=== PATIENT | female | born 1965 | race Hispanic/Latino ===

== ENCOUNTER 2019-04-16 10:13 | Emergency (ER) | payer OTHER, SELFPAY ==
[2019-04-16] MEDS ORDERED: METHYLPREDNISOLONE 125 MG INJ ONE (12:45)
[2019-04-16] MEDS ORDERED: DIPHENHYDRAMINE 50 MG/ML VIAL ONE (12:45)
[2019-04-16 12:49] LABS: Absolute Lymphocytes (CBC) 1.3 K/uL (0.7-4.9); Hematocrit 29.3 % (36.0-45.0); MPV 7.6 fL (7.6-11.3); RBC Red Blood Cell Count 3.39 M/uL (3.86-4.86)
[2019-04-16 13:06] LABS: Potassium 4.9 mmol/L (3.5-5.1)
--- NOTE | 2019-04-16 14:54 | ER ---
Nurse's Notes [facility] Name: Barbara Ibarra Age: 53 yrs Sex: Female : 1965 Arrival Date: 04/16/2019 Time: 10:16 Bed 25 Private MD: Diagnosis: Acute allergic reaction Presentation: 04/15 11:01 Chief complaint: Patient states: Sore throat x 3 days. Diarrhea since a week ago. ca1 Denies N/V, cough and congestion. Swelling on on face and around eyes on and off since Sunday, worst today. Coronavirus screen: The patient has NOT traveled to a country currently being monitored by the [facility] within the last 14 days. The patient has NOT had contact with any known and/or suspected case of coronavirus. Ebola Screen: Patient negative for fever greater than or equal to 101.5 degrees Fahrenheit, and additional compatible Ebola Virus Disease symptoms Patient denies exposure to infectious person. Patient denies travel to an Ebola-affected area in the 21 days before illness onset. No symptoms or risks identified at this time. Initial Sepsis Screen: Does the patient meet any 2 criteria? No. Patient's initial sepsis screen is negative. Does the patient have a suspected source of infection? No. Patient's initial sepsis screen is negative. Risk Assessment: Do you want to hurt yourself or someone else? Patient reports no desire to harm self or others. Onset of symptoms was April 16, 2019. 11:01 Method Of Arrival: Wheelchair ca1 11:01 Acuity: AZUCENA 3 ca1 Triage Assessment: 11:08 General: Appears in no apparent distress. comfortable, Behavior is calm, cooperative, ca1 appropriate for age. EENT: Eyes swollen. Throat is clear. 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 LMP N/A - Post-menopause ca1 Historical: - Allergies: 11:08 No Known Allergies; ca1 - Home Meds: 11: Unithroid 50 mcg oral tab 1 tab once daily [Active]; levothyroxine oral once daily ca1 [Active]; amlodipine 10 mg tab 1 tab once daily [Active]; Humetanide 1mg twice a day [Active]; carvedilol 25 mg oral tab 1 tab 2 times per day [Active]; hydralazine 25 mg Oral tab 1 tab three times a day [Active]; atorvastatin 80 mg oral tab 1 tab once daily [Active]; calcium acetate oral oral 3 times per day [Active]; Lantus 100 unit/mL Sub-Q soln 20 unit [Active]; Humalog Pen Sub-Q 10 unit [Active]; - PMHx: 11:08 Diabetes - NIDDM; Hypertension; Thyroid problem; Anemia; Diabetes - IDDM; ca1 Hyperlipidemia; - PSHx: 11:08 None; ca1 - Immunization history:: Adult Immunizations up to date, Flu vaccine is up to date. - Social history:: Smoking status: Patient denies any tobacco usage or history of. Screenin:48 Abuse screen: Denies threats or abuse. Denies injuries from another. Nutritional iw screening: No deficits noted. Tuberculosis screening: No symptoms or risk factors identified. Fall Risk IV access (20 points). Assessment: 12:47 General: Appears in no apparent distress. Behavior is calm, cooperative. General: iw Denies fever, chills. Pain: Denies pain. Neuro: Level of Consciousness is awake, alert, obeys commands, Oriented to person, place, time, situation, Moves all extremities. Full function. Cardiovascular: Patient's skin is warm and dry. Respiratory: Reports cough that is Airway is patent Respiratory effort is even, unlabored, Breath sounds are clear bilaterally. GI: Reports diarrhea. Derm: Skin is healthy with good turgor, swelling noted to pamela eyes. Musculoskeletal: Range of motion: intact in all extremities. Vital Signs: 11:01 BP 155 / 76; Pulse 82; Resp 16 S; Temp 97.1(O); Pulse Ox 98% on R/A; Weight 64.86 kg ca1 (R); Height 4 ft. 10 in. (147.32 cm) (R); 12:49 BP 157 / 86; Pulse 81; Resp 16; Pulse Ox 96% on R/A; Pain 0/10; iw 13:48 BP 127 / 98; Pulse 82; Resp 16; Pulse Ox 95% on R/A; iw 11:01 Body Mass Index 29.89 (64.86 kg, 147.32 cm) ca1 ED Course: 10:16 Patient arrived in ED. mr 11:04 Triage completed. ca1 11:08 Arm band placed on right wrist. ca1 12:08 Stevenson Crockett MD is Attending Physician. kdr 12:15 Boris, Mela, RN is Primary Nurse. iw 12:48 Patient has correct armband on for positive identification. iw 12:48 Initial lab(s) drawn, by me, sent to lab. Inserted saline lock: 20 gauge in left iw antecubital area, using aseptic technique. Blood collected. 15:00 No provider procedures requiring assistance completed. IV discontinued, intact, iw bleeding controlled, No redness/swelling at site. Pressure dressing applied. Administered Medications: 12:46 Drug: SOLU-Medrol 125 mg Route: IVP; Site: left antecubital; iw 12:46 Drug: Benadryl 12.5 mg Route: IVP; Site: left antecubital; iw Outcome: 14:53 Discharge ordered by . kdr 15:00 Discharged to home ambulatory, with family. iw 15:00 Condition: good 15:00 Discharge instructions given to patient, family, Instructed on discharge instructions, follow up and referral plans. medication usage, Demonstrated understanding of instructions, follow-up care, medications, Prescriptions given X 2. 15:01 Patient left the ED. iw Signatures: Stevenson Crockett MD MD kdr Rivera, Mary mr Williams, Irene, RN RN iw Azeb Nails RN RN ca1
--- NOTE | 2019-04-16 14:54 | EDPHYS ---
Physician Documentation [facility] Name: Barbara Ibarra Age: 53 yrs Sex: Female : 1965 Arrival Date: 04/16/2019 Time: 10:16 Bed 25 Private MD: ED Physician Stevenson Crockett HPI: 04/16 07:22 This 53 yrs old Female presents to ER via Wheelchair with complaints of Sore kdr Throat, Eye Problem. 07:22 The patient has multiple c/o including swollen eyes since Sunday, Diarrhea for about a kdr week and sore throat for three days. Other than the periorbital eye lid swelling the patient did not appear to be in any acute distress. Severity of symptoms: At their worst the symptoms were mild in the emergency department the symptoms are unchanged. The patient has not experienced similar symptoms in the past. The patient has not recently seen a physician. Denies any known precipitant for the swelling. 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 LMP N/A - Post-menopause ca1 Historical: - Allergies: 11:08 No Known Allergies; ca1 - Home Meds: 11:08 Unithroid 50 mcg oral tab 1 tab once daily [Active]; levothyroxine oral once daily ca1 [Active]; amlodipine 10 mg tab 1 tab once daily [Active]; Humetanide 1mg twice a day [Active]; carvedilol 25 mg oral tab 1 tab 2 times per day [Active]; hydralazine 25 mg Oral tab 1 tab three times a day [Active]; atorvastatin 80 mg oral tab 1 tab once daily [Active]; calcium acetate oral oral 3 times per day [Active]; Lantus 100 unit/mL Sub-Q soln 20 unit [Active]; Humalog Pen Sub-Q 10 unit [Active]; - PMHx: 11:08 Diabetes - NIDDM; Hypertension; Thyroid problem; Anemia; Diabetes - IDDM; ca1 Hyperlipidemia; - PSHx: 11:08 None; ca1 - Immunization history:: Adult Immunizations up to date, Flu vaccine is up to date. - Social history:: Smoking status: Patient denies any tobacco usage or history of. ROS: 04/16 07:22 Constitutional: Negative for fever, chills, and weight loss, Neck: Negative for injury, kdr pain, and swelling, Cardiovascular: Negative for chest pain, palpitations, and edema, Respiratory: Negative for shortness of breath, cough, wheezing, and pleuritic chest pain, Back: Negative for injury and pain, : Negative for injury, bleeding, discharge, and swelling, MS/Extremity: Negative for injury and deformity, Skin: Negative for injury, rash, and discoloration, Neuro: Negative for headache, weakness, numbness, tingling, and seizure activity. Psych: Negative for depression, anxiety, suicide ideation, homicidal ideation, and hallucinations, Allergy/Immunology: Negative for hives, rash, and allergies, Endocrine: Negative for neck swelling, polydipsia, polyuria, polyphagia, and marked weight changes, Hematologic/Lymphatic: Negative for swollen nodes, abnormal bleeding, and unusual bruising. Eyes: Positive for swelling, Negative for blurry vision, discharge, foreign body sensation, icterus, injury or acute deformity, itching, matting, pain, photophobia, redness, tearing, vision loss, visual disturbance. ENT: Positive for sore throat, Negative for injury or acute deformity. Respiratory: Positive for cough, with no reported sputum, Negative for dyspnea on exertion, hemoptysis, orthopnea, pleurisy, shortness of breath, sputum production, wheezing. Abdomen/GI: Positive for diarrhea. Exam: 07:22 Constitutional: This is a well developed, well nourished patient who is awake, alert, kdr and in no acute distress. Head/Face: Normocephalic, atraumatic. ENT: Nares patent. No nasal discharge, no septal abnormalities noted. Tympanic membranes are normal and external auditory canals are clear. Oropharynx with no redness, swelling, or masses, exudates, or evidence of obstruction, uvula midline. Mucous membranes moist. Neck: Trachea midline, no thyromegaly or masses palpated, and no cervical lymphadenopathy. Supple, full range of motion without nuchal rigidity, or vertebral point tenderness. No Meningismus. Chest/axilla: Normal chest wall appearance and motion. Nontender with no deformity. No lesions are appreciated. Cardiovascular: Regular rate and rhythm with a normal S1 and S2. No gallops, murmurs, or rubs. Normal PMI, no JVD. No pulse deficits. Respiratory: Lungs have equal breath sounds bilaterally, clear to auscultation and percussion. No rales, rhonchi or wheezes noted. No increased work of breathing, no retractions or nasal flaring. Abdomen/GI: Soft, non-tender, with normal bowel sounds. No distension or tympany. No guarding or rebound. No evidence of tenderness throughout. Back: No spinal tenderness. No costovertebral tenderness. Full range of motion. Skin: Warm, dry with normal turgor. Normal color with no rashes, no lesions, and no evidence of cellulitis. MS/ Extremity: Pulses equal, no cyanosis. Neurovascular intact. Full, normal range of motion. Neuro: Awake and alert, GCS 15, oriented to person, place, time, and situation. Cranial nerves II-XII grossly intact. Motor strength 5/5 in all extremities. Sensory grossly intact. Cerebellar exam normal. Normal gait. Psych: Awake, alert, with orientation to person, place and time. Behavior, mood, and affect are within normal limits. 07:22 Eyes: Lids and lashes: erythema, seen bilaterally, Swelling of both upper and lower eye lids. Vital Signs: 04/15 11:01 BP 155 / 76; Pulse 82; Resp 16 S; Temp 97.1(O); Pulse Ox 98% on R/A; Weight 64.86 kg ca1 (R); Height 4 ft. 10 in. (147.32 cm) (R); 12:49 BP 157 / 86; Pulse 81; Resp 16; Pulse Ox 96% on R/A; Pain 0/10; iw 13:48 BP 127 / 98; Pulse 82; Resp 16; Pulse Ox 95% on R/A; iw 11:01 Body Mass Index 29.89 (64.86 kg, 147.32 cm) ca1 MDM: 14:53 Patient medically screened. kdr 04/16 07:22 Data reviewed: vital signs, nurses notes, lab test result(s). Counseling: I had a kdr detailed discussion with the patient and/or guardian regarding: the historical points, exam findings, and any diagnostic results supporting the discharge/admit diagnosis, lab results, the need for outpatient follow up. 04/15 11:25 Order name: Flu; Complete Time: 14:02 kb 04/15 11:25 Order name: Strep; Complete Time: 14:02 kb 04/15 12:31 Order name: CBC with Diff; Complete Time: 13:22 kdr 04/15 12:31 Order name: Chem 7; Complete Time: 13:22 kdr 04/15 14:19 Order name: Throat Culture EDMS Administered Medications: 04/15 12:46 Drug: SOLU-Medrol 125 mg Route: IVP; Site: left antecubital; 12:46 Drug: Benadryl 12.5 mg Route: IVP; Site: left antecubital; Disposition: 04/16/19 14:53 Discharged to Home. Impression: Acute allergic reaction. - Condition is Stable. - Discharge Instructions: Allergic Conjunctivitis, [id number]-Tari, Chronic Kidney Disease, Adult, [id number]. - Prescriptions for Benadryl 25 mg Oral Capsule - take 1 capsule by ORAL route every 6 hours As needed; 30 tablet. Medrol (Ajith) 4 mg Oral Tablets, Dose Pack - take 1 tablet by ORAL route as directed - follow package instructions; 1 packet. - Medication Reconciliation Form, Thank You Letter form. - Follow up: Private Physician; When: 2 - 3 days; Reason: If symptoms return, Further diagnostic work-up, Recheck today's complaints, Continuance of care, Re-evaluation by your physician. - Problem is new. - Symptoms have improved. Signatures: Dispatcher [employer] EDWI Stevenson Crockett MD MD kdr Mela Escalante RN RN iw Acob, Cheryl, RN RN ca1 Corrections: (The following items were deleted from the chart) 15:01 14:53 04/16/2019 14:53 Discharged to Home. Impression: Acute allergic reaction. iw Condition is Stable. Forms are Medication Reconciliation Form, Thank You Letter, Antibiotic Education, Prescription Opioid Use. Follow up: Private Physician; When: 2 - 3 days; Reason: If symptoms return, Further diagnostic work-up, Recheck today's complaints, Continuance of care, Re-evaluation by your physician. Problem is new. Symptoms have improved. kdr
[2019-04-16 15:21] VITALS: TEMP 97.1
[2019-04-16 15:25] VITALS: BP 127/98; O2SAT 95
== END 2019-04-16 15:01 | disposition home or self-care (01) ==
LOC: ER 10:13
DX: J02.9 Acute pharyngitis, unspecified (principal); T78.40XA Allergy, unspecified, initial encounter; X58.XXXA Exposure to other specified factors, initial encounter; E11.9 Type 2 diabetes mellitus without complications; I10 Essential (primary) hypertension; E78.5 Hyperlipidemia, unspecified
CPT/HCPCS: 36415; 80048; 85025; 87070; 87081; 87804; 96374; 96375; 99284; J1200; J2930

== ENCOUNTER 2019-04-18 09:42 | Inpatient (IN) | payer OTHER, SELFPAY ==
[2019-04-18] MEDS ORDERED: LEVALBUTEROL 1.25 MG/3 ML NEB ONE (10:22)
[2019-04-18] MEDS ORDERED: METHYLPREDNISOLONE 40 MG INJ ONE (10:56)
[2019-04-18 11:04] LABS: Absolute Lymphocytes (CBC) 1.4 K/uL (0.7-4.9); Basophils % 0.6 % (0-1.3); Hematocrit 33.3 % (36.0-45.0); Lymphocytes % 6.8 % (15.3-44.8); MPV 7.4 fL (7.6-11.3); RBC Red Blood Cell Count 3.79 M/uL (3.86-4.86)
[2019-04-18 11:08] LABS: Protime INR 1.04
[2019-04-18 11:15] LABS: Albumin 2.7 g/dL (3.4-5.0); Bilirubin Direct 0.1 mg/dL (0-0.2); Bilirubin Total 0.4 mg/dL (0.2-1.0); Protein, Total 7.8 g/dL (6.4-8.2); Troponin (Emerg Dept Use Only) 0.02 ng/mL (0.0-0.045)
[2019-04-18 11:17] LABS: Magnesium 1.3 mg/dL (1.8-2.4)
[2019-04-18] MEDS ORDERED: IPRATROPIUM BROM 0.5MG/2.5ML ONE (11:53)
[2019-04-18] MEDS ORDERED: Magnesium Sulfate 2gm IVPB 2 G/50 ML BAG IV ONE (11:54)
[2019-04-18] MEDS ORDERED: ALBUTEROL 2.5 MG/3 ML NEB SOL ONE (11:54)
--- NOTE | 2019-04-18 12:17 | RAD REPORT ---
EXAM DESCRIPTION: Miguel Single View04/18/2019 12:08 pm CLINICAL HISTORY: Cough COMPARISON: none FINDINGS: Right upper lobe consolidation Left lung appears clear Heart is upper limits normal size IMPRESSION: Right upper lobe consolidation consist pneumonia. This should be followed until it has cleared to help exclude a post obstructive process/underlying mass
[2019-04-18 12:24] LABS: Blood Morphology Comment NOT SEEN (NOT SEEN); Platelet Estimate ADEQ
--- NOTE | 2019-04-18 13:05 | RAD REPORT ---
EXAM DESCRIPTION: USExtrem Venous W Compress Bil04/18/2019 12:58 pm CLINICAL HISTORY: Leg pain COMPARISON: none FINDINGS: The common femoral, superficial femoral, popliteal and posterior tibial veins bilaterally are compressible and demonstrate augmentation. Doppler demonstrates good flow. IMPRESSION: No evidence of deep venous thrombosis involving either lower extremity.
--- NOTE | 2019-04-18 13:17 | ER ---
Nurse's Notes [facility] Name: Barbara Ibarra Age: 53 yrs Sex: Female : 1965 Arrival Date: 04/18/2019 Time: 09:45 Bed 19 Private MD: Diagnosis: Pneumonia due to other specified bacteria;Respiratory failure, unspecified with hypoxia Presentation: 04/17 10:10 Chief complaint: Patient states: Cough, shortness of breath and chest pain since last aj1 night. Denies fever. Patient's eye are swollen bilaterally, states that have been like that "for a while" she was seen here for that on Sunday and prescribed allergy medicine, but it isn't helping. Coronavirus screen: The patient has NOT traveled to a country currently being monitored by the [facility] within the last 14 days. Ebola Screen: Patient denies travel to an Ebola-affected area in the 21 days before illness onset. Initial Sepsis Screen: Does the patient meet any 2 criteria? RR > 20 per min. HR > 90 bpm. Yes Does the patient have a suspected source of infection? Yes: Productive cough/pneumonia If YES to both, name of provider notified: Mahad DE ANDA. Risk Assessment: Do you want to hurt yourself or someone else?. 10:10 Method Of Arrival: Wheelchair aj1 10:10 Acuity: AZUCENA 2 aj1 Triage Assessment: 10:14 General: Appears uncomfortable, Behavior is calm, cooperative, appropriate for age. aj1 Pain: Complains of pain in anterior aspect of right upper chest. Respiratory: Reports shortness of breath at rest cough that is productive, Onset: The symptoms/episode began/occurred yesterday, the patient has moderate shortness of breath. Historical: - Allergies: 10:14 No Known Allergies; aj1 - Home Meds: 10:14 amlodipine 10 mg tab 1 tab once daily [Active]; calcium acetate Oral 3 times per day aj1 [Active]; atorvastatin 80 mg Oral tab 1 tab once daily [Active]; carvedilol 25 mg Oral tab 1 tab 2 times per day [Active]; Humalog Pen Sub-Q 10 unit [Active]; hydralazine 25 mg Oral tab 1 tab three times a day [Active]; Humetanide 1mg twice a day [Active]; Lantus 100 unit/mL Sub-Q soln 20 unit [Active]; Unithroid 50 mcg Oral tab 1 tab once daily [Active]; levothyroxine oral once daily [Active]; - PMHx: 10:14 Anemia; Diabetes - NIDDM; Hyperlipidemia; Hypertension; Thyroid problem; aj1 - Immunization history:: Flu vaccine is not up to date. - Social history:: Smoking status: Patient/guardian denies using tobacco. Screenin:16 Abuse screen: Denies threats or abuse. Denies injuries from another. Nutritional aj1 screening: No deficits noted. Tuberculosis screening: No symptoms or risk factors identified. 17:48 Fall Risk No fall in past 12 months (0 pts). No secondary diagnosis (0 pts). IV access aj1 (20 points). Ambulatory Aid- None/Bed Rest/Nurse Assist (0 pts). Gait- Normal/Bed Rest/Wheelchair (0 pts) Mental Status- Oriented to own ability (0 pts). Total Shields Fall Scale indicates No Risk (0-24 pts). Assessment: 10:16 General: Appears uncomfortable, Behavior is calm, cooperative, appropriate for age. aj1 Pain: Complains of pain in anterior aspect of right upper chest Pain does not radiate. Pain currently is 8 out of 10 on a pain scale. Quality of pain is described as sharp, Pain began 1 day ago. Neuro: Level of Consciousness is awake, alert, obeys commands, Oriented to person, place, time, situation. Cardiovascular: Reports chest pain, shortness of breath, Heart tones S1 S2 present Patient's skin is warm and dry. Rhythm is sinus tachycardia. Respiratory: Reports shortness of breath at rest cough that is productive, Airway is patent Respiratory effort is even, labored, Respiratory pattern is regular, symmetrical, Breath sounds with crackles bilaterally. Breath sounds with rhonchi bilaterally. Breath sounds with wheezes bilaterally. GI: No signs and/or symptoms were reported involving the gastrointestinal system. : No signs and/or symptoms were reported regarding the genitourinary system. EENT: Lid(s) swelling noted to bilateral eye lids. Derm: No signs and/or symptoms reported regarding the dermatologic system. Skin is pink, warm \\T\\ dry. normal. Musculoskeletal: No signs and/or symptoms reported regarding the musculoskeletal system. Circulation, motion, and sensation intact. 11:20 Reassessment: Patient appears in no apparent distress at this time. No changes from aj1 previously documented assessment. Patient and/or family updated on plan of care and expected duration. Pain level reassessed. Patient is alert, oriented x 3, equal unlabored respirations, skin warm/dry/pink. 11:35 Reassessment: Patient was placed on room air to test tolerance after breathing aj1 treatment. Patient's O2 sat dropped to 78%. Patient placed back on O2\\T\\4L nc. 12:14 Reassessment: Patient appears in no apparent distress at this time. No changes from aj1 previously documented assessment. Patient and/or family updated on plan of care and expected duration. Pain level reassessed. Patient is alert, oriented x 3, equal unlabored respirations, skin warm/dry/pink. 12:31 Reassessment: Patient transported to ultrasound via stretcher. aj1 13:20 Reassessment: Patient and/or family updated on plan of care and expected duration. Pain aj1 level reassessed. General: Appears in no apparent distress. uncomfortable, Behavior is calm, cooperative, appropriate for age. Neuro: Level of Consciousness is awake, alert, obeys commands, Oriented to person, place, time, situation. Cardiovascular: Patient's skin is warm and dry. Rhythm is sinus tachycardia. Respiratory: Airway is patent Respiratory effort is even, unlabored, Respiratory pattern is regular, symmetrical, Breath sounds with crackles bilaterally. Breath sounds with rhonchi bilaterally. Derm: Skin is pink, warm \\T\\ dry. normal. Musculoskeletal: Circulation, motion, and sensation intact. 14:20 Reassessment: Patient appears in no apparent distress at this time. No changes from aj1 previously documented assessment. Patient and/or family updated on plan of care and expected duration. Pain level reassessed. Patient is alert, oriented x 3, equal unlabored respirations, skin warm/dry/pink. 15:22 Reassessment: Patient transported to nuclear med for VQ scan via stretcher, with oxygen.aj1 16:13 Reassessment: Patient appears in no apparent distress at this time. No changes from aj1 previously documented assessment. Patient and/or family updated on plan of care and expected duration. Pain level reassessed. Patient is alert, oriented x 3, equal unlabored respirations, skin warm/dry/pink. 17:20 Reassessment: Patient appears in no apparent distress at this time. No changes from aj1 previously documented assessment. Patient and/or family updated on plan of care and expected duration. Pain level reassessed. Patient is alert, oriented x 3, equal unlabored respirations, skin warm/dry/pink. Vital Signs: 10:10 BP 180 / 108; Pulse 105; Resp 24; Temp 97.4; Pulse Ox 87% on R/A; Weight 63.5 kg (R); aj1 Height 4 ft. 10 in. (147.32 cm) (R); 10:16 Pulse Ox 94% on 3 lpm NC; aj1 10:34 BP 182 / 92; Pulse 111; Resp 20; Pulse Ox 97% on Nebulizer Mask; aj1 11:02 BP 141 / 83; Pulse 113; Resp 18; Temp 97.6(TE); Pulse Ox 94% on R/A; mh5 11:19 BP 127 / 67; Pulse 109; Resp 18; Pulse Ox 94% on 3 lpm NC; aj1 12:13 BP 153 / 82; Pulse 108; Resp 15; Pulse Ox 97% on Nebulizer Mask; aj1 13:20 BP 157 / 86; Pulse 110; Resp 20; Pulse Ox 94% on 4 lpm NC; aj1 14:20 BP 128 / 75; Pulse 110; Resp 24; Pulse Ox 96% on 4 lpm NC; aj1 15:20 BP 149 / 86; Pulse 108; Resp 20; Pulse Ox 98% on 4 lpm NC; aj1 16:13 BP 172 / 89; Pulse 107; Resp 15; Pulse Ox 98% on 4 lpm NC; aj1 17:49 BP 153 / 75; Pulse 108; Resp 20; Pulse Ox 97% on 4 lpm NC; aj1 10:10 Body Mass Index 29.26 (63.50 kg, 147.32 cm) aj1 ED Course: 09:45 Patient arrived in ED. fj1 10:01 Mahad Otero PA is PHCP. cp 10:01 Mahad Horne MD is Attending Physician. cp 10:10 Margi Montes, BHAKTI is Primary Nurse. aj1 10:12 Triage completed. aj1 10:14 Arm band placed on. aj1 10:16 Patient has correct armband on for positive identification. Bed in low position. Call aj1 light in reach. Side rails up X 1. Family at bedside. health and safety technician on. Pulse ox on. NIBP on. 10:16 No provider procedures requiring assistance completed. aj1 10:18 EKG done, by materials engineering technician. reviewed by Mahad DE ANDA. vh 10:27 Patient has correct armband on for positive identification. Bed in low position. Call mh5 light in reach. Side rails up X 1. Adult w/ patient. Warm blanket given. health and safety technician on. Pulse ox on. NIBP on. 10:34 Missed attempt(s): 20 gauge in right antecubital area. Bleeding controlled, band aid aj1 applied, catheter tip intact. 10:48 Initial lab(s) drawn, by me, sent to lab. Inserted saline lock: 20 gauge in left aj1 antecubital area, using aseptic technique. Blood collected. 13:00 First set of blood cultures drawn by me. jp3 13:15 Quinn Sanchez MD is Hospitalizing Provider. cp 13:25 Second set of blood cultures drawn by me. jp3 13:45 Cleaned of incontinence. Linen changed. jp3 17:21 Report given to BHAKTI Rodriguez on 4th floor. aj1 17:54 Patient admitted, IV remains in place. aj1 Administered Medications: 10:23 Drug: Xopenex (3) 1.25 mg Route: Inhalation; aj1 11:30 Follow up: Response: No adverse reaction aj1 10:54 Drug: SOLU-Medrol 80 mg Route: IVP; Site: left antecubital; aj1 12:00 Follow up: Response: No adverse reaction aj1 11:56 Drug: Magnesium Sulfate 2 grams Route: IVPB; Infused Over: 2 hrs; Site: left [facility] antecubital; 11:56 Drug: Albuterol 2.5 mg Route: Inhalation; aj1 11:56 Drug: AtroVENT Aerosol 0.5 mg Route: Inhalation; aj1 14:14 Drug: Rocephin - (cefTRIAXone) 2 grams Route: IVPB; Infused Over: 30 mins; Site: left aj1 antecubital; 15:30 Follow up: IV Status: Completed infusion; IV Intake: 100ml aj1 14:15 Drug: Lovenox 1 mg/kg Route: Sub-Q; Site: right lower abdomen; aj1 15:15 Follow up: Response: No adverse reaction aj1 16:12 Drug: Zithromax 500 mg Route: IVPB; Infused Over: 1 hrs; Site: left antecubital; aj1 17:30 Follow up: IV Status: Completed infusion; IV Intake: 250ml aj1 Intake: 15:30 IV: 100ml; Total: 100ml. aj1 17:30 IV: 250ml; Total: 350ml. aj1 Outcome: 13:16 Decision to Hospitalize by Provider. cp 17:53 Admitted to Tele accompanied by tech, via stretcher, with oxygen, with chart. aj1 17:53 Condition: stable 17:53 Discharge instructions given to patient, family, Instructed on the need for admit, Demonstrated understanding of instructions. 17:56 Patient left the ED. aj1 Signatures: Margi Montes RN RN aj1 Lexus Dailey Corey, PA PA cp Martinez, Maria [facility] Ronald Coronado 3 Matt Shin fj1
--- NOTE | 2019-04-18 13:18 | EDPHYS ---
Physician Documentation [facility] Name: Barbara Ibarra Age: 53 yrs Sex: Female : 1965 Arrival Date: 04/18/2019 Time: 09:45 Bed 19 Private MD: ED Physician Mahad Horne HPI: 04/17 10:20 This 53 yrs old Female presents to ER via Wheelchair with complaints of cp Breathing Difficulty, Back Pain. 10:20 The patient has shortness of breath at rest. cp 10:20 Onset: The symptoms/episode began/occurred yesterday. cp 10:20 Duration: The symptoms are continuous, and are steadily getting worse. Associated signs cp and symptoms: Pertinent positives: chest pain, non-productive cough, Pertinent negatives: diaphoresis, fever, vomiting. Severity of symptoms: in the emergency department the symptoms are unchanged despite home interventions. The patient has been recently seen at the [facility] Emergency Department, this week, allergic reaction. Historical: - Allergies: 10:14 No Known Allergies; aj1 - Home Meds: 10:14 amlodipine 10 mg tab 1 tab once daily [Active]; calcium acetate Oral 3 times per day aj1 [Active]; atorvastatin 80 mg Oral tab 1 tab once daily [Active]; carvedilol 25 mg Oral tab 1 tab 2 times per day [Active]; Humalog Pen Sub-Q 10 unit [Active]; hydralazine 25 mg Oral tab 1 tab three times a day [Active]; Humetanide 1mg twice a day [Active]; Lantus 100 unit/mL Sub-Q soln 20 unit [Active]; Unithroid 50 mcg Oral tab 1 tab once daily [Active]; levothyroxine oral once daily [Active]; - PMHx: 10:14 Anemia; Diabetes - NIDDM; Hyperlipidemia; Hypertension; Thyroid problem; aj1 - Immunization history:: Flu vaccine is not up to date. - Social history:: Smoking status: Patient/guardian denies using tobacco. ROS: 10:25 Constitutional: Negative for fever, poor PO intake. cp 10:25 Eyes: Positive for swelling, of the left periorbital and right periorbital, Negative cp for discharge, redness. 10:25 ENT: Negative for drainage from ear(s), ear pain, difficulty swallowing, difficulty handling secretions. 10:25 Cardiovascular: Positive for chest pain. 10:25 Respiratory: Positive for cough, shortness of breath. 10:25 Abdomen/GI: Negative for abdominal pain, vomiting, diarrhea, constipation. 10:25 Back: Positive for pain at rest, pain with movement. 10:25 Skin: Negative for cellulitis, rash. 10:25 Neuro: Negative for altered mental status, headache. 10:25 All other systems are negative. Exam: 10:30 Constitutional: The patient appears alert, awake, non-diaphoretic, well developed, well cp nourished, in obvious distress, moderately distressed, obviously ill, uncomfortable. 10:30 Head/face: Exam is negative for obvious evidence of injury or deformity. cp 10:30 Eyes: Periorbital structures: erythema, is not appreciated, swelling, that is moderate, bilaterally, Pupils: equal, round, and reactive to light and accomodation, Extraocular movements: intact throughout, Conjunctiva: normal, no exudate, no injection, Sclera: no appreciated abnormality. 10:30 ENT: External ear(s): are unremarkable, Ear canal(s): are normal, clear, TM's: bulging, is not appreciated, bilaterally, erythema, is not appreciated, bilaterally, Nose: is normal, Mouth: Lips: moist, Oral mucosa: pink and intact, moist, Posterior pharynx: is normal, airway is patent, no erythema, no exudate. 10:30 Neck: ROM/movement: is normal, is supple, no meningismus, no nuchal rigidity. 10:30 Chest/axilla: Inspection: normal, Palpation: is normal, no crepitus, no tenderness. 10:30 Cardiovascular: Rate: tachycardic, Rhythm: regular, Edema: is not appreciated, JVD: is not appreciated. 10:30 Respiratory: moderate respiratory distress is noted, Respirations: labored breathing, that is moderate, shallow respirations, that is mild, Breath sounds: bronchial sounds, that are moderate, are heard diffusely, stridor, is not appreciated, wheezing: is not appreciated. 10:30 Abdomen/GI: Inspection: abdomen appears normal, Bowel sounds: active, all quadrants, Palpation: abdomen is soft and non-tender, in all quadrants, rebound tenderness, is not appreciated, involuntary guarding, is not appreciated. 10:30 Back: pain, that is moderate, ROM is painful. 10:30 Skin: no rash present. 10:30 Neuro: Orientation: to person, place \T\ time. Mentation: is normal, Motor: moves all fours, strength is normal. 10:57 ECG was reviewed by the Attending Physician. cp Vital Signs: 10:10 BP 180 / 108; Pulse 105; Resp 24; Temp 97.4; Pulse Ox 87% on R/A; Weight 63.5 kg (R); aj1 Height 4 ft. 10 in. (147.32 cm) (R); 10:16 Pulse Ox 94% on 3 lpm NC; aj1 10:34 BP 182 / 92; Pulse 111; Resp 20; Pulse Ox 97% on Nebulizer Mask; aj1 11:02 BP 141 / 83; Pulse 113; Resp 18; Temp 97.6(TE); Pulse Ox 94% on R/A; mh5 11:19 BP 127 / 67; Pulse 109; Resp 18; Pulse Ox 94% on 3 lpm NC; aj1 12:13 BP 153 / 82; Pulse 108; Resp 15; Pulse Ox 97% on Nebulizer Mask; aj1 13:20 BP 157 / 86; Pulse 110; Resp 20; Pulse Ox 94% on 4 lpm NC; aj1 14:20 BP 128 / 75; Pulse 110; Resp 24; Pulse Ox 96% on 4 lpm NC; aj1 15:20 BP 149 / 86; Pulse 108; Resp 20; Pulse Ox 98% on 4 lpm NC; aj1 16:13 BP 172 / 89; Pulse 107; Resp 15; Pulse Ox 98% on 4 lpm NC; aj1 17:49 BP 153 / 75; Pulse 108; Resp 20; Pulse Ox 97% on 4 lpm NC; aj1 10:10 Body Mass Index 29.26 (63.50 kg, 147.32 cm) aj1 MDM: 10:11 Patient medically screened. cp 10:30 Differential diagnosis: asthma, CHF exacerbation, Chronic Obstructive Pulmonary Disease cp pneumonia, pulmonary edema, Pulmonary Embolism Sepsis Unstable Angina. 12:35 Data reviewed: vital signs, nurses notes, lab test result(s), EKG, radiologic studies, cp plain films, and as a result, I will admit patient. 12:35 Test interpretation: by ED physician or midlevel provider: ECG, plain radiologic cp studies, chest xray shows consolidation right upper lobe. 13:15 Physician consultation: Quinn Sanchez MD was called at 13:10, was contacted at 13:10, cp regarding admission, to the telemetry unit. patient's condition. 04/17 10:18 Order name: Basic Metabolic Panel cp 04/17 10:18 Order name: CBC with Diff cp 04/17 10:18 Order name: LFT's cp 04/17 10:18 Order name: Magnesium cp 04/17 10:18 Order name: NT PRO-BNP cp 04/17 10:18 Order name: PT-INR cp 04/17 10:18 Order name: Troponin (emerg Dept Use Only) cp 04/17 10:18 Order name: Influenza Screen (a \T\ B) cp 04/17 10:20 Order name: Lactate cp 04/17 10:20 Order name: Procalcitonin cp 04/17 10:20 Order name: D-Dimer cp 04/17 11:06 Order name: CBC with Automated Diff; Complete Time: 12:31 EDMS 04/17 11:14 Interpretation: Normal except: WBC 19.9; RBC 3.79; HGB 10.7; HCT 33.3; RDW 18.1; MPV cp 7.4; NANDO% 87.0; LYM% 6.8; NEUT A 17.3. 04/17 11:12 Order name: Protime (+INR); Complete Time: 11:13 EDMS 04/17 11:12 Order name: D-Dimer; Complete Time: 11:13 EDMS 04/17 11:12 Order name: Lactate; Complete Time: 11:13 EDMS 04/17 11:16 Order name: Influenza Screen (A ; Complete Time: 11:19 EDMS 04/17 11:18 Order name: Basic Metabolic Panel; Complete Time: 11:19 EDMS 04/17 11:19 Interpretation: Normal except: CL 112; GLUC 205; BUN 80; CRE 4.61; GFR 10. cp 04/17 11:18 Order name: Liver (Hepatic) Function; Complete Time: 11:19 EDMS 04/17 11:18 Order name: Troponin (Emerg Dept Use Only); Complete Time: 11:19 EDMS 04/17 11:18 Order name: NT PRO-BNP; Complete Time: 11:19 EDMS 04/17 11:18 Order name: Magnesium; Complete Time: 11:19 EDMS 04/17 11:21 Order name: Procalcitonin; Complete Time: 11:22 EDMS 04/17 11:22 Interpretation: Reviewed. cp 04/17 11:21 Order name: XRAY Chest (1 view) cp 04/17 11:23 Order name: US Extremity Venous W Compression [place] cp 04/17 12:19 Order name: RAD; Complete Time: 12:31 EDMS 04/17 12:24 Order name: Manual Differential; Complete Time: 12:31 EDMS 04/17 12:32 Order name: Blood Culture Adult (2) cp 04/17 13:10 Order name: US; Complete Time: 13:13 EDMS 04/17 13:16 Order name: VQ scan (Nuclear Medicine) 04/17 10:18 Order name: EKG; Complete Time: 10:19 cp 04/17 10:18 Order name: Cardiac monitoring; Complete Time: 10:23 cp 04/17 10:18 Order name: EKG - Nurse/Tech; Complete Time: 10:34 cp 04/17 10:18 Order name: IV Saline Lock; Complete Time: 10:49 cp 04/17 10:18 Order name: Labs collected and sent; Complete Time: 10:49 cp 04/17 10:18 Order name: O2 Per Protocol; Complete Time: 10:24 cp 04/17 10:18 Order name: O2 Sat Monitoring; Complete Time: 10:24 cp 04/17 16:07 Order name: NM; Complete Time: 01:29 EDMS EC:57 Rate is 111 beats/min. Rhythm is regular. DE interval is normal. QRS interval is cp normal. QT interval is normal. T waves are Flattened in lead aVL. Interpreted by me. Reviewed by me. Administered Medications: 10:23 Drug: Xopenex (3) 1.25 mg Route: Inhalation; aj1 11:30 Follow up: Response: No adverse reaction aj1 10:54 Drug: SOLU-Medrol 80 mg Route: IVP; Site: left antecubital; aj1 12:00 Follow up: Response: No adverse reaction aj1 11:56 Drug: Magnesium Sulfate 2 grams Route: IVPB; Infused Over: 2 hrs; Site: left aj1 antecubital; 11:56 Drug: Albuterol 2.5 mg Route: Inhalation; aj1 11:56 Drug: AtroVENT Aerosol 0.5 mg Route: Inhalation; aj1 14:14 Drug: Rocephin - (cefTRIAXone) 2 grams Route: IVPB; Infused Over: 30 mins; Site: left aj1 antecubital; 15:30 Follow up: IV Status: Completed infusion; IV Intake: 100ml aj 14:15 Drug: Lovenox 1 mg/kg Route: Sub-Q; Site: right lower abdomen; aj1 15:15 Follow up: Response: No adverse reaction aj1 16:12 Drug: Zithromax 500 mg Route: IVPB; Infused Over: 1 hrs; Site: left antecubital; aj1 17:30 Follow up: IV Status: Completed infusion; IV Intake: 250ml [facility] Disposition: 13:30 Chart complete. cp Disposition: 04/18/19 13:16 Hospitalization ordered by Quinn Sanchez for Inpatient Admission. Preliminary diagnosis are Pneumonia due to other specified bacteria, Respiratory failure, unspecified with hypoxia. - Bed requested for Telemetry/MedSurg (observation). - Status is Inpatient Admission. aj - Condition is Stable. - Problem is new. - Symptoms have improved. Addendum: 04/21/2019 07:10 Co-signature as Attending Physician, Mahad Horne MD I agree with the assessment and c wilson plan of care. Signatures: Dispatcher [employer] Margi Jin, BHAKTI pavon Mahad Horne MD MD cha Page, Corey PA PA Ciera Beckford Corrections: (The following items were deleted from the chart) 04/17 15:16 13:16 Hospitalization Ordered by Quinn Sanchez MD for Inpatient Admission. Preliminary eb diagnosis is Pneumonia due to other specified bacteria; Respiratory failure, unspecified with hypoxia. Bed requested for Telemetry/MedSurg (observation). Status is Inpatient Admission. Condition is Stable. Problem is new. Symptoms have improved. cp 17:56 15:16 04/18/2019 13:16 Hospitalization Ordered by Quinn Sanchez MD for Inpatient aj1 Admission. Preliminary diagnosis is Pneumonia due to other specified bacteria; Respiratory failure, unspecified with hypoxia. Bed requested for Telemetry/MedSurg (observation). Status is Inpatient Admission. Condition is Stable. Problem is new. Symptoms have improved. eb
--- NOTE | 2019-04-18 13:43 | EKG ---
Test Date: 2019-04-18 Test Time: 10:37:31 Cougar Hunter: MARCIO MEASUREMENT RESULTS: Intervals: Rate: 111 AR: 160 QRSD: 72 QT: 326 QTc: 443 [place]: P: 65 AR: 160 QRS: 79 T: 70 INTERPRETIVE STATEMENTS: Sinus tachycardia Cannot rule out Anterior infarct, age undetermined Abnormal ECG No previous ECG available for comparison Electronically Signed On 04-18-19 13:43:09 MELTER CLERK by James Chew
[2019-04-18] MEDS ORDERED: CEFTRIAXONE/SWI 1gm 2 GM/20 ML SYR ONE (14:12)
[2019-04-18] MEDS ORDERED: NA CHLORIDE 0.9% 100 ML IV ONE (14:12)
[2019-04-18] MEDS ORDERED: ENOXAPARIN 60 MG/0.6 ML SQ ONE (14:13)
[2019-04-18] MEDS ORDERED: AZITHROMYCIN IV 500 MG in NA CHLORIDE 0.9% 250 ML IVPB ONE (15:00)
--- NOTE | 2019-04-18 16:04 | RAD REPORT ---
EXAM DESCRIPTION: NM - Vent Perfusion VQ Scan - 04/18/2019 3:48 pm CLINICAL HISTORY: DYSPNEA COMPARISON: Chest Single View dated 04/18/2019 TECHNIQUE: 18.8mCi Xe-133 gas inhaled and 7.5mCi Tc-MAA IV. Planar ventilation scan was performed in posterior projection after Xe-133 gas inhalation (wash-in, e quilibrium, and wash-out phases) followed by perfusion scan with Tc-MAA IV in multiple projections. Examination is correlated with recent chest radiograph. FINDINGS: Ventilation portion of the examination is nondiagnostic due to equipment failure. Perfusion defect is seen in the right upper lung at the site of a chest film noted consolidation. Sma ll additional segmental defect is seen along the posterior aspect of the left lung. IMPRESSION: Nondiagnostic V/Q scan due to equipment failure.
[2019-04-18] MEDS ORDERED: ACETAMINOPHEN 500 MG TAB PO PRN (17:39)
[2019-04-18] MEDS ORDERED: ALBUTEROL 2.5 MG/3 ML NEB SOL NEB PRN (17:39)
[2019-04-18] MEDS ORDERED: IPRATROPIUM BROM 0.5MG/2.5ML NEB PRN (17:39)
[2019-04-18] MEDS ORDERED: DIPHENHYDRAMINE 50 MG/ML VIAL IV PRN (17:39)
[2019-04-18] MEDS ORDERED: ONDANSETRON 4 MG/2 ML VIAL IV PRN (17:39)
[2019-04-18 17:52] VITALS: BMI 29.9
[2019-04-18] MEDS ORDERED: LORATADINE 10 MG TAB PO ONE (18:00)
[2019-04-18 18:03] LABS: Arterial Blood Carboxyhemoglob 1.2 % (0-1.5); Blood Gas Oxyhemoglobin 96.3 % (94-97); Blood O2 Saturation 98.2 % (92-98.5)
--- NOTE | 2019-04-18 18:07 | RAD REPORT ---
EXAM DESCRIPTION: CT - Thorax Wo Con CLINICAL HISTORY: Chest pain RUL consolidation, possible PE COMPARISON: Chest Single View dated 04/18/2019 FINDINGS: Large airspace consolidation is seen in the right upper lobe with air bronchograms compati ble with pneumonia. Additional areas of pneumonia noted in the left lung base and superior segment ri ght lower lobe. Bilateral pleural effusions are present, mildly greater in size on the right. No pneu mothorax. Mildly enlarged mediastinal lymph nodes are present. No lytic or blastic bone lesion. No gross upper abdominal finding. All CT scans are performed using dose optimization technique as appropriate and may include automated exposure control or mA/KV adjustment according to patient size. IMPRESSION: Multifocal pneumonia is present, greatest in the right upper lobe. Small bilateral pleural effusions.
[2019-04-18] MEDS: NA CHLORIDE 0.9% 1,000 ML IV SCH (18:26)
[2019-04-18] MEDS: INSULIN -REGULAR HUMAN 50 UNIT/0.5 ML ML SQ SCH ×2 (18:35→20:08)
[2019-04-18] MEDS: INSULIN LISPRO 100 UNIT/1 ML SQ SCH (18:35)
[2019-04-18] MEDS: ATORVASTATIN 80 MG TAB PO SCH (20:09)
[2019-04-18] MEDS: RANITIDINE 150 MG TABLET PO SCH (20:09)
[2019-04-18] MEDS: BUMETANIDE 1 MG TABLET PO SCH (20:09)
[2019-04-18] MEDS: CA ACETATE 667 MG CAP PO SCH (20:10)
[2019-04-18] MEDS: HYDRALAZINE HCL 25 MG TABLET PO SCH (20:10)
[2019-04-18] MEDS: METHYLPREDNISOLONE 40 MG INJ IV SCH (20:10)
[2019-04-18] MEDS ORDERED: CEFTRIAXONE/SWI 1gm 1 GM/10 ML SYR IVP SCH (21:00)
--- NOTE | 2019-04-18 21:20 | HP ---
Date of Admission: 04/18/2019 Primary Care Physician: Out of town in [place]. Consultants: Dr. Gross with Pulmonology. Chief Complaint: Shortness of breath. History Of Present Illness: Patient is a 53-year-old female with past medical history of diabetes, h ypertension, chronic kidney disease, hypothyroidism, who was in her usual state of health, visiting h er son locally, came into the ER 2 days prior to admission with sudden onset of periorbital swelling and neck swelling. The patient denied any triggers at that time. She was treated with IV Solu-Medro l, Benadryl and discharged home with Medrol Dosepak. The patient returns to the ER today, on the day of admission, for shortness of breath of sudden onset. Denies any chest pain, nausea, vomiting, fev er, or chills. She does report some cough with scant sputum production. Denies any ill contacts. T he patient's symptoms are constant, moderate, progressively worsening. She also states that her lyndsay orbital swelling has returned. No tongue swelling. Patient denies any BANDAR inhibitor or ARB use. De nies any insect bites, changes in medications or new medications. Essentially no triggers were ident ified. In the ER, her workup revealed white blood cell count of 19.9, which may be secondary to ster oids, however, she does have a left shift. Her D-dimer was elevated at 1272. Creatinine is 4.61, un known baseline. However, she does have chronic kidney disease. Her magnesium level was also low. P rocalcitonin was intermediate at 0.13. The patient's influenza screen was negative. Her chest x-ray showed pneumonia on the right upper lobe. Doppler sonogram was negative for DVT. Patient was then referred for admission. Past Medical History: 1.Diabetes mellitus type 2, insulin requiring. 2.Chronic kidney disease, not on hemodialysis. 3.Essential hypertension. 4.Hypothyroidism. Surgical History: None. Allergies: NO KNOWN DRUG ALLERGIES. Medications: List reviewed. Social History: Patient denies any tobacco use or alcohol use. No illicit drug use. Family History: Positive for diabetes and end-stage renal disease in the mom, who . Surgical History: None. Review of Systems: Ten-point system reviewed, negative except as per HPI. Physical Examination: Vital Signs: Blood pressure of 180/108, pulse 105, respirations 24, temperature 97.4, O2 87% on room air, improved to 94% on 3 L via nasal cannula. BMI is 29.26. General: Awake, alert, and oriented x3, ill-appearing female, in some mild distress. HEENT: Normocephalic, atraumatic. PERRLA. EOMI. Moist mucous membranes. Oropharynx is clear. Eldon cleary has significant periorbital edema, however, is able to open up her eyes with assistance. Neck: Supple. No JVD. Trachea midline. No throat swelling. CV: S1, S2. Regular rate and rhythm. Peripheral pulses present. No murmurs. Respiratory: Moving air well bilaterally. No wheezing or stridor. No use of accessory muscles. Gastrointestinal: Abdomen is soft, nontender, nondistended. Positive bowel sounds. No guarding or rigidity. Extremities: No clubbing, cyanosis. Patient has some trace pedal edema. Neuro: Cranial nerves 2 through 12 intact grossly. No focal neurological deficit. Speech is normal . Laboratory Data: Sodium 139, potassium 5, chloride 112, CO2 of 22, BUN 80, creatinine 4.61, glucose 205, lactate 0.8, calcium 8.8, magnesium 1.3. BNP 42962. Troponin 0.02. Procalcitonin 0.13. INR 1 .04. D-dimer is 1272. WBC 19.9, H and H 10.7 and 33.3, platelets 216, neutrophils 87%, 4% lymphocyt es. Lower extremity DVTs, negative for DVT. Chest x-ray shows right upper lobe consolidation consistent with pneumonia. Assessment: A 53-year-old female with, 1.Right upper lobe pneumonia with hypoxia. We will start on azithromycin and Rocephin. We will obt ain blood cultures and sputum cultures. Supplemental oxygen as needed. 2.Acute respiratory distress with hypoxia secondary to above. 3.Periorbital swelling, unclear etiology. No trigger has been identified. We will start on IV ster oids, H1 cuba, H2 cuba with Claritin and ranitidine, Benadryl IV p.r.n. Monitor O2 saturations closely. No throat swelling. 4.Elevated D-dimer. Unable to do CT angio to rule out PE. We will do V/Q scan. Doppler sonogram i s negative for DVT in the lower extremities. 5.Diabetes mellitus type 2 with hyperglycemia insulin requiring. We will start on sliding scale ins ulin and monitor blood glucose levels. 6.Essential hypertension, stable. Resume home medications as appropriate. 7.Chronic kidney disease stage 4, not on dialysis. We will consult Nephrology. Monitor creatinine level, avoid NSAIDs, unknown baseline. 8.Hypothyroidism. We will continue Synthroid. DVT prophylaxis with Lovenox renally dosed. Plan: Admit patient to Med/Surg, place as inpatient. Length of stay greater than 2 midnights. /DAYO Voice ID: [id number]
[2019-04-19] MEDS: CEFTRIAXONE/SWI 1gm 1 GM/10 ML SYR IVP SCH ×2 (01:27→13:55)
[2019-04-19] MEDS: NA CHLORIDE 0.9% 1,000 ML IV SCH (05:31)
[2019-04-19 05:56] LABS: Absolute Lymphocytes (CBC) 0.5 K/uL (0.7-4.9); Hematocrit 25.3 % (36.0-45.0); Lymphocytes % 3.4 % (15.3-44.8); MPV 7.5 fL (7.6-11.3); RBC Red Blood Cell Count 2.92 M/uL (3.86-4.86)
[2019-04-19 06:08] LABS: Albumin 2.1 g/dL (3.4-5.0); Bilirubin Total 0.2 mg/dL (0.2-1.0); Protein, Total 6.4 g/dL (6.4-8.2)
[2019-04-19] MEDS: INSULIN -REGULAR HUMAN 50 UNIT/0.5 ML ML SQ SCH ×4 (08:45→21:03)
[2019-04-19] MEDS: INSULIN LISPRO 100 UNIT/1 ML SQ SCH (08:46)
[2019-04-19] MEDS: RANITIDINE 150 MG TABLET PO SCH ×2 (08:47→21:02)
[2019-04-19] MEDS: BUMETANIDE 1 MG TABLET PO SCH ×2 (08:48→21:02)
[2019-04-19] MEDS: CA ACETATE 667 MG CAP PO SCH ×3 (08:49→21:02)
[2019-04-19] MEDS: carvediloL 25 MG TAB PO SCH (08:49)
[2019-04-19] MEDS: HYDRALAZINE HCL 25 MG TABLET PO SCH ×3 (08:49→21:02)
[2019-04-19] MEDS: LEVOTHYROXINE SOD 0.05 MG TABLET PO SCH (08:50)
[2019-04-19] MEDS: METHYLPREDNISOLONE 40 MG INJ IV SCH (08:50)
[2019-04-19] MEDS: INSULIN GLARGINE 100 UNITS/ML SQ SCH (08:51)
[2019-04-19] MEDS: AMLODIPINE 10 MG TAB PO SCH (08:57)
[2019-04-19] MEDS ORDERED: ENOXAPARIN 60 MG/0.6 ML SQ SCH (09:00)
[2019-04-19] MEDS: AZITHROMYCIN IV 500 MG in NA CHLORIDE 0.9% 250 ML IVPB SCH (09:35)
[2019-04-19 09:45] LABS: CKMB Creatine Kinase MB 5.7 ng/mL (0.3-3.6); Uric Acid 5.7 mg/dL (2.6-6.0)
[2019-04-19 10:27] LABS: Urine Protein/Creatinine Ratio 16.11 ratio (<0.15)
--- NOTE | 2019-04-19 11:27 | P.CNS ---
Date of Consult: 05/01/19 Reason for Consult: Possible pneumonia Chief Complaint: Shortness of breath History of Present Illness: Patient is 53 years of age admitted with acute onset of shortness of breath is no prior history of cardiopulmonary problems found to have a dense consolidation right greater than the left patient denies any fever chills chest pain or cough Allergies No Known Allergies Allergy (Unverified 04/18/19 17:03) Home Medications: Amlodipine [Norvasc*] 1 tab PO DAILY 04/18/19 Atorvastatin Calcium [Lipitor] 1 tab PO BEDTIME 04/18/19 Bumetanide [Bumex*] 1 tab PO BID 04/18/19 Calcium Acetate 1 tab PO TID 04/18/19 Diphenhydramine HCl [Allergy] 1 tab PO DAILY 04/18/19 Hydralazine [Apresoline*] 1 tab PO TID 04/18/19 Insulin Glargine Human [Lantus*] 20 unit SQ DAILY 04/18/19 Insulin Lispro [Humalog Kwikpen U-100] 10 unit SQ DAILY 04/18/19 Levothyroxine Sodium [Unithroid] 1 tab PO DAILY 04/18/19 Levothyroxine [Synthroid*] 1 tab PO DAILY 04/18/19 Vitamin D [Drisdol*] 1 tab PO SEECOM 04/18/19 carvediloL [Carvedilol] 25 mg PO DAILY 04/18/19 methylPREDNISolone [Methylprednisolone] 1 tab PO TID 04/18/19 - Past Medical/Surgical History Diabetic: Yes -: Anemia -: Diabetes NIDDM, -: Hypertension -: Thyroid Problem -: i&D -: C section - Social History Alcohol use: No CD- Drugs: No Caffeine use: Yes Place of Residence: Home Review of Systems 10-point ROS is otherwise unremarkable General: Weakness Respiratory: Shortness of Breath Physical Examination Temp Pulse Resp BP Pulse Ox 99.1 F 92 H 20 168/68 H 96 04/19/19 08:00 04/19/19 08:49 04/19/19 08:00 04/19/19 08:49 04/19/19 08:00 General: Alert HEENT: Atraumatic Neck: Supple Respiratory: Crackles/rales (Minimal crackles on the right side) Cardiovascular: No edema, Regular rate/rhythm Laboratory Data (last 24 hrs) 04/18/19 10:45: WBC 19.9 H D, Hgb 10.7 L, Hct 33.3 L, Plt Count 216 - Problems (1) Pneumonia Current Visit: Yes Status: Acute Plan: Patient is 53 years of age admitted with acute pneumonia dense consolidation in the right upper lobe with elevated white count most likely she has acute community-acquired pneumonia patient in addition has chronic renal failure interestingly admitted for periorbital edema which is improved vital signs stable borderline temperature pro calcitonin level elevated all consistent with an infection doubt PE Dc IV fluids patient has chronic renal failure cultures pending Qualifiers: Pneumonia type: due to unspecified organism Laterality: right
[2019-04-19] MEDS ORDERED: NACL 0.9% IRR SOLN 0 ML IRR ONE (12:01)
--- NOTE | 2019-04-19 14:37 | PN ---
Date of Progress Note: 04/19/2019 Subjective: The patient seen and examined. Chart reviewed and case discussed with RN and Dr. Nithya torres. Patient is doing significantly better today. Periorbital swelling has diminished significantly. Family at the bedside. Treatment plan explained. All questions answered. Medications: List reviewed. Physical Examination: Vital Signs: Temperature 99.1, heart rate 92, blood pressure 162/86, respirations 20, O2 96% on 2 L via nasal cannula. General: Awake, alert, oriented x3, ill-appearing female, obese. CV: S1 and S2. Regular rate and rhythm. Peripheral pulses present. Respiratory: Diminished breath sounds on the right. No crackles or wheezing. No use of accessory m uscles. Gastrointestinal: Abdomen is soft, nontender, nondistended. Positive bowel sounds. Extremities: No clubbing, cyanosis, or edema. Neurologic: Nonfocal. HEENT: Periorbital swelling is significantly diminished. Pupils equal, round, reactive to light and accommodation. Extraocular movements intact. Oropharynx is clear. Conjunctivae are anicteric. Laboratory Data: Sodium 141, potassium 5, chloride 114, CO2 of 20, BUN 80, creatinine 4.57, glucose 233, lactic acid 0.5, uric acid 5.7, calcium 8, albumin 2.1, PTH 101.1, Procalcitonin 0.97. Triglyce rides 96, cholesterol 115, LDL 48, HDL 48. WBC 14.5, H and H 8.3/25.3, platelets 152, neutrophils 95 %. CT scan of the chest shows multifocal pneumonia, greatest in the right upper lobe, small bilatera l pleural effusions, personally reviewed. Assessment: A 53-year-old female with; 1.Right upper lobe pneumonia. We will continue with IV antibiotics. Cultures are pending at this t deanne. Still requiring supplemental oxygen. We will try to wean off as tolerated. 2.Acute respiratory distress with hypoxia secondary to above. Continue supplemental oxygen via nasa l cannula. Appreciate Dr. Gross's input. 3.Periorbital swelling, unclear etiology. No apparent trigger identified. Not on any BANDAR inhibitor s, was on lisinopril previously. We will wean off steroids. Continue Benadryl p.r.n. Continue with Claritin, ranitidine for H2 blockers. 4.Elevated D-dimer. Doubt PE. V/Q scan was nondiagnostic due to equipment failure. No DVT found. Was discontinued full-dose Lovenox. Echocardiogram at this time is pending, unable to be done until Sunday. 5.Diabetes mellitus type 2 with hyperglycemia, insulin requiring. Continue with sliding scale insul in. Blood glucose levels running in the 200s. May need to adjust insulin dose. 6.Essential hypertension, somewhat uncontrolled. Blood pressure in the 160s. We will add hydralazi ne p.r.n. 7.Chronic kidney disease, stage 4, not on dialysis. Appreciate Nephrology input. Continue to monit or creatinine level. Avoid NSAIDs. Electrolytes are stable. 8.Hypothyroidism. Continue Synthroid. 9.Deep venous thrombosis prophylaxis. Lovenox renally dosed. Plan: Likely discontinue in the 24 to 48 hours depending on clinical response. /DAYO Voice ID: [id number] Report ID: [id number]
[2019-04-19] MEDS: ATORVASTATIN 80 MG TAB PO SCH (21:02)
[2019-04-19] MEDS: predniSONE 20 MG TAB PO SCH (21:03)
[2019-04-20] MEDS: CEFTRIAXONE/SWI 1gm 1 GM/10 ML SYR IVP SCH ×2 (03:05→13:50)
[2019-04-20 06:12] LABS: Absolute Lymphocytes (CBC) 0.5 K/uL (0.7-4.9); Basophils % 0.2 % (0-1.3); Hematocrit 26.2 % (36.0-45.0); Lymphocytes % 4.1 % (15.3-44.8); MPV 7.8 fL (7.6-11.3); RBC Red Blood Cell Count 3.01 M/uL (3.86-4.86)
[2019-04-20 06:53] LABS: Albumin 2.1 g/dL (3.4-5.0); Bilirubin Total 0.2 mg/dL (0.2-1.0); Ferritin 250.3 ng/mL (8-388); Folic Acid, (Folate) 7.8 ng/mL (3.1-17.5); Phosphorus 3.3 mg/dL (2.5-4.9); Potassium 4.8 mmol/L (3.5-5.1); Protein, Total 6.2 g/dL (6.4-8.2); Thyroid Stimulating Hormone 1.01 uIU/mL (0.360-3.740)
[2019-04-20] MEDS: INSULIN -REGULAR HUMAN 50 UNIT/0.5 ML ML SQ SCH ×4 (08:42→21:01)
[2019-04-20] MEDS: INSULIN LISPRO 100 UNIT/1 ML SQ SCH (08:43)
[2019-04-20] MEDS: INSULIN GLARGINE 100 UNITS/ML SQ SCH (08:44)
[2019-04-20] MEDS: HYDRALAZINE HCL 25 MG TABLET PO SCH ×4 (08:44→20:45)
[2019-04-20] MEDS: RANITIDINE 150 MG TABLET PO SCH ×2 (08:44→20:46)
[2019-04-20] MEDS: CA ACETATE 667 MG CAP PO SCH ×2 (08:44→13:50)
[2019-04-20] MEDS: BUMETANIDE 1 MG TABLET PO SCH ×2 (08:45→20:45)
[2019-04-20] MEDS: carvediloL 25 MG TAB PO SCH ×2 (08:46→17:23)
[2019-04-20] MEDS: predniSONE 20 MG TAB PO SCH (08:46)
[2019-04-20] MEDS: AMLODIPINE 10 MG TAB PO SCH (08:46)
[2019-04-20] MEDS: LEVOTHYROXINE SOD 0.05 MG TABLET PO SCH (08:46)
[2019-04-20] MEDS: AZITHROMYCIN IV 500 MG in NA CHLORIDE 0.9% 250 ML IVPB SCH (08:47)
[2019-04-20] MEDS: ENOXAPARIN 30 MG/0.3 ML SQ SCH (09:00)
--- NOTE | 2019-04-20 09:59 | P.PN ---
Subjective Date of Service: 04/20/19 Chief Complaint: Pneumonia Subjective: Improving (Doing well no new complaints she denies any pulmonary complaints no cough phlegm all sputum) Review of Systems Unremarkable Physical Examination - Vital Signs Temperature: 98.0 F Blood Pressure: 176/77 Pulse: 77 Respirations: 16 Pulse Ox (%): 97 - Physical Exam General: Alert, Oriented x3 HEENT: Atraumatic Neck: Supple Respiratory: Clear to auscultation bilaterally, Crackles/rales (Crackles on the right side) Assessment & Plan - Problems (Diagnosis) (1) Pneumonia Current Visit: Yes Status: Acute Plan: Patient is doing well clinically improving white count declining cultures negative blood pressure elevated chronic renal failure seen by Nephrology Qualifiers: Pneumonia type: due to unspecified organism Laterality: right
[2019-04-20] MEDS ORDERED: CEFAZOLIN/SWI 1gm 1 GM/10 ML SYR IV SCH (11:30)
--- NOTE | 2019-04-20 12:33 | RAD REPORT ---
EXAM DESCRIPTION: US - Renal Ultrasound-Complete - 04/19/2019 8:49 pm CLINICAL HISTORY: CKD Flank pain COMPARISON: No comparisons FINDINGS: Both kidneys appear echogenic. The right kidney measures 10.6 x 5.0 x 4.9 cm. No hydronephrosis, focal mass or perinephric fluid. The left kidney measures 10.0 x 5.3 x 5.2 cm. No hydronephrosis, focal mass or perinephric fluid. The urinary bladder is incompletely distended without gross abnormality seen. IMPRESSION: Echogenic kidneys bilaterally compatible with medical renal disease.
[2019-04-20] MEDS ORDERED: EPOETIN 4,000 UNIT/ML VIAL IV SCH (13:00)
[2019-04-20 14:25] LABS: C.diff Antigen/Toxin Ag neg : Tox neg (NEG : NEG)
--- NOTE | 2019-04-20 14:59 | PN ---
Date of Progress Note: 04/20/2019 Subjective: Patient is seen and examined. Chart reviewed and case discussed with RN and Dr. Ortega kaye. Patient overall is doing significantly better. Swelling is much improved. Shortness of breath i s also better. Patient going for PermCath placement by Dr. Aguayo. Medications: List reviewed. Physical Examination: Vital Signs: Temperature 98, heart rate 89, blood pressure 142/74, respirations 16, O2 of 97% on 1 L via nasal cannula. General: Awake, alert, oriented x3. Mildly ill-appearing female, not in any acute distress. CV: S1, S2. Regular rate and rhythm. Peripheral pulses present. Respiratory: Moving air well bilaterally. No wheezing or stridor. Gastrointestinal: Abdomen is soft, nontender, nondistended. Positive bowel sounds. Extremities: No clubbing, cyanosis, or edema. Neurologic: Nonfocal. Laboratory Data: WBC 11.7, hemoglobin and hematocrit 8.5 and 26.2, platelets 160, neutrophils 93%. Sodium 140, potassium 4.8, chloride 114, CO2 of 21, BUN 19, creatinine 4.67, glucose 241, calcium 8. Phosphorus 3.3. Iron 67, TIBC 165, transferrin 118, ferritin 250, albumin 2.1, TSH 1.01, vitamin B1 2 is 535. Immune panel and hep panel pending. Blood cultures, no growth to date. Renal ultrasound is pending. Assessment: A 53-year-old female with: 1.Right upper lobe pneumonia, improving. Continue IV antibiotics. Cultures negative. We will cont inue to wean off O2 as tolerated. 2.Acute respiratory distress with hypoxia, improving, currently on 1 L via nasal cannula. We will w denilson off as soon as possible. 3.Periorbital swelling, unclear etiology. We will wean off steroids. Currently on 20 b.i.d. of pre dnisone. Continue Claritin and ranitidine for H2 blocking. 4.Chronic kidney disease stage 4, not on dialysis with electrolyte abnormalities. Patient is schedu led for primary catheterization in a.m. May need to be initiated on dialysis. 5.Elevated D-dimer, low risk for pulmonary embolism. Appreciate Pulmonology input. Patient's V/Q s can was nondiagnostic due to equipment failure. No deep venous thrombosis seen on Doppler sonogram. Echocardiogram in a.m. 6.Essential hypertension, not well controlled. Continue hydralazine p.r.n. 7.Diabetes mellitus type 2 with hyperglycemia and chronic kidney disease, insulin requiring. We abby l continue with sliding scale insulin. Monitor blood glucose levels. 8.Hypothyroidism. Continue Synthroid. 9.Deep venous thrombosis prophylaxis with Lovenox renally dosed. Plan: Likely discharge in the next 24 to 48 hours depending on improvement, may be longer if initiat ed on dialysis. /DAYO Voice ID: [id number] Report ID: [id number]
--- NOTE | 2019-04-20 15:56 | CON ---
Date of Consultation: 04/19/2019 Reason For Consultation: Patient needs Tesio catheter. History Of Present Illness: The patient is a 53-year-old female, came in with shortness of breath an d was found to have a possibly community-acquired pneumonia. However, she does have chronic renal fa ilure and is not improving with medical management and she is going to require dialysis and therefore I was consulted. Her pneumonia is being treated and she is improving for that. She denies any feve r or chills. Currently does not have any cough or shortness of breath. She is clinically improving and she was admitted 2 days ago. No sore throat, runny nose, cough, headaches, or dizziness. No liat st pain. No fever or chills. Review of Systems: Otherwise unremarkable. Medical History: Type 2 diabetes, chronic kidney disease, hypertension, hypothyroidism. Allergies: NO ALLERGIES. Social History: She does not smoke or drink. Family History: Noncontributory. Physical Examination: Vital Signs: Stable. She is currently afebrile. General: She is awake, alert, oriented x3. Head and Neck: No evidence of icterus. Cranial nerves 2 through 12 grossly within normal limits. N o neck masses. No JVD. Throat clear. Neck is supple. Chest: Clear. Heart: S1 and S2. Abdomen: Soft. Extremities: Neurovascularly intact. Neuro: Nonfocal. Imaging: Chest CT shows multifocal pneumonia in the right upper lobe, small bilateral pleural effusi on. Laboratory Data: White count was 19.9, currently is 11.7. Her BUN and creatinine are slightly going up, BUN is 91, creatinine is 4.67. Assessment: 53-year-old female with multiple medical problems with pneumonia and acute renal failure . Recommendations: We will proceed with placement of Tesio catheter tomorrow. Patient understands the risks, benefits, and alternatives and agrees to procedure. /MODL Voice ID: [id number] Report ID: [id number]
--- NOTE | 2019-04-20 17:41 | CON ---
Date of Consultation: 04/19/2019 Reason For Consultation: Elevated BUN and creatinine. History Of Present Illness: This is a pleasant 53-year-old female with significant past medical history of hypertension; hyperlipidemia; diabetes complicated with neuropathy, nephropathy; hypothyroidism; chronic kidney disease stage 5, as by family GFR around 10; follow up with physician in [place] and preparation for initiating dialysis. Patient was visiting her son, started having shortness of breath, cough, and facial swelling. Patient denied taking any nonsteroidal, no BANDAR inhibitor or ARB. The patient was brought to the hospital found to have elevation in BUN and creatinine. For that reason, we have been consulted. The patient denied any recent change in her medication. In our hospital, creatinine 4.5 with GFR of 10. She had mild acidosis and elevation in the BUN up to the 80. Patient saying she is eating okay. No fever or chills, but she has shortness of breath. Past Medical History: 1. Diabetes complicated with neuropathy and nephropathy. 2. Hypertension. 3. Hyperlipidemia. 4. Hypothyroidism. 5. Chronic kidney disease, stage 5. Surgical History: Negative. Allergies: SHE HAS NO KNOWN DRUG ALLERGY. Social History: Lives with the family. Denies smoking. Denies drinking. Denies drug abuse. Family History: Positive for diabetes and hypertension. Review of Systems: Head and Neck: No red eye. No ear pain. Has facial swelling. GI: Has nausea. No vomiting. : No polyuria. No dysuria. No hematuria. Static Balancer: No vaginal discharge. Respiratory: Has shortness of breath, has cough. Cardiovascular: Has leg swelling. Endocrine: No polydipsia. Skin: No rash. Neuro: Has neuropathy. Musculoskeletal: Generalized fatigue. Home Medications: Include carvedilol, Bumex, hydralazine, vitamin D, levothyroxine, amlodipine. Current Medications In The Hospital: Breathing treatment, Bumex, cefazolin, insulin, levothyroxine, ranitidine. Physical Examination: Vital Signs: When I saw the patient, blood pressure of 139/67, pulse of 85. Chest: Crackles at bilateral bases. Heart: S1, S2. Regular. Systolic murmur. Abdomen: Soft, nontender. Extremities: +1 edema. Neurologic: Alert and oriented. No focal. Laboratory Data: For the patient, sodium 141, potassium 5, bicarb 20, BUN 80, creatinine 4.5, calcium of 8. WBC 14.5, H and H 8.3/25.3, platelet 152. Assessment And Plan: 1. Chronic kidney disease, stage 5 progression to end-stage renal disease with uremia over volume. Patient will need to be initiated on renal replacement therapy. I had long discussion with the patient and family agreed. We will proceed with the PermCath placement and we will arrange for outpatient dialysis. We will send for basic workup and we will follow up. 2. Anemia of chronic kidney disease. We will send for iron study to evaluate if patient is going to need IV iron or she going to need BRYANNA. 3. Hypocalcemia, corrected calcium within normal limit. We will send for PTH and we will follow up. 4. Diabetes as by primary. 5. Hypertension. We will utalize the BP for ultrafiltration. CHASE Voice ID: [id number] Report ID: [id number] KIERA
--- NOTE | 2019-04-20 18:50 | PN ---
Date of Progress Note: 04/20/2019 Subjective: The patient was admitted with anasarca, facial swelling, over volume. Patient was being diuresed. Physical Examination: Vital Signs: Blood pressure 176/77, pulse of 77. Chest: Faint rales, bilateral bases. Heart: S1, S2, regular. Abdomen: Soft, nontender. Extremities: Plus edema. Laboratory Data: WBC 11.7, H and H 8.5/26.2, platelets 160. Sodium 140, potassium 4.8, bicarb 21, BUN 91, creatinine 4.6, calcium 8.1, phosphorus 3.3, . Serology still pending. PTH of 100. Current Medications: Patient on include azithromycin, ceftriaxone, breathing treatment, Lovenox, atorvastatin, amlodipine, carvedilol 25 b.i.d., hydralazine , Tylenol, breathing treatment, PhosLo 1 tablet with each meal, Bumex, insulin. Assessment And Plan: 1. Chronic kidney disease, stage 5, progression to end-stage renal disease. Plan for Permcath tomorrow and we will initiate dialysis. 2. Hypertension, not controlled. I am going to go ahead and increase her hydralazine to 50. Plan to initiate the BANDAR inhibitor or ARB tomorrow after initiating dialysis and we will follow up. 3. Anemia of chronic kidney disease. We will start the patient on BRYANNA. 4. SHPT Ca/ Phos on the goal. I am going to start the patient on Tums, discontinue PhosLo, and we will follow up. 5. Diabetes as by primary. 6. 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 Serology still pending. Serum protein electrophoresis is still pending. We will follow up as I mention the patient is going to be started on BANDAR inhibitor/ARB after we start dialysis. ROSA/DAYO Voice ID: [id number] Report ID: [id number] KIERA
[2019-04-20] MEDS: ATORVASTATIN 80 MG TAB PO SCH (20:46)
[2019-04-20] MEDS: LACTOBACILLUS/ACIDOPHILUS TAB PO SCH (21:02)
[2019-04-21] MEDS: CEFTRIAXONE/SWI 1gm 1 GM/10 ML SYR IVP SCH ×2 (01:16→13:09)
[2019-04-21 04:23] LABS: Absolute Lymphocytes (CBC) 1.2 K/uL (0.7-4.9); Basophils % 0.3 % (0-1.3); Hematocrit 25.9 % (36.0-45.0); Lymphocytes % 10.7 % (15.3-44.8); MPV 8.2 fL (7.6-11.3); RBC Red Blood Cell Count 2.96 M/uL (3.86-4.86)
[2019-04-21 04:41] LABS: Albumin 1.9 g/dL (3.4-5.0); Bilirubin Total 0.1 mg/dL (0.2-1.0); Phosphorus 3.6 mg/dL (2.5-4.9); Potassium 4.5 mmol/L (3.5-5.1); Protein, Total 5.7 g/dL (6.4-8.2)
[2019-04-21] MEDS: carvediloL 25 MG TAB PO SCH ×2 (05:25→17:01)
[2019-04-21 06:43] LABS: Rheumatoid Factor NEG (NEG)
[2019-04-21] MEDS: INSULIN -REGULAR HUMAN 50 UNIT/0.5 ML ML SQ SCH ×4 (07:30→21:00)
[2019-04-21] MEDS: INSULIN LISPRO 100 UNIT/1 ML SQ SCH (07:47)
[2019-04-21] MEDS: INSULIN GLARGINE 100 UNITS/ML SQ SCH (07:47)
[2019-04-21] MEDS ORDERED: NA CHLORIDE 0.9% 500 ML ONE (08:02)
[2019-04-21] MEDS ORDERED: NS 0.9% VIAL 10 ML ONE ×2 (08:39→09:52)
[2019-04-21] MEDS ORDERED: NA CHLORIDE 0.9% 100 ML IV ONE (08:40)
[2019-04-21] MEDS ORDERED: HEPARIN 5000 UNIT/ML 1 ML VIAL ONE (08:40)
[2019-04-21] MEDS ORDERED: LIDOCAINE 1% 20 ML MDV ONE (08:40)
--- NOTE | 2019-04-21 08:51 | CON ---
Date of Consultation: 04/19/2019 History Of Present Illness: This is a 53-year-old female with significant past medical history of hypertension, diabetes complicated with neuropathy, peripheral vascular disease. Allergies: NO KNOWN DRUG ALLERGIES. Family History: Positive for hypertension and diabetes. Past Medical History: Include, 1. Hypertension. 2. Chronic renal disease, stage 4/5. GFR around 10. 3. Anemia of chronic kidney disease. 4. DM Social History: Denies smoking, denies drinking, denies drugs abuse. Medications: Home mediations include. 1. Insulin. 2. Carvedilol. 3. Vitamin D. 4. Atorvastatin. 5. Hydralazine. 6. Levothyroxine. Review of Systems: Head and Neck: Has swelling on the face. GI: No nausea, no vomiting. : No polyuria, no dysuria, no hematuria. 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 Cardiovascular: Has leg swelling. Endocrine: No polydipsia. Skin: No rash. Physical Examination: Vital Signs: When I saw the patient, blood pressure of 162/75, pulse of 85. Chest: Crackles bilateral. Heart: S1, S2. Regular. Abdomen: Soft, nontender. Extremities: + 1 edema Head and Neck: Has swelling on the face. Assessment And Plan: 1. Chronic kidney disease, stage 5, progression to end-stage renal disease. I had a long discussion with the patient in the presence of the family regarding the option of treatment including the dialysis. Family is in agreement. We will arrange for PermCath placement and removal. 2. Anemia of chronic disease. We will resume BRYANNA on dialysis. 3. Secondary hyperparathyroidism, stable. 4. HTN controlled will keep utilize the BP for more UF MA/MODL Voice ID: [id number] Report ID: [id number] KIERA
[2019-04-21] MEDS ORDERED: predniSONE 10 MG TAB PO SCH (09:00)
[2019-04-21] MEDS: RANITIDINE 150 MG TABLET PO SCH ×2 (09:00→21:54)
[2019-04-21] MEDS: BUMETANIDE 1 MG TABLET PO SCH ×2 (09:00→21:54)
[2019-04-21] MEDS: AMLODIPINE 10 MG TAB PO SCH (09:00)
[2019-04-21] MEDS: HYDRALAZINE HCL 25 MG TABLET PO SCH ×3 (09:00→21:55)
[2019-04-21] MEDS: AZITHROMYCIN 250 MG TAB PO SCH (09:00)
[2019-04-21] MEDS: ENOXAPARIN 30 MG/0.3 ML SQ SCH (09:00)
[2019-04-21] MEDS: LEVOTHYROXINE SOD 0.05 MG TABLET PO SCH (09:00)
[2019-04-21] MEDS: LACTOBACILLUS/ACIDOPHILUS TAB PO SCH ×2 (09:00→21:54)
[2019-04-21] MEDS ORDERED: CEFAZOLIN SODIUM 1 GM/VIAL ONE (09:34)
[2019-04-21] MEDS ORDERED: propofoL 200 MG/20 ML VIAL IV ONE (09:52)
[2019-04-21] MEDS ORDERED: LIDOCAINE 1% MPF 5 ML VIAL ONE (09:52)
[2019-04-21] MEDS ORDERED: FENTANYL CITR 100 MCG/2 ML ONE (09:52)
--- NOTE | 2019-04-21 10:36 | P.OP ---
Preoperative diagnosis: ARF Postoperative diagnosis: same Primary procedure: Right side Tesio, Fluoroscopy Anesthesia: MAC Estimated blood loss: min Specimen: none Findings: as above Complications: None Transferred to: Recovery Room Condition: Good
--- NOTE | 2019-04-21 10:52 | RAD REPORT ---
EXAM DESCRIPTION: RAD - Fluoroscopy <1 Hour - 04/21/2019 10:42 am CLINICAL HISTORY: Venous catheter insertion. TESSIO PLACEMENT IN OR 2 COMPARISON: Vent Perfusion VQ Scan dated 04/18/2019 FINDINGS: Fluoroscopy time: 0.1 minutes
[2019-04-21] MEDS ORDERED: PROMETHAZINE INJ 25 MG/ML AMP ONE (10:56)
[2019-04-21] MEDS ORDERED: ONDANSETRON 4 MG/2 ML VIAL ONE (10:59)
--- NOTE | 2019-04-21 11:17 | RAD REPORT ---
EXAM DESCRIPTION: RAD - Chest Single View - 04/21/2019 11:03 am CLINICAL HISTORY: S/P Tesio Chest pain. COMPARISON: Chest Single View dated 04/18/2019 FINDINGS: Portable technique limits examination quality. Right-sided venous catheter has been placed, with its tip in the SVC. No pneumothorax is present. Hea rt is mildly enlarged in size. IMPRESSION: No postprocedure pneumothorax seen.
--- NOTE | 2019-04-21 14:30 | ECHO ---
HEIGHT: 4 ft 10 in WEIGHT: 146 lb 8 oz DATE OF STUDY: 04/21/[address]: Quinn Sanchez MD 2-DIMENSIONAL: YES M.MODE: YES DOPPLER: YES COLOR FLOW: YES TDS: NO PORTABLE: NO DEFINITY: NO BUBBLE STUDY: NO DIAGNOSIS: RULE OUT RIGHT VENTRICULAR STRAIN CARDIAC HISTORY: CATHERIZATION: YES SURGERY: NO PROSTHETIC VALVE: NO PACEMAKER: NO MEASUREMENTS (cm) DIASTOLIC (NORMALS) SYSTOLIC (NORMALS) IVSd 1.0 (0.6-1.2) LA Diam 3.3 (1.9-4.0) LVEF 60% LVIDd 3.9 (3.5-5.7) LVIDs 2.7 (2.0-3.5) %FS 31% LVPWd 1.0 (0.6-1.2) Ao Diam 2.5 (2.0-3.7) 2 DIMENSIONAL ASSESSMENT: RIGHT ATRIUM: NORMAL LEFT ATRIUM: NORMAL RIGHT VENTRICLE: NORMAL LEFT VENTRICLE: NORMAL TRICUSPID VALVE: NORMAL MITRAL VALVE: NORMAL PULMONIC VALVE: NORMAL AORTIC VALVE: NORMAL PERICARDIAL EFFUSION: SMALL AORTIC ROOT: NORMAL LEFT VENTRICULAR WALL MOTION: NORMAL. DOPPLER/COLOR FLOW: MILD MITRAL AND TRICUSPID REGURGITATION, NORMAL RIGHT VENTRICULAR SYSTOLIC PRESSURE. COMMENTS: NORMAL LEFT VENTRICULAR EJECTION FRACTION. VERY SMALL POSTERIOR PERICARDIAL EFFUSION. MILD MITRAL AND TRICUSPID REGURGITATION. TECHNOLOGIST: PAUL MOHAN
--- NOTE | 2019-04-21 17:39 | PN ---
Date of Progress Note: 04/21/2019 Subjective: The patient seen and examined. Chart reviewed and case discussed with RN. Patient had PermCath placed today. Getting echocardiogram. Medications: List reviewed. Physical Examination: Vital Signs: Temperature 98.6, heart rate 75, blood pressure 168/74, respirations 17, O2 96% on room air. General: Awake, alert, oriented x3. Not in any acute distress. Obese female. CV: S1, S2. Regular rate and rhythm. Peripheral pulses present. Respiratory: Moving air well bilaterally. No wheezing or stridor. No use of accessory muscles. Gastrointestinal: Abdomen is soft, nontender, nondistended. Positive bowel sounds. Extremities: No clubbing, cyanosis, or edema. Neurologic: Nonfocal. Laboratory Data: Sodium 141, potassium 4.5, chloride 113, CO2 of 21, BUN 90, creatinine 4.8, glucose 251, calcium 8, phosphorus 3.6, albumin 1.9. WBC 11.1, H and H 8.4 and 25.9, platelets 156, neutrop hils 82%. C difficile assay is negative. Blood cultures, no growth to date. Chest x-ray, no postpr ocedure pneumothorax. Assessment And Plan: 53-year-old female with: 1.Right upper lobe pneumonia, improving. Continue antibiotics. Cultures are negative. Patient now off supplemental oxygen. 2.Acute respiratory distress with hypoxia, resolved. 3.Periorbital swelling, resolved. We will taper off steroids. 4.Chronic kidney disease stage 4. Patient received PermCath today. We will likely start on dialysi s as per Nephrology. 5.Elevated D-dimer. Doubt pulmonary embolism. Echocardiogram being done right now to rule out righ t ventricular strain. We will follow up on those results. 6.Essential hypertension, stable. We will continue hydralazine. Medications adjusted. Blood press ure now in the 140s to 150s down from the 170s systolic. 7.Diabetes mellitus type 2 with hyperglycemia and chronic kidney disease. Insulin requiring. We wi ll continue with sliding scale insulin. Monitor blood glucose levels. 8.Hypothyroidism. Continue Synthroid. 9.Deep venous thrombosis prophylaxis with Lovenox. Plan: Hepatitis panel is pending. Patient likely to be started on dialysis. We will need to make a rrangements before discharge. Spoke with Case Management regarding discharge planning. /DAYO Voice ID: [id number] Report ID: [id number]
--- NOTE | 2019-04-21 20:39 | OP ---
Date of Procedure: 04/21/2019 Surgeon: Trace Aguayo MD Preoperative Diagnosis: Acute renal failure. Postoperative Diagnosis: Acute renal failure. Procedure: Placement of right subclavian Tesio catheter. Interpretation of intraoperative fluorosco py. Estimated Blood Loss: Minimal. Specimen: None. Findings: Normal subclavian anatomy and difficult to cannulate the right IJ vein. Anesthesia: MAC. Complications: None. Disposition: The patient tolerated the procedure in stable condition, taken to Recovery in good gene ral condition. Procedure In Detail: Patient was brought to the OR and placed in supine position. MAC anesthesia wa s begun. Patient was prepped and draped in the usual sterile fashion. Lidocaine 1% infiltrated loca lly. An 18-gauge needle was used to access the right IJ vein. Guidewire could not be passed, diffic ulty gaining it back at the base of the neck, may be some anatomical issues. Therefore, this was abo rted and then the right subclavian vein was accessed. The guidewire was passed and position confirme d with fluoroscopy. Counterincision was made and tunneling device was used to tunnel the catheter be tween the 2 wounds. Seldinger technique was used. Tip of the catheter was placed in the SVC under f luoroscopy. Catheter flushed with heparin and packed with heparin with good blood flow. Then, 3-0 c hromic used to approximate subcutaneous tissue and 3-0 nylon was used to secure the tube to the chest wall. Sterile dressing was applied. Patient was awakened and taken to Recovery in good general condition. Chest x-ray has been ordered. /MODL Voice ID: [id number] Report ID: [id number]
[2019-04-21] MEDS: ATORVASTATIN 80 MG TAB PO SCH (21:55)
[2019-04-22] MEDS: CEFTRIAXONE/SWI 1gm 1 GM/10 ML SYR IVP SCH ×2 (02:09→14:00)
--- NOTE | 2019-04-22 02:57 | PN ---
Date of Progress Note: 04/21/2019 Chief Complaint: Anasarca, volume overload. Subjective: Patient was initiated on diuretic regimen. Patient has history of chronic kidney diseas e stage 5. Patient underwent PermCath placement and dialysis will be initiated today. Review of Systems: Denies PND, orthopnea. Physical Examination: Lungs: Diminished breath sounds in the bases. Few crackles. Heart: S1, S2. Abdomen: Soft, benign. Extremities: Slight edema in both legs. Laboratory Data: Phosphorus 3.3. Hemoglobin 8.5, WBC 11.7. Serologies pending. Intact PTH 100. Impression And Plan: 1.Chronic kidney disease stage 5 progressed to end-stage renal disease. Continue dialysis 3 times p er week. 2.Hypertension. Increase hydralazine and angiotensin receptor [place] will be initiated when dialys is started. Monitor electrolytes closely. 3.Secondary hyperparathyroidism. Intact PTH is target range. Monitor and adjust treatment for hype rphosphatemia. 4.Nephrotic range proteinuria mostly due to diabetes mellitus, pending workup for monoclonal gammopa thy of unknown significance. EB/MODL Voice ID: [id number] Report ID: [id number]
[2019-04-22 04:18] LABS: Absolute Lymphocytes (CBC) 1.8 K/uL (0.7-4.9); Basophils % 0.1 % (0-1.3); Hematocrit 26.7 % (36.0-45.0); Lymphocytes % 19.4 % (15.3-44.8); MPV 7.8 fL (7.6-11.3); RBC Red Blood Cell Count 3.06 M/uL (3.86-4.86)
[2019-04-22 04:30] LABS: Albumin 1.8 g/dL (3.4-5.0); Potassium 3.9 mmol/L (3.5-5.1)
[2019-04-22] MEDS: carvediloL 25 MG TAB PO SCH ×2 (05:40→17:22)
[2019-04-22] MEDS: INSULIN -REGULAR HUMAN 50 UNIT/0.5 ML ML SQ SCH ×4 (07:30→20:52)
[2019-04-22] MEDS: ENOXAPARIN 30 MG/0.3 ML SQ SCH (07:56)
[2019-04-22] MEDS: INSULIN LISPRO 100 UNIT/1 ML SQ SCH (07:56)
[2019-04-22] MEDS: HYDRALAZINE HCL 25 MG TABLET PO SCH ×3 (07:57→20:51)
[2019-04-22] MEDS: RANITIDINE 150 MG TABLET PO SCH ×2 (07:57→20:50)
[2019-04-22] MEDS: INSULIN GLARGINE 100 UNITS/ML SQ SCH (07:57)
[2019-04-22] MEDS: AZITHROMYCIN 250 MG TAB PO SCH (07:58)
[2019-04-22] MEDS: BUMETANIDE 1 MG TABLET PO SCH ×2 (07:58→20:51)
[2019-04-22] MEDS: LEVOTHYROXINE SOD 0.05 MG TABLET PO SCH (07:58)
[2019-04-22] MEDS: LACTOBACILLUS/ACIDOPHILUS TAB PO SCH ×2 (07:58→20:51)
[2019-04-22] MEDS: predniSONE 5 MG TAB PO SCH (07:59)
[2019-04-22] MEDS: AMLODIPINE 10 MG TAB PO SCH (07:59)
--- NOTE | 2019-04-22 16:55 | PN ---
Date of Progress Note: 04/22/2019 Subjective: Patient seen and examined. Chart reviewed and case discussed with RN. Patient did well with dialysis yesterday. Medications: List reviewed. Physical Examination: Vital Signs: Temperature 98.6, heart rate 86, blood pressure 120/57, respirations 17, O2 96% on room air. General: Awake, alert, oriented x3. No acute distress. CV: S1, S2. Regular rate and rhythm. Peripheral pulses present. Respiratory: Moving air well bilaterally. No wheezing or stridor. Gastrointestinal: Abdomen is soft, nontender, distended. Positive bowel sounds. Extremities: No clubbing, cyanosis, or edema. Neuro: Nonfocal. Laboratory Data: Sodium 142, potassium 3.9, chloride 110, CO2 of 27, BUN 52, creatinine 3.06, glucos e 112, calcium 7.7, phosphorus 3, albumin 1.8. WBC 9.3, H and H 9 and 26.7, platelets 143, neutrophi ls 70%. Blood cultures, no growth to date. Echocardiogram, EF of 60%. Assessment And Plan: 53-year-old female with: 1.Right upper lobe pneumonia, improving. Continue with antibiotics, off oxygen. Cultures negative. 2.Acute respiratory distress with hypoxia, resolved. 3.Periorbital swelling, resolved. We will discontinue steroids today. 4.Chronic kidney disease stage 4, status post catheterization and now on dialysis waiting chair time . 5.Elevated D-dimer. Deep vein thrombosis ruled out. Pulmonary embolism is highly unlikely. No rig ht ventricular strain. V/Q scan was nondiagnostic due to machine failure. 6.Essential hypertension, stable. Blood pressure medications have been adjusted. 7.Diabetes mellitus type 2 with hyperglycemia and chronic kidney disease, now on dialysis, insulin r equiring. We will continue with sliding scale insulin and monitor blood glucose levels. 8.Hypothyroidism. Continue Synthroid. 9.Deep venous thrombosis prophylaxis with Lovenox renally dosed. Plan discharge once chair time is set up. SA/MODL Voice ID: [id number] Report ID: [id number]
[2019-04-22] MEDS: ATORVASTATIN 80 MG TAB PO SCH (20:52)
[2019-04-22 21:22] LABS: Hepatitis C Virus RNA (PCR)log <1.18 log IU/mL
[2019-04-23] MEDS: CEFTRIAXONE/SWI 1gm 1 GM/10 ML SYR IVP SCH ×2 (01:33→13:38)
--- NOTE | 2019-04-23 03:31 | PN ---
Date of Progress Note: 04/22/2019 Subjective: Patient was admitted with progression of chronic kidney disease. Patient was started on dialysis today, had some oozing from her catheter. Physical Examination: Vital Signs: Blood pressure of 150/72, pulse of 76. Chest: Clear to auscultation. Heart: S1, S2. Regular. Abdomen: Soft, nontender. Extremities: No edema. Laboratory Data: H and H 9/26.7. Sodium 142, potassium 3.9, bicarb 27, BUN 52, creatinine of 3, monae cium 7.7, phosphorous of 3. Current Medications: The patient is on include Z-Ajith, ceftriaxone, Lovenox, Epogen, carvedilol, ator vastatin, hydralazine, amlodipine, Bumex, breathing treatment. Assessment And Plan: 1.End-stage renal disease, just started on dialysis. We will continue dialysis TTS. We will dialyz e the patient . 2.Hypertension, controlled optimal. 3.Anemia of chronic kidney disease. Continue BRYANNA. 4.Secondary hyperparathyroidism, stable. 5.Diabetes, as by primary. ROSA/DAYO Voice ID: [id number] Report ID: [id number]
[2019-04-23 04:09] LABS: Absolute Lymphocytes (CBC) 1.5 K/uL (0.7-4.9); Basophils % 0.4 % (0-1.3); Hematocrit 25.8 % (36.0-45.0); Lymphocytes % 18.2 % (15.3-44.8); MPV 7.6 fL (7.6-11.3)
[2019-04-23 04:24] LABS: Albumin 1.7 g/dL (3.4-5.0); Phosphorus 2.5 mg/dL (2.5-4.9); Potassium 3.3 mmol/L (3.5-5.1)
[2019-04-23] MEDS: carvediloL 25 MG TAB PO SCH ×2 (05:16→16:30)
[2019-04-23] MEDS: INSULIN -REGULAR HUMAN 50 UNIT/0.5 ML ML SQ SCH ×4 (07:30→21:52)
[2019-04-23] MEDS: INSULIN GLARGINE 100 UNITS/ML SQ SCH (08:15)
[2019-04-23] MEDS: INSULIN LISPRO 100 UNIT/1 ML SQ SCH (08:16)
[2019-04-23] MEDS: ENOXAPARIN 30 MG/0.3 ML SQ SCH (08:18)
[2019-04-23] MEDS: LACTOBACILLUS/ACIDOPHILUS TAB PO SCH ×2 (08:19→21:53)
[2019-04-23] MEDS: AMLODIPINE 10 MG TAB PO SCH (08:19)
[2019-04-23] MEDS: RANITIDINE 150 MG TABLET PO SCH ×2 (08:20→21:53)
[2019-04-23] MEDS: predniSONE 5 MG TAB PO SCH (08:20)
[2019-04-23] MEDS: AZITHROMYCIN 250 MG TAB PO SCH (08:20)
[2019-04-23] MEDS: HYDRALAZINE HCL 25 MG TABLET PO SCH ×3 (08:20→21:52)
[2019-04-23] MEDS: LEVOTHYROXINE SOD 0.05 MG TABLET PO SCH (08:21)
[2019-04-23] MEDS: BUMETANIDE 1 MG TABLET PO SCH ×2 (08:21→21:53)
--- NOTE | 2019-04-23 09:38 | PN ---
Date of Progress Note: 04/23/2019 Subjective: Patient had some bleeding from the insertion site of the Tesio yesterday. I was contact ed. Advised them to use Surgicel, Gelfoam, pressure dressing, and sand bag and she had 1 episode whe re she had to have the dressing changed, but following that there has been no further bleeding noted. This is right after dialysis and she had been heparinized. Objective: General: Today, the patient is awake, alert and no complaints. Vital Signs: Stable, afebrile. Examination of the dressing reveals it to be dry and intact. No evidence of bleeding. Assessment: Status post Tesio with a recent history of bleeding. Recommendations: Continue dressing as ordered. Reconsult p.r.n. Patient is clinically stable. /MODL Voice ID: [id number] Report ID: [id number]
--- NOTE | 2019-04-23 13:32 | P.PN ---
Subjective Date of Service: 04/23/19 Chief Complaint: Pneumonia Patient states she feels much better. The periorbital edema have resolved. Leg edema significantly improved. She denies shortness of breath. She has been ambulatory. Bleeding from the dialysis catheter site has stopped. Physical Examination - Vital Signs Temperature: 98.0 F Blood Pressure: 125/61 Pulse: 73 Respirations: 16 Pulse Ox (%): 95 - Physical Exam General: Alert, In no apparent distress, Oriented x3 HEENT: Mucous membr. moist/pink, Sclerae nonicteric Neck: Supple, JVD not distended Respiratory: Clear to auscultation bilaterally, Normal air movement Cardiovascular: No edema, Regular rate/rhythm, Normal S1 S2 Gastrointestinal: Normal bowel sounds, Soft and benign, Non-distended, No tenderness Musculoskeletal: No swelling, No erythema Integumentary: No rashes Neurological: Normal speech, Normal strength at 5/5 x4 extr - Studies Microbiology Data (last 24 hrs): 04/18/19 13:00 Blood - Blood Aerobic Blood Culture - Final No growth in 5 days. 04/18/19 13:00 Blood - Blood Anaerobic Blood Culture - Final No growth in 5 days. Assessment And Plan - Current Problems (Diagnosis) (1) Volume overload Current Visit: Yes Status: Acute (2) Chronic kidney disease, stage 4 (severe) Current Visit: Yes Status: Chronic (3) DM type 2 (diabetes mellitus, type 2) Current Visit: Yes Status: Chronic (4) Hypothyroidism Current Visit: Yes Status: Chronic (5) Essential hypertension Current Visit: Yes Status: Chronic - Plan Clinical symptoms significantly improved. Status post hemodialysis. Nephrology is following. Patient is waiting for outpatient hemodialysis seat. Continue oral antibiotics for name. Monitor for active bleeding from dialysis catheter site Lantus insulin and insulin sliding scale for glucose management.
--- NOTE | 2019-04-23 13:38 | PN ---
Date of Progress Note: 04/23/2019 Subjective: The patient was admitted with renal failure. Patient was started on dialysis. Patient waiting for chair time. Physical Examination: Vital Signs: Blood pressure 136/67, pulse of 70. Chest: Clear to auscultation. Heart: S1, S2. Regular. Abdomen: Soft, nontender. Extremities: Trace edema. Laboratory Data: H and H 8.7/25.8. Sodium 140, potassium 3.3, bicarb 29, BUN 27, creatinine 2.3, calcium 7.4, phosphorus 2.5. Serum protein electrophoresis still pending. Serology still pending. Current Medications: The patient is on include, Z-Ajith, cefazolin Epogen, Lovenox, carvedilol 25 b.i.d., atorvastatin, amlodipine, hydralazine, levothyroxine, and prednisone. Assessment And Plan: 1. End-stage renal disease. We will continue the patient on dialysis. I am going to go ahead and arrange for dialysis tomorrow. Patient is waiting for chair time setup. 2. Hypertension, currently controlled. To avoid low blood pressure tomorrow on the dialysis. Discontinue amlodipine. 3. Secondary hyperparathyroidism, stable. We will continue with the diet. 4. Anemia of chronic kidney disease. Continue erythropoiesis-stimulating agent. 5. Diabetes, as by primary. ROSA/DAYO Voice ID: [id number] Report ID: [id number] MTDD
[2019-04-23 15:30] LABS: HIV AG/AB 4TH GEN Non-reactive (Non-reactive)
[2019-04-23] MEDS: ATORVASTATIN 80 MG TAB PO SCH (21:53)
[2019-04-24 00:06] LABS: Albumin, (SPE) 2.4 g/dL (3.8-4.8); Alpha-1-Globulins 0.4 g/dL (0.2-0.3); Alpha-2-Globulins 0.9 g/dL (0.5-0.9); Gamma Globulins 1.3 g/dL (0.8-1.7); INTERPRETATION REPORT
[2019-04-24] MEDS: CEFTRIAXONE/SWI 1gm 1 GM/10 ML SYR IVP SCH ×2 (03:08→15:29)
[2019-04-24 04:07] LABS: HBsAG Nonreactive (Nonreactive)
[2019-04-24 04:12] LABS: Absolute Lymphocytes (CBC) 1.5 K/uL (0.7-4.9); Basophils % 0.5 % (0-1.3); Hematocrit 27.3 % (36.0-45.0); MPV 7.9 fL (7.6-11.3)
[2019-04-24 04:25] LABS: Albumin 1.8 g/dL (3.4-5.0); Phosphorus 2.8 mg/dL (2.5-4.9); Potassium 3.6 mmol/L (3.5-5.1)
[2019-04-24] MEDS: carvediloL 25 MG TAB PO SCH ×2 (05:42→16:55)
[2019-04-24] MEDS: INSULIN -REGULAR HUMAN 50 UNIT/0.5 ML ML SQ SCH ×3 (07:30→16:30)
[2019-04-24] MEDS: INSULIN GLARGINE 100 UNITS/ML SQ SCH (08:27)
[2019-04-24] MEDS: INSULIN LISPRO 100 UNIT/1 ML SQ SCH (08:28)
[2019-04-24] MEDS: LEVOTHYROXINE SOD 0.05 MG TABLET PO SCH (08:30)
[2019-04-24] MEDS: ENOXAPARIN 30 MG/0.3 ML SQ SCH (08:30)
[2019-04-24] MEDS: HYDRALAZINE HCL 25 MG TABLET PO SCH (08:31)
[2019-04-24] MEDS: RANITIDINE 150 MG TABLET PO SCH (08:31)
[2019-04-24] MEDS: AZITHROMYCIN 250 MG TAB PO SCH (08:31)
[2019-04-24] MEDS: BUMETANIDE 1 MG TABLET PO SCH (08:32)
[2019-04-24] MEDS: LACTOBACILLUS/ACIDOPHILUS TAB PO SCH (08:33)
[2019-04-24 10:11] VITALS: O2SAT 96
[2019-04-24] MEDS ORDERED: metroNIDAZOLE 500 MG TABLET PO SCH (14:00)
--- NOTE | 2019-04-24 16:21 | PN ---
Date of Progress Note: 04/24/2019 Subjective: The patient was admitted with the progression of kidney disease, end-stage renal disease . The patient was initiated on dialysis. Physical Examination: Vital Signs: When I saw the patient; blood pressure of 130/57, pulse of 72, afebrile. Chest: Clear to auscultation. Heart: S1, S2. Regular. Abdomen: Soft, nontender. Extremities: Swelling on the right upper arm. Laboratory Data: H and H 9.3/27.3. Sodium 139, potassium 3.6, bicarb 29, BUN 32, creatinine 3.1, ca lcium 7.6, phosphorus 2.8. Current Medications: Azithromycin, ceftriaxone, diphenhydramine, Lovenox, atorvastatin, carvedilol, hydralazine, Bumex, Pepcid, levothyroxine. Assessment And Plan: 1.End-stage renal disease. Continue dialysis. Awaiting for chair time. Hepatitis came negative. 2.Swelling on the right upper arm on the same side as PermCath to rule out deep venous thrombosis. We will send for Doppler study. 3.Anemia of chronic kidney disease. Continue BRYANNA. 4.Secondary hyperparathyroidism with low phosphorus. No need for any vitamin D currently. 5.Hypertension. Given the nephrotic range of proteinuria, discontinue hydralazine. Start the patie nt on lisinopril. 6.Diarrhea. We will send for Clostridium difficile and we will start the patient on Flagyl. ROSA/DAYO Voice ID: [id number] Report ID: [id number]
--- NOTE | 2019-04-24 16:30 | RAD REPORT ---
EXAM DESCRIPTION: US - UPPER EXTREMITY VENOUS UNILATE - 04/24/2019 4:23 pm CLINICAL HISTORY: Right arm pain and swelling COMPARISON: None. TECHNIQUE: Real-time sonographic evaluation of the right upper extremity deep venous systems was per formed. FINDINGS: Normal compressibility, flow augmentation, phasic flow and spontaneous flow are identified in the right upper extremity deep venous system. No intraluminal filling defects seen. Internal jugu lar and subclavian veins are normal as well. IMPRESSION: No DVT in the right upper extremity.
--- NOTE | 2019-04-24 16:31 | P.DS ---
Admission Date: 04/18/19 Discharge Date: 04/24/19 Disposition: ROUTINE DISCHARGE Discharge Condition: FAIR Reason for Admission: Pneumonia Consultations: Nephrology-Dr. Tamayo. Procedures: Dialysis catheter placement. - Problems (1) Volume overload Status: Acute (2) Chronic kidney disease, stage 4 (severe) Status: Chronic (3) DM type 2 (diabetes mellitus, type 2) Status: Chronic (4) Hypothyroidism Status: Chronic (5) Essential hypertension Status: Chronic Brief History of Present Illness: 53-year-old woman with a history of chronic kidney disease presented to the ED with a complaint of periorbital swelling, swelling in the neck area, and leg edema which did not respond to steroids and Benadryl. She was noted to have leukocytosis, creatinine up to 4.5, elevated D-dimer and chest x-ray suggested right lower lobe pneumonia. Patient was then admitted for further management. Hospital Course: Patient was admitted to the medical floor, started on antibiotics. Noted D- dimer was elevated but venous Doppler of lower extremities was negative for DVT. V/Q scan also showed low probability for pulmonary embolism. Patient was seen and evaluated by nephrology recommended initiation of dialysis. Dialysis catheter was placed in the right anterior chest and patient initiated on dialysis. Patient's symptoms resolved with the dialysis. She received several days of antibiotics for pneumonia. Patient had episodes of diarrhea, she tested negative for C. diff. She has been started on oral Flagyl. She will complete 2 weeks of Flagyl for possible C. diff. Noted patient has right upper extremities swelling. Venous Doppler of the upper extremity is pending to be reviewed by her PCP. Dialysis seat has been arranged for the patient to begin tomorrow. Vital Signs/Physical Exam: Temp Pulse Resp BP Pulse Ox 98.7 F 72 16 130/57 L 95 04/24/19 08:00 04/24/19 08:32 04/24/19 08:00 04/24/19 08:32 04/24/19 08:00 General: Alert, In no apparent distress, Oriented x3 HEENT: Mucous membr. moist/pink, Sclerae nonicteric Neck: Supple, JVD not distended Respiratory: Clear to auscultation bilaterally, Normal air movement Cardiovascular: No edema, Regular rate/rhythm, Normal S1 S2 Gastrointestinal: Normal bowel sounds, Soft and benign, Non-distended, No tenderness Musculoskeletal: No swelling, No tenderness Integumentary: No rashes Neurological: Normal speech, Normal strength at 5/5 x4 extr Laboratory Data at Discharge: WBC 10.4 K/uL (4.3-10.9) D 04/24/19 03:56 Hgb 9.3 g/dL (12.0-15.0) L 04/24/19 03:56 Hct 27.3 % (36.0-45.0) L 04/24/19 03:56 Plt Count 158 K/uL (152-406) D 04/24/19 03:56 PT 12.2 SECONDS (9.5-12.5) 04/18/19 10:45 INR 1.04 04/18/19 10:45 Sodium 139 mmol/L (136-145) 04/24/19 03:56 Potassium 3.6 mmol/L (3.5-5.1) 04/24/19 03:56 BUN 32 mg/dL (7-18) H 04/24/19 03:56 Creatinine 3.12 mg/dL (0.55-1.3) H 04/24/19 03:56 Glucose 121 mg/dL (74-106) H 04/24/19 03:56 Uric Acid 5.7 mg/dL (2.6-6.0) 04/19/19 08:02 Phosphorus 2.8 mg/dL (2.5-4.9) 04/24/19 03:56 Magnesium 1.3 mg/dL (1.8-2.4) L* 04/18/19 10:45 Total Bilirubin 0.1 mg/dL (0.2-1.0) L 04/21/19 04:00 AST 18 U/L (15-37) 04/21/19 04:00 ALT 26 U/L (12-78) 04/21/19 04:00 Alkaline Phosphatase 61 U/L (45-117) 04/21/19 04:00 Triglycerides 96 mg/dL (<150) 04/19/19 05:21 Cholesterol 115 mg/dL (<200) 04/19/19 05:21 HDL Cholesterol 48 mg/dL (40-60) 04/19/19 05:21 Cholesterol/HDL Ratio 2.40 04/19/19 05:21 Home Medications: Atorvastatin Calcium [Lipitor] 1 tab PO BEDTIME 04/18/19 Bumetanide [Bumex*] 1 tab PO BID 04/18/19 Insulin Glargine Human [Lantus*] 20 unit SQ DAILY 04/18/19 Insulin Lispro [Humalog Kwikpen U-100] 10 unit SQ DAILY 04/18/19 Levothyroxine Sodium [Unithroid] 1 tab PO DAILY 04/18/19 Vitamin D [Drisdol*] 1 tab PO SEECOM 04/18/19 carvediloL [Carvedilol] 25 mg PO DAILY 04/18/19 Epoetin [Retacrit] 4,000 unit IV EVERY HD vial 04/24/19 Ranitidine [Zantac*] 75 mg PO BID #60 tab 04/24/19 lisinopriL [Prinivil*] 10 mg PO DAILY #30 tab 04/24/19 metroNIDAZOLE [Flagyl*] 500 mg PO TID #42 tablet 04/24/19 New Medications: lisinopriL [Prinivil*] 10 mg PO DAILY #30 tab metroNIDAZOLE [Flagyl*] 500 mg PO TID #42 tablet Ranitidine [Zantac*] 75 mg PO BID #60 tab Diet: Renal Activity: Ad seun Followup: Kristy Tamayo MD [ACTIVE - CAN ADMIT] - 1-2 Weeks (kidney doctor- call to schedule an appointment ) Rocco Shultz MD [OUTSIDE PHYSICIAN] - (Primary care provider- call to schedule an appointment ) Time spent managing pt's care (in minutes): 47
[2019-04-24 16:34] VITALS: BP 132/67; TEMP 97.9
[2019-04-25] MEDS ORDERED: lisinopriL 10 MG TAB PO SCH (09:00)
[2019-04-25 22:35] LABS: Vitamin D 1,25-Dihydroxy Total <8 pg/mL (18-72); Vitamin D,1,25-OH2, D2 <8 pg/mL
== END 2019-04-24 18:59 | disposition home or self-care (01) | DRG 193 ==
LOC: ER 09:42 → ERHOLD 13:37 → 4TH 17:24
PROVIDERS: ADMIT Family Medicine; ATTEND Internal Medicine
PROC: B516YZA Fluoroscopy of Right Subclavian Vein using Other Contrast, Guidance (ICD-10-PCS; 2019-04-21)
PROC: 5A1D70Z Performance of Urinary Filtration, Intermittent, Less than 6 Hours Per Day (ICD-10-PCS; 2019-04-21)
PROC: 05H533Z Insertion of Infusion Device into Right Subclavian Vein, Percutaneous Approach (ICD-10-PCS; principal; 2019-04-21 08:30)
PROC: 5A1D70Z Performance of Urinary Filtration, Intermittent, Less than 6 Hours Per Day (ICD-10-PCS; 2019-04-22)
PROC: 5A1D70Z Performance of Urinary Filtration, Intermittent, Less than 6 Hours Per Day (ICD-10-PCS; 2019-04-23)
DX: J18.9 Pneumonia, unspecified organism (principal); N18.6 End stage renal disease; J90 Pleural effusion, not elsewhere classified; N25.81 Secondary hyperparathyroidism of renal origin; N17.9 Acute kidney failure, unspecified; I12.0 Hypertensive chronic kidney disease with stage 5 chronic kidney disease or end stage renal disease; E03.9 Hypothyroidism, unspecified; E11.65 Type 2 diabetes mellitus with hyperglycemia; E11.40 Type 2 diabetes mellitus with diabetic neuropathy, unspecified; E11.21 Type 2 diabetes mellitus with diabetic nephropathy; E83.51 Hypocalcemia; E11.22 Type 2 diabetes mellitus with diabetic chronic kidney disease; D63.1 Anemia in chronic kidney disease; D63.8 Anemia in other chronic diseases classified elsewhere; E87.70 Fluid overload, unspecified; R19.7 Diarrhea, unspecified; R06.03 Acute respiratory distress; R09.02 Hypoxemia; Z79.4 Long term (current) use of insulin
CPT/HCPCS: 36415; 71045; 71250; 76000; 76770; 78582; 80048; 80053; 80061; 80069; 80076; 82553; 82570; 82607; 82652; 82728; 82746; 82805; 82947; 83520; 83540; 83605; 83735; 83880; 83970; 84145; 84156; 84165; 84443; 84466; 84484; 84550; 85025; 85044; 85379; 85610; 86021; 86038; 86160; 86225; 86317; 86430; 86704; 86706; 87040; 87324; 87340; 87389; 87449; 87522; 87804; 90935; 93005; 93306; 93970; 93971; 94760; 96365; 96366; 96367; 96372; 96375; 97161; 99285; A9540; A9558; C1752; J0456; J0690; J0696; J1644; J1650; J1815; J2405; J2550; J2704; J2920; J3010; J3475; J7030; J7040; J7512; Q5105

== ENCOUNTER 2019-12-13 17:40 | Inpatient (IN) | payer OTHER ==
--- OUTSIDE RECORDS SUMMARY | 2019-12-13 17:42 | XMS REPORT | Continuity of Care Document ---
:1965 Author Organization [facility] t Address [address] [place] [address] Care Team Providers Name Role Phone Unavailable Unavailable Unavailable Problems This patient has no known problems. Allergies, Adverse Reactions, Alerts This patient has no known allergies or adverse reactions. Medications This patient has no known medications. Procedures This patient has no known procedures. Encounters Start End Encounter Admission Attending Care Care Encounter Source Date/Time Date/Time Type Type Clinicians Facility Department ID 2019-11-27 2019-11-27 Outpatient [id number]58[facility] Results This patient has no known results.
[2019-12-13 18:38] LABS: Absolute Lymphocytes (CBC) 1.2 K/uL (0.7-4.9); Basophils % 0.9 % (0-1.3); Hematocrit 32.7 % (36.0-45.0); Lymphocytes % 12.6 % (15.3-44.8); MPV 7.1 fL (7.6-11.3); RBC Red Blood Cell Count 3.55 M/uL (3.86-4.86)
[2019-12-13] MEDS ORDERED: PANTOPRAZOLE 40 MG INJ ONE (18:38)
[2019-12-13] MEDS ORDERED: ONDANSETRON 4 MG/2 ML VIAL ONE ×2 (18:38→20:53)
[2019-12-13] MEDS ORDERED: NA CHLORIDE 0.9% 250 ML ONE (18:56)
[2019-12-13] MEDS ORDERED: PROMETHAZINE INJ 25 MG/ML AMP ONE ×2 (18:56→20:52)
[2019-12-13 19:23] LABS: ALT/SGPT 24 U/L (12-78); AST/SGOT 17 U/L (15-37); Albumin 3.1 g/dL (3.4-5.0); Alkaline Phosphatase 102 U/L (45-117); BUN Blood Urea Nitrogen 43 mg/dL (7-18); Bicarbonate 27 mmol/L (21-32); Bilirubin Direct < 0.1 mg/dL (0-0.2); Bilirubin Total 0.4 mg/dL (0.2-1.0); Glucose Level 248 mg/dL (74-106); Lipase 328 U/L (73-393); Magnesium 1.9 mg/dL (1.8-2.4); Potassium 3.6 mmol/L (3.5-5.1); Protein, Total 8.5 g/dL (6.4-8.2); Sodium Level 139 mmol/L (136-145)
--- NOTE | 2019-12-13 20:14 | RAD REPORT ---
EXAM DESCRIPTION: CT - Abdomen Pelvis Wo Contrast - 12/13/2019 7:58 pm CLINICAL HISTORY: Abdominal pain COMPARISON: None TECHNIQUE: Computed axial tomography of the abdomen and pelvis was obtained. IV and oral contrast we re not requested. All CT scans are performed using dose optimization technique as appropriate and may include automated exposure control or mA/KV adjustment according to patient size. FINDINGS: The evaluation of solid organs, vessels and bowel is limited secondary to the lack of con trast administration. The liver, spleen, pancreas, adrenals and kidneys appear grossly normal. The appendix is normal. There is no evidence of diverticulitis. Small hiatal hernia. The distal esophagus is dilated. Trace amount ascites. Cortical irregularity involves the superior vertebral endplate of L5 with sclerosis. IMPRESSION: A small hiatal hernia. The distal esophagus is dilated Cortical irregularity involves the superior vertebral endplate of L5 with sclerosis. This could be se condary to an inflammatory/infectious process and should be correlated clinically and with appropriat e lab values. Another consideration is that it is degenerative nature
[2019-12-13] MEDS ORDERED: LIDOCAINE VISCOUS 2% SOLN 15 ML UDC ONE (20:49)
[2019-12-13] MEDS ORDERED: MAGNES/ALUMIN/SIMET 30ML UCUP ONE (20:49)
--- NOTE | 2019-12-13 20:52 | EDPHYS ---
Physician Documentation [facility] Name: Barbara Ibarra Age: 54 yrs Sex: Female : 1965 Arrival Date: 12/13/2019 Time: 17:42 Bed 4 Private MD: Mahad Og HPI: 12/12 18:25 This 54 yrs old Female presents to ER via Ambulatory with complaints of cp Abdominal Pain, Vomiting. 18:25 The patient presents with abdominal pain in the epigastric area. Onset: The cp symptoms/episode began/occurred 2 day(s) ago. The symptoms do not radiate. Associated signs and symptoms: Pertinent positives: nausea and vomiting, Pertinent negatives: chest pain, constipation, diarrhea, vomiting blood. 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 N/A - Post-menopause lp1 Historical: - Allergies: 19:20 No Known Allergies; lp1 - Home Meds: 18:14 amlodipine 10 mg tab 1 tab once daily [Active]; atorvastatin 80 mg Oral tab 1 tab once iw daily [Active]; carvedilol 25 mg Oral tab 1 tab 2 times per day [Active]; Lantus 100 unit/mL Sub-Q soln 20 unit [Active]; Humalog Pen Sub-Q 10 unit [Active]; lisinopril Oral once daily [Active]; Bumetanide Oral [Active]; - PMHx: 18:14 Anemia; Diabetes - NIDDM; Hyperlipidemia; Hypertension; Thyroid problem; ESRD; iw 19:20 Dialysis; M/W/F; lp1 - PSHx: 19:20 None; lp1 - Immunization history:: Adult Immunizations up to date. - Social history:: Smoking status: . ROS: 18:30 Constitutional: Positive for poor PO intake, Negative for body aches, chills, fever. cp 18:30 Eyes: Negative for injury, pain, redness, and discharge. cp 18:30 ENT: Negative for ear pain, sore throat, difficulty swallowing, difficulty handling secretions. 18:30 Cardiovascular: Negative for chest pain, palpitations. 18:30 Respiratory: Negative for cough, shortness of breath, wheezing. 18:30 Abdomen/GI: Positive for abdominal pain, nausea and vomiting, of the epigastric area, Negative for diarrhea, constipation, hematemesis, black/tarry stool, rectal bleeding. 18:30 Back: Negative for radiated pain. 18:30 Neuro: Negative for altered mental status, headache. 18:30 All other systems are negative. Exam: 18:35 Constitutional: The patient appears in no acute distress, alert, awake, cp non-diaphoretic, non-toxic, well developed, frail. 18:35 Head/Face: Normocephalic, atraumatic. cp 18:35 Eyes: Periorbital structures: appear normal, Conjunctiva: normal, no exudate, no injection, Sclera: no appreciated abnormality, Lids and lashes: appear normal, bilaterally. 18:35 ENT: External ear(s): are unremarkable, Nose: is normal, Mouth: Lips: moist, Oral mucosa: moist, Posterior pharynx: is normal, airway is patent. 18:35 Neck: ROM/movement: is normal, is supple, without pain, no range of motions limitations. 18:35 Chest/axilla: Inspection: normal, Palpation: is normal, no crepitus, no tenderness. 18:35 Cardiovascular: Rate: normal, Rhythm: regular, Edema: is not appreciated, JVD: is not appreciated. 18:35 Respiratory: the patient does not display signs of respiratory distress, Respirations: normal, no use of accessory muscles, no retractions, labored breathing, is not present, Breath sounds: are clear throughout, no decreased breath sounds, no stridor, no wheezing. 18:35 Abdomen/GI: Inspection: abdomen appears normal, Bowel sounds: active, all quadrants, Palpation: soft, in all quadrants, moderate abdominal tenderness, in the epigastric area, rebound tenderness, is not appreciated, voluntary guarding, is elicited in the epigastric area. 18:35 Back: pain, is absent, ROM is normal. 18:35 Neuro: Orientation: to person, place \T\ time. Mentation: is normal, Motor: moves all fours, strength is normal. Vital Signs: 18:10 BP 166 / 82; Pulse 89; Resp 16; Temp 98.2; Pulse Ox 97% on R/A; Weight 53.07 kg; Height iw 4 ft. 10 in. (147.32 cm); Pain 8/10; 18:49 BP 186 / 89; Pulse 95; Resp 15 S; Pulse Ox 100% on R/A; ca1 19:21 BP 180 / 67; Pulse 93; Resp 18; Pulse Ox 97% on R/A; lp1 20:30 BP 199 / 93; Pulse 92; Resp 18; Pulse Ox 97% on R/A; Pain 7/10; lp1 21:45 BP 208 / 82; Pulse 96; Resp 18; Pulse Ox 96% on R/A; lp1 22:30 BP 207 / 91; Pulse 100; Resp 18; Pulse Ox 99% on R/A; lp1 23:17 BP 181 / 80; Pulse 95; Resp 18; Temp 97.2; Pulse Ox 99% on R/A; lp1 18:10 Body Mass Index 24.45 (53.07 kg, 147.32 cm) iw MDM: 18:16 Patient medically screened. cp 18:30 Differential diagnosis: cholecystitis, Cholelithiasis, gastritis, gastroesophageal cp reflux disease, GI Bleed, pancreatitis, Peptic Ulcer Disease, Perf. Duodenal Ulcer, Perf. Gastric Ulcer, Pyelonephritis, Ureterolithiasis, urinary tract infection. 20:45 Data reviewed: vital signs, nurses notes, lab test result(s), radiologic studies, CT cp scan. 20:45 Counseling: I had a detailed discussion with the patient and/or guardian regarding: the cp historical points, exam findings, and any diagnostic results supporting the discharge/admit diagnosis, lab results, radiology results. Response to treatment: the patient's symptoms have mildly improved after treatment, Patient continues to vomit after attempted po challenge. Will admit for continued treatment. 21:00 Physician consultation: Chester ANGEL was called at 21:00, was contacted at 21:00, regarding admission, to the telemetry unit. patient's condition, and will see patient in ED, shortly. 12/12 18:19 Order name: Basic Metabolic Panel; Complete Time: 19:34 cp 12/12 19:34 Interpretation: Normal except: GLUC 248; BUN 43; CRE 6.16; GFR 7. cp 12/12 18:19 Order name: CBC with Diff; Complete Time: 19:11 cp 12/12 19:12 Interpretation: Normal except: RBC 3.55; HGB 10.9; HCT 32.7; MCV 92.2; RDW 16.1; MPV cp 7.1; NANDO% 74.9; LYM% 12.6; EOSINOPHIL % 6.6; EOSA 0.6. 12/12 18:19 Order name: Hepatic Function; Complete Time: 19:34 cp 12/12 19:35 Interpretation: Normal except: TP 8.5; ALB 3.1; GLOB 5.4; A/G 0.6. cp 12/12 18:19 Order name: Lipase; Complete Time: 19:34 cp 12/12 19:35 Interpretation: Within normal limits: LIP 328. cp 12/12 18:19 Order name: Magnesium; Complete Time: 19:34 cp 12/12 19:35 Interpretation: Within normal limits: MG 1.9. cp 12/12 19:12 Order name: CT Abd/Pelvis - Without Contrast; Complete Time: 20:19 cp 12/12 21:02 Order name: US Abdomen Limited: RUQ/epigastric cp 12/12 18:19 Order name: IV Saline Lock; Complete Time: 18:26 cp 12/12 18:19 Order name: Labs collected and sent; Complete Time: 18:26 cp 12/12 20:25 Order name: PO challenge; Complete Time: 20:33 cp Administered Medications: 18:24 Drug: Zofran (Ondansetron) 4 mg Route: IVP; Site: right wrist; ca1 19:11 Follow up: Response: No adverse reaction; Nausea unchanged ss 18:26 Drug: ProTONIX 40 mg Route: IVP; Site: right wrist; ca1 19:11 Follow up: Response: No adverse reaction ss 18:45 Drug: NS 0.9% 250 ml Route: IV; Rate: 250 calculated rate; Site: right wrist; ca1 19:15 Follow up: IV Status: Completed infusion; IV Intake: 250ml lp1 18:48 Drug: Phenergan 12.5 mg Route: IVP; Site: right antecubital; ca1 19:15 Follow up: Response: Nausea is decreased lp1 20:35 Drug: Phenergan 12.5 mg Route: IVP; Site: right wrist; lp1 22:49 Follow up: Response: No change in condition lp1 20:35 Drug: Zofran (Ondansetron) 4 mg Route: IVP; Site: right wrist; lp1 22:49 Follow up: Response: No change in condition lp1 22:20 Drug: hydrALAZINE 10 mg Route: IV; Rate: calculated rate; Site: right wrist; lp1 23:26 Follow up: Response: Blood pressure is lowered; IV Status: Completed infusion lp1 23:19 Not Given (Patient unable to tolerate PO): GI Cocktail without - (Maalox lp1 Suspension 30 ml, Lidocaine Liquid 2 % 15 ml) PO once 23:27 Not Given (Hemodynamic Parameters): NS 0.9% 250 ml IV at 50 ml/hr once lp1 Disposition: 12/13 14:39 Co-signature as Attending Physician, Mahad Horne MD I agree with the assessment and viry plan of care. Disposition: 12/13/19 20:51 Hospitalization ordered by Brian Moreira for Observation. Preliminary diagnosis are Nausea and vomiting - intractable, Epigastric pain. - Bed requested for Telemetry/MedSurg (observation). - Status is Observation. lp1 - Condition is Stable. - Problem is new. - Symptoms have improved. Signatures: Dispatcher [employer] EDMahad Grant MD MD cha Williams, Irene, RN RN Ana Whitmore RN RN lp1 Chester Urbano, OPAL POLISHER-C OPAL POLISHER-Cla1 Mahad Otero PA PA cp Janee Romo RN RN Azeb Nails RN RN [facility] Sheridan Fan RN ss Corrections: (The following items were deleted from the chart) 12/12 19:12 19:11 Normal except: RBC 3.55; HGB 10.9; HCT 32.7; MCV 92.2; RDW 16.1; MPV 7.1; NANDO% cp 74.9; LYM% 12.6; EOSINOPHIL % 6.6. cp 19:20 18:14 PMHx: Dialysis; iw lp1 21:51 20:51 Hospitalization Ordered by Brian Moreira MD for Observation. Preliminary cg diagnosis is Nausea and vomiting - intractable; Epigastric pain. Bed requested for Telemetry/MedSurg (observation). Status is Observation. Condition is Stable. Problem is new. Symptoms have improved. cp 21:56 21:51 12/13/2019 20:51 Hospitalization Ordered by Brian Moreira MD for Observation. cg Preliminary diagnosis is Nausea and vomiting - intractable; Epigastric pain. Bed requested for Telemetry/MedSurg (observation). Status is Observation. Condition is Stable. Problem is new. Symptoms have improved. cg 23:37 21:56 12/13/2019 20:51 Hospitalization Ordered by Brian Moreira MD for Observation. lp1 Preliminary diagnosis is Nausea and vomiting - intractable; Epigastric pain. Bed requested for Telemetry/MedSurg (observation). Status is Observation. Condition is Stable. Problem is new. Symptoms have improved. cg
--- NOTE | 2019-12-13 20:52 | ER ---
Nurse's Notes [facility] Name: Barbara Ibarra Age: 54 yrs Sex: Female : 1965 Arrival Date: 12/13/2019 Time: 17:42 Bed 4 Private MD: Diagnosis: Nausea and vomiting-intractable;Epigastric pain Presentation: 12/12 18:10 Chief complaint: Patient states: feels like there is something is stuck in her iw esophagus, feelslike she can;t swallow properly, is having epigastric pain and vomiting, relieved by laying flat. Coronavirus screen: At this time, the client does not indicate any symptoms associated with coronavirus-19. Ebola Screen: Patient negative for fever greater than or equal to 101.5 degrees Fahrenheit, and additional compatible Ebola Virus Disease symptoms Patient denies exposure to infectious person. Patient denies travel to an Ebola-affected area in the 21 days before illness onset. No symptoms or risks identified at this time. Initial Sepsis Screen: Does the patient meet any 2 criteria? No. Patient's initial sepsis screen is negative. Does the patient have a suspected source of infection? No. Patient's initial sepsis screen is negative. Risk Assessment: Do you want to hurt yourself or someone else? Patient reports no desire to harm self or others. Onset of symptoms was December 10, 2019. 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: 19:19 LMP N/A - Post-menopause lp1 Historical: - Allergies: 19:20 No Known Allergies; lp1 - Home Meds: 18:14 amlodipine 10 mg tab 1 tab once daily [Active]; atorvastatin 80 mg Oral tab 1 tab once iw daily [Active]; carvedilol 25 mg Oral tab 1 tab 2 times per day [Active]; Lantus 100 unit/mL Sub-Q soln 20 unit [Active]; Humalog Pen Sub-Q 10 unit [Active]; lisinopril Oral once daily [Active]; Bumetanide Oral [Active]; - PMHx: 18:14 Anemia; Diabetes - NIDDM; Hyperlipidemia; Hypertension; Thyroid problem; ESRD; iw 19:20 Dialysis; M/W/F; lp1 - PSHx: 19:20 None; lp1 - Immunization history:: Adult Immunizations up to date. - Social history:: Smoking status: . Screenin:20 Abuse screen: Denies threats or abuse. Denies injuries from another. Nutritional ca1 screening: No deficits noted. Tuberculosis screening: No symptoms or risk factors identified. Fall Risk IV access (20 points). Assessment: 18:20 General: Appears in no apparent distress. comfortable, Behavior is calm, cooperative, ca1 appropriate for age. Pain: Complains of pain in epigastric area Pain does not radiate. Pain currently is 7 out of 10 on a pain scale. Pain began 2-3 days ago. Is intermittent. Neuro: Level of Consciousness is awake, alert, obeys commands, Oriented to person, place, time, situation. Cardiovascular: Heart tones S1 S2 present Capillary refill < 3 seconds Patient's skin is warm and dry. Dialysis shunt: in the anterior aspect of right upper chest, with palpable thrill, with auscultated bruit, with no erythema, with no edema, no bleeding noted. Respiratory: Airway is patent Respiratory effort is even, unlabored, Respiratory pattern is regular, symmetrical, Breath sounds are clear bilaterally. GI: Abdomen is flat, non-distended, Bowel sounds present X 4 quads. Abd is soft X 4 quads Abdomen is tender to palpation in epigastric area Reports nausea, vomiting. : No signs and/or symptoms were reported regarding the genitourinary system. EENT: No signs and/or symptoms were reported regarding the EENT system. Derm: Skin is intact, is healthy with good turgor, Skin is pink, warm \T\ dry. Musculoskeletal: Circulation, motion, and sensation intact. Capillary refill < 3 seconds. 19:19 Reassessment: Patient appears in no apparent distress at this time. Reassessment: lp1 Patient reports nausea relief at this time; aware of order for CT. Neuro: Level of Consciousness is awake, alert, obeys commands. Cardiovascular: Patient's skin is warm and dry. Respiratory: Respiratory effort is even, unlabored. Derm: Skin is intact, Skin is dry, Skin is normal. 20:30 Reassessment: Provider at bedside to discuss results with patient; Patient reports pain lp1 to epigastric area; Verbal order for Phenergan 12.5mg IV and GI cocktail. 20:35 GI: Pt is actively vomiting bile. lp1 20:59 Reassessment: Hospitalist at bedside to discuss care with patient. lp1 21:27 Reassessment: Ultrasound at bedside. lp1 22:10 Reassessment: Patient had episode of incontinence of bowels, linens changed, brief lp1 changed; continuing to vomit at this time, 100ml noted. Vital Signs: 18:10 BP 166 / 82; Pulse 89; Resp 16; Temp 98.2; Pulse Ox 97% on R/A; Weight 53.07 kg; Height iw 4 ft. 10 in. (147.32 cm); Pain 8/10; 18:49 BP 186 / 89; Pulse 95; Resp 15 S; Pulse Ox 100% on R/A; ca1 19:21 BP 180 / 67; Pulse 93; Resp 18; Pulse Ox 97% on R/A; lp1 20:30 BP 199 / 93; Pulse 92; Resp 18; Pulse Ox 97% on R/A; Pain 7/10; lp1 21:45 BP 208 / 82; Pulse 96; Resp 18; Pulse Ox 96% on R/A; lp1 22:30 BP 207 / 91; Pulse 100; Resp 18; Pulse Ox 99% on R/A; lp1 23:17 BP 181 / 80; Pulse 95; Resp 18; Temp 97.2; Pulse Ox 99% on R/A; lp1 18:10 Body Mass Index 24.45 (53.07 kg, 147.32 cm) iw ED Course: 17:42 Patient arrived in ED. as 18:12 Triage completed. iw 18:15 Mahad Otero PA is PHCP. cp 18:15 Mahad Horne MD is Attending Physician. cp 18:20 Initial lab(s) drawn, by me, by EMS personnel. Inserted saline lock: 20 gauge in right ca1 wrist, using aseptic technique. Blood collected. 18:20 Patient has correct armband on for positive identification. Placed in gown. Bed in low ca1 position. Call light in reach. Side rails up X2. Pulse ox on. NIBP on. Warm blanket given. 18:26 Azeb Nails, RN is Primary Nurse. ca1 18:29 Arm band placed on right wrist. ca1 19:33 Notified Nurse Practitioner and/or Physician Field Sales Executive of a critical lab result(s), lp1 Creatinine 6.16. 19:58 CT Abd/Pelvis - Without Contrast In Process Unspecified. EDMS 20:50 Brian Moreira MD is Hospitalizing Provider. cp 22:20 Ultrasound completed. Patient tolerated well. Notified AUDIOVISUAL EQUIPMENT OPERATOR/ADILSON sam. sg3 23:18 No provider procedures requiring assistance completed. Patient admitted, IV remains in lp1 place. Administered Medications: 18:24 Drug: Zofran (Ondansetron) 4 mg Route: IVP; Site: right wrist; ca1 19:11 Follow up: Response: No adverse reaction; Nausea unchanged ss 18:26 Drug: ProTONIX 40 mg Route: IVP; Site: right wrist; ca1 19:11 Follow up: Response: No adverse reaction ss 18:45 Drug: NS 0.9% 250 ml Route: IV; Rate: 250 calculated rate; Site: right wrist; ca1 19:15 Follow up: IV Status: Completed infusion; IV Intake: 250ml lp1 18:48 Drug: Phenergan 12.5 mg Route: IVP; Site: right antecubital; ca1 19:15 Follow up: Response: Nausea is decreased lp1 20:35 Drug: Phenergan 12.5 mg Route: IVP; Site: right wrist; lp1 22:49 Follow up: Response: No change in condition lp1 20:35 Drug: Zofran (Ondansetron) 4 mg Route: IVP; Site: right wrist; lp1 22:49 Follow up: Response: No change in condition lp1 22:20 Drug: hydrALAZINE 10 mg Route: IV; Rate: calculated rate; Site: right wrist; lp1 23:26 Follow up: Response: Blood pressure is lowered; IV Status: Completed infusion lp1 23:19 Not Given (Patient unable to tolerate PO): GI Cocktail without - (Maalox lp1 Suspension 30 ml, Lidocaine Liquid 2 % 15 ml) PO once 23:27 Not Given (Hemodynamic Parameters): NS 0.9% 250 ml IV at 50 ml/hr once lp1 Intake: 19:15 IV: 250ml; Total: 250ml. lp1 Outcome: 20:51 Decision to Hospitalize by Provider. cp 23:15 Admitted to Tele accompanied by pillo, via stretcher, room 204, with chart, Report lp1 called to BHAKTI Coyne 23:18 Condition: stable lp1 23:18 Instructed on the need for admit. 23:37 Patient left the ED. lp1 Signatures: Dispatcher [employer] Joy Bowens Irene, RN RN iw Sheridan Fan RN RN ss Ana Whitmore RN RN lp1 Mahad Otero PA PA cp Godinez, Sarah 3 Azeb Nails RN RN ca1 Corrections: (The following items were deleted from the chart) 18:14 18:10 Pulse 89bpm; Resp 16bpm; Pulse Ox 97% RA; Temp 98.2F; 53.07 kg; Height 4 ft. 10 iw in.; BMI: 24.4; Pain 8/10; iw 19:20 18:14 PMHx: Dialysis; iw lp1 20:56 20:30 Reassessment: Provider at bedside to discuss results with patient; Patient lp1 reports pain to epigastric area; Verbal order for Phenergan 12.5mg IV lp1
[2019-12-13] MEDS ORDERED: NA CHLORIDE 0.9% 100 ML IV ONE (20:53)
[2019-12-13] MEDS ORDERED: HYDRALAZINE HCL 20 MG/ML VIAL ONE (22:22)
--- NOTE | 2019-12-13 22:31 | P.HP ---
Certification for Inpatient Patient admitted to: Observation With expected LOS: <2 Midnights Patient will require the following post-hospital care: None Practitioner: I am a practitioner with admitting privileges, knowledge of patient current condition, hospital course, and medical plan of care. Services: Services provided to patient in accordance with Admission requirements found in Title 42 Section 412.3 of the Code of Federal Regulations <Chester Urbano - Last Filed: 12/13/19 22:26> Patient History Date of Service: 12/13/19 Primary Care Provider: Dr. Small, Nephrology- Dr. Gutierrez Reason for admission: Intractable vomiting History of Present Illness: 54-year-old female with history of diabetes mellitus type 2, hypertension, hyperlipidemia, end-stage renal disease on hemodialysis Sunday presents emergency department for nausea, vomiting, epigastric abdominal pain. Patient reports the pain began around Sunday in that she has been vomiting persistently since then. Patient reports inability to tolerate even fluids by mouth. Patient was worked up in the emergency department, blood work revealed glucose 248, creatinine 6.16, BUN 43, GFR 7, potassium normal at 3.6. CT abdomen pelvis shows small hiatal hernia with dilated distal esophagus. Also mentions a cortical irregularity involving the superior vertebral endplate of the L5 with sclerosis. In the emergency department patient was given Zofran 4 mg IV x2, Phenergan 12.5 IV x1, Protonix 40 mg IV x1, GI cocktail with Maalox and lidocaine inpatient still failed p.o. challenge after this. ED provider wishes to admit patient for further evaluation and management. When I saw the patient in the emergency department she is awake, alert, oriented x3, actively vomiting. Patient reports that she has been having the vomiting since Sunday. Patient denies similar episodes in the past. Patient was tender in the right upper quadrant, abdominal ultrasound was ordered and negative for cholelithiasis or cholecystitis. Lipase was normal. Blood pressure was elevated when I evaluated the patient at200. systolic. Hydralazine was ordered. The patient will be admitted for further evaluation and management. - Past Medical/Surgical History Diabetic: Yes -: Anemia -: Diabetes mellitus type 2 -: Hypertension -: Hypothyroidism -: End-stage renal disease on hemodialysis MWF -: Hyperlipidemia -: Incision and drainage -: -: Perma-Cath placement Psychosocial/ Personal History: Patient lives with her family. - Family History Mother -: Diabetes, Stroke, Kidney disease - Social History Smoking Status: Never smoker Alcohol use: No CD- Drugs: No Caffeine use: Yes Place of Residence: Home <Chester Urbano - Last Filed: 12/13/19 22:26> Date of Service: 12/15/19 <MoreiraRandy templemond - Last Filed: 12/15/19 19:00> Allergies No Known Allergies Allergy (Verified 12/14/19 00:33) Home Medications: Pantoprazole [Protonix Tab*] 40 mg PO DAILY 30 Days #30 tab 12/15/19 Review of Systems 10-point ROS is otherwise unremarkable Gastrointestinal: Nausea, Vomiting, Abdominal Pain <Chester Urbano - Last Filed: 12/13/19 22:26> Physical Examination - Physical Exam General: Alert, In no apparent distress HEENT: Atraumatic, PERRLA, Mucous membr. moist/pink Neck: Supple, 2+ carotid pulse no bruit, No LAD Respiratory: Clear to auscultation bilaterally, Normal air movement Cardiovascular: Regular rate/rhythm, Normal S1 S2 Gastrointestinal: Normal bowel sounds, Tenderness (Mild epigastric and right upper quadrant tendon) Musculoskeletal: No tenderness Integumentary: No rashes Neurological: Normal speech, Normal strength at 5/5 x4 extr, Normal tone, Normal affect - Studies Laboratory Data (last 24 hrs) 12/13/19 18:23: WBC 9.3, Hgb 10.9 L, Hct 32.7 L, Plt Count 292 12/13/19 18:23: Sodium 139, Potassium 3.6, BUN 43 H, Creatinine 6.16 H*, Glucose 248 H, Magnesium 1.9 D, Total Bilirubin 0.4, AST 17, ALT 24, Alkaline Phosphatase 102, Lipase 328 <Chester Urbano - Last Filed: 12/13/19 22:26> Assessment and Plan - Plan Assessment Intractable nausea and vomiting suspect gastroparesis End-stage renal disease on hemodialysis Diabetes mellitus type 2 Hypertension Hyperlipidemia Plan Intractable nausea and vomiting suspect gastroparesis: Clear liquids for now, continue with p.r.n. Zofran, Reglan, scheduled protonix. Advance diet as tolerated. Abdominal ultrasound negative for cholelithiasis or cholecystitis, CT abdomen without acute findings. DVT prophylaxis heparin 5000 units subcutaneous twice daily. End-stage renal disease on hemodialysis: Nephrology consult in place, patient did complete dialysis on Sunday. Potassium normal. Diabetes mellitus type 2: A.c. HS Accu-Cheks scale insulin therapy. Hypertension: Patient not tolerating p.o. meds at this time. Continue with p.r.n. hydralazine. Hyperlipidemia: Obtain home medications, start when tolerating oral. Discharge Plan: Home Plan to discharge in: 24 Hours - Advance Directives Does patient have a Living Will: No Does patient have a Durable POA for Healthcare: No - Code Status/Comfort Care Code Status Assessed: Yes Critical Care: No Time Spent Managing Pts Care (In Minutes): 55 <Chester Urbano - Last Filed: 12/13/19 22:26> - Plan Plan of care discussed with Chester Urbano, and I agree with the management plan as noted above. <Brian Moreira - Last Filed: 12/15/19 19:00>
[2019-12-14] MEDS ORDERED: HYDRALAZINE HCL 20 MG/ML VIAL IV PRN (00:31)
[2019-12-14] MEDS ORDERED: SODIUM CHLORIDE 0.9% 10ML INJ IV PRN (00:31)
[2019-12-14] MEDS ORDERED: ACETAMINOPHEN 500 MG TAB PO PRN (00:31)
[2019-12-14] MEDS ORDERED: MORPHINE 2 MG/ML SYR IV PRN (00:31)
[2019-12-14 00:41] VITALS: BMI 22.8
[2019-12-14] MEDS: INSULIN -REGULAR HUMAN 50 UNIT/0.5 ML ML SQ SCH ×5 (01:25→21:00)
[2019-12-14] MEDS: ONDANSETRON 4 MG/2 ML VIAL IV PRN ×4 (01:26→18:41)
[2019-12-14] MEDS: METOCLOPRAMIDE 10 MG/2mL INJ IV PRN ×3 (02:46→15:21)
[2019-12-14] MEDS: PANTOPRAZOLE 40 MG INJ IVP SCH (06:30)
[2019-12-14 06:42] LABS: Absolute Lymphocytes (CBC) 0.7 K/uL (0.7-4.9); Basophils % 0.7 % (0-1.3); Hematocrit 31.7 % (36.0-45.0); MPV 7.3 fL (7.6-11.3); RBC Red Blood Cell Count 3.47 M/uL (3.86-4.86)
[2019-12-14 07:02] LABS: Potassium 3.1 mmol/L (3.5-5.1); Thyroid Stimulating Hormone 2.93 uIU/mL (0.360-3.740)
[2019-12-14 07:40] LABS: Blood Morphology Comment NOT SEEN (NOT SEEN); Platelet Estimate ADEQ
--- NOTE | 2019-12-14 07:49 | RAD REPORT ---
EXAM DESCRIPTION: US - Abdomen Exam Limited - 12/13/2019 10:15 pm CLINICAL HISTORY: EPIGASTRIC PAIN Preliminary findings provided at the time of the study. COMPARISON: Abdomen Pelvis Wo Contrast dated 12/13/2019 FINDINGS: No gallstones, sludge or other abnormalities within the gallbladder lumen. There is no wal l thickening or pericholecystic fluid. No common duct stone or biliary tree dilatation identified. IMPRESSION: Normal gallbladder and biliary tree ultrasound.
[2019-12-14] MEDS: HEPARIN 5000 UNIT/ML 1 ML VIAL SQ SCH ×2 (08:44→21:00)
--- NOTE | 2019-12-14 09:54 | P.PN ---
Subjective Date of Service: 12/14/19 Primary Care Provider: Dr. Small, Nephrology- Dr. Gutierrez Chief Complaint: Intractable vomiting Subjective: Other (Reports slight improvement in how she is feeling, and able to tolerate some sips of water overnight, but had nausea and vomiting during my exam) Physical Examination - Vital Signs Temperature: 99.0 F Blood Pressure: 170/79 Pulse: 104 Respirations: 17 Pulse Ox (%): 96 - Physical Exam General: Alert, In no apparent distress, Oriented x3 HEENT: Sclerae nonicteric Neck: Supple Respiratory: Clear to auscultation bilaterally, Normal air movement Cardiovascular: Regular rate/rhythm, Normal S1 S2 Gastrointestinal: Soft and benign, Non-distended, Tenderness (Mild-moderate In epigastric region) Musculoskeletal: No tenderness Integumentary: No rashes Neurological: Normal speech, Normal affect - Studies Laboratory Data (last 24 hrs) 12/13/19 18:23: WBC 9.3, Hgb 10.9 L, Hct 32.7 L, Plt Count 292 12/13/19 18:23: Sodium 139, Potassium 3.6, BUN 43 H, Creatinine 6.16 H*, Glucose 248 H, Magnesium 1.9 D, Total Bilirubin 0.4, AST 17, ALT 24, Alkaline Phosphatase 102, Lipase 328 Assessment & Plan Physician Review Additional Text: Intractable nausea and vomiting suspect gastroparesis vs GERD End-stage renal disease on hemodialysis Diabetes mellitus type 2 Hypertension Hyperlipidemia Plan Intractable nausea and vomiting suspect gastroparesis vs GERD: Feeling slightly better this morning, but continues with nausea/vomiting Continue p.r.n. Vanessa Montoya Dilated distal esophagus seen on CT, continue Protonix for possible GERD End-stage renal disease on hemodialysis: Nephrology consult in place, patient did complete dialysis on Sunday. Diabetes mellitus type 2: A.c. HS Accu-Cheks scale insulin therapy. Hypertension: Patient not tolerating p.o. meds at this time. Continue with p.r.n. hydralazine. Hyperlipidemia: Obtain home medications, start when tolerating oral. Dispo: anticipate dc home in 24-48hrs once able to tolerate PO Time Spent Managing Pts Care (In Minutes): 35
[2019-12-14 10:34] VITALS: O2SAT 96
--- NOTE | 2019-12-15 01:23 | CON ---
Date of Consultation: 12/14/2019 Chief Complaint: End-stage renal disease, on dialysis. History Of Present Illness: Patient is a 54-year-old woman with history of diabetes mellitus, diabet ic kidney disease, end-stage renal disease secondary to hypertension. Patient has been dialyzed on M , Sunday, Sunday. [facility]. She came to the emergency room because of intractable nausea, vomiting, abdominal pain. Patient has had decr eased p.o. intake. Patient had workup done in the emergency room and showed potassium of 3.6, glucos e 248, creatinine 6.16. CT scan of the abdomen and pelvis showed hiatal hernia with dilated distal e sophagus. Patient was admitted to the hospital for nausea, vomiting, and decreased p.o. intake, like ly patient has history of diabetic gastroparesis. Review of Systems: General: Denies fevers, chills. Eyes: Denies vision changes. Ears, Nose, Mouth and Throat: Denies sore throat, earache. Respiratory: Denies PND, orthopnea. Cardiovascular: Denies chest pain, palpitation. GI: Denies nausea, vomiting. : Denies dysuria, hematuria. Musculoskeletal: Denies muscle aches or joint swelling. Nausea, vomiting has been in control since she was admitted and started on medication. Past Medical History: Anemia due to chronic kidney disease, diabetes mellitus, diabetic nephropathy/ neuropathy, diabetic gastroparesis, hypertension, hypothyroidism, status post and dialysis catheter placement. Family History: Mother had diabetes, stroke and kidney disease. Social History: Denies tobacco, alcohol, or illicit drugs. Physical Examination: General: Patient is awake, alert, follows commands. Eyes: Anicteric sclerae. EOMI. Ears, Nose, Mouth, and Throat: Oral mucosa is moist. No pallor. Neck: Supple. No bruits. Lungs: Clear to auscultation bilaterally. Heart: S1, S2. No pericardial friction rub. Abdomen: Soft, nontender. No rebound. No guarding. Extremities: No edema. No clubbing. No cyanosis. Neurological: Moving extremities. Cranial nerves intact. Psychiatric: Alert and oriented x3. Normal affect. Laboratory Data: Sodium 139, potassium 3.6, BUN 43, creatinine 6.16, glucose 248, magnesium 1.9, lip ase . Impression And Plan: 1.The patient is admitted for intractable nausea and vomiting, suspected she was screened for pancreatitis and CT scan of the abdomen showed hiatal hernia. The patient will be consulted by surgical team. Patient is on Zofran and Reglan and scheduled Protonix for nausea, vomiting and to pr event any GI bleed. 2.End-stage disease. Next dialysis tomorrow. 3.Diabetes mellitus. Continue insulin as needed according to sliding scale. 4.Hypertension. Patient will have IV hydralazine for blood pressure control. 5.Hyperlipidemia. Patient will resume medication when she tolerates p.o. intake. ASHLI/DAYO Voice ID: [id number] Report ID: [id number]
[2019-12-15 05:12] LABS: Absolute Lymphocytes (CBC) 2.7 K/uL (0.7-4.9); Basophils % 0.9 % (0-1.3); Lymphocytes % 32.3 % (15.3-44.8); MPV 7.2 fL (7.6-11.3); RBC Red Blood Cell Count 3.48 M/uL (3.86-4.86)
[2019-12-15 06:06] LABS: Albumin 2.6 g/dL (3.4-5.0); Bilirubin Total 0.4 mg/dL (0.2-1.0); Magnesium 1.9 mg/dL (1.8-2.4); Phosphorus 8.1 mg/dL (2.5-4.9); Potassium 3.3 mmol/L (3.5-5.1); Protein, Total 7.2 g/dL (6.4-8.2)
[2019-12-15] MEDS: INSULIN -REGULAR HUMAN 50 UNIT/0.5 ML ML SQ SCH ×3 (07:30→16:30)
[2019-12-15] MEDS: PANTOPRAZOLE 40 MG INJ IVP SCH (07:54)
[2019-12-15] MEDS: HEPARIN 5000 UNIT/ML 1 ML VIAL SQ SCH (08:03)
[2019-12-15 12:21] VITALS: BP 159/74; TEMP 97.6
--- NOTE | 2019-12-15 17:12 | P.DS ---
Admission Date: 12/14/19 Discharge Date: 12/15/19 Primary Care Provider: Dr. Small, Nephrology- Dr. Tamayo Disposition: ROUTINE DISCHARGE Discharge Condition: GOOD Reason for Admission: Intractable vomiting Consultations: Nephrology for hemodialysis Procedures: CT abdomen/pelvis (12/12): Small hiatal hernia. Distal esophagus is dilated. Abdominal ultrasound (12/13): Normal gallbladder and biliary tree Problem list Intractable nausea and vomiting suspect gastroparesis vs GERD End-stage renal disease on hemodialysis Diabetes mellitus type 2 Hypertension Hyperlipidemia Brief History of Present Illness: 54-year-old, PMH: Diabetes mellitus type 2, HTN, HLD, ESRD on hemodialysis (M-W-F) who presented to the ED with intractable nausea, vomiting, epigastric abdominal pain that progressively worsened over the past few days. Workup in the ED was notable for a small hiatal hernia with dilated distal esophagus on CT, with minimal improvement with Zofran and Phenergan, and GI cocktail. Hospital Course: She was continued on Phenergan, Protonix, and IV fluid hydration. She improved overnight, she underwent hemodialysis, was tolerating a full liquid diet without any nausea or abdominal pain. It is unclear the exact etiology, but felt she may have some diabetic gastroparesis as well as GERD in the setting of her small hiatal hernia. She did not require any antinausea medication on the day of discharge. She was discharged home with a new prescription for pantoprazole 40 mg daily. She is to follow up with her PCP. She was advised if this pain recurs/persists to possibly a follow up with GI for an EGD. If the pain recurs and is worse / unable to tolerate PO, patient is advised to return to the ED. Home medications were reviewed with patient: Bumex 1 mg twice a day Atorvastatin 80 mg tablet daily. Lisinopril 10 mg daily. Carvedilol 25 mg twice a day Lantus 20 units at night, and Humalog BID Vital Signs/Physical Exam: Temp Pulse Resp BP Pulse Ox 97.6 F 86 18 159/74 H 97 12/15/19 12:00 12/15/19 12:00 12/15/19 12:00 12/15/19 12:00 12/15/19 12:00 General: Alert, In no apparent distress HEENT: Mucous membr. moist/pink, Sclerae nonicteric Respiratory: Clear to auscultation bilaterally, Normal air movement Cardiovascular: No edema, Regular rate/rhythm Gastrointestinal: Soft and benign, Non-distended, No tenderness Integumentary: No rashes Neurological: Normal speech, Normal affect Laboratory Data at Discharge: WBC 8.3 K/uL (4.3-10.9) D 12/15/19 04:57 Hgb 10.7 g/dL (12.0-15.0) L 12/15/19 04:57 Hct 32.0 % (36.0-45.0) L 12/15/19 04:57 Plt Count 288 K/uL (152-406) 12/15/19 04:57 Sodium 138 mmol/L (136-145) 12/15/19 04:57 Potassium 3.3 mmol/L (3.5-5.1) L 12/15/19 04:57 BUN 63 mg/dL (7-18) H 12/15/19 04:57 Creatinine 8.43 mg/dL (0.55-1.3) H* D 12/15/19 04:57 Glucose 118 mg/dL (74-106) H 12/15/19 04:57 Phosphorus 8.1 mg/dL (2.5-4.9) H 12/15/19 04:57 Magnesium 1.9 mg/dL (1.8-2.4) 12/15/19 04:57 Total Bilirubin 0.4 mg/dL (0.2-1.0) 12/15/19 04:57 AST 14 U/L (15-37) L 12/15/19 04:57 ALT 16 U/L (12-78) 12/15/19 04:57 Alkaline Phosphatase 86 U/L (45-117) 12/15/19 04:57 Lipase 328 U/L (73-393) 12/13/19 18:23 Home Medications: Pantoprazole [Protonix Tab*] 40 mg PO DAILY 30 Days #30 tab 12/15/19 New Medications: Pantoprazole [Protonix Tab*] 40 mg PO DAILY 30 Days #30 tab Patient Discharge Instructions: follow up with PCP within 1 week. continue dialysis as scheduled. Medications: New - pantoprazole (protonix) 40mg daily Diet: ADA Activity: Ad seun Followup: Francisco Barnes MD [Primary Care Provider] - Time spent managing pt's care (in minutes): 35
--- NOTE | 2019-12-15 22:30 | PN ---
Date of Progress Note: 12/15/2019 Chief Complaint: End stage renal disease, on dialysis. History Of Present Illness: The patient was admitted to the hospital because of nausea and vomiting. She has history of diabetic gastroparesis. She is feeling better today. Workup was done in the em ergency room with CT scan of the abdomen and pelvis which revealed hiatal hernia with dilated distal esophagus. The patient is feeling better today. Denies melena, hematemesis. Physical Examination: Lungs: Clear to auscultation bilaterally. Heart: S1, S2. Abdomen: Soft, benign. Extremities: No edema. Diagnostic Studies: CT scan of the abdomen and pelvis revealed hiatal hernia. The patient was scree antonella for pancreatitis. Assessment/plan: 1.End-stage renal disease. Next dialysis on Sunday. Today, she will have dialysis with ultrafil tration to provide metabolic clearance and control electrolytes. 2.Diabetes mellitus. Continue insulin according to sliding scale. 3.Hypertension. Blood pressure controlled. 4.Hyperlipidemia. Continue medication as tolerated. The patient is feeling better today. ASHLI/DAYO Voice ID: [id number] Report ID: [id number]
== END 2019-12-15 17:09 | disposition home or self-care (01) | DRG 73 ==
LOC: ER 17:40 → ERHOLD 21:32 → 2ND 23:24 → OBSVTOIN 12-14 13:21
PROVIDERS: ADMIT Hospitalist; ATTEND Hospitalist
DX: E11.43 Type 2 diabetes mellitus with diabetic autonomic (poly)neuropathy (principal); N18.6 End stage renal disease; I12.0 Hypertensive chronic kidney disease with stage 5 chronic kidney disease or end stage renal disease; K21.9 Gastro-esophageal reflux disease without esophagitis; K31.84 Gastroparesis; E78.5 Hyperlipidemia, unspecified; K44.9 Diaphragmatic hernia without obstruction or gangrene; E11.22 Type 2 diabetes mellitus with diabetic chronic kidney disease; Z99.2 Dependence on renal dialysis; Z79.899 Other long term (current) drug therapy; Z79.4 Long term (current) use of insulin; Z20.828 Contact with and (suspected) exposure to other viral communicable diseases
CPT/HCPCS: 36415; 74176; 76705; 80048; 80053; 80076; 82947; 83690; 83735; 84100; 84439; 84443; 85025; 86704; 86706; 86803; 87340; 90935; 99285; C9113; G0378; J0360; J1644; J2405; J2550; J2765; J7050; Q9967; U0002

== ENCOUNTER 2021-12-19 13:59 | Emergency (ER) | payer OTHER ==
--- OUTSIDE RECORDS SUMMARY | 2021-12-19 14:05 | XMS REPORT | Continuity of Care Document ---
:1965 Author Organization [facility] t Address [address] [place] [address] Care Team Providers Name Role Phone Edvin Burch MD, Physician Primary Care Physician [phone] Garrett Henderson Attending Clinician Unavailable ARACELI SUTTON Attending Clinician Unavailable PERLA WAGNER Attending Clinician Unavailable JEANE PUTNAM Attending Clinician Unavailable EMIL TAFOYA Attending Clinician Unavailable ARACELI SUTTON Attending Clinician Unavailable PERLA WAGNER Attending Clinician Unavailable AMANUEL CASTANEDA Attending Clinician Unavailable Emil Tafoya MD Attending Clinician [phone] SHAQUILLE QUESADA Attending Clinician Unavailable FAHAD CASAREZ Attending Clinician Unavailable Franklin Gray Attending Clinician Unavailable SOHAN Attending Clinician Unavailable Francisco Barnes Attending Clinician [phone] NEYMAR WHITTEN Attending Clinician Unavailable PERLA WAGNER Admitting Clinician Unavailable KERI HERMAN Admitting Clinician Unavailable Physician, No Primary or Family Admitting Clinician Unavailwilliam PARRY Admitting Clinician Unavailable Payers Payer Name Policy Type Policy Number Effective Date Expiration Date Yolie dozier [facility] [id number] 2020 00:00:00 [place] 53 [id number] 2021 Common HEALTHCARE DUAL 00:00:00 [facility] [employer] GABBY 2 [id number] 2019 Common 00:00:00 [facility] AARP MCR 53 [id number] 2020 Common ADVANTAGE 00:00:00 [facility] - [facility] MEDICAID MC [id number] 2019 Common 00:00:[address] [facility] MEDICAID MC [id number] 2019 Common 00:00:00 [facility] [id number] HEALTHCARE [place] [id number] [place] [id number] 2019 NOVITAS 00:00:00 SOLUTIONS Problems Condition Condition Condition Status Onset Resolution Last Treating Co mments Source Name Details Category Date Date Treatment Clinician Date Cataract Cataract Problem Active 2019-02 [facility] 2-10 Communi 00:00: ty 00 [facility] Legal Legal Problem Active 2019-02 [place] blindness Blindness 2-10 Comm uni 00:00: 00 [facility] Staphyloco Staphyloco Problem Active 2019-0 [place] ccal ccal 9-11 Communi infectious Infectious 00:00: ty disease Disease 00 [facility]ita [facility] Clinics Diabetic Diabetic Problem Active 2019- [place] peripheral Peripheral 9-11 Co mmuni neuropathy Neuropathy 00:00: ty 00 [facility] Clinics Hyperchole Hyperchole Problem Active 2020-0 [facility] [place] sterolemia sterolemia 9-11 Co mmuni 00:00: ty 00 [facility] Clin[facility] Hypertensi Hypertensi Problem Active 2019-0 [facility] [place] ve ve 9-11 Communi disorder Disorder 00:00: ty 00 [facility]ospita [facility] Clinics Kidney Kidney Problem Active 2019- [place] disease Disease 9-11 Communi 00:00: ty 00 Hospita l Clinics Furuncle Furuncle Problem Active [place] of axilla of Axilla 10-23 Comm uni 00:00: ty Hospita l Clinics Cellulitis Cellulitis Problem Active [place] of lower of Lower 10-23 Commun i limb Limb 00:00: ty 00 Hospita l Clinics Chronic Chronic Problem Active [place] diarrhea Diarrhea 10-23 Commun i 00:00: ty Hospita l Clinics Chronic Chronic Problem Active [place] kidney Kidney 10-23 Communi disease Disease 00:00: ty stage 5 Stage 5 00 Hospita due to Due to l type 2 Type 2 Clinics diabetes Diabetes mellitus Mellitus Cellulitis Cellulitis Problem Active S weeny caused by Caused by 10-23 Comm uni Staphyloco Staphyloco 00:00: ty ccus ccus 00 Hospita aureus Aureus l Clinics Abnormal Abnormal Problem Commo n mammogram mammogram Spir it - [facility] [id number] Decreased Problem Com mon vision of Spirit right eye - [facility] [id number] Anemia in Problem Com mon chronic Spirit illness - [facility] [id number] GERD Problem Common without Spirit esophagiti - [facility] 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 End-stage End stage Problem Com mon renal renal Spirit disease disease - [facility] Diabetic Type 2 Problem Common renal diabetes Spirit disease mellitus - [facility] with [facility] kidney Medical disease, Center without long-term current use of insulin, unspecifie d CKD stage Secondary Secondary Problem Com mon hyperparat hyperparat Sp rocío hyroidism hyroidism - CH I of renal of renal St origin origin [facility] Complicati Type 2 Problem Commo n on due to diabetes Spiri t diabetes mellitus - CHI mellitus with other St type 2 specified [facility] complicati Medica on Center [id number] Type 2 Problem Common diabetes Spirit mellitus - [facility] with [facility] Long-term care home Problem Com mon current (current) Spirit use of use of [facility] insulin insulin [facility] [id number] Benign Problem Common essential Spirit HTN - [facility] [id number] Dependence Problem Co mmon on renal Spirit dialysis - [facility] [id number] Type 2 Problem Common diabetes Spirit mellitus - [facility] with [facility] kidney Center disease Hyperlipid HLD Problem Commo n aemia (hyperlipi Spirit demia) - [facility] [id number] Mixed Problem Common hyperlipid Spirit emia - [facility] Allergies, Adverse Reactions, Alerts Allergy Allergy Status Severity Reaction(s) Onset Inactive Treating Comm ents Source Name Type Date Date Clinician No Known DA Active [facility] 08[facility]22 [facility] s 00:00: Vodna 00 [facility] No Known DA Active [facility] Allergie 08-22 Corpus s 00:00: Vonda [facility] Social History Social Habit Start Date Stop Date Quantity Comments Source History [facility] Health Alcohol Comment Exposure to Not sure [facility] SARS-CoV-2 (event) History of Tobacco [facility] - Use [facility] Sex Assigned At Common Sp rocío - [facility] History Critical access hospital Alcohol Std Drinks History Critical access hospital Alcohol Binge Tobacco use and 2020-08-24 2020-08-24 Smokeless tobacco [facility] exposure 00:00:00 00:00:00 non-user Alcohol intake 2020-08-24 2020-08-24 Lifetime [facility] 00:00:00 00:00:00 non-drinker (finding) History [facility] 2020-08-24 2020-08-24 1 [facility] Alcohol Frequency 00:00:00 00:00:00 Smoking Status Start Date Stop Date Source Tobacco smoking [facility] consumption unknown Never Smoker [facility] - [facility] Former Smoker 2021-04-01 00:00:00 2021-04-01 Common Spiri t - [facility] 00:00:00 [facility] Medications Ordered Filled Start Stop Current Ordering Indication Dosage Frequency Signature Comments Components Source Medication Medication Date Date Medication? Clinician (SIG) Name Name hydrALAZINE hydrALAZINE No 1{table TID hydrALAZIN HCl 25 MG HCl 25 MG 7-26 t_with_ E HCl 25 00:00: food} MG 00 hydrALAZINE hydrALAZINE 2022-0 No 1{table TID hydrALAZIN HCl 25 MG HCl 25 MG 7-26 t_with_ E HCl 25 00:00: food} MG 00 No known 2021-0 No No known [place] medications 7-13 medication He alth 09:47: s 23 No known 2021-0 No No known [place] medications 7-13 medication He alth 09:47: s 23 No known 2021-0 No No known [place] medications 7-13 medication He alth 09:47: s 23 No known 2021-0 No No known [place] medications 7-13 medication He alth 09:47: s 23 No known 2021-0 No No known UT medications 7-13 medication He alth 09:47: s 23 No known 2021-0 No No known [place] medications 7-13 medication He alth 09:47: s 23 No known 2021-0 No No known UT medications 7-13 medication He alth 09:47: s 23 No known 2021-0 No No known [place] medications 7-13 medication He alth 09:47: s 23 No known 2021-0 No No known [place] medications 7-13 medication He alth 09:47: s 23 No known 2021-0 No No known UT medications 7-13 medication He alth 09:47: s 23 No known 2021-0 No No known UT medications 7-13 medication He alth 09:47: s 23 No known 2021-0 No No known UT medications 7-13 medication He alth 09:47: s 23 No known 2021-0 No No known UT medications 7-13 medication He alth 09:47: s 23 No known 2021-0 No No known [facility] medications 7-13 medication He alth 09:47: s 23 No known No UT medications Health Carvedilol Carvedilol No 1{table BID Carvedilol 25 MG 25 MG t_with_ 25 MG food} Pantoprazol Pantoprazol No 1{table QD Pantoprazo e Sodium 40 e Sodium 40 t} le Sodium MG MG 40 MG Atorvastati Atorvastati No 1{table QD Atorvastat n Calcium n Calcium t} in Calcium 80 MG 80 MG 80 MG Sevelamer Sevelamer No TID Sevelamer Carbonate Carbonate Carbonate 0.8 GM 0.8 GM 0.8 GM Vitamin D Vitamin D No 1{table QD Vitamin D 50 MCG 50 MCG t} 50 MCG (1999) (1999) (1999) Bumetanide Bumetanide No 1{table BID Bumetanide 1 MG 1 MG t} 1 MG Lisinopril Lisinopril No 1{table QD Lisinopril 10 MG 10 MG t} 10 MG Tresiba Tresiba No Tresiba FlexTouch FlexTouch FlexTouch 100 UNIT/ML 100 UNIT/ML 100 UNIT/ML Lisinopril Lisinopril No 1{table QD Lisinopril 5 MG 5 MG t} 5 MG Carvedilol Carvedilol No 1{table BID Carvedilol 25 MG 25 MG t_with_ 25 MG food} Pantoprazol Pantoprazol No 1{table QD Pantoprazo e Sodium 40 e Sodium 40 t} le Sodium MG MG 40 MG Atorvastati Atorvastati No 1{table QD Atorvastat n Calcium n Calcium t} in Calcium 80 MG 80 MG 80 MG Sevelamer Sevelamer No TID Sevelamer Carbonate Carbonate Carbonate 0.8 GM 0.8 GM 0.8 GM Vitamin D Vitamin D No 1{table QD Vitamin D 50 MCG 50 MCG t} 50 MCG (1999) (1999) (1999) Bumetanide Bumetanide No 1{table BID Bumetanide 1 MG 1 MG t} 1 MG Lisinopril Lisinopril No 1{table QD Lisinopril 10 MG 10 MG t} 10 MG Tresiba Tresiba No Tresiba FlexTouch FlexTouch FlexTouch 100 UNIT/ML 100 UNIT/ML 100 UNIT/ML Lisinopril Lisinopril No 1{table QD Lisinopril 5 MG 5 MG t} 5 MG Sevelamer Sevelamer No TID Sevelamer Carbonate Carbonate Carbonate 0.8 GM 0.8 GM 0.8 GM Pantoprazol Pantoprazol No 1{table QD Pantoprazo e Sodium 40 e Sodium 40 t} le Sodium MG MG 40 MG Lisinopril Lisinopril No 1{table QD Lisinopril 5 MG 5 MG t} 5 MG Carvedilol Carvedilol No 1{table BID Carvedilol 25 MG 25 MG t_with_ 25 MG food} Bumetanide Bumetanide No 1{table BID Bumetanide 1 MG 1 MG t} 1 MG Vitamin D Vitamin D No 1{table QD Vitamin D 50 MCG 50 MCG t} 50 MCG (1999 UT) (1999) (1999) Tresiba Tresiba No Tresiba FlexTouch FlexTouch FlexTouch 100 UNIT/ML 100 UNIT/ML 100 UNIT/ML Atorvastati Atorvastati No 1{table QD Atorvastat n Calcium n Calcium t} in Calcium 80 MG 80 MG 80 MG Lisinopril Lisinopril No 1{table QD Lisinopril 20 MG 20 MG t} 20 MG Tresiba Tresiba No QD Tresiba FlexTouch FlexTouch FlexTouch 100 UNIT/ML 100 UNIT/ML 100 UNIT/ML Carvedilol Carvedilol No 1{table BID Carvedilol 25 MG 25 MG t_with_ 25 MG food} Pantoprazol Pantoprazol No 1{table QD Pantoprazo e Sodium 40 e Sodium 40 t} le Sodium MG MG 40 MG atorvastati atorvastati No atorvastat [place] n 80 mg n 80 mg in 80 mg Commu ni tablet 1 PO tablet 1 PO tablet 1 ty qd qd PO qd Hospita l Clinics Lisinopril Lisinopril No 1{table QD Lisinopril 20 MG 20 MG t} 20 MG Tresiba Tresiba No Tresiba FlexTouch FlexTouch FlexTouch 100 UNIT/ML 100 UNIT/ML 100 UNIT/ML Lisinopril Lisinopril No 1{table QD Lisinopril 5 MG 5 MG t} 5 MG Sevelamer Sevelamer No TID Sevelamer Carbonate Carbonate Carbonate 0.8 GM 0.8 GM 0.8 GM Bumetanide Bumetanide No 1{table BID Bumetanide 1 MG 1 MG t} 1 MG Vitamin D Vitamin D No 1{table QD Vitamin D 50 MCG 50 MCG t} 50 MCG (1999 UT) (1999) (1999) Tresiba Tresiba No QD Tresiba FlexTouch FlexTouch FlexTouch 100 UNIT/ML 100 UNIT/ML 100 UNIT/ML Atorvastati Atorvastati No 1{table QD Atorvastat n Calcium n Calcium t} in Calcium 80 MG 80 MG 80 MG Carvedilol Carvedilol No 1{table BID Carvedilol 25 MG 25 MG t_with_ 25 MG food} Pantoprazol Pantoprazol No 1{table QD Pantoprazo e Sodium 40 e Sodium 40 t} le Sodium MG MG 40 MG Lisinopril Lisinopril No 1{table QD Lisinopril 20 MG 20 MG t} 20 MG Tresiba Tresiba No Tresiba FlexTouch FlexTouch FlexTouch 100 UNIT/ML 100 UNIT/ML 100 UNIT/ML Lisinopril Lisinopril No 1{table QD Lisinopril 5 MG 5 MG t} 5 MG Sevelamer Sevelamer No TID Sevelamer Carbonate Carbonate Carbonate 0.8 GM 0.8 GM 0.8 GM Bumetanide Bumetanide No 1{table BID Bumetanide 1 MG 1 MG t} 1 MG Vitamin D Vitamin D No 1{table QD Vitamin D 50 MCG 50 MCG t} 50 MCG (1999) (1999) (1999) Tresiba Tresiba No QD Tresiba FlexTouch FlexTouch FlexTouch 100 UNIT/ML 100 UNIT/ML 100 UNIT/ML Atorvastati Atorvastati No 1{table QD Atorvastat n Calcium n Calcium t} in Calcium 80 MG 80 MG 80 MG Carvedilol Carvedilol No 1{table BID Carvedilol 25 MG 25 MG t_with_ 25 MG food} Pantoprazol Pantoprazol No 1{table QD Pantoprazo e Sodium 40 e Sodium 40 t} le Sodium MG MG 40 MG Basaglar Basaglar No Basaglar [place] KwikPen KwikPen KwikPen Commun i U-100 U-100 U-100 ty Insulin 100 Insulin 100 Insulin Hospita unit/mL (3 unit/mL (3 100 l mL) mL) unit/mL (3 Clinics subcutaneou subcutaneou mL) s Inject 30 s Inject 30 subcutaneo units every units every us Inject day by day by 30 units subcutaneou subcutaneou every day s route at s route at by bedtime. bedtime. subcutaneo us route at bedtime. Lisinopril Lisinopril No 1{table QD Lisinopril 20 MG 20 MG t} 20 MG Tresiba Tresiba No Tresiba FlexTouch FlexTouch FlexTouch 100 UNIT/ML 100 UNIT/ML 100 UNIT/ML Lisinopril Lisinopril No 1{table QD Lisinopril 5 MG 5 MG t} 5 MG Sevelamer Sevelamer No TID Sevelamer Carbonate Carbonate Carbonate 0.8 GM 0.8 GM 0.8 GM Bumetanide Bumetanide No 1{table BID Bumetanide 1 MG 1 MG t} 1 MG Vitamin D Vitamin D No 1{table QD Vitamin D 50 MCG 50 MCG t} 50 MCG (1999) (1999) (1999) Tresiba Tresiba No QD Tresiba FlexTouch FlexTouch FlexTouch 100 UNIT/ML 100 UNIT/ML 100 UNIT/ML Atorvastati Atorvastati No 1{table QD Atorvastat n Calcium n Calcium t} in Calcium 80 MG 80 MG 80 MG Carvedilol Carvedilol No 1{table BID Carvedilol 25 MG 25 MG t_with_ 25 MG food} Pantoprazol Pantoprazol No 1{table QD Pantoprazo e Sodium 40 e Sodium 40 t} le Sodium MG MG 40 MG Lisinopril Lisinopril No 1{table QD Lisinopril 20 MG 20 MG t} 20 MG Tresiba Tresiba No Tresiba FlexTouch FlexTouch FlexTouch 100 UNIT/ML 100 UNIT/ML 100 UNIT/ML Lisinopril Lisinopril No 1{table QD Lisinopril 5 MG 5 MG t} 5 MG Sevelamer Sevelamer No TID Sevelamer Carbonate Carbonate Carbonate 0.8 GM 0.8 GM 0.8 GM Bumetanide Bumetanide No 1{table BID Bumetanide 1 MG 1 MG t} 1 MG Vitamin D Vitamin D No 1{table QD Vitamin D 50 MCG 50 MCG t} 50 MCG (1999) (1999) (1999) Tresiba Tresiba No QD Tresiba FlexTouch FlexTouch FlexTouch 100 UNIT/ML 100 UNIT/ML 100 UNIT/ML Atorvastati Atorvastati No 1{table QD Atorvastat n Calcium n Calcium t} in Calcium 80 MG 80 MG 80 MG Carvedilol Carvedilol No 1{table BID Carvedilol 25 MG 25 MG t_with_ 25 MG food} Pantoprazol Pantoprazol No 1{table QD Pantoprazo e Sodium 40 e Sodium 40 t} le Sodium MG MG 40 MG Lisinopril Lisinopril No 1{table QD Lisinopril 20 MG 20 MG t} 20 MG Tresiba Tresiba No Tresiba FlexTouch FlexTouch FlexTouch 100 UNIT/ML 100 UNIT/ML 100 UNIT/ML Lisinopril Lisinopril No 1{table QD Lisinopril 5 MG 5 MG t} 5 MG Sevelamer Sevelamer No TID Sevelamer Carbonate Carbonate Carbonate 0.8 GM 0.8 GM 0.8 GM Bumetanide Bumetanide No 1{table BID Bumetanide 1 MG 1 MG t} 1 MG Vitamin D Vitamin D No 1{table QD Vitamin D 50 MCG 50 MCG t} 50 MCG (1999) (1999) (1999) Tresiba Tresiba No QD Tresiba FlexTouch FlexTouch FlexTouch 100 UNIT/ML 100 UNIT/ML 100 UNIT/ML Atorvastati Atorvastati No 1{table QD Atorvastat n Calcium n Calcium t} in Calcium 80 MG 80 MG 80 MG Atorvastati Atorvastati No 1{table QD Atorvastat n Calcium n Calcium t} in Calcium 80 MG 80 MG 80 MG Carvedilol Carvedilol No 1{table BID Carvedilol 25 MG 25 MG t_with_ 25 MG food} bumetanide bumetanide No bumetanide [place] 1 mg tablet 1 mg tablet 1 mg C ommuni 1 PO BID 1 PO BID tablet 1 ty PO BID [facility] Sevelamer Sevelamer No TID Sevelamer Carbonate Carbonate Carbonate 0.8 GM 0.8 GM 0.8 GM Vitamin D Vitamin D No 1{table QD Vitamin D 50 MCG 50 MCG t} 50 MCG (1999) (1999) (1999 UT) Tresiba Tresiba No QD Tresiba FlexTouch FlexTouch FlexTouch 100 UNIT/ML 100 UNIT/ML 100 UNIT/ML Tresiba Tresiba No Tresiba FlexTouch FlexTouch FlexTouch 100 UNIT/ML 100 UNIT/ML 100 UNIT/ML Lisinopril Lisinopril No 1{table QD Lisinopril 20 MG 20 MG t} 20 MG Lisinopril Lisinopril No 1{table QD Lisinopril 5 MG 5 MG t} 5 MG Pantoprazol Pantoprazol No 1{table QD Pantoprazo e Sodium 40 e Sodium 40 t} le Sodium MG MG 40 MG Bumetanide Bumetanide No 1{table BID Bumetanide 1 MG 1 MG t} 1 MG Lisinopril Lisinopril No 1{table QD Lisinopril 20 MG 20 MG t} 20 MG Atorvastati Atorvastati No 1{table QD Atorvastat n Calcium n Calcium t} in Calcium 80 MG 80 MG 80 MG carvedilol carvedilol No carvedilol [place] 25 mg 25 mg 25 mg Communi tablet tablet tablet [facility] Carvedilol Carvedilol No 1{table BID Carvedilol 25 MG 25 MG t_with_ 25 MG food} Sevelamer Sevelamer No TID Sevelamer Carbonate Carbonate Carbonate 0.8 GM 0.8 GM 0.8 GM Vitamin D Vitamin D No 1{table QD Vitamin D 50 MCG 50 MCG t} 50 MCG (1999 UT) (1999 UT) (1999) Tresiba Tresiba No QD Tresiba FlexTouch FlexTouch FlexTouch 100 UNIT/ML 100 UNIT/ML 100 UNIT/ML Tresiba Tresiba No Tresiba FlexTouch FlexTouch FlexTouch 100 UNIT/ML 100 UNIT/ML 100 UNIT/ML Lisinopril Lisinopril No 1{table QD Lisinopril 20 MG 20 MG t} 20 MG Lisinopril Lisinopril No 1{table QD Lisinopril 5 MG 5 MG t} 5 MG Pantoprazol Pantoprazol No 1{table QD Pantoprazo e Sodium 40 e Sodium 40 t} le Sodium MG MG 40 MG Bumetanide Bumetanide No 1{table BID Bumetanide 1 MG 1 MG t} 1 MG Lisinopril Lisinopril No 1{table QD Lisinopril 20 MG 20 MG t} 20 MG Tresiba Tresiba No Tresiba FlexTouch FlexTouch FlexTouch 100 UNIT/ML 100 UNIT/ML 100 UNIT/ML Carvedilol Carvedilol No 1{table BID Carvedilol 25 MG 25 MG t_with_ 25 MG food} Vitamin D Vitamin D No 1{table QD Vitamin D 50 MCG 50 MCG t} 50 MCG (1999) (1999) (1999) Lisinopril Lisinopril No 1{table QD Lisinopril 5 MG 5 MG t} 5 MG Tresiba Tresiba No QD Tresiba FlexTouch FlexTouch FlexTouch 100 UNIT/ML 100 UNIT/ML 100 UNIT/ML Sevelamer Sevelamer No TID Sevelamer Carbonate Carbonate Carbonate 0.8 GM 0.8 GM 0.8 GM Pantoprazol Pantoprazol No 1{table QD Pantoprazo e Sodium 40 e Sodium 40 t} le Sodium MG MG 40 MG Bumetanide Bumetanide No 1{table BID Bumetanide 1 MG 1 MG t} 1 MG Lisinopril Lisinopril No 1{table QD Lisinopril 20 MG 20 MG t} 20 MG Atorvastati Atorvastati No 1{table QD Atorvastat n Calcium n Calcium t} in Calcium 80 MG 80 MG 80 MG insulin insulin No insulin [place] lispro lispro lispro Communi (U-100) 100 (U-100) 100 (U-100) ty unit/mL unit/mL 100 Hospita subcutaneou subcutaneou unit/mL l s pen s pen subcutaneo Clinics Sliding Sliding us pen scale from scale from Sliding 1 U to max 1 U to max scale from of 10 U of 10 U 1 U to max of 10 U Lisinopril Lisinopril No 1{table QD Lisinopril 20 MG 20 MG t} 20 MG Atorvastati Atorvastati No Atorvastat n Calcium n Calcium in Calcium 80 MG 80 MG 80 MG Sevelamer Sevelamer No TID Sevelamer Carbonate Carbonate Carbonate 0.8 GM 0.8 GM 0.8 GM Atorvastati Atorvastati No 1{table QD Atorvastat n Calcium n Calcium t} in Calcium 80 MG 80 MG 80 MG Vitamin D Vitamin D No 1{table QD Vitamin D 50 MCG 50 MCG t} 50 MCG (1999) (1999) (1999) Carvedilol Carvedilol No 1{table BID Carvedilol 25 MG 25 MG t_with_ 25 MG food} Lisinopril Lisinopril No 1{table QD Lisinopril 5 MG 5 MG t} 5 MG Loperamide Loperamide No 1{table TID Loperamide HCl 2 MG HCl 2 MG t_as_ne HCl 2 MG eded} Tresiba Tresiba No Tresiba FlexTouch FlexTouch FlexTouch 100 UNIT/ML 100 UNIT/ML 100 UNIT/ML Lisinopril Lisinopril No 1{table QD Lisinopril 20 MG 20 MG t} 20 MG Benzonatate Benzonatate No 1{capsu TID Benzonatat 100 MG 100 MG le_as_n e 100 MG eeded} Bumetanide Bumetanide No 1{table BID Bumetanide 1 MG 1 MG t} 1 MG Tresiba Tresiba No QD Tresiba FlexTouch FlexTouch FlexTouch 100 UNIT/ML 100 UNIT/ML 100 UNIT/ML Pantoprazol Pantoprazol No 1{table QD Pantoprazo e Sodium 40 e Sodium 40 t} le Sodium MG MG 40 MG Sevelamer Sevelamer No TID Sevelamer Carbonate Carbonate Carbonate 0.8 GM 0.8 GM 0.8 GM Tresiba Tresiba No QD Tresiba FlexTouch FlexTouch FlexTouch 100 UNIT/ML 100 UNIT/ML 100 UNIT/ML Lisinopril Lisinopril No 1{table QD Lisinopril 5 MG 5 MG t} 5 MG Atorvastati Atorvastati No 1{table QD Atorvastat n Calcium n Calcium t} in Calcium 80 MG 80 MG 80 MG Pantoprazol Pantoprazol No 1{table QD Pantoprazo e Sodium 40 e Sodium 40 t} le Sodium MG MG 40 MG Carvedilol Carvedilol No 1{table BID Carvedilol 25 MG 25 MG t_with_ 25 MG food} Bumetanide Bumetanide No 1{table BID Bumetanide 1 MG 1 MG t} 1 MG Lisinopril Lisinopril No 1{table QD Lisinopril 10 MG 10 MG t} 10 MG Vitamin D Vitamin D No 1{table QD Vitamin D 50 MCG 50 MCG t} 50 MCG (1999) (1999) (2000 UT) Carvedilol Carvedilol No 1{table BID Carvedilol 25 MG 25 MG t_with_ 25 MG food} Pantoprazol Pantoprazol No 1{table QD Pantoprazo e Sodium 40 e Sodium 40 t} le Sodium MG MG 40 MG Atorvastati Atorvastati No 1{table QD Atorvastat n Calcium n Calcium t} in Calcium 80 MG 80 MG 80 MG Sevelamer Sevelamer No TID Sevelamer Carbonate Carbonate Carbonate 0.8 GM 0.8 GM 0.8 GM Vitamin D Vitamin D No 1{table QD Vitamin D 50 MCG 50 MCG t} 50 MCG (1999 UT) (1999 UT) (1999) Bumetanide Bumetanide No 1{table BID Bumetanide 1 MG 1 MG t} 1 MG Lisinopril Lisinopril No 1{table QD Lisinopril 10 MG 10 MG t} 10 MG lisinopril lisinopril No lisinopril [place] 10 mg 10 mg 10 mg Communi tablet 1 PO tablet 1 PO tablet 1 ty qd along qd along PO qd Hospit a with the 5 with the 5 along with l mg tab. mg tab. the 5 mg Clini cs (Total 15 (Total 15 tab. mg a day) mg a day) (Total 15 mg a day) Tresiba Tresiba No QD Tresiba FlexTouch FlexTouch FlexTouch 100 UNIT/ML 100 UNIT/ML 100 UNIT/ML Lisinopril Lisinopril No 1{table QD Lisinopril 5 MG 5 MG t} 5 MG lisinopril lisinopril No lisinopril [place] 5 mg tablet 5 mg tablet 5 mg C ommuni TAKE 1 TAKE 1 tablet ty TABLET (5 TABLET (5 TAKE 1 Hos k[place] MG) BY ORAL MG) BY ORAL TABLET (5 l ROUTE ONCE ROUTE ONCE MG) BY C linics DAILY ALONG DAILY ALONG ORAL ROUTE WITH THE 10 WITH THE 10 ONCE DAILY MG TAB. MG TAB. ALONG WITH (May hold 5 (May hold 5 THE 10 MG mg if BP mg if BP TAB. (May <110/65) <110/65) hold 5 mg if BP <110/65) ondansetron ondansetron No ondansetro [place] HCl 4 mg HCl 4 mg n HCl 4 mg C ommuni tablet 1 or tablet 1 or tablet 1 ty 2 tablets 2 tablets or 2 Hospi ta every 6 every 6 tablets l hours as hours as every 6 Clin ics needed for needed for hours as nausea or nausea or needed for vomiting vomiting nausea or vomiting pantoprazol pantoprazol No pantoprazo [place] e 40 mg e 40 mg le 40 mg Commu ni tablet,melvin tablet,melvin tablet,del ty yed release yed release ayed H ospita 1 PO qd 1 PO qd release 1 l PO qd Clinics sevelamer sevelamer No sevelamer [place] carbonate carbonate carbonate Communi 0.8 gram 0.8 gram 0.8 gram ty oral powder oral powder oral H ospita packet Take packet Take powder l 1 packet 1 packet packet Clini cs twice a day twice a day Take 1 by oral by oral packet route. route. twice a day by oral route. Immunizations Ordered Immunization Filled Immunization Date Status Commen ts Source Name Name SARS-COV-2 SARS-COV-2 2020-04-14 Completed [place] [facility] ty (COVID-19) vaccine, (COVID-19) vaccine, 00:00:00 Hospital Clinics UNSPECIFIED UNSPECIFIED Afluria single dose Afluria single dose 2020-02-12 [facility]pleted [facility]:59:00 [facility] Afluria single dose Afluria single dose 2020-02-12 Completed [facility] - 08:59:00 [facility] Afluria single dose Afluria single dose 2020-02-12 Completed [facility] - 08:59:00 [facility] Afluria single dose Afluria single dose 2020-02-12 Completed [facility] - 08:59:00 [facility] Afluria single dose Afluria single dose 2020-02-12 [facility]pleted [facility] 08:59[facility]00 [facility] Afluria single dose Afluria single dose 2020-02-12 Completed [facility] - 08:59:00 [facility] Afluria single dose Afluria single dose 2020-02-12 Completed [facility] 08:59:00 [facility] Afluria single dose Afluria single dose 2020-02-12 Completed [facility] - 08:59:00 [facility] Afluria single dose Afluria single dose 2020-02-12 Completed [facility] 08:59:00 [facility] Afluria single dose Afluria single dose 2020-02-12 Completed [facility] 08:59:00 [facility] Afluria single dose Afluria single dose 2020-02-12 Completed [facility] 08:59:00 [facility] Afluria single dose Afluria single dose 2020-02-12 Completed [facility] 08:59:00 [facility] Afluria single dose Afluria single dose 2020-02-12 Completed [facility] 08:59:00 [facility] Afluria single dose Afluria single dose 2020-02-12 Completed [facility] - 08:59:00 [facility] Vital Signs Vital Name Observation Time Observation Value Comments Source height 2021-12-06 10:00:00 58 [in_i] [facility] weight 2021-12-06 10:00:00 135.7 [lb_av] [facility] temperature 2021-12-06 10:00:00 97.4 [degF] [facility] bmi 2021-12-06 10:00:00 28.36 kg/m2 [facility] oximetry 2021-12-06 10:00:00 97 % [facility] respiratory rate 2021-12-06 10:00:00 17 /min [facility] blood pressure 2021-12-06 10:00:00 128 mm[Hg] [facility] - systolic [facility] blood pressure 2021-12-06 10:00:00 61 mm[Hg] [facility] - diastolic [facility] height 2021-09-06 10:00:00 58 [in_i] [facility] weight 2021-09-06 10:00:00 142.1 [lb_av] [facility] temperature 2021-09-06 10:00:00 97.9 [degF] [facility] bmi 2021-09-06 10:00:00 29.7 kg/m2 [facility] oximetry 2021-09-06 10:00:00 95 % [facility] respiratory rate 2021-09-06 10:00:00 17 /min [facility] blood pressure 2021-09-06 10:00:00 139 mm[Hg] Common [facility] - systolic [facility] blood pressure 2021-09-06 10:00:00 82 mm[Hg] Common [facility] - diastolic [facility] height 2021-07-05 10:50:00 58 [in_i] [facility] weight 2021-07-05 10:50:00 136.2 [lb_av] [facility] temperature 2021-07-05 10:50:00 97.6 [degF] [facility] bmi 2021-07-05 10:50:00 28.46 kg/m2 [facility] oximetry 2021-07-05 10:50:00 98 % [facility] respiratory rate 2021-07-05 10:50:00 18 /min [facility] blood pressure 2021-07-05 10:50:00 152 mm[Hg] Common [facility] - systolic [facility] blood pressure 2021-07-05 10:50:00 88 mm[Hg] Common [facility] diastolic [facility] height 2021-04-07 09:10:00 58 [in_i] Common [facility] weight 2021-04-07 09:10:00 131.7 [lb_av] [facility] temperature 2021-04-07 09:10:00 97.3 [degF] [facility] bmi 2021-04-07 09:10:00 27.52 kg/m2 [facility] oximetry 2021-04-07 09:10:00 94 % [facility] respiratory rate 2021-04-07 09:10:00 16 /min [facility] blood pressure 2021-04-07 09:10:00 154 mm[Hg] [facility] systolic [facility] blood pressure 2021-04-07 09:10:00 87 mm[Hg] [facility] - diastolic [facility] height 2021-04-07 10:00:00 58 [in_i] [facility] - [facility] weight 2021-04-07 10:00:00 131.7 [lb_av] [facility] temperature 2021-04-07 10:00:00 97.3 [degF] [facility] bmi 2021-04-07 10:00:00 27.52 kg/m2 [facility] oximetry 2021-04-07 10:00:00 94 % [facility] blood pressure 2021-04-07 10:00:00 154 mm[Hg] [facility] - systolic [facility] blood pressure 2021-04-07 10:00:00 87 mm[Hg] [facility] - diastolic [facility] temperature 2021-01-11 15:10:00 97.7 [degF] [facility] bmi 2021-01-11 15:10:00 27.75 kg/m2 [facility] S pirit [facility] oximetry 2021-01-11 15:10:00 98 % [facility] 2021-01-11 15:10:00 16 /min [facility] blood pressure 2021-01-11 15:10:00 138 mm[Hg] [facility] - systolic [facility] blood pressure 2021-01-11 15:10:00 83 mm[Hg] [facility] - diastolic [facility] height 2021-01-11 15:10:00 58 [in_i] [facility] weight 2021-01-11 15:10:00 132.8 [lb_av] [facility] height 2020-11-30 12:55:52 [facility] 2020-11-30 12:55:52 [facility]182 [facility] BMI 2020-11-30 12:55:52 26.81 kg[facility]m2 [facility] height 2020-11-30 12:55:52 147.3 [facility] 2020-11-30 12:55:52 58.182 [facility] BMI 2020-11-30 12:55:52 26.81 kg[facility]m2 [facility] height 2020-11-30 12:55:52 147.3 cm [facility] weight 2020-11-30 12:55:52 58.182 [facility] BMI 2020-11-30 12:55:52 26.81 kg[facility]m2 [facility] height 2020-11-30 12:55:52 147.3 [facility] weight 2020-11-30 12:55:52 58.182 [facility] BMI 2020-11-30 12:55:52 26.81 kg[facility] height 2020-09-21 14:50:00 58 [in_i] [facility] weight 2020-09-21 14:50:00 135.1 [lb_av] [facility] temperature 2020-09-21 14:50:00 99.0 [degF] [facility] bmi 2020-09-21 14:50:00 28.23 kg/m2 [facility] oximetry 2020-09-21 14:50:00 98 % [facility]irit [facility] respiratory rate 2020-09-21 14:50:00 16 /min [facility] blood pressure 2020-09-21 14:50:00 137 mm[Hg] [facility] - systolic [facility] blood pressure 2020-09-21 14:50:00 87 mm[Hg] [facility] - diastolic [facility] Systolic blood 2020-08-24 14:46:00 186 mm[Hg] [facility] Diastolic blood 2020-08-24 14:46:00 74 mm[Hg] [facility] Heart rate 2020-08-24 14:46:00 80 /min [facility] 2020-08-24 14:46:00 36.56 Luzma [facility] height 2020-08-24 14:46:00 147.3 cm [facility] weight 2020-08-24 14:46:00 59.081 kg [facility] BMI 2020-08-24 14:46:00 27.22 kg/m2 [facility] Height 2020-04-22 00:00:00 58 [in_i] [facility] s BMI (Body Mass 2020-04-22 00:00:00 26.5 kg/m2 [facility] s BP Systolic 2020-04-22 00:00:00 146 mm[Hg] [facility] s Body Weight 2020-04-22 00:00:00 2032 [oz_av] [facility] s BP Diastolic 2020-04-22 00:00:00 86 mm[Hg] [facility] s Procedures Procedure Date / Time Performing Clinician Source Performed CT ABDOMEN PELVIS WO 2020-11-30 14:50:00 [place] [facility] CONTRAST [place] CT CHEST WO CONTRAST 2020-11-30 14:50:00 [place] [facility] [place] ABDOMEN PELVIS WO 2020-11-30 14:50:00 [place] [facility] CONTR[place] CT CHEST WO CONTRAST 2020-11-30 14:50:00 [place] [facility] [place] HVI VAS ARTERIAL 2020-11-30 13:42:52 [place] [facility] EXTRACRANIAL DOPPLER BI Emil HVI VAS ARTERIAL 2020-11-30 13:42:52 [place] [facility] EXTRACRANIAL DOPPLER BI Emil BI MAMMOGRAM SCREENING 2020-11-09 18:08:00 [place] [facility] BILATERAL [place] BI MAMMOGRAM SCREENING 2020-11-09 18:08:00 [place] [facility] BILATERAL [place] ECG 12-LEAD 2020-10-30 17:12:02 System, Provider Not [facility] ECG 12-LEAD 2020-10-30 17:12:02 System, Provider Not [facility] Oral Surgery Procedure [facility] Partial Hysterectomy [place] [facility] Plan of Care Planned Activity Planned Date Details Comments Source Diagnostic Test 2020-04-22 BMP, serum or [place] [facility] [place] Pending 00:00:00 plasma [code = Hospital Clin ics BMP, serum or plasma] Diagnostic Test 2020-04-22 HbA1c ([facility] Pending 00:00:00 A1c), blood [code Hospital C linics = HbA1c (hemoglobin A1c), blood] Encounters Start End Encounter Admission Attending Care Care Encounter Source Date/Time Date/Time Type Type Clinicians Facility Department ID 2021-12-19 Outpatient [facility] [id number] [place] 09:10:[id number] [place] [address] 2021-12-18 Outpatient [facility] [id number] [place] 18:43:[id number] [place] [address] 2021-12-06 Outpatient [place], STLMLC STLMLC [id number] [facility] 2021-12-02 Outpatient [place], STLMLC STLMLC [id number] [facility] 08:53:00 [facility] 2021-04-07 Outpatient Henderson, STLMLC STLMLC [id number] [facility] 08:32:01 [facility] 2021-03-09 Outpatient Henderson, STLMLC STLMLC [id number] [facility] 13:36:19 [facility] 2021-03-09 Outpatient [place], STLMLC STLMLC [id number] [facility] 13:22:16 [facility] 2021-03-09 Outpatient [place], STLMLC STLMLC [id number] [facility] 13:20:27 [facility] 2020-08-16 Outpatient HERMAN [facility] [id number] [place] 01:06:20 [facility] 2020-08-11 Inpatient PERLA WAGNER [facility] [id number] [facility] 12:27:25 2020-07-16 Outpatient JEANE PUTNAM [facility] [id number] [place] 09:42:54 Health 2021-12-14 2021-12-15 Outpatient PERLA WAGNER [facility] [place]TT [id number] [facility] 11:00:00 23:59:00 2021-12-06 2021-12-06 OFFICE STLMLC STLMLC [id number] Co mmon 00:00:00 00:00:00 VISIT Shiva VU PT - CHI LEVEL 4 [facility] 2021-10-19 2021-11-17 [facility] [id number] [facility] 11:00:00 23:59:00 2021-10-11 2021-11-09 Outpatient DE [facility]HHH M[facility]H [id number] [facility] 08:32:00 23:59:00 EMIL WILSON 2021-11-01 2021-11-01 Outpatient JEANE PUTNAM [facility] [id number] [place] 10:00:00 10:00:00 Health 2021-09-12 2021-10-11 Outpatient DE [facility]HHH MHHH [id number] [facility] 11:00:00 23:59:00 EMIL WILSON 2021-09-06 2021-09-06 OFFICE STLMLC STLC [id number] Co mmon 00:00:00 00:00:00 VISIT Shiva VU PT - CHI LEVEL 4 [facility] 2021-09-02 2021-09-02 (TEL) STLMLC STLC [id number] Co mmon 00:00:00 00:00:00 [facility] 2021-07-18 2021-08-16 Outpatient DE MHHH MHHH [id number] M[facility]H 11:00:00 23:59:00 EMIL WILSON 2021-07-05 2021-07-05 OFFICE STLMLC STLMLC [id number] Co mmon 00:00:00 00:00:00 VISIT Shiva VU PT - CHI LEVEL 4 [facility] 2021-06-23 2021-06-23 (TEL) STLMLC STLC [id number] Co mmon 00:00:00 00:00:00 [facility] 2021-05-10 2021-06-08 Outpatient PERLA WAGNER [facility] [id number] [facility] 12:46:00 23:59:00 2021-05-30 2021-05-30 (TEL) STLMLC STLMLC [id number] Co mmon 00:00:00 00:00:00 [facility] 2021-05-19 2021-05-19 Outpatient HERMAN [facility] [id number] [facility] 09:49:00 23:59:00 ASMEEN 2021-05-19 2021-05-19 (TEL) STLMLC STLMLC [id number] Co mmon 00:00:00 00:00:00 [facility] 2021-05-10 2021-05-10 Outpatient PERLA WAGNER [facility] [id number] [place] 14:00:00 14:00:00 Health 2021-05-05 2021-05-05 (TEL) STLMLC STLMLC [id number] Co mmon 00:00:00 00:00:00 [facility] 2021-04-07 2021-04-07 OFFICE STLMLC STLMLC [id number] Co mmon 00:00:00 00:00:00 VISIT [facility] ESTAB PT - CHI LEVEL 4 [facility] 2021-04-07 2021-04-07 SUB ANNUAL STLMLC STLMLC [id number] Common 00:00:00 00:00:00 MCR [facility] WELLNESS - CHI VISIT [facility] 2021-03-28 2021-03-28 (TEL) STLMLC STLMLC [id number] Co mmon 00:00:00 00:00:00 [facility] 2021-02-17 2021-03-18 Outpatient TONYA [facility] CAR [id number] [facility] 09:45:00 23:59:00 AMANUEL 2021-02-15 2021-02-15 (TEL) STLMLC STLMLC [id number] Co mmon 00:00:00 00:00:00 [facility] 2021-01-20 2021-01-20 EXT MHH OP de EXT MSRDP 1.2.840.114 [id number] [place] 00:00:00 00:00:00 [place], LOCATION [id number] Health Emil [id number] 2021-01-20 2021-01-20 EXT MHH OP de EXT MSRDP 1.2.840.114 1 [id number] [place] 00:00:00 00:00:00 [place], LOCATION [id number] Health Emil [id number] 2021-01-11 2021-01-11 OFFICE [facility] [id number] Co mmon 00:00:00 00:00:00 VISIT [facility] ESTAB PT - CHI LEVEL 4 [facility] 2020-11-30 2020-12-29 Outpatient DE HH [facility] [id number] [facility] 07:41:00 23:59:00 JULIANO, EMIL 2020-12-02 2020-12-02 Outpatient ARABELLA, [facility] [id number] [place] 09:00:00 09:00:00 [facility] 2020-12-01 2020-12-01 EXT MHH OP de EXT MSRDP 1.2.840.114 [id number] [place] 00:00:00 00:00:00 [place], LOCATION [id number] Health Emil [id number] 2020-12-01 2020-12-01 EXT MHH OP de EXT MSRDP 1.2.840.114 1 [id number] [place] 00:00:00 00:00:00 [place], LOCATION [id number] Health Emil [id number] 2020-11-30 2020-11-30 EXT MHH OP Arabella, EXT MSRDP 1.2.840.114 1 [id number] [place] 00:00:00 00:00:00 [facility] LOCATION [id number] ealt [id number] 2020-11-30 2020-11-30 EXT MHH OP de EXT MSRDP 1.2.840.114 1 [id number] [place] 00:00:00 00:00:00 [place], LOCATION [id number] Health Emil [id number] 2020-11-30 2020-11-30 EXT MHH OP Arabella, EXT MSRDP 1.2.840.114 1 [id number] [place] 00:00:00 00:00:00 Tanima LOCATION [id number] H ealth [id number] 2020-11-30 2020-11-30 EXT MHH OP de EXT MSRDP 1.2.840.114 1 [id number] [place] 00:00:00 00:00:00 [place], LOCATION [id number] Health Emil [id number] 2020-10-26 2020-10-26 EXT MHH OP de EXT MSRDP 1.2.840.114 1 [id number] [place] 00:00:00 00:00:00 [place], LOCATION [id number] Health Emil [id number] 2020-10-26 2020-10-26 EXT MHH OP de EXT MSRDP 1.2.840.114 1 [id number] [place] 00:00:00 00:00:00 [place], LOCATION [id number] Health Emil [id number] 2020-09-21 2020-09-21 OFFICE [facility] [id number] Co mmon 00:00:00 00:00:00 VISIT Spirit ESTAB PT - CHI LEVEL 4 [facility] 2020-09-04 2020-09-09 Inpatient U HERMELINDO [facility] MED [id number] [facility] 00:25:00 19:00:00 FAHAD 2020-09-02 2020-09-02 Outpatient HERMAN [facility] MHHH [id number] MHH[facility] 07:06:00 23:59:00 ASMEEN 2020-08-24 2020-08-24 Office Jeane Putnam 6410 1.2.840.114 1 [id number] [place] 09:40:54 09:55:54 Visit AMAN HENRY [id number] [facility] [id number] 2020-08-22 2020-08-23 Emergency EM Marina, [facility] ER [id number] [facility] 12:54:00 08:18:00 Franklin Torres [facility] 2020-08-12 2020-08-12 Outpatient HERMAN, [facility] [id number] MH 10:00:00 [facility]59[facility] 2020-07-13 2020-08-11 Outpatient DE MHHH MHHH [id number] MHH[facility] 07:54:00 23:59:00 EMIL WILSON 2020-08-10 2020-08-10 Outpatient STLMLC STLMLC [id number] Common 00:00:00 00:00:00 [facility] 2020-07-16 2020-07-16 EXT MHH OP de EXT MSRDP 1.2.840.114 1 [id number] [place] 00:00:00 00:00:00 [facility], LOCATION [id number] Health [facility] [id number] 2020-07-16 2020-07-16 EXT MHH OP de EXT MSRDP 1.2.840.114 1 [id number] [place] 00:00:00 00:00:00 [facility], LOCATION [id number] Health [facility] [id number] 2020 2020 EXT MHH OP de EXT MSRDP 1.2.840.114 1 [id number] [place] 00:00:00 00:00:00 [facility], LOCATION [id number] [facility] [id number] 2020 2020 EXT MHH OP de EXT MSRDP 1.2.840.114 1 [id number] [place] 00:00:00 00:00:00 Juliano, PRANEETH [id number] [facility] [id number] 2020-05-11 2020-05-11 Outpatient ERICKSON_R [facility] [id number] [place] 12:33:00 12:33:00 [facility] 2020-04-22 2020-04-22 Outpatient ERICKSON_R [facility] [id number] [place] 03:02:00 03:02:00 [facility] 2020-04-22 2020-04-22 Outpatient Justin, [facility] [id number] 00:00:00 00:00:00 Francisco [id number] [place] [id number] 2020-04-22 2020-04-22 Francisco [facility] [place] 11 [place] 00:00:00 00:00:00 [facility] DO: [address] [facility] [address], HOSPITAL Clinic [facility], [facility], [phone] JUSTIN , Ph. 2019-11-27 2019-11-27 Outpatient [facility] [id number] 09:58:00 16:28:00 NEYMAR [place] [facility] Results Test Description Test Time Test Comments Results Result Comments Source URINALYSIS DIPSTICK 2020-08-24 07:46:00 Test Item Value Reference Range Interpretation Comme nts UA COLOR (test code = COLU) Yellow YELLOW UA APPEARANCE (test code = APPU) CLEAR CLEAR UA GLUCOSE DIPSTICK (test code = DGLUU) 500 mg/dL NEGATIVE UA BILIRUBIN DIPSTICK (test code = BILU) Negative NEGATIVE UA KETONE DIPSTICK (test code = KETU) Negative mg/dL NEGATIVE UA SPECIFIC GRAVITY (test code = SGU) 1.020 1.001-1.035 N UA BLOOD DIPSTICK (test code = KYLE) Small NEGATIVE UA PH DIPSTICK (test code = SALIMA) 8.5 5.5-7.0 H UA PROTEIN DIPSTICK (test code = PROU) >=300 mg/dL NEGATIVE UA UROBILINOGEN DIPSTICK (test code = URO) 0.2 mg/dL NORMAL UA NITRITE DIPSTICK (test code = DAVI) Negative NEGATIVE UA LEUKOCYTE ESTERASE DIPSTICK (test code = LEUU) Negative NEGA TIVE [id number] 07:57:00 Test Item Value Reference Range Interpretation Comments GLUBED (test code = 189 MG/DL 65-99 H Performe d by certified GLUBED) automatic profile sander operator at [facility] [id number] 05:48:00 Test Item Value Reference Range Interpretation Comments GLUBED (test code = 163 MG/DL 65-99 H Performe d by certified GLUBED) automatic profile sander operator at [facility] [id number] 04:41:00 Test Item Value Reference Range Interpretation Comments GLUBED (test code = 155 MG/DL 65-99 H Performe d by certified GLUBED) automatic profile sander operator at [facility] [id number] 03:35:00 Test Item Value Reference Range Interpretation Comments GLUBED (test code = 127 MG/DL 65-99 H Performe d by certified GLUBED) automatic profile sander operator at [facility] [id number] 01:23:00 Test Item Value Reference Range Interpretation Comments GLUBED (test code = 198 MG/DL 65-99 H Performe d by certified GLUBED) automatic profile sander operator at [facility] [id number] 22:43:00 Test Item Value Reference Range Interpretation Comments GLUBED (test code = 285 MG/DL 65-99 H Performe d by certified GLUBED) automatic profile sander operator at [facility] [id number] 19:42:00 Test Item Value Reference Range Interpretation Comments GLUBED (test code = 309 MG/DL 65-99 H Performe d by certified GLUBED) automatic profile sander operator at [facility] [id number] 17:01:00 Test Item Value Reference Range Interpretation Comments GLUBED (test code = 292 MG/DL 65-99 H Performe d by certified GLUBED) automatic profile sander operator at [facility] [id number] 15:39:00 Test Item Value Reference Range Interpretation Comments GLUBED (test code = 321 MG/DL 65-99 H Performe d by certified GLUBED) automatic profile sander operator at [facility] UA RFLX MICROSCOPIC [id number] 14:10:00 Test Item Value Reference Range Interpretation Comments UA COLOR (test code = COLU) YELLOW YELLOW UA APPEARANCE (test code = CLEAR CLEAR APPU) UA GLUCOSE DIPSTICK (test 500 mg/dL NEGATIVE code = DGLUU) UA BILIRUBIN DIPSTICK (test NEGATIVE NEGATIVE code = BILU) UA KETONE DIPSTICK (test code NEGATIVE mg/dL NEGATIVE = KETU) UA SPECIFIC GRAVITY (test 1.020 1.001-1.035 N code = SGU) UA BLOOD DIPSTICK (test code 1+ NEGATIVE A = KYLE) UA PH DIPSTICK (test code = 8.5 5.5-7.0 H SALIMA) UA PROTEIN DIPSTICK (test 300 mg/dL NEGATIVE code = PROU) UA UROBILINOGEN DIPSTICK NORMAL mg/dL NORMAL (test code = URO) UA NITRITE DIPSTICK (test NEGATIVE NEGATIVE code = DAVI) UA LEUKOCYTE ESTERASE NEGATIVE NEGATIVE DIPSTICK (test code = LEUU) UA COMMENT (test code = COMU) VOLUME 10-12 ML URINE SPECIMEN DESCRIPTION (test code = UASPEC) UA WBC (test code = WBCU) #/hpf <10 UA SQUAMOUS CELLS (test code #/lpf <100 = SQU) UA CULTURE NEEDED? (test code = UACULT) Indication for culture: Flank PainURINE SOURCE: Clean CatchUA RFLX MICROSCOPIC [id number] 14:10:00 Test Item Value Reference Range Interpretation Comments UA COLOR (test code = COLU) YELLOW YELLOW UA APPEARANCE (test code = CLEAR CLEAR APPU) UA GLUCOSE DIPSTICK (test 500 mg/dL NEGATIVE code = DGLUU) UA BILIRUBIN DIPSTICK (test NEGATIVE NEGATIVE code = BILU) UA KETONE DIPSTICK (test NEGATIVE mg/dL NEGATIVE code = KETU) UA SPECIFIC GRAVITY (test 1.020 1.001-1.035 N code = SGU) UA BLOOD DIPSTICK (test code 1+ NEGATIVE A = KYLE) UA PH DIPSTICK (test code = 8.5 5.5-7.0 H SALIMA) UA PROTEIN DIPSTICK (test 300 mg/dL NEGATIVE code = PROU) UA UROBILINOGEN DIPSTICK NORMAL mg/dL NORMAL (test code = URO) UA NITRITE DIPSTICK (test NEGATIVE NEGATIVE code = DAVI) UA LEUKOCYTE ESTERASE NEGATIVE NEGATIVE DIPSTICK (test code = LEUU) UA COMMENT (test code = VOLUME 10-12 ML COMU) URINE SPECIMEN DESCRIPTION Clean Catch (test code = UASPEC) UA CULTURE NEEDED? (test Criteria not met code = UACULT) Indication for culture: Flank PainURINE SOURCE: Clean Catch- XR CHEST 1 V 2020-08-22 13:39:00 [facility] : 1965 Sex: F Patient Name: BARBARA FOWLER Unit No: [id number] EXAMS: CPT CODE: [id number] XR CHEST 1 V 55584 Reason: sob Site ID: [id number] EXAMINATION: - XR CHEST 1 V. HISTORY: sob. COMPARISON: None. Findings: The lungs are clear. The heart size is normal. There is no effusion or pneumothorax There is calcification noted in the aortic arch otherwise the mediastinum and geovanna appear unremarkable. Impression: Unremarkable study. at 1339 Reported and signed by: Vito Self MD CC: Donaldo Quiñones DO Technologist: VANESSA Bell Trscrpt Dt/ ([id number] Orig Print D/T: S: 08/22/2020 ([id number]) Lula FSED NAME: BHANU FOWLERA Kg [address] [place] [address] PHYS: MCM[facility]. - Donaldo Qu[place] [address] : 1965 AGE: 55 SEX: F LOC: UNIQUE 1 PHONE #: EXAM DATE: 08/22/2020 STATUS: ADM IN FAX #: RAD NO: DC Dt: PAGE 1 Signed Report [id number] 13:37:00 Test Item Value Reference Range Interpretation Comments GLUBED (test code = 319 MG/DL 65-99 H Performe d by certified GLUBED) automatic profile sander operator at [facility] COMPREHENSIVE METABOLIC [id number] 13:33:00 Test Item Value Reference Range Interpretation Comments SODIUM (test code = 144 MMOL/L 133-145 N NA) POTASSIUM (test 4.9 MMOL/L 3.6-5.2 N 1+ HEMOLYSIS code = K) RESULTS COULD B E HIGHER THEN DETECTED. CHLORIDE (test code 108 MMOL/L 100-108 N = CL) CARBON DIOXIDE 31 MMOL/L 22-32 N (test code = CO2) GLUCOSE (test code 27 MG/DL 65-99 LL Results o f this = GLU) assay method jb carey be falsely depressed orelevated if patient is taki ng sulfasalazine. BLOOD UREA NITROGEN 50 MG/DL 6-20 H (test code = BUN) GLOMERULAR Unable to 51-120 N Unable to FILTRATION RATE calculate calculate eG FR; no (test code = GFR) race enter ed to medical record.Reportin g units: mL/min/1.73m\S\ 2 (Modified MDRD Formula) CREATININE (test 7.30 MG/DL 0.60-1.00 H code = CREAT) TOTAL PROTEIN (test 8.3 G/DL 6.4-8.2 H code = PROT) ALBUMIN (test code 3.6 G/DL 3.4-5.0 N = ALB) CALCIUM (test code 9.1 MG/DL 8.7-10.5 N = CA) BILIRUBIN TOTAL 0.7 MG/DL 0.0-1.0 N (test code = BILT) SGOT/AST (test code 36 Units/L 15-37 N Results of this = AST) assay method jb carey be falsely depressed orelevated if patient is taki ng sulfasalazine. SGPT/ALT (test code 24 Units/L 30-65 L Results of this = ALT) assay method ma y be falsely depressed orelevated if patient is taki ng sulfasalazine. ALKALINE 106 Units/L 50-136 N PHOSPHATASE TOTAL (test code = ALKP) CV CALL [id number] 13:33:00 Test Item Value Reference Range Interpretation Comments CV CALL CHEM (test Called Results c alled to and code = CVC) read back by ADILSON CRUZ RN;.for analyte(s): GL .at 1329 - 08/22/20; by D. LAB.MCM. COMPREHENSIVE METABOLIC [id number] 13:33:00 Test Item Value Reference Range Interpretation Comments SODIUM (test code = 144 MMOL/L 133-145 N NA) POTASSIUM (test 4.9 MMOL/L 3.6-5.2 N 1+ HEMOLYSIS K code = K) RESULT COULD BE HIGHER THEN DETECTED. CHLORIDE (test code 108 MMOL/L 100-108 N = CL) CARBON DIOXIDE 31 MMOL/L 22-32 N (test code = CO2) GLUCOSE (test code 27 MG/DL 65-99 LL Results o f this = GLU) assay method ma y be falsely depressed orelevated if patient is taki ng sulfasalazine. BLOOD UREA NITROGEN 50 MG/DL 6-20 H (test code = BUN) GLOMERULAR Unable to 51-120 N Unable to FILTRATION RATE calculate calculate eG FR; no (test code = GFR) race enter ed to medical record.Reportin g units: mL/min/1.73m\S\ 2 (Modified MDRD Formula) CREATININE (test 7.30 MG/DL 0.60-1.00 H code = CREAT) TOTAL PROTEIN (test 8.3 G/DL 6.4-8.2 H code = PROT) ALBUMIN (test code 3.6 G/DL 3.4-5.0 N = ALB) CALCIUM (test code 9.1 MG/DL 8.7-10.5 N = CA) BILIRUBIN TOTAL 0.7 MG/DL 0.0-1.0 N (test code = BILT) SGOT/AST (test code 36 Units/L 15-37 N Results of this = AST) assay method ma y be falsely depressed orelevated if patient is taki ng sulfasalazine. SGPT/ALT (test code 24 Units/L 30-65 L Results of this = ALT) assay method ma y be falsely depressed orelevated if patient is taki ng sulfasalazine. ALKALINE 106 Units/L 50-136 N PHOSPHATASE TOTAL (test code = ALKP) CV CALL [id number] 13:33:00 Test Item Value Reference Range Interpretation Comments CV CALL CHEM (test Called Results c alled to and code = CVC) read back by ADILSON CRUZ RN;.for analyte(s): GL .at 1329 - 08/22/20; by D. LAB.MCM. COMPREHENSIVE METABOLIC [id number] 13:29:00 Test Item Value Reference Range Interpretation Comments SODIUM (test code = 144 MMOL/L 133-145 N NA) POTASSIUM (test 4.9 MMOL/L 3.6-5.2 N code = K) CHLORIDE (test code 108 MMOL/L 100-108 N = CL) CARBON DIOXIDE 31 MMOL/L 22-32 N (test code = CO2) GLUCOSE (test code 27 MG/DL 65-99 LL Results o f this = GLU) assay method jb carey be falsely depressed orelevated if patient is taki ng sulfasalazine. BLOOD UREA NITROGEN 50 MG/DL 6-20 H (test code = BUN) GLOMERULAR Unable to 51-120 N Unable to FILTRATION RATE calculate calculate eG FR; no (test code = GFR) race enter ed to medical record.Reportin g units: mL/min/1.73m\S\ 2 (Modified MDRD Formula) CREATININE (test 7.30 MG/DL 0.60-1.00 H code = CREAT) TOTAL PROTEIN (test 8.3 G/DL 6.4-8.2 H code = PROT) ALBUMIN (test code 3.6 G/DL 3.4-5.0 N = ALB) CALCIUM (test code 9.1 MG/DL 8.7-10.5 N = CA) BILIRUBIN TOTAL 0.7 MG/DL 0.0-1.0 N (test code = BILT) SGOT/AST (test code 36 Units/L 15-37 N Results of this = AST) assay method jb y be falsely depressed orelevated if patient is taki ng sulfasalazine. SGPT/ALT (test code 24 Units/L 30-65 L Results of this = ALT) assay method jb y be falsely depressed orelevated if patient is taki ng sulfasalazine. ALKALINE 106 Units/L 50-136 N PHOSPHATASE TOTAL (test code = ALKP) CV CALL [id number] 13:29:00 Test Item Value Reference Range Interpretation Comments CV CALL CHEM (test Called Results c alled to and code = CVC) read back by ADILSON CRUZ RN;.for analyte(s): GL .at 1329 - 08/22/20; by D. LAB.MCM. TROPONIN I [id number] 13:23:00 Test Item Value Reference Range Interpretation Comments TROPONIN I RAPID 0.00 NG/ML 0.00-0.08 N - The use of serial (test code = sampling and te sting TROPIRAP) protocol is a recommended pra ctice.- An elevated tro ponin level alone is often not sufficient for diagnosis of my ocardial infarction. COMPREHENSIVE METABOLIC [id number] 13:23:00 Test Item Value Reference Range Interpretation Comments SODIUM (test code = 144 MMOL/L 133-145 N NA) POTASSIUM (test 4.9 MMOL/L 3.6-5.2 N code = K) CHLORIDE (test code 108 MMOL/L 100-108 N = CL) CARBON DIOXIDE 31 MMOL/L 22-32 N (test code = CO2) GLUCOSE (test code 27 MG/DL 65-99 LL Results o f this = GLU) assay method ma y be falsely depressed orelevated if patient is taki ng sulfasalazine. BLOOD UREA NITROGEN 50 MG/DL 6-20 H (test code = BUN) GLOMERULAR Unable to 51-120 N Unable to FILTRATION RATE calculate calculate eG FR; no (test code = GFR) race enter ed to medical record.Reportin g units: mL/min/1.73m\S\ 2 (Modified MDRD Formula) CREATININE (test 7.30 MG/DL 0.60-1.00 H code = CREAT) TOTAL PROTEIN (test 8.3 G/DL 6.4-8.2 H code = PROT) ALBUMIN (test code 3.6 G/DL 3.4-5.0 N = ALB) CALCIUM (test code 9.1 MG/DL 8.7-10.5 N = CA) BILIRUBIN TOTAL 0.7 MG/DL 0.0-1.0 N (test code = BILT) SGOT/AST (test code 36 Units/L 15-37 N Results of this = AST) assay method ma y be falsely depressed orelevated if patient is taki ng sulfasalazine. SGPT/ALT (test code 24 Units/L 30-65 L Results of this = ALT) assay method ma y be falsely depressed orelevated if patient is taki ng sulfasalazine. 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 [facility] CBC W/AUTO [id number] 13:15:00 Test Item Value Reference Range Interpretation Comments WHITE BLOOD CELL 9.50 x10 3/uL 4.80-10.80 N (test code = WBC) RED BLOOD CELL (test 4.11 x10 6/uL 4.2-5.4 L code = RBC) HEMOGLOBIN (test code 12.8 G/DL 12.0-16.0 N = HGB) HEMATOCRIT (test code 41.0 % 37-47 N = HCT) MEAN CELL VOLUME 99.8 FL 81-99 H (test code = MCV) MEAN CELL HGB (test 31.1 PG 27-31 H code = MCH) MEAN CELL HGB 31.2 G/DL 33-37 L CONCENTRATION (test code = MCHC) RED CELL DISTRIBUTION 14.5 % 11.5-14.5 N WIDTH (test code = RDW) PLATELET COUNT (test 204 x10 3/uL 150-450 N code = PLT) MEAN PLATELET VOLUME 9.1 FL 7.4-10.4 N (test code = MPV) NEUTROPHIL % (test 75.8 % 42-86 N code = NT%) LYMPHOCYTE % (test 16.7 % 24-44 L code = LY%) MIXED % (test code = 7.5 % MIXED P ERCENTAGE AND MX%) ABSOLUTE INCLUD E MONOCYTE, BASOP HIL ANDEOSINOPHIL COUNTS. NEUTROPHIL # (test 7.20 x10 3/uL 1.8-7.7 N code = NT#) LYMPHOCYTE # (test 1.60 x10 3/uL 1.0-4.8 N code = LY#) MIXED # (test code = 0.7 k/mm3 MIXED P ERCENTAGE AND MX#) ABSOLUTE INCLUD E MONOCYTE, BASOP HIL ANDEOSINOPHIL COUNTS. [id number] 13:11:00 Test Item Value Reference Range Interpretation Comments GLUBED (test code = 586 MG/DL 65-99 HH Performe d by certified GLUBED) automatic profile sander operator at [facility] [id number] 13:03:00 Test Item Value Reference Range Interpretation Comments GLUBED (test code = 14 MG/DL 65-99 LL Performe d by certified GLUBED) automatic profile sander operator at [facility]
[2021-12-19] MEDS ORDERED: HYDROCODONE/APAP 5/325 MG TAB ONE (14:44)
--- NOTE | 2021-12-19 16:11 | RAD REPORT ---
EXAM DESCRIPTION: US - Extrem Venous W Compress Chaka - 12/19/2021 3:51 pm CLINICAL HISTORY: PAIN COMPARISON: None. TECHNIQUE: Real-time sonographic evaluation of the bilateral lower extremity common femoral, superfi cial femoral, popliteal and posterior tibial veins was performed. FINDINGS: Normal compressibility, flow augmentation, phasic flow and spontaneous flow are identified in the left and right lower extremity common femoral, superficial femoral, popliteal and posterior t ibial veins. No intraluminal filling defects seen. IMPRESSION: No DVT in either lower extremity.
--- NOTE | 2021-12-19 16:11 | RAD REPORT ---
EXAM DESCRIPTION: US - UPPER EXTREMITY VENOUS UNILATE - 12/19/2021 3:51 pm CLINICAL HISTORY: Right arm pain and swelling COMPARISON: None. TECHNIQUE: Real-time sonographic evaluation of the right upper extremity deep venous systems was per formed. FINDINGS: Normal compressibility, flow augmentation, phasic flow and spontaneous flow are identified in the right upper extremity deep venous system. No intraluminal filling defects seen. Internal jugu lar and subclavian veins are normal as well. IMPRESSION: No DVT in the right upper extremity.
--- NOTE | 2021-12-19 16:21 | EDPHYS ---
Physician Documentation [facility] Name: Barbara Ibarra Age: 56 yrs Sex: Female : 1965 Arrival Date: 12/19/2021 Time: 14:01 Bed 8 Private MD: Santiago [facility] ED Physician Toni Moreira HPI: 12/19 15:58 This 56 yrs old Female presents to ER via Wheelchair with complaints of Arm rn Pain, Back Pain. 15:58 The patient or guardian complains of pain. The complaints affect the right hand. rn 16:01 Onset: The symptoms/episode began/occurred 5 day(s) ago. Modifying factors: The rn symptoms are alleviated by nothing. the symptoms are aggravated by nothing. Associated signs and symptoms: Pertinent positives: swelling, Pertinent negatives: decreased range of motion, fever, warmth, weakness. Severity of symptoms: At their worst the symptoms were mild, in the emergency department the symptoms are unchanged. The patient has not experienced similar symptoms in the past. The patient has not recently seen a physician. Pt reports right hand pain, back pain, bilateral knee pain approx 5-6 days after cataract surgery. Already seen today at [facility] ER, got xrays, went to dialysis, still having pain so they told her to go to another ER for second opinion. No trauma. No fall. No fever. . 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 - Social history:: Smoking status: Patient denies any tobacco usage or history of. Patient/guardian denies using alcohol. - Family history:: not pertinent. - Hospitalizations: : No recent hospitalization is reported. ROS: 16:01 Constitutional: Negative for fever, chills, and weight loss, Eyes: Negative for injury, rn pain, redness, and discharge, Neck: Negative for injury, pain, and swelling, Cardiovascular: Negative for chest pain, palpitations, and edema, Respiratory: Negative for shortness of breath, cough, wheezing, and pleuritic chest pain, Abdomen/GI: Negative for abdominal pain, nausea, vomiting, diarrhea, and constipation, Back: Negative for injury and pain, MS/Extremity: Negative for injury and deformity, Skin: Negative for injury, rash, and discoloration, Neuro: Negative for headache, weakness, numbness, tingling, and seizure. Exam: 16:01 Constitutional: This is a well developed, well nourished patient who is awake, alert, rn and in no acute distress. Head/Face: Normocephalic, atraumatic. Cardiovascular: Regular rate and rhythm. No pulse deficits. Respiratory: No increased work of breathing, no retractions or nasal flaring. Skin: Warm, dry with normal turgor. Normal color with no rashes, no lesions, and no evidence of cellulitis. MS/ Extremity: Pulses equal, no cyanosis. Neurovascular intact. Full, normal range of motion. Equal circumference bilateral lower ext, + mild swelling dorsum of right hand without discoloration. Neuro: Awake and alert, GCS 15 Vital Signs: 14:21 BP 130 / 63; Pulse 69; Resp 18; Temp 97.4(TE); Pulse Ox 98% on R/A; Weight 73.48 kg; ld1 Height 5 ft. 1 in. (154.94 cm); Pain 7/10; 14:49 BP 127 / 61; Pulse 67; Resp 15; Pulse Ox 100% ; vg1 16:04 BP 151 / 67; Pulse 64; Resp 16; Pulse Ox 100% ; vg1 14:21 Body Mass Index 30.61 (73.48 kg, 154.94 cm) ld1 MDM: 14:20 Patient medically screened. rn 16:19 Differential diagnosis: superficial phlebitis, DVT. Data reviewed: vital signs, nurses rn notes, radiologic studies, doppler, and as a result, I will discharge patient. Counseling: I had a detailed discussion with the patient and/or guardian regarding: the historical points, exam findings, and any diagnostic results supporting the discharge/admit diagnosis, radiology results, the need for outpatient follow up, to return to the emergency department if symptoms worsen or persist or if there are any questions or concerns that arise at home. Special discussion: I discussed with the patient/guardian in detail that at this point there is no indication for admission to the hospital. It is understood, however, that if the symptoms persist or worsen the patient needs to return immediately for re-evaluation. ED course: U/S of right arm and both legs neg for DVT. Sounds muscular in origin, had w/u at [facility] today, no signs of spinal cord compression, afebrile, will dc home. Has prescription for muscle relaxers from [place], recommend her regular dialysis as scheduled. . 12/19 14:30 Order name: Extrem Venous W Compression Hcaka US: legs; Complete Time: 16:18 rn 12/19 14:51 Order name: UPPER EXTREMITY VENOUS UNILATE; Complete Time: 16:18 EDMS Administered Medications: 14:47 Drug: HYDROcodone-acetaminophen 5 mg-325 mg 1 tabs Route: PO; vg1 16:25 Follow up: Response: No adverse reaction; Pain is decreased vg1 Disposition Summary: 12/19/21 16:20 Discharge Ordered Location: Home rn Problem: new rn Symptoms: have improved rn Condition: Stable rn Diagnosis - Low back pain rn - Pain in left knee rn - Pain in right knee rn - Pain in right hand rn - End stage renal disease rn Followup: rn - With: Private Physician - When: As needed - Reason: Recheck today's complaints, Re-evaluation by your physician Discharge Instructions: - Discharge Summary Sheet rn - Joint Pain rn - Acute Back Pain, Adult rn - Musculoskeletal Pain rn Forms: - Medication Reconciliation Form rn - Thank You Letter rn - 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 EDMS EDMS
--- NOTE | 2021-12-19 16:21 | ER ---
Nurse's Notes [facility] Name: Barbara Ibarra Age: 56 yrs Sex: Female : 1965 Arrival Date: 12/19/2021 Time: 14:01 Bed 8 Private MD: Garrett Henderson Diagnosis: Low back pain;Pain in left knee;Pain in right knee;Pain in right hand;End stage renal disease Presentation: 12/19 14:21 Chief complaint: Patient states: Had cataract surgery on Sunday of this past week. ld1 Pt reports pain to right hand where IV was placed \T\ back pain. Coronavirus screen: At this time, the client does not indicate any symptoms associated with coronavirus-19. Ebola Screen: No symptoms or risks identified at this time. Initial Sepsis Screen: Does the patient meet any 2 criteria? No. Patient's initial sepsis screen is negative. Does the patient have a suspected source of infection? No. Patient's initial sepsis screen is negative. Risk Assessment: Do you want to hurt yourself or someone else? Patient reports no desire to harm self or others. Onset of symptoms was December 19, 2021 at 14:22. 14:21 Method Of Arrival: Wheelchair ld1 14:21 Acuity: AZUCENA 4 ld1 Triage Assessment: 14:22 General: Appears in no apparent distress. comfortable, Behavior is calm, cooperative, ld1 appropriate for age. Pain: Complains of pain in back and right hand Pain does not radiate. Pain currently is 7 out of 10 on a pain scale. EENT: No signs and/or symptoms were reported regarding the EENT system. Neuro: Level of Consciousness is awake, alert, obeys commands, Oriented to person, place, time, situation, Appropriate for age. Cardiovascular: Capillary refill < 3 seconds Patient's skin is warm and dry. Respiratory: Airway is patent Respiratory effort is even, unlabored. GI: Abdomen is round non-distended. : No signs and/or symptoms were reported regarding the genitourinary system. Derm: No signs and/or symptoms reported regarding the dermatologic system. Musculoskeletal: Reports pain in back and right hand. 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 - Social history:: Smoking status: Patient denies any tobacco usage or history of. Patient/guardian denies using alcohol. - Family history:: not pertinent. - Hospitalizations: : No recent hospitalization is reported. Screenin:52 Abuse screen: Denies threats or abuse. Nutritional screening: No deficits noted. vg1 Tuberculosis screening: No symptoms or risk factors identified. Fall Risk No fall in past 12 months (0 pts). No secondary diagnosis (0 pts). No IV (0 pts). Ambulatory Aid- None/Bed Rest/Nurse Assist (0 pts). Gait- Normal/Bed Rest/Wheelchair (0 pts) Mental Status- Oriented to own ability (0 pts). Total Shields Fall Scale indicates No Risk (0-24 pts). Assessment: 14:49 General: Appears in no apparent distress. comfortable, Behavior is calm, cooperative. vg1 Pain: Complains of pain in lower back, right hip and right knee Pain currently is 5 out of 10 on a pain scale. Neuro: Level of Consciousness is awake, alert, obeys commands, Oriented to person, place, time, situation. Cardiovascular: Patient's skin is warm and dry. Respiratory: Airway is patent Respiratory effort is even, unlabored. GI: No signs and/or symptoms were reported involving the gastrointestinal system. : No signs and/or symptoms were reported regarding the genitourinary system. EENT: No signs and/or symptoms were reported regarding the EENT system. Derm: Skin is pink, warm \T\ dry. Musculoskeletal: Circulation, motion, and sensation intact. 16:04 Reassessment: Patient appears in no apparent distress at this time. No changes from vg1 previously documented assessment. Patient and/or family updated on plan of care and expected duration. Pain level reassessed. Patient is alert, oriented x 3, equal unlabored respirations, skin warm/dry/pink. Vital Signs: 14:21 BP 130 / 63; Pulse 69; Resp 18; Temp 97.4(TE); Pulse Ox 98% on R/A; Weight 73.48 kg; ld1 Height 5 ft. 1 in. (154.94 cm); Pain 7/10; 14:49 BP 127 / 61; Pulse 67; Resp 15; Pulse Ox 100% ; vg1 16:04 BP 151 / 67; Pulse 64; Resp 16; Pulse Ox 100% ; vg1 14:21 Body Mass Index 30.61 (73.48 kg, 154.94 cm) ld1 ED Course: 14:01 Patient arrived in ED. am2 14:01 Garrett Henderson DO is Private Physician. am2 14:20 Toni Moreira MD is Attending Physician. rn 14:22 Triage completed. ld1 14:22 Arm band placed on right wrist. ld1 14:37 Maggie Romo, RN is Primary Nurse. vg1 14:52 Patient has correct armband on for positive identification. Bed in low position. Call vg1 light in reach. Side rails up X 1. 15:53 Extrem Venous W Compression Chaka US: legs In Process Unspecified. EDMS 15:53 UPPER EXTREMITY VENOUS UNILATE In Process Unspecified. EDMS 16:24 No provider procedures requiring assistance completed. Patient did not have IV access vg1 during this emergency room visit. Administered Medications: 14:47 Drug: HYDROcodone-acetaminophen 5 mg-325 mg 1 tabs Route: PO; vg1 16:25 Follow up: Response: No adverse reaction; Pain is decreased vg1 Medication: 16:24 VIS not applicable for this client. vg1 Outcome: 16:20 Discharge ordered by . rn 16:24 Discharged to home ambulatory, with family. vg1 16:24 Condition: good 16:24 Discharge instructions given to patient, Instructed on discharge instructions, follow up and referral plans. Demonstrated understanding of instructions, follow-up care. 16:25 Patient left the ED. vg1 Signatures: Dispatcher [employer] EDMS Toni Moreira MD MD rn Moreno, Amanda am2 Maggie Romo RN RN vg1 Chloe Hall RN RN ld1 Corrections: (The following items were deleted from the chart) 14:23 14:22 Allergies: Aspirin; ld1 ld1 14:24 14:21 Chief complaint: Patient states: Had cataract surgery on Sunday of this past ld1 week. Pt reports pain to right hand where IV was placed ld1
[2021-12-19 17:53] VITALS: TEMP 97.4
[2021-12-19 17:55] VITALS: O2SAT 100
[2021-12-19 17:56] VITALS: BP 151/67
== END 2021-12-19 16:25 | disposition home or self-care (01) ==
LOC: ER 13:59
DX: M54.50 Low back pain, unspecified (principal); M25.562 Pain in left knee; M25.561 Pain in right knee; M79.641 Pain in right hand; E11.22 Type 2 diabetes mellitus with diabetic chronic kidney disease; I12.0 Hypertensive chronic kidney disease with stage 5 chronic kidney disease or end stage renal disease; N18.6 End stage renal disease; Z99.2 Dependence on renal dialysis
CPT/HCPCS: 93970; 93971; 99283

== ENCOUNTER 2024-02-14 14:24 | Inpatient (IN) | payer OTHER ==
[2024-02-14 20:57] VITALS: BMI 26.6
[2024-02-14] MEDS ORDERED: DOCUSATE NA 100 MG CAP PO PRN (22:07)
[2024-02-14] MEDS ORDERED: DOCUSATE NA/SENNA CONC 1 TAB PO PRN (22:17)
[2024-02-14] MEDS ORDERED: MELATONIN 3 MG TABLET PO PRN (22:18)
[2024-02-15] MEDS: cloNIDine HCL 0.1 MG TAB PO PRN (00:13)
[2024-02-15] MEDS: carvediloL 25 MG TAB PO SCH (05:20)
[2024-02-15 06:19] LABS: Absolute Basophils 0.1 K/uL (0-0.5); Absolute Eosinophils 0.5 K/uL (0-0.5); Absolute Lymphocytes (CBC) 1.3 K/uL (0.7-4.9); Absolute Monocytes 0.6 K/uL (0.1-1.3); Absolute Neutrophil 2.8 K/uL (1.8-8.0); Basophils % 1.3 % (0-1.3); Eosinophils % 9.1 % (0-4.4); Hematocrit 35.8 % (36.0-45.0); Hemoglobin 11.8 g/dL (12.0-15.0); Lymphocytes % 24.7 % (15.3-44.8); MCH 32.3 pg (27.0-35.0); MCV 97.9 fL (80-100); MPV 7.4 fL (7.6-11.3); Monocytes % 11.7 % (3.3-12.3); Neutrophils % 53.2 % (41.7-73.7); Nucleated Red Blood Cells % 0.1 % (0-0); Platelets 248 thou/uL (152-406); RBC Red Blood Cell Count 3.65 M/uL (3.86-4.86); Red Cell Distribution Width 20.8 % (12.1-15.2)
[2024-02-15 06:42] LABS: Anion Gap 9.2 mEq/L (5.0-15.0); Magnesium 2.1 mg/dL (1.6-2.4); Potassium 4.2 mEq/L (3.5-5.1)
[2024-02-15] MEDS: FAMOTIDINE 20 MG TAB PO SCH (07:25)
[2024-02-15] MEDS: AMLODIPINE 10 MG TAB PO SCH (07:25)
[2024-02-15] MEDS: LOSARTAN POTASSIUM 50 MG TABLET PO SCH ×2 (07:25→18:44)
[2024-02-15] MEDS: ASPIRIN 81 MG CHEWABLE TABLET PO SCH (07:26)
[2024-02-15] MEDS: INSULIN REGULAR (HUMAN) 100 UNIT/ML SQ SCH (07:30)
[2024-02-15] MEDS: [UNRECOGNIZED DRUG - OTHER] SQ SCH (08:00)
[2024-02-15] MEDS ORDERED: AMLODIPINE 10 MG TAB PO SCH (08:00)
[2024-02-15] MEDS: SEVELAMER CARBONATE 800 MG TABLET PO SCH (08:35)
[2024-02-15] MEDS: HYDRALAZINE HCL 25 MG TABLET PO SCH (08:36)
[2024-02-15] MEDS: BUMETANIDE 1 MG TABLET PO SCH (08:36)
[2024-02-15 09:41] LABS: Anisocytosis 1+; Basophilic Stippling 1+; Blood Morphology Comment NOTED (NOT SEEN); Platelet Estimate ADEQ; Polychromasia 1+; White Blood Cell Scan OK (OK)
--- NOTE | 2024-02-15 11:17 | P.CNS ---
Date of Consult: 02/15/24 Reason for Consult: ESRD, malignant HTN, continuation of dialysis Requesting Physician: Carl Cary Chief Complaint: Lt sided weakness s/p sub-acute multiple CVA, REVENUE ENFORCEMENT COLLECTION AGENT shunt with complication History of Present Illness: 58-year-old female with history of chronic insulin dependent diabetes mellitus type 2, malignant hypertension, end-stage renal disease on hemodialysis on iHD via Lt UE AVF for several years who a few mo ago developed hypertensive emergency, BARKER, found to have hydrocephalus (unclear etiology) s/p REVENUE ENFORCEMENT COLLECTION AGENT shunt in Nov it appears with complicated course since including some abd site drainage, sub acute multiple CVA with hemorrhagic component 2nd to ischemia +/- cerebral vasospasm. Now with left sided weakness. Sent here for IPR. Last HD on . She denies any current acute BARKER, visual changes, CP, dyspnea, N/V/D. Allergies No Known Allergies Allergy (Verified 02/14/24 21:01) Home Medications: Amlodipine [Norvasc*] 10 mg PO DAILY 02/14/24 Aspirin Chewable [Aspirin Chewable*] 81 mg PO DAILY 02/14/24 Atorvastatin Calcium [Lipitor] 80 mg PO BEDTIME 02/14/24 Bumetanide [Bumex*] 1 mg PO DAILY 02/14/24 Carvedilol [Coreg] 25 mg PO BID 02/14/24 Famotidine 40 mg PO DAILY 02/14/24 Hydralazine [Apresoline*] 25 mg PO TID 02/14/24 Insulin Degludec [Tresiba Flextouch U-100] 10 units SQ DAILY 02/14/24 Losartan Potassium [Cozaar*] 50 mg PO DAILY 02/14/24 Sevelamer Carbonate [Renvela*] 800 mg PO TID 02/14/24 - Past Medical/Surgical History Diabetic: Yes -: Anemia -: Diabetes mellitus type 2 -: Hypertension -: Hypothyroidism -: ESRD followed by Dr. Davis/Abdi -: Hyperlipidemia -: Incision and drainage -: -: Perma-Cath placement Psychosocial/ Personal History: Patient lives with her family. - Family History Mother Medical History: Diabetes, Stroke, Kidney disease Father Medical History: Cancer - Social History Alcohol use: No CD- Drugs: No Caffeine use: Yes Place of Residence: Home Review of Systems General: Weakness Eyes: Unremarkable ENT: Unremarkable Respiratory: Unremarkable Cardiovascular: As per HPI Gastrointestinal: Unremarkable Genitourinary: Unremarkable Musculoskeletal: Other (Lt foot drop, muscle mass loss) Integumentary: Unremarkable Neurological: As per HPI Physical Examination Temp Pulse Resp BP Pulse Ox 98.3 F 73 16 174/78 H 96 02/15/24 07:00 02/15/24 08:59 02/15/24 07:00 02/15/24 08:59 02/15/24 07:00 General: Alert, In no apparent distress, Cooperative HEENT: Atraumatic, Normocephalic, PERRLA Neck: Supple Respiratory: Clear to auscultation bilaterally, Normal air movement Cardiovascular: Regular rate/rhythm, Other (valve click) Gastrointestinal: Soft and benign, Non-distended Musculoskeletal: No swelling, No contractures, No tenderness, Other (Lt UE AVF with thrill and bruit) Integumentary: No rashes Neurological: Normal speech, Normal affect, Other (Lt sided weakness, LE > UE, lt foot drop) Laboratory Data (last 24 hrs) 02/15/24 02/15/24 05:43 05:43 WBC 5.20 Hgb 11.8 L Hct 35.8 L Plt Count 248 Sodium 133 L Potassium 4.2 BUN 36 H Creatinine 2.98 H Glucose 168 H Phosphorus 3.0 Magnesium 2.1 Conclusions/Impression: A/P) 1. ESRD 2nd to chronic DM/HTN, on iHD, with last HD reported yesterday. Metab profile on labs this AM overall acceptable, will plan for next HD tmrw, see orders for details 2. Chronic malignant HTN with CKD -reviewed BP regimen, on several agents, titrate ARB dose to max. Place on scheduled Clonidine 3. Hydrocephalus -s/p REVENUE ENFORCEMENT COLLECTION AGENT shunt with complication, management per Neurology. Unclear etiology and results of any prior vasculitis, other w/u 4. Recent sub-acute CVA of multiple territories, ischemic +/- cerebral vasospasm with mention of some hemorrhagic component/conversion. Management per Neurology, monitor BP closely, secondary prevention. Defer anti platelet therapy/other management to them. Cont IPR 5. Anemia 2nd to CKD, inflammation, Hb has cyclically dropped every few mo for unclear reasons, currently > 11, hold BRYANNA Jeremy Davis MD, [employer]
[2024-02-15] MEDS: CINACALCET HCL 30 MG TAB PO SCH (11:49)
--- NOTE | 2024-02-15 13:46 | P.RH.PN ---
Estimated Length of Stay: 10 Expected Discharge Date: 02/22/24 Discharge Disposition Plan: Home Family Support: Yes Senior Living Goal: Mobility, Transfers, Self Care Vital Signs: Last Vital Signs Temp 98.3 F 02/15/24 07:00 Pulse 73 02/15/24 08:59 Resp 16 02/15/24 07:00 BP 174/78 H 02/15/24 08:59 Pulse Ox 96 02/15/24 07:00 Laboratory: Laboratory Last Values WBC 5.20 thou/uL (4.3-10.9) 02/15/24 05:43 RBC 3.65 M/uL (3.86-4.86) L 02/15/24 05:43 Hgb 11.8 g/dL (12.0-15.0) L 02/15/24 05:43 Hct 35.8 % (36.0-45.0) L 02/15/24 05:43 MCV 97.9 fL (80-100) 02/15/24 05:43 MCH 32.3 pg (27.0-35.0) 02/15/24 05:43 MCHC 33.0 g/dL (32.0-36.0) 02/15/24 05:43 RDW 20.8 % (12.1-15.2) H 02/15/24 05:43 Plt Count 248 thou/uL (152-406) 02/15/24 05:43 MPV 7.4 fL (7.6-11.3) L 02/15/24 05:43 Neutrophils % 53.2 % (41.7-73.7) 02/15/24 05:43 Lymphocytes % 24.7 % (15.3-44.8) 02/15/24 05:43 Monocytes % 11.7 % (3.3-12.3) 02/15/24 05:43 Eosinophils % 9.1 % (0-4.4) H 02/15/24 05:43 Basophils % 1.3 % (0-1.3) 02/15/24 05:43 Absolute Neutrophils 2.8 K/uL (1.8-8.0) 02/15/24 05:43 Absolute Lymphocytes 1.3 K/uL (0.7-4.9) 02/15/24 05:43 Absolute Monocytes 0.6 K/uL (0.1-1.3) 02/15/24 05:43 Absolute Eosinophils 0.5 K/uL (0-0.5) 02/15/24 05:43 Absolute Basophils 0.1 K/uL (0-0.5) 02/15/24 05:43 Platelet Estimate Adeq 02/15/24 05:43 Polychromasia 1+ 02/15/24 05:43 Basophilic Stippling 1+ 02/15/24 05:43 Anisocytosis 1+ 02/15/24 05:43 Morphology Comment Noted (NOT SEEN) 02/15/24 05:43 Sodium 133 mEq/L (136-145) L 02/15/24 05:43 Potassium 4.2 mEq/L (3.5-5.1) 02/15/24 05:43 Chloride 99 mEq/L (98-107) 02/15/24 05:43 Carbon Dioxide 29 mEq/L (21-32) 02/15/24 05:43 Anion Gap 9.2 mEq/L (5.0-15.0) 02/15/24 05:43 BUN 36 mg/dL (7-18) H 02/15/24 05:43 Creatinine 2.98 mg/dL (0.55-1.02) H 02/15/24 05:43 Est GFR (CKD-EPI) 18 ml/min (=/>90) L 02/15/24 05:43 Glucose 168 mg/dL (74-106) H 02/15/24 05:43 POC Glucose 197 mg/dL (65-120) H 02/15/24 11:12 Hemoglobin A1c 5.5 % (4.2-6.3) 02/15/24 05:43 Calcium 10.4 mg/dL (8.5-10.1) H 02/15/24 05:43 Phosphorus 3.0 mg/dL (2.5-4.9) 02/15/24 05:43 Magnesium 2.1 mg/dL (1.6-2.4) 02/15/24 05:43 Albumin 3.0 g/dL (3.4-5.0) L 02/15/24 05:43 Prealbumin 34.0 mg/dL (20-40) 02/15/24 05:43 Smear Scan Ok (OK) 01/03/25 05:43 Weight: 127 lb 8 oz Closed Surgical Incision Present: Yes Physician Update: BIMS 15, MOCA . Left sided weakness. Mild cognitive deficits. Left lower extremity 2/5, Right left 3/5. Dependent with all transfers and will need a lift and possible SNF or 04/09 family help. She has dialysis , and Sa. Summary: Patient's care plan and collections curator goals have been reviewed and revised as necessary. Please see the Rehabilitation Signature page for all necessary signatures.
[2024-02-15] MEDS: cloNIDine HCL 0.1 MG TAB PO SCH (14:17)
[2024-02-15 17:42] LABS: Hepatitis B Surface Ab - Quant 175.68 mIU/mL (<8.0); Hepatitis B surface AG Interp. Nonreactive (Nonreactive)
[2024-02-15 17:45] LABS: HBsAG Nonreactive Report Report
--- NOTE | 2024-02-15 20:16 | HP ---
Date of Admission: 02/14/2024 Time Of Service: 1 p.m. Chief Complaint: "I had stroke, I'm weak, I need to get stronger." History Of Present Illness: Ms. Priest is a 58-year-old patient, right-handed, has end-stage renal disease, on hemodialysis Sunday, , Sunday, diabetes mellitus type 2, hypertension, recent multiple strokes cardioembolic and complication of subarachnoid hemorrhage and hemorrhagic conversio n. In addition, in November, she had a MARKET RESEARCH INTERVIEWER shunt placed because of hydrocephalus following stroke and hemorrhagic conversion. Subsequently, she did therapy, but came back to the hospital on January 30 due to bilateral lower extremity weakness and a repeat CT scan showed subacute infarcts in the perive ntricular regions with hemorrhagic transformation. There was a right-sided subarachnoid hemorrhage n oted. The MRI subsequently identified bilateral infarcts in the cortical, parietal, and occipital re gions consistent with showering of emboli, likely cardiogenic. She was followed by Neurology Service . An angiogram was performed on the and Cardiology also consulted because of CHF, requirement o f management. She had severe anemia requiring 2 units of packed red blood cells and she h ad in the abdominal region, an abdominal wound that had to be addressed and of course dialysis to lulu [facility]ae[facility]. She did receive her last dialysis on 02/13/2023 and because of her acute condition and her negrete bacute strokes and her comorbid conditions, she is determined to be appropriate candidate for inpsychiatrice nt rehabilitation and is now in the rehabilitation unit for physical, occupational, and speech therap y. She does require continued dialysis now on Sunday, , Sunday, addressing her blood suga rs and hypertension along with addressing the abdominal wound. She is requiring daily physician eval uation and management. She was evaluated by Physical, Occupational, and Speech Therapy Service and f ound to have significant decline in her mobility, transfers, and performance of activities of daily l iving. She requires moderate to max assist for bed mobility, dependent upper trunk and head control, and supervision for grooming and eating. Total assistance for supine to sit transfers, significantl y decreased endurance, unable to ambulate due to significant leg weakness and we will have to work on mobilizing with a wheelchair. She is alert and oriented to person, place, situation, and has been c leared for inpatient rehabilitation and is now ready to begin aggressive therapy to help her return t owards her prior level of functioning and reduce risk of rehospitalization. Past Medical History: Recent multiple strokes with neurologic conversion, hydrocephalus, status post MARKET RESEARCH INTERVIEWER shunt placement in November 2023. She has hemodialysis on Sunday, Sunday, Sunday for end-stage renal disease. She has diabetes mellitus type 2, hypertension. Allergies: NO KNOWN DRUG ALLERGIES. Medications: Tylenol 500 mg every 4 hours as needed, Norvasc 10 mg daily, aspirin 81 mg daily, Lipit or 80 mg at bedtime, Bumex 1 mg daily, Coreg 25 mg twice daily, Sensipar 30 mg at lunchtime, clonidin e 0.1 mg 3 times daily, Colace 100 mg at bedtime, Pepcid 40 mg daily, Apresoline 25 mg 3 times daily, Cozaar 50 mg twice daily, melatonin 3 mg at bedtime, Senokot-S 2 at bedtime, Renvela 800 mg 3 times daily. Laboratory Studies: White blood cell count 5.2, hemoglobin 11.8, platelets 248. Sodium 133, potassi um 4.2, chloride 99, carbon dioxide 29, BUN 36, creatinine 2.98. Her glucose ranged from 160 to 197. Hemoglobin A1c 5.5, calcium 10.4, phosphorus 3.0, magnesium 2.1, albumin 3.0, prealbumin 34. She h as hepatitis panel pending. X-ray/imaging: No new x-rays or imaging recently done. She did have on the of the cerebral ang iogram showing marked interval improvement or resolution of these spasms compared to previous angiogr am. There is an unchanged right posterior communicating artery aneurysm. Echocardiogram on 02/06 sh ows left ventricular cavity normal size, wall thickness is moderately increased, systolic function no rmal, ejection fraction 50% to 55%, grade 2 diastolic dysfunction, right ventricular pressure is incr eased at 50 mm and right atrium is very dilated. The mitral valve shows moderate stenosis. Tricuspi d moderate regurgitation is following pericardial effusion identified. Family History: Noncontributory. Social History: No alcohol, tobacco, or IV drug use. She has many family members who are willing to be very helpful when she is ready for discharge and willing to manage her at home. Review of Systems: She notes diffuse weakness in both lower and upper extremities, more weakness noted of the right uppe r than left upper extremity and bilaterally, unable to hold her legs off the bed for any time. She i s severely weak in lower extremities, intact sensation. Current Level Of Functioning: Currently, she is unable to ambulate, difficulty with trunk control, u nable to sit without moderate assistance. Her eating is at supervision to contact guard, grooming negrete pervision, bathing dependent. Upper body dressing is at a moderate assistance level. Lower body cindy ssing independent, toileting independent, bed transfers dependent, toilet transfers dependent. Ambul ation, unable to ambulate and unable to go up and down steps. She is able to comprehend speech and e xpress herself without significant difficulty. Physical Examination: Vital Signs: Blood pressure is 177/74, pulse 69, respiratory rate 16, temperature 98.3, oxygen satur ation 96%. General: Ms. Priest is lying in bed. Family at bedside. HEENT: She did appear normocephalic, atraumatic. Sclerae anicteric. Oropharynx moist. Neck: Supple. Chest: Clear. Heart: Regular. Extremities: No significant clubbing, cyanosis, or edema noted. Neurologic: No obvious cranial nerve deficits. She has good labial and lingual sounds. Motor exami nation in the right upper extremity, she is at 3 proximally and distally gravity on the le ft 3-, 2+/5 proximally and distally. Both lower extremities, she has 2/5 proximally and distally. S ensation intact in both upper and lower extremities. Some mild decreased stocking glove, more on the left than the right. Assessment: Ms. Cem Ibarra is a 58-year-old patient in the rehabilitation unit with impairment category 01, stroke. Her impairment group code is 01.1, left body involvement, right brain. Her kya ologic diagnosis, right subarachnoid hemorrhage. Her comorbidities include decreased mobility, decre ased physical functioning, poorly controlled hypertension, diabetes mellitus, although hemoglobin A1c now is in the normal range. She has end-stage renal disease, on hemodialysis. There is constipatio n, anemia, reflux, dyslipidemia. Plan: She will have physical, occupational, and speech therapy for 3.5 hours, 5 of 7 days. We will have clonidine 0.1 mg 3 times daily for blood pressure control and to have hemodialysis on Sunday. Her blood pressure is in addition to clonidine is controlled with Cozaar, Apresol ine, Coreg and of course her dialysis, Lipitor for dyslipidemia, aspirin for stroke risk reduction, T ylenol for pain. She has Pepcid for GE reflux, Senokot for constipation. Comorbidities That Are Impacting Rehabilitation: She does have history of hemorrhagic conversion and still is currently on DVT prophylaxis along with aspirin use. She does have end-stage renal disease , on hemodialysis Sunday, , Sunday. Schedule of therapy will be worked around her hemodia lysis schedule. Blood pressures are currently poorly controlled. Adjustments to the hypertensive me dication management will be made in conjunction with the Renal Service. Rehab Specific Plan: Ms. Priest will work with transfer of bench as much as she can, to be able to mobilize from a bed to a chair to a wheelchair to toilet and shower. At this point, she may have a difficult time standing and ambulating, however, attempts to do [id number] will improve and will be done throughout and begin to take any steps in the parallel bars will also be done. She will work w [facility] occupational therapy to improve her ability to dress upper and lower body, don and doff footwear, to maintain an upright posture while sitting at edge of bed and a chair and to perform activities of daily living. She will have speech to help with swallowing issues, articulation issues, cognitive i ssues, and to help her with motivation and comprehension of her situation and the therapy plan. Ms. Priest has a good understanding of the process of admission to the inpatient rehabilitation [facility] and how she will benefit from physical, occupational, and speech therapy. She will have 24 so rs a day, 7 days a week skilled rehabilitation and nursing, daily physician evaluation and management , and social science research assistant evaluation and management for discharge planning. If need be, additional help from the Hospitalist Service and Cardiology Service will be sought. Barriers To Discharge: Currently, she is severely weak from the multiple strokes and may be very dif ficult for her to be managed at home by family. She may require an extended stay at [facility] depending on how she progresses over the time allotted in inpatient rehabilitation. In addition, abd ominal wound is the one that potentially become infected and she will be followed by white count, darrylo k for a fever, KUB, x-ray may be done as needed, and additional studies warranted. Length Of Stay: At least around 3 weeks. Disposition: Expected to be home with family and continue therapy via Home Health. Prognosis: Overall is good. Code Status: Full code. Rehab Goals: 1.As much as possible, become independent with upper body dressing, perhaps min assist for lower bod y dressing, donning and doffing footwear, min assist with transfers from bed to chair, to toilet, to a wheelchair, and in and out of shower. Also min assist mobilizing around hospital distances of 50 f eet. She is not expected to go up and down steps at this point given her severe weakness and she wou ld expect to perform her cognitive functioning as independently as possible, manage medications with the help of family. The above goals were reviewed with Ms. Cem Ibarra and she is in agreement. By signing this document, I acknowledge I personally performed a full physical examination on Ms. Gisselle Ibarra no later than 24 hours after her admission to the inpatient rehabilitation facility and determined that she is able to tolerate the above course of treatment at an intensive level for reaso nable period of time. A detailed individualized plan of care for her will be completed by [facility] based on the preadmission screen, history and physical, and therapy evaluations. JUAN Voice ID: [id number]
[2024-02-15] MEDS: ATORVASTATIN 80 MG TAB PO SCH (20:35)
--- NOTE | 2024-02-16 17:07 | P.PN ---
Nephrology note (S) Pt seen on HD, tolerating session well but BP is not elevated and low per her usual baseline so UF goal lowered. No BARKER, visual changes or new complaints (O) vitals reviewed in the EMR General: Alert, In no apparent distress, Cooperative HEENT: Atraumatic, Normocephalic, PERRLA Neck: Supple Respiratory: Clear to auscultation bilaterally, Normal air movement Cardiovascular: Regular rate/rhythm, Other (valve click) Gastrointestinal: Soft and benign, Non-distended Musculoskeletal: No swelling, No contractures, No tenderness, Other (Lt UE AVF with thrill and bruit) Integumentary: No rashes Neurological: Normal speech, Normal affect, Other (Lt sided weakness, LE > UE, lt foot drop) Laboratory Data (last 24 hrs) 02/15/24 02/15/24 05:43 05:43 WBC 5.20 Hgb 11.8 L Hct 35.8 L Plt Count 248 Sodium 133 L Potassium 4.2 BUN 36 H Creatinine 2.98 H Glucose 168 H Phosphorus 3.0 Magnesium 2.1 Conclusions/Impression: A/P) 1. ESRD 2nd to chronic DM/HTN, on iHD, with last HD reported yesterday. Metab profile on labs yesterday AM overall acceptable, HD today, see orders for details 2. Chronic malignant HTN with CKD -reviewed BP regimen, on several agents, titrated ARB dose to max. Placed on scheduled Clonidine but BP lower on HD, Clonidine is only to be given when SBP > 140 3. Hydrocephalus -s/p PLATE MAKER shunt with complication, management per Neurology. Unclear etiology and results of any prior vasculitis, other w/u 4. Recent sub-acute CVA of multiple territories, ischemic +/- cerebral vasospasm with mention of some hemorrhagic component/conversion. Management per Neurology, monitor BP closely, secondary prevention. Defer anti platelet therapy/other management to them. Cont IPR 5. Anemia 2nd to CKD, inflammation, Hb has cyclically dropped every few mo for unclear reasons, currently > 11, hold BRYANNA Davis MD, [employer]
[2024-02-16] MEDS: cloNIDine HCL 0.1 MG TAB PO SCH (20:48)
--- NOTE | 2024-02-18 10:06 | P.PN ---
Date of Service: 02/18/24 Vital Signs Temp Pulse Resp BP Pulse Ox 97.8 F 68 16 153/71 H 96 02/18/24 07:22 02/18/24 09:58 02/18/24 07:22 02/18/24 09:58 02/18/24 07:22 Medications Acetaminophen (Acetaminophen 500 Mg Tab) 500 mg PO Q4H PRN PRN Reason: Pain scale 2-4 (Mild) Amlodipine Besylate (Amlodipine 10 Mg Tab) 10 mg PO DAILY [facility] Last Admin: 02/18/24 07:55 Dose: 10 mg Aspirin (Aspirin 81 Mg Chewable Tablet) 81 mg PO DAILY [facility] Last Admin: 02/18/24 07:54 Dose: 81 mg Atorvastatin Calcium (Atorvastatin 80 Mg Tab) 80 mg PO BEDTIME [facility] Last Admin: 02/17/24 20:18 Dose: 80 mg Bumetanide (Bumetanide 1 Mg Tablet) 1 mg PO DAILY [facility] Last Admin: 02/18/24 07:54 Dose: 1 mg Carvedilol (Carvedilol 25 Mg Tab) 25 mg PO BID 6AM 6PM [facility] Last Admin: 02/18/24 05:02 Dose: 25 mg Cinacalcet (Cinacalcet Hcl 30 Mg Tab) 30 mg PO LUNCH [facility] Last Admin: 02/17/24 12:21 Dose: 30 mg Clonidine HCl (Clonidine Hcl 0.1 Mg Tab) 0.1 mg PO BID [facility] Last Admin: 02/18/24 09:58 Dose: 0.1 mg Docusate Sodium (Docusate Na 100 Mg Cap) 100 mg PO DAILY PRN PRN Reason: CONSTIPATION Famotidine (Famotidine 20 Mg Tab) 40 mg PO DAILY [facility]; Protocol Last Admin: 02/18/24 07:54 Dose: 40 mg Home Med (Tresiba Degludec Flextouch 100unit/Ml) 10 units SQ DAILY [facility] Last Admin: 02/17/24 07:24 Dose: Not Given Hydralazine HCl (Hydralazine Hcl 25 Mg Tablet) 25 mg PO TID [facility] Last Admin: 02/18/24 09:59 Dose: 25 mg Insulin Human Regular (Insulin Regular (Human) 100 Unit/Ml) 0 unit SQ ACHS [facility]; Protocol Last Admin: 02/18/24 07:28 Dose: Not Given Losartan Potassium (Losartan Potassium 50 Mg Tablet) 50 mg PO BID [facility] Last Admin: 02/18/24 07:55 Dose: 50 mg Melatonin (Melatonin 3 Mg Tablet) 3 mg PO BEDTIME PRN PRN PRN Reason: INSOMNIA Senna/Docusate Sodium (Docusate Na/Senna Conc 1 Tab) 2 tab PO BEDTIME PRN PRN Reason: CONSTIPATION Sevelamer Carbonate (Sevelamer Carbonate 800 Mg Tablet) 800 mg PO TIDWM [facility] Last Admin: 02/18/24 07:56 Dose: 800 mg Lab Results (last 24 hrs) 02/18/24 07:12: POC Glucose 170 H 02/17/24 19:37: POC Glucose 211 H 02/17/24 16:06: POC Glucose 178 H 02/17/24 11:06: POC Glucose 238 H Assessment/ Plan: Nephrology Progress Note No Dyspnea No Chest Pain Weakness No Acute Events Overnight Vital Signs, Medications, Blood Work, and Imaging reviewed in the chart NAD. NCAT. MMM. Neck Supple. Normal Respiratory Effort. RRR. Abd ND. No C/C. LE Edema none. No Rash. AAO. Normal Speech. Left sided weakness. Muscle atrophy. Assessment & Plan ESRD on HD TTS -HD TIW HTN with CKD -Continue Coreg -Continue Losartan -Increase Amlodipine BID -Increase Hydralazine -Change Clonidine PRN DM II with CKD -Continue Tresiba -RISS Anemia in CKD -Retacrit prn CKD MBD Secondary HyperParathyroidism -Continue Sensipar -Continue Renvela Sub-Acute CVA Hydrocephalus sp LUBRICATION WORKER shunt Left sides weakness -Neurology following -PT as ordered Attending note reviewed
[2024-02-18] MEDS ORDERED: MANNITOL 25% 12.5 GM/50 ML VIAL IV PRN (10:23)
[2024-02-18] MEDS ORDERED: NA CHLORIDE 0.9% 1,000 ML IV PRN (10:23)
[2024-02-18] MEDS ORDERED: ALBUMIN HUMAN 25% 50 ML IV SCH (11:00)
[2024-02-18] MEDS: LOPERAMIDE HCL 2 MG CAPSULE PO PRN (15:11)
[2024-02-18] MEDS: HYDRALAZINE HCL 25 MG TABLET PO SCH (15:12)
[2024-02-18] MEDS: AMLODIPINE 10 MG TAB PO SCH (19:09)
--- NOTE | 2024-02-18 22:14 | PN ---
Date of Progress Note: 02/18/2024 Time Of Service: 1 p.m. Subjective: Ms. Ibarra is working with the therapist to sit in bed, still has significant difficulty with trunk control and requires moderate assistance to do change from lying to sitting on the side o f her bed. Review of Systems: She denies any significant pain. Still reports marked weakness in both upper and lower extremities. Objective: No fevers, chills. Mild myalgias, arthralgias. No rash or psychiatric complaints. Physical Examination: Vital Signs: Blood pressure 149/61, pulse 66, respiratory rate 18, temperature 97.4, oxygen saturati on 99%. General: Ms. Priest is sitting at the side of bed. HEENT: She appears normocephalic, atraumatic. Sclerae anicteric. Oropharynx pink and moist. Neuro: Again, diffuse weakness in upper and lower extremities around 3/5 proximally and distally. P oor trunk control as well. Laboratory Studies: White blood cell count 5.2, hemoglobin 11.8, platelets are 248. Sodium 133, pot assium 4.2, chloride 99, BUN 36, creatinine 2.98, calcium 10.4, phosphorus 3.0, magnesium 2.1, albumi n 3.0, prealbumin 34.4. Her blood sugars ranged from 161 to 256. Hepatitis B surface antibody is re active. Hepatitis B surface antigen nonreactive. She is followed by the [facility], Dr. Patton, and has had dialysis 3 times weekly, Sunday, , Sunday. X-ray/imaging: No new x-rays or imaging. Medications: Tylenol 500 mg every 4 hours as needed. She has albumin 25% 500 mL every hemodialysis, Norvasc 10 mg twice daily, aspirin 81 mg daily, Lipitor 40 mg at bedtime, Bumex 1 mg daily, carvedil ol 25 mg twice daily, Sensipar 30 mg every lunchtime, clonidine 0.1 mg twice daily as needed for syst olic blood pressure greater than 170, Colace 100 mg daily, Pepcid 40 mg daily, hydralazine 50 mg 3 ti mes daily, Semglee insulin 10 units at bedtime, Cozaar 50 mg twice daily, Imodium 2 mg every 4 hours as needed for diarrhea, Renvela 800 mg 3 times daily, and she is receiving sodium chloride 1 L slow I V around 25 an hour. Progress Made With Physical And Occupational Therapy: Today with physical therapy, she did wheelchai r mobilization 60 feet with minimum assistance, multiple kdrcew-ob-tkl transfers max assist required, [id number] transfers were dependent. Bed mobility required moderate assistance. With occupationa l therapy, dependent for toilet hygiene, maximum assistance for taking a bath in bed, maximum assista nce for upper body dressing, and dependent for lower body dressing. With speech, she did recall 3 of 4 unrelated pictures after 5 minutes on first attempt and 4 of 4 on second attempt. She has working memory for 4 units of information with 80% accuracy and minimum assistance. Assessment: Ms. Priest is a 58-year-old patient in rehabilitation unit with multiple strokes that are chronic and right subarachnoid hemorrhage. She has significant diffuse weakness in upper and low er extremity. She has end-stage renal disease, on hemodialysis. She has hypertension with multiple antihypertensive medications and gsgvcrnuo-oz-gnruhwq blood pressures, diabetes mellitus, on insulin, and dyslipidemia, on Lipitor. She has aspirin for stroke risk reduction, decreased mobility, and de creased physical functioning. Plan: She will have physical, occupational, and speech therapy continued 3.5 hours, 5 of 7 days. e will continue with her list of medications, in addition having dialysis 3 times weekly per [facility]. We will follow her blood sugars for additional adjustment in her insulin regimen and currentl y she is afebrile with normal white blood cell count, but will be followed. If need be, chest x-ray done and KUB to determine if there is any need for more aggressive treatment to santillan off any potentia l infection. LB/MODL Voice ID: [id number] Report ID: [id number]
[2024-02-19 07:04] LABS: Absolute Basophils 0.1 K/uL (0-0.5); Absolute Eosinophils 0.7 K/uL (0-0.5); Absolute Lymphocytes (CBC) 1.3 K/uL (0.7-4.9); Absolute Monocytes 0.4 K/uL (0.1-1.3); Absolute Neutrophil 2.8 K/uL (1.8-8.0); Basophils % 1.1 % (0-1.3); Eosinophils % 12.7 % (0-4.4); Hematocrit 35.4 % (36.0-45.0); Hemoglobin 11.8 g/dL (12.0-15.0); Lymphocytes % 23.9 % (15.3-44.8); MCH 32.3 pg (27.0-35.0); MCHC 33.3 g/dL (32.0-36.0); MCV 97.1 fL (80-100); MPV 7.2 fL (7.6-11.3); Monocytes % 8.3 % (3.3-12.3); Nucleated Red Blood Cells % 0.1 % (0-0); Platelets 246 thou/uL (152-406); RBC Red Blood Cell Count 3.64 M/uL (3.86-4.86); Red Cell Distribution Width 20.1 % (12.1-15.2)
[2024-02-19 07:05] LABS: Albumin 2.9 g/dL (3.4-5.0); Phosphorus 3.9 mg/dL (2.5-4.9); Uric Acid 5.4 mg/dL (2.6-6.0)
[2024-02-19] MEDS: SODIUM ZIRCONIUM CYCLOSILICATE 10 GM/PKT PO ONE ×2 (08:58→12:29)
--- NOTE | 2024-02-19 20:18 | P.PN ---
Date of Service: 02/19/24 Vital Signs Temp Pulse Resp BP Pulse Ox 97.8 F 68 16 163/73 H 98 02/19/24 06:57 02/19/24 10:47 02/19/24 06:57 02/19/24 10:47 02/19/24 06:57 Medications Acetaminophen (Acetaminophen 500 Mg Tab) 500 mg PO Q4H PRN PRN Reason: Pain scale 2-4 (Mild) Amlodipine Besylate (Amlodipine 10 Mg Tab) 10 mg PO BID [facility] Last Admin: 02/19/24 10:47 Dose: 10 mg Aspirin (Aspirin 81 Mg Chewable Tablet) 81 mg PO DAILY [facility] Last Admin: 02/19/24 08:57 Dose: 81 mg Atorvastatin Calcium (Atorvastatin 80 Mg Tab) 80 mg PO BEDTIME [facility] Last Admin: 02/18/24 19:09 Dose: 80 mg Bumetanide (Bumetanide 1 Mg Tablet) 1 mg PO DAILY [facility] Last Admin: 02/19/24 08:58 Dose: 1 mg Carvedilol (Carvedilol 25 Mg Tab) 25 mg PO BID 6AM 6PM [facility] Last Admin: 02/19/24 17:01 Dose: Not Given Cinacalcet (Cinacalcet Hcl 30 Mg Tab) 30 mg PO LUNCH [facility] Last Admin: 02/19/24 12:28 Dose: 30 mg Clonidine HCl (Clonidine Hcl 0.1 Mg Tab) 0.1 mg PO BID PRN PRN Reason: Titrate to SBP (MUST DEFINE) Docusate Sodium (Docusate Na 100 Mg Cap) 100 mg PO DAILY PRN PRN Reason: CONSTIPATION Famotidine (Famotidine 20 Mg Tab) 40 mg PO DAILY [facility]; Protocol Last Admin: 02/19/24 08:57 Dose: 40 mg Hydralazine HCl (Hydralazine Hcl 25 Mg Tablet) 50 mg PO TID [facility] Last Admin: 02/19/24 14:00 Dose: Not Given Albumin Human (Albumin 25%) 50 mls @ 100 mls/hr IV EVERY HD [facility] Insulin Glargine (Insulin Glargine 100 Unit/Ml) 10 unit SQ BEDTIME [facility] Insulin Human Regular (Insulin Regular (Human) 100 Unit/Ml) 0 unit SQ ACHS [facility]; Protocol Last Admin: 02/19/24 16:30 Dose: Not Given Loperamide HCl (Loperamide Hcl 2 Mg Capsule) 2 mg PO Q4H PRN PRN Reason: DIARRHEA Last Admin: 02/18/24 15:11 Dose: 2 mg Losartan Potassium (Losartan Potassium 50 Mg Tablet) 50 mg PO BID [facility] Last Admin: 02/19/24 08:57 Dose: 50 mg Mannitol (Mannitol 25% 12.5 Gm/50 Ml Vial) 12.5 gm IV EVERY HD PRN PRN Reason: Titrate to SBP (MUST DEFINE) Melatonin (Melatonin 3 Mg Tablet) 3 mg PO BEDTIME PRN PRN PRN Reason: INSOMNIA Sevelamer Carbonate (Sevelamer Carbonate 800 Mg Tablet) 800 mg PO TIDWM [facility] Last Admin: 02/19/24 17:00 Dose: Not Given Lab Results (last 24 hrs) 02/19/24 11:50: POC Glucose 222 H 02/19/24 06:51: POC Glucose 192 H 02/19/24 06:34: WBC 5.20, RBC 3.64 L, Hgb 11.8 L, Hct 35.4 L, MCV 97.1, MCH 32.3, MCHC 33.3, RDW 20.1 H, Plt Count 246, MPV 7.2 L, Neutrophils % 54.0, Lymphocytes % 23.9, Monocytes % 8.3, Eosinophils % 12.7 H, Basophils % 1.1, Absolute Neutrophils 2.8, Absolute Lymphocytes 1.3, Absolute Monocytes 0.4, Absolute Eosinophils 0.7 H, Absolute Basophils 0.1 02/19/24 06:34: Sodium 132 L, Potassium 6.0 H, Chloride 99, Carbon Dioxide 23, Anion Gap 16.0 H, BUN 106 H, Creatinine 6.33 H, Est GFR (CKD-EPI) 7 L, Glucose 199 H, Uric Acid 5.4, Calcium 9.2, Phosphorus 3.9, Albumin 2.9 L Assessment/ Plan: Nephrology Progress Note No Dyspnea No Chest Pain Weakness No Acute Events Overnight Vital Signs, Medications, Blood Work, and Imaging reviewed in the chart NAD. NCAT. MMM. Neck Supple. Normal Respiratory Effort. RRR. Abd ND. No C/C. LE Edema none. No Rash. AAO. Normal Speech. Left sided weakness. Muscle atrophy. Assessment & Plan ESRD on HD TTS -HD TIW HTN with CKD -Continue Coreg -Continue Losartan -Continue Amlodipine BID -Continue Hydralazine -Change Clonidine PRN DM II with CKD -Continue Tresiba -RISS Anemia in CKD -Retacrit prn CKD MBD Secondary HyperParathyroidism -Continue Sensipar -Continue Renvela Sub-Acute CVA Hydrocephalus sp CASE FOLDER shunt Left sides weakness -Neurology following -PT as ordered Attending note reviewed
[2024-02-19] MEDS: INSULIN GLARGINE 100 UNIT/ML SQ SCH (20:22)
--- NOTE | 2024-02-19 20:39 | PN ---
Date of Progress Note: 02/19/2024 Time Of Service: 1 p.m. Subjective: Ms. Priest is resting comfortably in bed. She is feeling somewhat better, but still v phuong weak in the lower extremities, especially on the left where she is unable to hold the left leg of f the bed. Both arms are improving in strength. In right leg, she is able to hold the leg off the b ed for about 5 counts. Objective: She denies any fevers, chills. Mild myalgias, arthralgias. No rash. No psychiatric com plaints. No active other issues. No genitourinary complaints. Physical Examination: Vital Signs: Blood pressure 163/73, pulse 68, respiratory rate of 16, temperature 97.8, oxygen satur ation 98%. Weight 127 pounds, height 4 feet 10 inches, BMI 26. General: Again, Ms. Priest is resting comfortably. Neuro: She does have no focal cranial nerve deficits that are obvious. She does have weakness more in the left lower than right lower extremity, which is more dense in the left lower extremity. She d oes have poor truncal control and difficulty with dexterity in the upper extremities and not quite en ough strength to be able to stand without moderate to maximum assistance. Laboratory Studies: White blood cell count 5.2, hemoglobin 11.8, platelets 246. Sodium 132, potassi um 6.0, chloride 99, carbon dioxide 23, BUN 106, creatinine 6.33, glucose 192 to 222, uric acid 5.4, calcium 9.2, phosphorus 3.9, albumin 2.9. Note, she is on hemodialysis and today is dialysis and those blood work results were before dialysis. Current Medications: Tylenol 500 mg every 4 hours as needed, albumin she has 25% every hemodialysis, Norvasc 10 mg twice daily, aspirin 81 mg daily, Lipitor 80 mg at bedtime, Bumex 1 mg daily, Coreg 25 mg twice daily, Sensipar 30 mg at lunch, clonidine 0.1 mg twice daily as needed, Colace 100 mg daily , Pepcid 40 mg daily, Apresoline 50 mg 3 times daily, Semglee insulin she is receiving 10 units at be dtime, Novolin sliding scale on board, Imodium 2 mg every 4 hours as needed for diarrhea, Cozaar 50 m g twice daily, mannitol 12.5 mg every hemodialysis, melatonin 3 mg at bedtime, and Renvela 800 mg 3 t imes daily. Progress Made With Physical And Occupational Along With Speech Therapy: Today with physical therapy, she was able to complete bed mobility requiring maximum assistance, sliding board transfer maximum a ssistance needed, and was needed to keep her upright from falling over. She mobilized a wheelchair 7 5 feet with moderate assistance. With occupational therapy, dependent for all transfers and a lift w as used, wheelchair to a rolling shower chair and bed, partial assistance with bathing to wash and dr y perineal area and buttocks, bilateral lower extremities also buckling while trying to shower. With speech, she did demonstrate repetition of complex sentences with 90% accuracy and minimum assistance . General information questions answered with 100% accuracy. Working memory skills for 3 units of i nformation demonstrated with 90% accuracy and minimum assistance. Assessment: Ms. Priest is a 58-year-old patient in the rehabilitation unit with right subarachnoid hemorrhage and multiple prior hemorrhages and she has more significant dense left lower extremity pa resis, but also there is right lower and bilateral upper extremity weakness. She has truncal control issues and difficulty maintaining any kind of upright position and is on a max assist for most ADLs and mobilization. She has comorbidities of end-stage renal disease, on hemodialysis. She has hypert ension, diabetes mellitus, constipation, dyslipidemia, and significant of course stroke risk. Plan: She will continue physical, occupational, and speech therapy. She will continue with hemodial ysis on Sunday, Sunday, Sunday. Continue with comorbid condition medications as noted. The possi bility of the patient going home was discussed with the patient and while she has a large family, she requires 24/7 care and the time allotted in inpatient rehab she may not be at that stage, [facility] and the patient currently in agreement with that depending on how w ell she does. AUDRA/DAYO Voice ID: [id number] Report ID: [id number]
[2024-02-19] MEDS ORDERED: [UNRECOGNIZED DRUG - OTHER] SQ SCH (21:00)
--- NOTE | 2024-02-20 08:35 | P.CNS ---
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 Allergies No Known Allergies Allergy (Verified 02/14/24 21:01) Home Medications: Amlodipine [Norvasc*] 10 mg PO DAILY 02/14/24 Aspirin Chewable [Aspirin Chewable*] 81 mg PO DAILY 02/14/24 Atorvastatin Calcium [Lipitor] 80 mg PO BEDTIME 02/14/24 Bumetanide [Bumex*] 1 mg PO DAILY 02/14/24 Carvedilol [Coreg] 25 mg PO BID 02/14/24 Famotidine 40 mg PO DAILY 02/14/24 Hydralazine [Apresoline*] 25 mg PO TID 02/14/24 Insulin Degludec [Tresiba Flextouch U-100] 10 units SQ DAILY 02/14/24 Losartan Potassium [Cozaar*] 50 mg PO DAILY 02/14/24 Sevelamer Carbonate [Renvela*] 800 mg PO TID 02/14/24 - Past Medical/Surgical History Diabetic: Yes -: Anemia -: Diabetes mellitus type 2 -: Hypertension -: Hypothyroidism -: ESRD followed by Dr. Davis/Abdi -: Hyperlipidemia -: Incision and drainage -: -: Perma-Cath placement Psychosocial/ Personal History: Patient lives with her family. - Family History Mother Medical History: Diabetes, Stroke, Kidney disease Father Medical History: Cancer - Social History Alcohol use: No CD- Drugs: No Caffeine use: Yes Place of Residence: Home Review of Systems 10-point ROS is otherwise unremarkable Physical Examination Temp Pulse Resp BP Pulse Ox 97.4 F 81 18 162/71 H 96 02/20/24 06:29 02/20/24 07:45 02/20/24 06:29 02/20/24 07:45 02/20/24 06:29 General: Alert, In no apparent distress, Oriented x3 Cardiovascular: No edema, Abnormal pulses (1/4 dp pulse bilateral, 0/4 pt pulse bilateral) Capillary refill: <2 Seconds Musculoskeletal: No clubbing, No swelling, No contractures, No erythema, No tenderness, No warmth Integumentary: No rashes, No breakdown, No significant lesion, No tenderness/swelling, No erythema, No warmth, No cyanosis, Other (Thickened hypertrophic nails with subungual debris x 10 lower extremity) Neurological: Abnormal sensation - Problems (1) Tinea unguium Current Visit: Yes Status: Acute (2) halfway (current) use of anticoagulants Current Visit: Yes Status: Acute (3) DM type 2 (diabetes mellitus, type 2) Current Visit: No Status: Chronic Conclusions/Impression: MEchanical debridement of nails at bedside
[2024-02-20] MEDS: ACETAMINOPHEN 500 MG TAB PO PRN (11:23)
[2024-02-20] MEDS: MUPIROCIN 2% OINT 22GM TUBE TOP SCH (18:29)
[2024-02-20] MEDS: NIFEDIPINE XL 60 MG TABLET PO SCH (19:51)
--- NOTE | 2024-02-20 20:47 | P.PN ---
Date of Service: 02/20/24 Vital Signs Temp Pulse Resp BP Pulse Ox 97.6 F 78 16 175/77 H 96 02/20/24 19:23 02/20/24 19:51 02/20/24 19:23 02/20/24 19:51 02/20/24 19:23 Medications Acetaminophen (Acetaminophen 500 Mg Tab) 500 mg PO Q4H PRN PRN Reason: Pain scale 2-4 (Mild) Last Admin: 02/20/24 11:23 Dose: 500 mg Aspirin (Aspirin 81 Mg Chewable Tablet) 81 mg PO DAILY [facility] Last Admin: 02/20/24 07:45 Dose: 81 mg Atorvastatin Calcium (Atorvastatin 80 Mg Tab) 80 mg PO BEDTIME [facility] Last Admin: 02/20/24 19:51 Dose: 80 mg Bumetanide (Bumetanide 1 Mg Tablet) 1 mg PO DAILY [facility] Last Admin: 02/20/24 07:45 Dose: 1 mg Carvedilol (Carvedilol 25 Mg Tab) 25 mg PO BID 6AM 6PM [facility] Last Admin: 02/20/24 18:24 Dose: 25 mg Cinacalcet (Cinacalcet Hcl 30 Mg Tab) 30 mg PO LUNCH [facility] Last Admin: 02/20/24 13:09 Dose: 30 mg Clonidine HCl (Clonidine Hcl 0.1 Mg Tab) 0.1 mg PO BID PRN PRN Reason: Titrate to SBP (MUST DEFINE) Docusate Sodium (Docusate Na 100 Mg Cap) 100 mg PO DAILY PRN PRN Reason: CONSTIPATION Famotidine (Famotidine 20 Mg Tab) 40 mg PO DAILY [facility]; Protocol Last Admin: 02/20/24 07:44 Dose: 40 mg Hydralazine HCl (Hydralazine Hcl 25 Mg Tablet) 50 mg PO TID [facility] Last Admin: 02/20/24 19:50 Dose: 50 mg Albumin Human (Albumin 25%) 50 mls @ 100 mls/hr IV EVERY HD [facility] Insulin Glargine (Insulin Glargine 100 Unit/Ml) 10 unit SQ BEDTIME [facility] Last Admin: 02/20/24 19:50 Dose: 10 unit Insulin Human Regular (Insulin Regular (Human) 100 Unit/Ml) 0 unit SQ ACHS [facility]; Protocol Last Admin: 02/20/24 19:52 Dose: Not Given Loperamide HCl (Loperamide Hcl 2 Mg Capsule) 2 mg PO Q4H PRN PRN Reason: DIARRHEA Last Admin: 02/18/24 15:11 Dose: 2 mg Losartan Potassium (Losartan Potassium 50 Mg Tablet) 50 mg PO BID [facility] Last Admin: 02/20/24 19:51 Dose: 50 mg Mannitol (Mannitol 25% 12.5 Gm/50 Ml Vial) 12.5 gm IV EVERY HD PRN PRN Reason: Titrate to SBP (MUST DEFINE) Melatonin (Melatonin 3 Mg Tablet) 3 mg PO BEDTIME PRN PRN PRN Reason: INSOMNIA Mupirocin (Mupirocin 2% Oint 22gm Tube) 1 appl TOP BID [facility] Last Admin: 02/20/24 18:29 Dose: 1 appl Nifedipine (Nifedipine Xl 60 Mg Tablet) 60 mg PO BID [facility] Last Admin: 02/20/24 19:51 Dose: 60 mg Sevelamer Carbonate (Sevelamer Carbonate 800 Mg Tablet) 800 mg PO TIDWM [facility] Last Admin: 02/20/24 17:03 Dose: 800 mg Lab Results (last 24 hrs) 02/20/24 19:47: POC Glucose 181 H 02/20/24 16:02: POC Glucose 177 H 02/20/24 11:10: POC Glucose 127 H 02/20/24 06:47: POC Glucose 134 H Assessment/ Plan: Nephrology Progress Note No Dyspnea No Chest Pain Weakness No Acute Events Overnight Vital Signs, Medications, Blood Work, and Imaging reviewed in the chart NAD. NCAT. MMM. Neck Supple. Normal Respiratory Effort. RRR. Abd ND. No C/C. LE Edema none. No Rash. AAO. Normal Speech. Left sided weakness. Muscle atrophy. 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
--- NOTE | 2024-02-20 22:25 | PN ---
Date of Progress Note: 02/20/2024 Time Of Service: 1 p.m. Subjective: Ms. Priest is resting in bed. She still has no effective movement in the left lower e xtremity, more movement in the right lower and both upper extremities. Still very difficult to manag e any truncal control. She requires a mechanical lift for her to change from sitting to standing and to change from bed to wheelchair and commode. Objective: No fevers, chills. No significant myalgias, arthralgias, rash, headache, weight change. Physical Examination: Vital Signs: Blood pressure 153/70, pulse 79, respiratory rate 16, temperature 97.4, oxygen saturati on 96%. General: Again, Ms. Priest is sitting in a chair beside the bed. Musculoskeletal: She has support on the flank area to reduce the chance of leaning side to side, whi ch she has very poor trunk control. She has dense paresis of the left lower extremity, no significan t functional movement there. Right lower extremity, she does have around 3/5 strength. Again, poor trunk control and around 3 to 4 in the upper extremities. Stocking glove loss, light touch, temperat ure. Laboratory Studies: No new laboratory studies since yesterday except blood sugars ranged 127 to 177. X-ray/imaging: No new x-rays or imaging. She was seen by Dr. Terrence Guy on the podiatry service, and he did debridement of the toenails at t he bedside. Medications: Medications have been reviewed and remain unchanged. Progress Made With Physical, Occupational, And Speech Therapy: With therapy, she did have poor trunk control. She worked with her bilateral upper extremities. She did have some improvement in bed mob ility. She required maximal assistance for rolling left to right. Dependent with transfers, requiri ng a Maxi-Lift for transfer from bed to wheelchair. Regarding her speech, she recalled 4/4 unrelated words after 5 minutes and 4/5 after 5 more minutes on first attempt, and on second time she recalled 5/5 words. Her visual spatial task completed using divided attention skills with 83% accuracy. Assessment: Ms. Priest is a 58-year-old patient in the rehabilitation unit with multiple chronic s trokes and more recent right subarachnoid hemorrhage. She has had dense paresis of left lower extrem ity, bilateral upper extremity weakness, and right-sided weakness as well. Severe poor trunk control . She has decreased mobility; decreased physical functioning; end-stage renal disease, on hemodialys is; hypertension; diabetes mellitus; constipation; dyslipidemia. Plan: She will continue with physical, occupational, and speech therapy 3.5 hours, 5 of 7 days. Con tinue with hemodialysis per schedule. Continue with current list of comorbid condition medications t hat have been reviewed and they have remained unchanged. The possibility of her going home was discu ssed; however, she requires significant maximal to total assistance for lifting. It is recommended t hat she has a lift to go home, but in the interim will likely have to go to prison to begin to function more independently prior to going home. AUDRA/DAYO Voice ID: [id number] Report ID: [id number]
[2024-02-21] MEDS ORDERED: MEDIHONEY 44 ML TOPICAL TUBE TOP SCH (08:00)
--- NOTE | 2024-02-21 10:07 | P.PN ---
Date of Service: 02/21/24 Vital Signs Temp Pulse Resp BP Pulse Ox 97.5 F 72 16 120/60 96 02/21/24 06:17 02/21/24 08:00 02/21/24 06:17 02/21/24 08:00 02/21/24 06:17 Medications Acetaminophen (Acetaminophen 500 Mg Tab) 500 mg PO Q4H PRN PRN Reason: Pain scale 2-4 (Mild) Last Admin: 02/20/24 11:23 Dose: 500 mg Aspirin (Aspirin 81 Mg Chewable Tablet) 81 mg PO DAILY [facility] Last Admin: 02/21/24 08:52 Dose: 81 mg Atorvastatin Calcium (Atorvastatin 80 Mg Tab) 80 mg PO BEDTIME [facility] Last Admin: 02/20/24 19:51 Dose: 80 mg Bumetanide (Bumetanide 1 Mg Tablet) 1 mg PO DAILY [facility] Last Admin: 02/21/24 08:00 Dose: Not Given Carvedilol (Carvedilol 25 Mg Tab) 25 mg PO BID 6AM 6PM [facility] Last Admin: 02/21/24 05:15 Dose: 25 mg Cinacalcet (Cinacalcet Hcl 30 Mg Tab) 30 mg PO LUNCH [facility] Last Admin: 02/20/24 13:09 Dose: 30 mg Clonidine HCl (Clonidine Hcl 0.1 Mg Tab) 0.1 mg PO BID PRN PRN Reason: Titrate to SBP (MUST DEFINE) Docusate Sodium (Docusate Na 100 Mg Cap) 100 mg PO DAILY PRN PRN Reason: CONSTIPATION Famotidine (Famotidine 20 Mg Tab) 40 mg PO DAILY [facility]; Protocol Last Admin: 02/21/24 08:52 Dose: 40 mg Hydralazine HCl (Hydralazine Hcl 25 Mg Tablet) 50 mg PO TID [facility] Last Admin: 02/21/24 09:00 Dose: Not Given Albumin Human (Albumin 25%) 50 mls @ 100 mls/hr IV EVERY HD [facility] Insulin Glargine (Insulin Glargine 100 Unit/Ml) 10 unit SQ BEDTIME [facility] Last Admin: 02/20/24 19:50 Dose: 10 unit Insulin Human Regular (Insulin Regular (Human) 100 Unit/Ml) 0 unit SQ ACHS [facility]; Protocol Last Admin: 02/21/24 07:19 Dose: Not Given Loperamide HCl (Loperamide Hcl 2 Mg Capsule) 2 mg PO Q4H PRN PRN Reason: DIARRHEA Last Admin: 02/18/24 15:11 Dose: 2 mg Losartan Potassium (Losartan Potassium 50 Mg Tablet) 50 mg PO BID [facility] Last Admin: 02/21/24 08:00 Dose: Not Given Mannitol (Mannitol 25% 12.5 Gm/50 Ml Vial) 12.5 gm IV EVERY HD PRN PRN Reason: Titrate to SBP (MUST DEFINE) Melatonin (Melatonin 3 Mg Tablet) 3 mg PO BEDTIME PRN PRN PRN Reason: INSOMNIA Mupirocin (Mupirocin 2% Oint 22gm Tube) 1 appl TOP BID [facility] Last Admin: 02/21/24 08:55 Dose: 1 appl Nifedipine (Nifedipine Xl 60 Mg Tablet) 60 mg PO BEDTIME [facility] Sevelamer Carbonate (Sevelamer Carbonate 800 Mg Tablet) 800 mg PO TIDWM [facility] Last Admin: 02/21/24 08:52 Dose: 800 mg Lab Results (last 24 hrs) 02/21/24 06:33: POC Glucose 125 H 02/20/24 19:47: POC Glucose 181 H 02/20/24 16:02: POC Glucose 177 H 02/20/24 11:10: POC Glucose 127 H Assessment/ Plan: Nephrology Progress Note No Dyspnea No Chest Pain Weakness No Acute Events Overnight Vital Signs, Medications, Blood Work, and Imaging reviewed in the chart NAD. NCAT. MMM. Neck Supple. Normal Respiratory Effort. RRR. Abd ND. No C/C. LE Edema none. No Rash. AAO. Normal Speech. Left sided weakness. Muscle atrophy. 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
[2024-02-21] MEDS: HYDRALAZINE HCL 25 MG TABLET PO SCH (14:00)
--- NOTE | 2024-02-21 16:03 | RAD REPORT ---
EXAMINATION: ONE VIEW CHEST XR CLINICAL INDICATION: R/O TB TECHNIQUE: Frontal chest projection is submitted. Examination is limited by patient positioning and t echnique. COMPARISON: 04/21/2019 FINDINGS: Mild interstitial pulmonary edema. The heart is moderately enlarged. No displaced fractures identifie d. Right-sided shunt tubing seen. No abnormality typically indicative of tuberculosis. IMPRESSION: Mild CHF. No abnormality seen typical of tuberculosis.
[2024-02-21 16:23] LABS: Absolute Basophils 0.1 K/uL (0-0.5); Absolute Eosinophils 0.5 K/uL (0-0.5); Absolute Lymphocytes (CBC) 1.5 K/uL (0.7-4.9); Absolute Monocytes 0.6 K/uL (0.1-1.3); Absolute Neutrophil 2.4 K/uL (1.8-8.0); Basophils % 1.4 % (0-1.3); Eosinophils % 9.5 % (0-4.4); Hematocrit 35.2 % (36.0-45.0); Hemoglobin 11.5 g/dL (12.0-15.0); MCHC 32.8 g/dL (32.0-36.0); MCV 97.5 fL (80-100); MPV 7.1 fL (7.6-11.3); Monocytes % 12.5 % (3.3-12.3); Neutrophils % 46.6 % (41.7-73.7); Nucleated Red Blood Cells % 0.1 % (0-0); Platelets 242 thou/uL (152-406); RBC Red Blood Cell Count 3.61 M/uL (3.86-4.86); Red Cell Distribution Width 19.8 % (12.1-15.2)
[2024-02-21 16:39] LABS: Albumin 3.1 g/dL (3.4-5.0); Anion Gap 14.4 mEq/L (5.0-15.0); Magnesium 2.3 mg/dL (1.6-2.4); Phosphorus 4.2 mg/dL (2.5-4.9); Potassium 4.4 mEq/L (3.5-5.1); Prealbumin 31.8 mg/dL (20-40)
[2024-02-21] MEDS: INSULIN GLARGINE 100 UNIT/ML SQ SCH (19:44)
[2024-02-21] MEDS: NIFEDIPINE XL 60 MG TABLET PO SCH (19:47)
--- NOTE | 2024-02-21 20:52 | PN ---
Date of Progress Note: 02/21/2024 Time Of Service: 1 p.m. Subjective: Ms. Priest is resting in bed. She is making some progress, although very slow in term s of recovery following her right frontal subarachnoid hemorrhage, still significant weakness in the left lower and upper extremities. Objective: No fevers, chills. No nausea, vomiting. Mild myalgias and arthralgias. No rash. No ot her complaints. Physical Examination: Vital Signs: Blood pressure 120/60, pulse 72, respiratory rate 16, temperature 97.5, oxygen saturati on 96%. General: Ms. Priest is resting comfortably. She has dialysis scheduled for today. HEENT: She is normocephalic, atraumatic. Sclerae anicteric. Oropharynx pink and moist. Neck: Supple. Chest: Clear. Heart: Regular. Extremities: Show no significant edema, cyanosis, or clubbing. Laboratory Studies: White blood cell count 5.2, hemoglobin 11.5, platelets 242. Sodium 137, potassi um 4.4, chloride 102, carbon dioxide 25, BUN is 77, creatinine 6.36, glucose 123. Calcium 9.7, magne sium 2.3, phosphorus 4.2. Albumin 3.1, prealbumin 31.8. Note, hepatitis panel was done on 5. Hepatitis B antigen nonreactive. Hepatitis B surface antigen is nonreactive. Hepatitis BS antib odies reactive, but that is considered that she has protective immunity from the hepatitis B. Hepati tis B antibody quantity is 175.63. Peripheral smear okay. X-ray/imaging: She did have a chest x-ray done earlier today. The study showed no abnormalities see n that is typical of tuberculosis. Medications: Medications have been reviewed. She is on Apresoline now 50 mg 3 times daily, change m autumn by Dr. Patton, Renal Service; Semglee insulin increased at 12 units twice a day after blood suga rs were slightly elevated. She is on nifedipine 60 mg daily, change made by Dr. Patton as well. Sh mari does have mupirocin, and that is the Bactroban 2% ointment applied. Other medications have been re viewed and are unchanged. Progress Made With Physical, Occupational, And Speech Therapy: With therapy, she was maximum assista nce, rolling left to right. Multiple repositionings in the middle of the bed were done due to excess michelle lean to one side. Needed moderate assistance with verbal cues to bring herself to midline. She did perform range of motion exercises, left upper extremity and left shoulder, and the bilateral uppe r extremities with use of 2-pound weight. Therapist noted continued improvement in bed mobility, adelina nk control, core strength, muscle control, and bilateral lower extremity strength. With occupational therapy, she was able to recall 4/4 unrelated items after 5 and 7 minutes independently. She needed moderate assistance for working memory for 4 units of information and at 80% accuracy. Required mod erate to minimum assistance for visuospatial tasks with 80% accuracy. She was able to complete compl ex sentences with 60% accuracy and moderate to maximum assistance required. Assessment: Ms. Priest is a 58-year-old patient in rehabilitation unit with right subarachnoid hem orrhage, decreased mobility, decreased physical functioning, hypertension, gastroesophageal reflux, d iabetes mellitus, muscle spasms. Plan: 1.She will continue with physical, occupational, and speech therapy 3.5 hours, 5 of 7 days. 2.Diabetes mellitus, medications adjusted including Semglee from 10 to 12 units at night. Blood pre ssure medications were adjusted by Dr. Patton and these were continued. She has DVT prophylaxis on board. In addition, aspirin 81 mg daily for stroke risk reduction. She is a patient with end-stage renal disease. She is on hemodialysis and today is hemodialysis day, that is Sunday, , . She will continue with physical, occupational, and speech therapy as noted. She will continue with a ll comorbid condition medications, which have been noted above and hemodialysis is ongoing. Her ther apy is scheduled and will be worked around the hemodialysis. The patient's disposition due to her si gnificant need is best served in, at this point, a [facility] facility as the family is unable t o provide 24 hours 7 days a week care for transferring and mobilizing and for safety awareness issues. AUDRA/DAYO Voice ID: [id number] Report ID: [id number]
--- NOTE | 2024-02-21 22:07 | P.PN ---
Date of Service: 02/21/24 Vital Signs Temp Pulse Resp BP Pulse Ox 98.7 F 76 18 178/79 H 94 02/21/24 20:00 02/21/24 20:00 02/21/24 20:00 02/21/24 20:00 02/21/24 20:00 Medications Acetaminophen (Acetaminophen 500 Mg Tab) 500 mg PO Q4H PRN PRN Reason: Pain scale 2-4 (Mild) Last Admin: 02/20/24 11:23 Dose: 500 mg Aspirin (Aspirin 81 Mg Chewable Tablet) 81 mg PO DAILY [facility] Last Admin: 02/21/24 08:52 Dose: 81 mg Atorvastatin Calcium (Atorvastatin 80 Mg Tab) 80 mg PO BEDTIME [facility] Last Admin: 02/21/24 19:46 Dose: 80 mg Bumetanide (Bumetanide 1 Mg Tablet) 1 mg PO DAILY [facility] Last Admin: 02/21/24 08:00 Dose: Not Given Carvedilol (Carvedilol 25 Mg Tab) 25 mg PO BID 6AM 6PM [facility] Last Admin: 02/21/24 19:45 Dose: 25 mg Cinacalcet (Cinacalcet Hcl 30 Mg Tab) 30 mg PO LUNCH [facility] Last Admin: 02/21/24 12:30 Dose: 30 mg Clonidine HCl (Clonidine Hcl 0.1 Mg Tab) 0.1 mg PO BID PRN PRN Reason: Titrate to SBP (MUST DEFINE) Docusate Sodium (Docusate Na 100 Mg Cap) 100 mg PO DAILY PRN PRN Reason: CONSTIPATION Famotidine (Famotidine 20 Mg Tab) 40 mg PO DAILY [facility]; Protocol Last Admin: 02/21/24 08:52 Dose: 40 mg Hydralazine HCl (Hydralazine Hcl 25 Mg Tablet) 50 mg PO TID [facility] Last Admin: 02/21/24 19:47 Dose: 50 mg Albumin Human (Albumin 25%) 50 mls @ 100 mls/hr IV EVERY HD [facility] Insulin Glargine (Insulin Glargine 100 Unit/Ml) 12 unit SQ BEDTIME [facility] Last Admin: 02/21/24 19:44 Dose: 12 unit Insulin Human Regular (Insulin Regular (Human) 100 Unit/Ml) 0 unit SQ ACHS [facility]; Protocol Last Admin: 02/21/24 19:44 Dose: Not Given Loperamide HCl (Loperamide Hcl 2 Mg Capsule) 2 mg PO Q4H PRN PRN Reason: DIARRHEA Last Admin: 02/18/24 15:11 Dose: 2 mg Losartan Potassium (Losartan Potassium 50 Mg Tablet) 50 mg PO BID [facility] Last Admin: 02/21/24 19:46 Dose: 50 mg Mannitol (Mannitol 25% 12.5 Gm/50 Ml Vial) 12.5 gm IV EVERY HD PRN PRN Reason: Titrate to SBP (MUST DEFINE) Melatonin (Melatonin 3 Mg Tablet) 3 mg PO BEDTIME PRN PRN PRN Reason: INSOMNIA Mupirocin (Mupirocin 2% Oint 22gm Tube) 1 appl TOP BID [facility] Last Admin: 02/21/24 19:46 Dose: 1 appl Nifedipine (Nifedipine Xl 60 Mg Tablet) 60 mg PO BEDTIME [facility] Last Admin: 02/21/24 19:47 Dose: 60 mg Sevelamer Carbonate (Sevelamer Carbonate 800 Mg Tablet) 800 mg PO TIDWM [facility] Last Admin: 02/21/24 17:00 Dose: Not Given Lab Results (last 24 hrs) 02/21/24 19:10: POC Glucose 91 02/21/24 15:48: Sodium 137, Potassium 4.4, Chloride 102, Carbon Dioxide 25, Anion Gap 14.4, BUN 77 H, Creatinine 6.36 H, Est GFR (CKD-EPI) 7 L, Glucose 123 H, Calcium 9.7, Phosphorus 4.2, Magnesium 2.3, Albumin 3.1 L, Prealbumin 31.8 02/21/24 15:48: WBC 5.20, RBC 3.61 L, Hgb 11.5 L, Hct 35.2 L, MCV 97.5, MCH 32.0, MCHC 32.8, RDW 19.8 H, Plt Count 242, MPV 7.1 L, Neutrophils % 46.6, Lymphocytes % 30.0, Monocytes % 12.5 H, Eosinophils % 9.5 H, Basophils % 1.4 H, Absolute Neutrophils 2.4, Absolute Lymphocytes 1.5, Absolute Monocytes 0.6, Absolute Eosinophils 0.5, Absolute Basophils 0.1 02/21/24 11:04: POC Glucose 251 H 02/21/24 06:33: POC Glucose 125 H Assessment/ Plan: Nephrology Progress Note No Dyspnea No Chest Pain Weakness No Acute Events Overnight Vital Signs, Medications, Blood Work, and Imaging reviewed in the chart NAD. NCAT. MMM. Neck Supple. Normal Respiratory Effort. RRR. Abd ND. No C/C. LE Edema none. No Rash. AAO. Normal Speech. Left sided weakness. Muscle atrophy. Assessment & Plan ESRD on HD TTS -HD TIW HTN with CKD -Continue Coreg -Continue Losartan -Continue Nifedipine XL -Continue Hydralazine -Clonidine PRN DM II with CKD -Continue Tresiba -RISS Anemia in CKD -Retacrit prn CKD MBD Secondary HyperParathyroidism -Continue Sensipar -Continue Renvela Sub-Acute CVA Hydrocephalus sp ACCOUNTING SPECIALIST shunt Left sides weakness -Neurology following -PT as ordered Attending note reviewed
[2024-02-22] MEDS: NIFEDIPINE XL 30 MG TABLET PO SCH (07:59)
--- NOTE | 2024-02-22 11:57 | P.PN ---
Nephrology note (S) Pt reports progressing with PT, no BARKER, CP, dyspnea, last HD yesterday, discharge planning discussed with CM (O) vitals reviewed in the EMR General: Alert, In no apparent distress, Cooperative HEENT: Atraumatic, Normocephalic, PERRLA Neck: Supple Respiratory: Clear to auscultation bilaterally, Normal air movement Cardiovascular: Regular rate/rhythm, Other (valve click) Gastrointestinal: Soft and benign, Non-distended Musculoskeletal: No swelling, No contractures, No tenderness, Other (Lt UE AVF with thrill and bruit) Integumentary: No rashes Neurological: Normal speech, Normal affect, Other (Lt sided weakness, LE > UE, lt foot drop) Laboratory Data (last 24 hrs) Reviewed in the EMR Conclusions/Impression: A/P) 1. ESRD 2nd to chronic DM/HTN, on iHD TTS schedule while in rehab. Stable metab profile 2. Chronic malignant HTN with CKD -reviewed BP regimen, on several agents, current range acceptable 3. Hydrocephalus -s/p CREAM TESTER shunt with complication, management per Neurology. Unclear etiology and results of any prior vasculitis, other w/u. Stable currently 4. Recent sub-acute CVA of multiple territories, ischemic +/- cerebral vasospasm with mention of some hemorrhagic component/conversion. Management per Neurology, monitor BP closely, secondary prevention. Defer anti platelet therapy/other management to them. Cont IPR 5. Anemia 2nd to CKD, inflammation, Hb has cyclically dropped every few mo for unclear reasons, currently > 11, hold BRYANNA Jeremy Davis MD, [employer]
--- NOTE | 2024-02-22 13:14 | P.RH.PN ---
Estimated Length of Stay: 23 Expected Discharge Date: 03/05/24 Discharge Disposition Plan: Home Family Support: Yes [facility] Goal: Mobility, Transfers, Self Care Vital Signs: Last Vital Signs Temp 98.0 F 02/22/24 07:35 Pulse 74 02/22/24 07:59 Resp 16 02/22/24 07:35 BP 133/59 L 02/22/24 07:59 Pulse Ox 98 02/22/24 07:35 Laboratory: Laboratory Last Values WBC 5.20 thou/uL (4.3-10.9) 02/21/24 15:48 RBC 3.61 M/uL (3.86-4.86) L 02/21/24 15:48 Hgb 11.5 g/dL (12.0-15.0) L 02/21/24 15:48 Hct 35.2 % (36.0-45.0) L 02/21/24 15:48 MCV 97.5 fL (80-100) 02/21/24 15:48 MCH 32.0 pg (27.0-35.0) 02/21/24 15:48 MCHC 32.8 g/dL (32.0-36.0) 02/21/24 15:48 RDW 19.8 % (12.1-15.2) H 02/21/24 15:48 Plt Count 242 thou/uL (152-406) 02/21/24 15:48 MPV 7.1 fL (7.6-11.3) L 02/21/24 15:48 Neutrophils % 46.6 % (41.7-73.7) 02/21/24 15:48 Lymphocytes % 30.0 % (15.3-44.8) 02/21/24 15:48 Monocytes % 12.5 % (3.3-12.3) H 02/21/24 15:48 Eosinophils % 9.5 % (0-4.4) H 02/21/24 15:48 Basophils % 1.4 % (0-1.3) H 02/21/24 15:48 Absolute Neutrophils 2.4 K/uL (1.8-8.0) 02/21/24 15:48 Absolute Lymphocytes 1.5 K/uL (0.7-4.9) 02/21/24 15:48 Absolute Monocytes 0.6 K/uL (0.1-1.3) 02/21/24 15:48 Absolute Eosinophils 0.5 K/uL (0-0.5) 02/21/24 15:48 Absolute Basophils 0.1 K/uL (0-0.5) 02/21/24 15:48 Platelet Estimate Adeq 02/15/24 05:43 Polychromasia 1+ 02/15/24 05:43 Basophilic Stippling 1+ 02/15/24 05:43 Anisocytosis 1+ 02/15/24 05:43 Morphology Comment Noted (NOT SEEN) 02/15/24 05:43 Sodium 137 mEq/L (136-145) 02/21/24 15:48 Potassium 4.4 mEq/L (3.5-5.1) 02/21/24 15:48 Chloride 102 mEq/L (98-107) 02/21/24 15:48 Carbon Dioxide 25 mEq/L (21-32) 02/21/24 15:48 Anion Gap 14.4 mEq/L (5.0-15.0) 02/21/24 15:48 BUN 77 mg/dL (7-18) H 02/21/24 15:48 Creatinine 6.36 mg/dL (0.55-1.02) H 02/21/24 15:48 Est GFR (CKD-EPI) 7 ml/min (=/>90) L 02/21/24 15:48 Glucose 123 mg/dL (74-106) H 02/21/24 15:48 POC Glucose 187 mg/dL (65-120) H 02/22/24 11:02 Hemoglobin A1c 5.5 % (4.2-6.3) 02/15/24 05:43 Uric Acid 5.4 mg/dL (2.6-6.0) 02/19/24 06:34 Calcium 9.7 mg/dL (8.5-10.1) 02/21/24 15:48 Phosphorus 4.2 mg/dL (2.5-4.9) 02/21/24 15:48 Magnesium 2.3 mg/dL (1.6-2.4) 02/21/24 15:48 Albumin 3.1 g/dL (3.4-5.0) L 02/21/24 15:48 Prealbumin 31.8 mg/dL (20-40) 02/21/24 15:48 Hep Bs Antigen Nonreactive (Nonreactive) 02/15/24 16:48 Hep B Surface Ag Comm Report 02/15/24 16:48 Hep Bs Antibody Reactive (Nonreactive) H 02/15/24 16:48 Hep Bs Antibody, Quant 175.68 mIU/mL (<8.0) 02/15/24 16:48 Smear Scan Ok (OK) 02/15/24 05:43 Weight: 132 lb Wound Present: No Closed Surgical Incision Present: Yes Negative Pressure Wound Therapy Present: No Physician Update: SLUMS 19, mild difficulty with communication. Poor speed of precessing and for complex information. Met 1 PT goal, turn with min, WC 150' x 2 with SBA, YASH lift needed for transfer. for OT can do upper body dressing and showering with partial assist. Max for lower body dressing. She is on dialysis. Summary: Patient's care plan and long term care pharmacist goals have been reviewed and revised as necessary. Please see the Rehabilitation Signature page for all necessary signatures.
[2024-02-22] MEDS: TRESIBA 100 UNIT/ML SQ SCH (19:27)
--- NOTE | 2024-02-23 21:13 | P.PN ---
Date of Service: 02/23/24 Vital Signs Temp Pulse Resp BP Pulse Ox 97.9 F 75 16 180/81 H 99 02/23/24 18:57 02/23/24 18:57 02/23/24 18:57 02/23/24 18:57 02/23/24 18:57 Medications Acetaminophen (Acetaminophen 500 Mg Tab) 500 mg PO Q4H PRN PRN Reason: Pain scale 2-4 (Mild) Last Admin: 02/20/24 11:23 Dose: 500 mg Aspirin (Aspirin 81 Mg Chewable Tablet) 81 mg PO DAILY [facility] Last Admin: 02/23/24 08:34 Dose: 81 mg Atorvastatin Calcium (Atorvastatin 80 Mg Tab) 80 mg PO BEDTIME [facility] Last Admin: 02/22/24 19:27 Dose: 80 mg Bumetanide (Bumetanide 1 Mg Tablet) 1 mg PO DAILY [facility] Last Admin: 02/23/24 08:34 Dose: 1 mg Carvedilol (Carvedilol 25 Mg Tab) 25 mg PO BID 6AM 6PM [facility] Last Admin: 02/23/24 18:00 Dose: Not Given Cinacalcet (Cinacalcet Hcl 30 Mg Tab) 30 mg PO LUNCH [facility] Last Admin: 02/23/24 12:37 Dose: 30 mg Clonidine HCl (Clonidine Hcl 0.1 Mg Tab) 0.1 mg PO BID PRN PRN Reason: Titrate to SBP (MUST DEFINE) Docusate Sodium (Docusate Na 100 Mg Cap) 100 mg PO DAILY PRN PRN Reason: CONSTIPATION Famotidine (Famotidine 20 Mg Tab) 40 mg PO DAILY [facility]; Protocol Last Admin: 02/23/24 08:34 Dose: 40 mg Home Med (Pt MedTresiba Flextouch 100 Units/Ml) 12 ea SQ BEDTIME [facility] Last Admin: 02/22/24 19:27 Dose: 12 ea Hydralazine HCl (Hydralazine Hcl 25 Mg Tablet) 50 mg PO TID [facility] Last Admin: 02/23/24 14:00 Dose: Not Given Albumin Human (Albumin 25%) 50 mls @ 100 mls/hr IV EVERY HD [facility] Insulin Human Regular (Insulin Regular (Human) 100 Unit/Ml) 0 unit SQ ACHS [facility]; Protocol Last Admin: 02/23/24 16:30 Dose: Not Given Loperamide HCl (Loperamide Hcl 2 Mg Capsule) 2 mg PO Q4H PRN PRN Reason: DIARRHEA Last Admin: 02/23/24 14:50 Dose: 2 mg Losartan Potassium (Losartan Potassium 50 Mg Tablet) 50 mg PO BID [facility] Last Admin: 02/23/24 08:34 Dose: 50 mg Mannitol (Mannitol 25% 12.5 Gm/50 Ml Vial) 12.5 gm IV EVERY HD PRN PRN Reason: Titrate to SBP (MUST DEFINE) Melatonin (Melatonin 3 Mg Tablet) 3 mg PO BEDTIME PRN PRN PRN Reason: INSOMNIA Mupirocin (Mupirocin 2% Oint 22gm Tube) 1 appl TOP BID [facility] Last Admin: 02/23/24 08:36 Dose: 1 appl Nifedipine (Nifedipine Xl 30 Mg Tablet) 30 mg PO BID [facility] Last Admin: 02/23/24 08:34 Dose: 30 mg Sevelamer Carbonate (Sevelamer Carbonate 800 Mg Tablet) 800 mg PO TIDWM [facility] Last Admin: 02/23/24 17:11 Dose: 800 mg Lab Results (last 24 hrs) 02/23/24 16:33: POC Glucose 130 H 02/23/24 11:47: POC Glucose 212 H 02/23/24 06:36: POC Glucose 117 Assessment/ Plan: Nephrology Progress Note No Dyspnea No Chest Pain Weakness No Acute Events Overnight Vital Signs, Medications, Blood Work, and Imaging reviewed in the chart NAD. NCAT. MMM. Neck Supple. Normal Respiratory Effort. RRR. Abd ND. No C/C. LE Edema none. No Rash. AAO. Normal Speech. Left sided wea kness. Muscle atrophy. 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
[2024-02-24] MEDS: cloNIDine HCL 0.1 MG TAB PO PRN (10:50)
--- NOTE | 2024-02-25 19:48 | P.PN ---
Date of Service: 02/25/24 Vital Signs Temp Pulse Resp BP Pulse Ox 97 F 78 16 137/65 99 02/25/24 06:42 02/25/24 17:59 02/25/24 06:42 02/25/24 17:59 02/25/24 06:42 Medications Acetaminophen (Acetaminophen 500 Mg Tab) 500 mg PO Q4H PRN PRN Reason: Pain scale 2-4 (Mild) Last Admin: 02/20/24 11:23 Dose: 500 mg Aspirin (Aspirin 81 Mg Chewable Tablet) 81 mg PO DAILY [facility] Last Admin: 02/25/24 08:17 Dose: 81 mg Atorvastatin Calcium (Atorvastatin 80 Mg Tab) 80 mg PO BEDTIME [facility] Last Admin: 02/24/24 20:04 Dose: 80 mg Bumetanide (Bumetanide 1 Mg Tablet) 1 mg PO DAILY [facility] Last Admin: 02/25/24 08:18 Dose: 1 mg Carvedilol (Carvedilol 25 Mg Tab) 25 mg PO BID 6AM 6PM [facility] Last Admin: 02/25/24 17:59 Dose: 25 mg Cinacalcet (Cinacalcet Hcl 30 Mg Tab) 30 mg PO LUNCH [facility] Last Admin: 02/25/24 12:05 Dose: 30 mg Clonidine HCl (Clonidine Hcl 0.1 Mg Tab) 0.1 mg PO BID PRN PRN Reason: Titrate to SBP (MUST DEFINE) Last Admin: 02/24/24 22:49 Dose: 0.1 mg Docusate Sodium (Docusate Na 100 Mg Cap) 100 mg PO DAILY PRN PRN Reason: CONSTIPATION Famotidine (Famotidine 20 Mg Tab) 40 mg PO DAILY [facility]; Protocol Last Admin: 02/25/24 08:18 Dose: 40 mg Home Med (Pt MedTresiba Flextouch 100 Units/Ml) 10 ea SQ BEDTIME [facility] Hydralazine HCl (Hydralazine Hcl 25 Mg Tablet) 50 mg PO TID [facility] Last Admin: 02/25/24 14:59 Dose: 50 mg Albumin Human (Albumin 25%) 50 mls @ 100 mls/hr IV EVERY HD [facility] Insulin Human Regular (Insulin Regular (Human) 100 Unit/Ml) 0 unit SQ ACHS [facility]; Protocol Last Admin: 02/25/24 16:30 Dose: Not Given Loperamide HCl (Loperamide Hcl 2 Mg Capsule) 2 mg PO Q4H PRN PRN Reason: DIARRHEA Last Admin: 02/24/24 08:07 Dose: 2 mg Losartan Potassium (Losartan Potassium 50 Mg Tablet) 50 mg PO BID [facility] Last Admin: 02/25/24 09:13 Dose: 50 mg Mannitol (Mannitol 25% 12.5 Gm/50 Ml Vial) 12.5 gm IV EVERY HD PRN PRN Reason: Titrate to SBP (MUST DEFINE) Melatonin (Melatonin 3 Mg Tablet) 3 mg PO BEDTIME PRN PRN PRN Reason: INSOMNIA Mupirocin (Mupirocin 2% Oint 22gm Tube) 1 appl TOP BID [facility] Last Admin: 02/25/24 08:21 Dose: 1 appl Nifedipine (Nifedipine Xl 30 Mg Tablet) 30 mg PO BID [facility] Last Admin: 02/25/24 08:20 Dose: 30 mg Sevelamer Carbonate (Sevelamer Carbonate 800 Mg Tablet) 800 mg PO TIDWM [facility] Last Admin: 02/25/24 17:58 Dose: 800 mg Lab Results (last 24 hrs) 02/25/24 15:56: POC Glucose 129 H 02/25/24 10:56: POC Glucose 152 H 02/25/24 06:48: POC Glucose 86 Assessment/ Plan: Nephrology Progress Note No Dyspnea No Chest Pain Weakness No Acute Events Overnight Vital Signs, Medications, Blood Work, and Imaging reviewed in the chart NAD. NCAT. MMM. Neck Supple. Normal Respiratory Effort. RRR. Abd ND. No C/C. LE Edema none. No Rash. AAO. Normal Speech. Left sided weakness. Muscle atrophy. Assessment & Plan ESRD on HD TTS -HD TIW HTN with CKD -Continue Coreg -Continue Losartan -Continue Nifedipine XL -Continue Hydralazine -Clonidine PRN DM II with CKD -Continue Tresiba -RISS Anemia in CKD -Retacrit prn CKD MBD Secondary HyperParathyroidism -Continue Sensipar -Continue Renvela Sub-Acute CVA Hydrocephalus sp [employer] shunt Left sides weakness -Neurology following -PT as ordered Attending note reviewed
[2024-02-25] MEDS: TRESIBA 100 UNIT/ML SQ SCH (20:17)
--- NOTE | 2024-02-25 23:53 | PN ---
Subjective: Ms. Priest is mobilizing a wheelchair down the morris. She is moving slowly, but indepe ndently. She reports some more movement in the left upper and lower extremity which she is using to mobilize the wheelchair, mild spasming, but not significant to be painful. Objective: She denies any significant fevers, chills, nausea, or vomiting. No myalgias, arthralgias . No rash. Physical Examination: Vital Signs: Blood pressure 137/65, pulse 78, respiratory rate of 16, temperature 97, oxygen saturat ion 99%. General: Again, Ms. Priest is sitting in the wheelchair mobilizing it down the hallway. HEENT: She does appear normocephalic, atraumatic. Sclerae anicteric. Oropharynx moist. Neck: Supple. Chest: Clear. Heart: Regular. Extremities: Left upper extremity has at least 3+ out of 5 strength and similarly so on the left low er extremity. She has good strength on the right side. She does tend to lean towards the right when sitting in the wheelchair, but when told to correct, she is able to come back towards the midline an d sit more upright. Laboratory Studies: Today, blood sugars ranged from 86 to 152. X-ray/imaging: No new x-rays or imaging. Medications: Her medications have been reviewed and are continued currently unchanged. Progress Made With Physical And Occupational Therapy: Today with physical therapy, mobilized a wheel chair 250 feet with standby assistance, mlw-kk-qhqvjf maximum assistance required, tuj-cd-feiqb trans fers and vejzw-nn-evioa transfers she did multiple times, but a Vivi lift required. With her occupat ional therapy, maximum assistance for rolling from supine to the side 4 times, maximum assistance to pull up to the head of bed. With speech, she recalled 2 sets of 4/4 unrelated items after 5-minute d elay with minimum assistance. Working memory for 4 units of information was 100% with minimum assist ance. Visual-spatial skills improved with 100% accuracy and she did tasks independently. Assessment: Ms. Priest is a 58-year-old patient in the rehabilitation unit with right subarachnoid hemorrhage producing paresis of left upper and lower extremity from which she is improving. She has decreased mobility, decreased physical functioning, hypertension, GE reflux, diabetes mellitus, and muscle spasms. Plan: She will continue with physical, occupational, and speech therapy 3.5 hours, 7 days. She has end-stage renal disease and is on hemodialysis followed by the [facility]al Service. She has stroke risk, s he has aspirin for that. She is treated with Semglee insulin for her diabetes mellitus. She has bee n on nifedipine, clonidine, carvedilol for blood pressure management, Lipitor for dyslipidemia, Tylen ol for pain, Colace for stool softening. LB/MODL Voice ID: [id number] Report ID: [id number]
[2024-02-26 07:21] LABS: Albumin 2.8 g/dL (3.4-5.0); Albumin/Globulin Ratio 0.7 (1.1-1.8); Anion Gap 12.8 mEq/L (5.0-15.0); Bilirubin Total 0.4 mg/dL (0.2-1.0); Globulin 4.1 g/dL (2.3-3.5); Phosphorus 5.7 mg/dL (2.5-4.9); Potassium 4.8 mEq/L (3.5-5.1); Protein, Total 6.9 g/dL (6.4-8.2)
--- NOTE | 2024-02-26 20:29 | P.PN ---
Date of Service: 02/26/24 Vital Signs Temp Pulse Resp BP Pulse Ox 97.7 F 73 16 139/63 96 02/26/24 06:41 02/26/24 20:00 02/26/24 06:41 02/26/24 20:00 02/26/24 06:41 Medications Acetaminophen (Acetaminophen 500 Mg Tab) 500 mg PO Q4H PRN PRN Reason: Pain scale 2-4 (Mild) Last Admin: 02/20/24 11:23 Dose: 500 mg Aspirin (Aspirin 81 Mg Chewable Tablet) 81 mg PO DAILY [facility] Last Admin: 02/26/24 08:33 Dose: 81 mg Atorvastatin Calcium (Atorvastatin 80 Mg Tab) 80 mg PO BEDTIME [facility] Last Admin: 02/26/24 20:00 Dose: 80 mg Bumetanide (Bumetanide 1 Mg Tablet) 1 mg PO DAILY [facility] Last Admin: 02/26/24 08:34 Dose: 1 mg Carvedilol (Carvedilol 25 Mg Tab) 25 mg PO BID 6AM 6PM [facility] Last Admin: 02/26/24 17:02 Dose: Not Given Cinacalcet (Cinacalcet Hcl 30 Mg Tab) 30 mg PO LUNCH [facility] Last Admin: 02/26/24 12:27 Dose: 30 mg Clonidine HCl (Clonidine Hcl 0.1 Mg Tab) 0.1 mg PO BID PRN PRN Reason: Titrate to SBP (MUST DEFINE) Last Admin: 02/24/24 22:49 Dose: 0.1 mg Docusate Sodium (Docusate Na 100 Mg Cap) 100 mg PO DAILY PRN PRN Reason: CONSTIPATION Famotidine (Famotidine 20 Mg Tab) 40 mg PO DAILY [facility]; Protocol Last Admin: 02/26/24 08:33 Dose: 40 mg Home Med (Pt MedTresiba Flextouch 100 Units/Ml) 10 ea SQ BEDTIME [facility] Last Admin: 02/26/24 20:05 Dose: 10 ea Hydralazine HCl (Hydralazine Hcl 25 Mg Tablet) 50 mg PO TID [facility] Last Admin: 02/26/24 20:00 Dose: 50 mg Albumin Human (Albumin 25%) 50 mls @ 100 mls/hr IV EVERY HD [facility] Insulin Human Regular (Insulin Regular (Human) 100 Unit/Ml) 0 unit SQ ACHS [facility]; Protocol Last Admin: 02/26/24 20:01 Dose: Not Given Loperamide HCl (Loperamide Hcl 2 Mg Capsule) 2 mg PO Q4H PRN PRN Reason: DIARRHEA Last Admin: 02/24/24 08:07 Dose: 2 mg Losartan Potassium (Losartan Potassium 50 Mg Tablet) 50 mg PO BID [facility] Last Admin: 02/26/24 20:00 Dose: 50 mg Mannitol (Mannitol 25% 12.5 Gm/50 Ml Vial) 12.5 gm IV EVERY HD PRN PRN Reason: Titrate to SBP (MUST DEFINE) Melatonin (Melatonin 3 Mg Tablet) 3 mg PO BEDTIME PRN PRN PRN Reason: INSOMNIA Mupirocin (Mupirocin 2% Oint 22gm Tube) 1 appl TOP BID [facility] Last Admin: 02/26/24 20:01 Dose: 1 appl Nifedipine (Nifedipine Xl 30 Mg Tablet) 30 mg PO BID [facility] Last Admin: 02/26/24 20:00 Dose: 30 mg Sevelamer Carbonate (Sevelamer Carbonate 800 Mg Tablet) 800 mg PO TIDWM [facility] Last Admin: 02/26/24 17:00 Dose: Not Given Lab Results (last 24 hrs) 02/26/24 19:36: POC Glucose 110 02/26/24 11:08: POC Glucose 134 H 02/26/24 07:02: POC Glucose 105 02/26/24 06:13: Sodium 135 L, Potassium 4.8, Chloride 101, Carbon Dioxide 26, Anion Gap 12.8, BUN 72 H, Creatinine 6.83 H, Est GFR (CKD-EPI) 7 L, Glucose 125 H, Calcium 9.2, Phosphorus 5.7 H, Total Bilirubin 0.4, AST 14 L, ALT 19, Alkaline Phosphatase 80, Serum Total Protein 6.9, Albumin 2.8 L, Globulin 4.1 H, Albumin/Globulin Ratio 0.7 L Assessment/ Plan: Nephrology Progress Note No Dyspnea No Chest Pain Weakness No Acute Events Overnight Vital Signs, Medications, Blood Work, and Imaging reviewed in the chart NAD. NCAT. MMM. Neck Supple. Normal Respiratory Effort. RRR. Abd ND. No C/C. LE Edema none. No Rash. AAO. Normal Speech. Left sided weakness. Muscle atrophy. Assessment & Plan ESRD on HD TTS -HD TIW HTN with CKD -Continue Coreg -Continue Losartan -Continue Nifedipine XL -Continue Hydralazine -Clonidine PRN DM II with CKD -Continue Tresiba -RISS Anemia in CKD -Retacrit prn CKD MBD Secondary HyperParathyroidism -Continue Sensipar -Continue Renvela Sub-Acute CVA Hydrocephalus sp EYELETTER shunt Left sides weakness -Neurology following -PT as ordered Attending note reviewed
--- NOTE | 2024-02-26 23:11 | PN ---
Date of Progress Note: 02/26/2024 Time Of Service: 1 p.m. Subjective: Ms. Ibarra is mobilizing well. She is using a wheelchair to go down the morris. She is s till leaning somewhat to the left, but she mobilizes. She reports some improved strength in the left arm and leg, which are affected by her stroke and right hemisphere subarachnoid hemorrhage. She has no new complaints. Objective: No fevers, chills. No significant myalgias, arthralgias. No other complaints. Physical Examination: Vital Signs: Blood pressure ranged 120 to 143 over 61 to 67, pulse 71 to 74, respiratory rate 16 to 20, temperature 97.7, oxygen saturation 96%. General: Ms. Priest is mobilizing well. She is back in the room after I had seen her earlier, she has to have a Vivi lift for transfer. HEENT: She appears normocephalic, atraumatic. Sclerae anicteric. Oropharynx pink and moist. Neck: Supple. Chest: Clear. Extremities: The left upper extremity is showing increasing strength. She is able to open and close the fist. She can have biceps move against gravity, but very weak, around 3+, still weak proximally , lower extremity very weak. Unable to do dorsiflexion and plantar flexion of her foot. She can ext end the leg with around 3+ strength on the left. In the right upper and lower extremities, she has g ood movement. Laboratory Studies: Blood sugars ranged 105 to 134. Sodium 135, potassium 4.8, chloride 101, carbon dioxide 26, BUN 72, creatinine 6.83. Calcium 9.2, phosphorus 5.7. Total bilirubin 0.4. AST 14, AL T 19, alkaline phosphatase 80. Albumin 2.8. Note, she is followed by Dr. Patton. She receives hemodialysis 3 times weekly. X-ray/imaging: No new x-rays or imaging. Medications: Medications have been reviewed and she has no new changes in medications. Progress Made With Physical, Occupational, And Speech Therapy: With physical therapy today, she was able to perform [id number]-rp-lsxmh transfers and gxabpr-pt-yfd transfers with maximum assistance and verbal cues. Wheelchair mobilization, she covered 120 feet with standby assistance. Regarding occupationa l therapy, she continued to show improved trunk control and core strength. Required dependent and ma xi lifts to move from supine in bed to a rolling shower chair. Partial assistance for bathing. Assi stance for wash and dry, bilateral lower extremities and buttocks. With her speech, she used spaced retrieval to recall 5 of 5 unrelated words after a delay of 5 and 10 minutes. Visual-spatial tasks o f connected numbers and letters in a pattern completed with 100% accuracy. Working memory used on a divergent naming task in order to not repeat previously stated words with 67% accuracy. Assessment: Ms. Priest is a 58-year-old patient in the rehabilitation unit with right hemispheric subarachnoid hemorrhage and she is making fair recovery in terms of left-sided improvement of strengt h, coordination, sensation, balance, gait, and truncal control. She still has some difficulty with c ognitive functioning, memory, and swallowing. She has decreased mobility, decreased physical functio yumiko, diabetes mellitus, hypertension, gastroesophageal reflux, muscle spasms is improving. Plan: 1.She will continue with physical, occupational, speech therapy 3.5 hours, 5 of 7 days. 2.Continue hemodialysis per Renal Service. 3.Continue with stroke risk reduction with aspirin 81 mg daily. 4.Semglee insulin for diabetes mellitus. 5.Nifedipine, clonidine as needed, carvedilol for blood pressure management. 6.Lipitor for dyslipidemia, Tylenol for pain, Colace for stool softening. Of course, she will continue with aggressive therapy. The plan will be, as she is totally dependent on the Maxi Lift, for her to go to care home prior to making her way home. LB/MODL Voice ID: [id number] Report ID: [id number]
--- NOTE | 2024-02-27 21:30 | P.PN ---
Date of Service: 02/27/24 Vital Signs Temp Pulse Resp BP Pulse Ox 98.4 F 81 18 176/79 H 95 02/27/24 20:00 02/27/24 20:16 02/27/24 20:00 02/27/24 20:16 02/27/24 20:00 Medications Acetaminophen (Acetaminophen 500 Mg Tab) 500 mg PO Q4H PRN PRN Reason: Pain scale 2-4 (Mild) Last Admin: 02/20/24 11:23 Dose: 500 mg Aspirin (Aspirin 81 Mg Chewable Tablet) 81 mg PO DAILY [facility] Last Admin: 02/27/24 08:16 Dose: 81 mg Atorvastatin Calcium (Atorvastatin 80 Mg Tab) 80 mg PO BEDTIME [facility] Last Admin: 02/27/24 20:16 Dose: 80 mg Bumetanide (Bumetanide 1 Mg Tablet) 1 mg PO DAILY [facility] Last Admin: 02/27/24 08:00 Dose: Not Given Carvedilol (Carvedilol 25 Mg Tab) 25 mg PO BID 6AM 6PM [facility] Last Admin: 02/27/24 17:35 Dose: 25 mg Cinacalcet (Cinacalcet Hcl 30 Mg Tab) 30 mg PO LUNCH [facility] Last Admin: 02/27/24 12:01 Dose: 30 mg Clonidine HCl (Clonidine Hcl 0.1 Mg Tab) 0.1 mg PO BID PRN PRN Reason: Titrate to SBP (MUST DEFINE) Last Admin: 02/24/24 22:49 Dose: 0.1 mg Docusate Sodium (Docusate Na 100 Mg Cap) 100 mg PO DAILY PRN PRN Reason: CONSTIPATION Famotidine (Famotidine 20 Mg Tab) 40 mg PO DAILY [facility]; Protocol Last Admin: 02/27/24 08:16 Dose: 40 mg Home Med (Pt MedTresiba Flextouch 100 Units/Ml) 10 ea SQ BEDTIME [facility] Last Admin: 02/27/24 20:16 Dose: 10 ea Hydralazine HCl (Hydralazine Hcl 25 Mg Tablet) 50 mg PO TID [facility] Last Admin: 02/27/24 20:16 Dose: 50 mg Albumin Human (Albumin 25%) 50 mls @ 100 mls/hr IV EVERY HD [facility] Insulin Human Regular (Insulin Regular (Human) 100 Unit/Ml) 0 unit SQ ACHS [facility]; Protocol Last Admin: 02/27/24 20:17 Dose: Not Given Loperamide HCl (Loperamide Hcl 2 Mg Capsule) 2 mg PO Q4H PRN PRN Reason: DIARRHEA Last Admin: 02/24/24 08:07 Dose: 2 mg Losartan Potassium (Losartan Potassium 50 Mg Tablet) 50 mg PO BID [facility] Last Admin: 02/27/24 20:16 Dose: 50 mg Mannitol (Mannitol 25% 12.5 Gm/50 Ml Vial) 12.5 gm IV EVERY HD PRN PRN Reason: Titrate to SBP (MUST DEFINE) Melatonin (Melatonin 3 Mg Tablet) 3 mg PO BEDTIME PRN PRN PRN Reason: INSOMNIA Mupirocin (Mupirocin 2% Oint 22gm Tube) 1 appl TOP BID [facility] Last Admin: 02/27/24 20:17 Dose: 1 appl Nifedipine (Nifedipine Xl 30 Mg Tablet) 30 mg PO BID [facility] Last Admin: 02/27/24 20:16 Dose: 30 mg Sevelamer Carbonate (Sevelamer Carbonate 800 Mg Tablet) 800 mg PO TIDWM [facility] Last Admin: 02/27/24 17:19 Dose: 800 mg Lab Results (last 24 hrs) 02/27/24 20:02: POC Glucose 134 H 02/27/24 16:49: POC Glucose 100 02/27/24 11:33: POC Glucose 150 H 02/27/24 06:39: POC Glucose 77 Assessment/ Plan: Nephrology Progress Note No Dyspnea No Chest Pain Weakness No Acute Events Overnight Vital Signs, Medications, Blood Work, and Imaging reviewed in the chart NAD. NCAT. MMM. Neck Supple. Normal Respiratory Effort. RRR. Abd ND. No C/C. LE Edema none. No Rash. AAO. Normal Speech. Left sided weakness. Muscle atrophy. Assessment & Plan ESRD on HD TTS -HD TIW HTN with CKD -Continue Coreg -Continue Losartan -Continue Nifedipine XL -Continue Hydralazine -Clonidine PRN DM II with CKD -Continue Tresiba -RISS Anemia in CKD -Retacrit prn CKD MBD Secondary HyperParathyroidism -Continue Sensipar -Continue Renvela Sub-Acute CVA Hydrocephalus sp [employer] shunt Left sides weakness -Neurology following -PT as ordered Attending note reviewed
--- NOTE | 2024-02-27 23:19 | PN ---
Date of Progress Note: 02/27/2024 Time Of Service: 1:10 p.m. Subjective: Ms. Priest is heading to dialysis. She has no new complaints. She is very happy with her recovery, although she still has significant weakness of her lower extremities, still requires a Vivi lift for her transfers. Review of Systems: No fevers, chills. No myalgias, arthralgias. No rash. No psychiatric issues such as depression or other issues. Physical Examination: Vital Signs: Blood pressure up to 183/78, pulse 62, respiratory rate 16, temperature 99, oxygen satu ration 96%. General: Ms. Priest is sitting in a chair, being wheeled to her dialysis. HEENT: She appears normocephalic, atraumatic. Sclerae anicteric. Oropharynx pink, moist. Neck: Supple. Chest: Clear. Extremities: She does have the left upper and lower extremities weakness, numbness, truncal weakness following the stroke and has difficulty with mobilizing in terms of transferring, but can use the ar ms to propel a wheelchair. Laboratory Studies: Today, blood sugars ranged from 77 to 150. X-ray/imaging: No new x-rays or imaging. Medications: Medications have been reviewed and are unchanged. She is also followed by the renal se janina. Progress Made With Physical, Occupational, And Speech Therapy: With physical therapy today, she was able to perform wheelchair mobilization 250 feet with standby assistance. Ppbuid-vi-pwj transfers, m aximum assistance and verbal cues required. Eupdy-tr-dxcun transfers were dependent. She performed ouy-sp-ijxnnxoymn transfer with a Abby lift twice 2 people due to weak trunk control. With occupati onal therapy, dependent for wheelchair, supine position in the bed, Maxi Lift is required. With speech, recalled 5/5 unrelated items after 3 and 5-minute delay. Her working memory for 4 units of information was 80% accurate with minimum assistance. Able to repeat complex sentences with 70% accuracy needing havzquwm-gu-rushilb assistance. Assessment: Ms. Priest is a 58-year-old patient in rehabilitation unit with a right subarachnoid h emorrhage affecting the left upper and lower extremities with numbness and weakness. She has decreas ed mobility; decreased physical functioning; end-stage renal disease, on hemodialysis; hypertension; dyslipidemia; diabetes. Plan: She will continue with physical, occupational, and speech therapy 3.5 hours, 5 of 7 days. We will continue hemodialysis Sunday, Sunday, Sunday. Continue with multiple medications to address her blood pressure, cholesterol, stroke, and DVT risk, to address insomnia, constipation, and pain. Comorbidities That Are Impacting Rehabilitation: Her hemodialysis schedule is being worked around in terms of her therapy and is not negatively impacting her schedule of therapy. She is again working very well. Her big issue is she is severely weak and has poor trunk control and would require contin ued care for an extended period of time and therefore [facility] is the likely option for her to go next. AUDRA/DAYO Voice ID: [id number] Report ID: [id number]
[2024-02-28 05:55] LABS: Absolute Basophils 0.1 K/uL (0-0.5); Absolute Eosinophils 0.5 K/uL (0-0.5); Absolute Lymphocytes (CBC) 1.6 K/uL (0.7-4.9); Absolute Monocytes 0.5 K/uL (0.1-1.3); Absolute Neutrophil 3.1 K/uL (1.8-8.0); Basophils % 1.2 % (0-1.3); Eosinophils % 9.3 % (0-4.4); Hematocrit 36.7 % (36.0-45.0); Hemoglobin 12.2 g/dL (12.0-15.0); Lymphocytes % 27.3 % (15.3-44.8); MCH 32.1 pg (27.0-35.0); MCHC 33.3 g/dL (32.0-36.0); MCV 96.3 fL (80-100); MPV 7.5 fL (7.6-11.3); Neutrophils % 53.2 % (41.7-73.7); Nucleated Red Blood Cells % 0.1 % (0-0); Platelets 164 thou/uL (152-406); RBC Red Blood Cell Count 3.81 M/uL (3.86-4.86); Red Cell Distribution Width 18.1 % (12.1-15.2)
[2024-02-28 06:18] LABS: Albumin 2.9 g/dL (3.4-5.0); Anion Gap 10.5 mEq/L (5.0-15.0); Magnesium 2.2 mg/dL (1.6-2.4); Potassium 4.5 mEq/L (3.5-5.1); Prealbumin 29.8 mg/dL (20-40)
--- NOTE | 2024-02-28 19:54 | P.PN ---
Date of Service: 02/28/24 Vital Signs Temp Pulse Resp BP Pulse Ox 98.1 F 70 18 118/57 L 95 02/28/24 07:14 02/28/24 14:21 02/28/24 07:14 02/28/24 14:21 02/28/24 07:14 Medications Acetaminophen (Acetaminophen 500 Mg Tab) 500 mg PO Q4H PRN PRN Reason: Pain scale 2-4 (Mild) Last Admin: 02/20/24 11:23 Dose: 500 mg Aspirin (Aspirin 81 Mg Chewable Tablet) 81 mg PO DAILY [facility] Last Admin: 02/28/24 08:05 Dose: 81 mg Atorvastatin Calcium (Atorvastatin 80 Mg Tab) 80 mg PO BEDTIME [facility] Last Admin: 02/27/24 20:16 Dose: 80 mg Bumetanide (Bumetanide 1 Mg Tablet) 1 mg PO DAILY [facility] Last Admin: 02/28/24 08:05 Dose: 1 mg Carvedilol (Carvedilol 25 Mg Tab) 25 mg PO BID 6AM 6PM [facility] Last Admin: 02/28/24 05:00 Dose: 25 mg Cinacalcet (Cinacalcet Hcl 30 Mg Tab) 30 mg PO LUNCH [facility] Last Admin: 02/28/24 11:56 Dose: 30 mg Clonidine HCl (Clonidine Hcl 0.1 Mg Tab) 0.1 mg PO BID PRN PRN Reason: Titrate to SBP (MUST DEFINE) Last Admin: 02/28/24 05:00 Dose: 0.1 mg Docusate Sodium (Docusate Na 100 Mg Cap) 100 mg PO DAILY PRN PRN Reason: CONSTIPATION Famotidine (Famotidine 20 Mg Tab) 40 mg PO DAILY [facility]; Protocol Last Admin: 02/28/24 08:06 Dose: 40 mg Home Med (Pt MedTresiba Flextouch 100 Units/Ml) 10 ea SQ BEDTIME [facility] Last Admin: 02/27/24 20:16 Dose: 10 ea Hydralazine HCl (Hydralazine Hcl 25 Mg Tablet) 50 mg PO TID [facility] Last Admin: 02/28/24 14:00 Dose: Not Given Albumin Human (Albumin 25%) 50 mls @ 100 mls/hr IV EVERY HD [facility] Insulin Human Regular (Insulin Regular (Human) 100 Unit/Ml) 0 unit SQ ACHS [facility]; Protocol Last Admin: 02/28/24 11:30 Dose: Not Given Loperamide HCl (Loperamide Hcl 2 Mg Capsule) 2 mg PO Q4H PRN PRN Reason: DIARRHEA Last Admin: 02/24/24 08:07 Dose: 2 mg Losartan Potassium (Losartan Potassium 50 Mg Tablet) 50 mg PO BID [facility] Last Admin: 02/28/24 08:07 Dose: 50 mg Mannitol (Mannitol 25% 12.5 Gm/50 Ml Vial) 12.5 gm IV EVERY HD PRN PRN Reason: Titrate to SBP (MUST DEFINE) Melatonin (Melatonin 3 Mg Tablet) 3 mg PO BEDTIME PRN PRN PRN Reason: INSOMNIA Mupirocin (Mupirocin 2% Oint 22gm Tube) 1 appl TOP BID [facility] Last Admin: 02/28/24 08:06 Dose: 1 appl Nifedipine (Nifedipine Xl 30 Mg Tablet) 30 mg PO BID [facility] Last Admin: 02/28/24 08:05 Dose: 30 mg Sevelamer Carbonate (Sevelamer Carbonate 800 Mg Tablet) 800 mg PO TIDWM [facility] Last Admin: 02/28/24 11:56 Dose: 800 mg Lab Results (last 24 hrs) 02/28/24 11:00: POC Glucose 159 H 02/28/24 06:32: POC Glucose 96 02/28/24 05:34: Sodium 135 L, Potassium 4.5, Chloride 101, Carbon Dioxide 28, Anion Gap 10.5, BUN 60 H, Creatinine 6.30 H, Est GFR (CKD-EPI) 7 L, Glucose 106, Calcium 9.1, Magnesium 2.2, Albumin 2.9 L, Prealbumin 29.8 02/28/24 05:34: WBC 5.80, RBC 3.81 L, Hgb 12.2, Hct 36.7, MCV 96.3, MCH 32.1, MCHC 33.3, RDW 18.1 H, Plt Count 164, MPV 7.5 L, Neutrophils % 53.2, Lymphocytes % 27.3, Monocytes % 9.0, Eosinophils % 9.3 H, Basophils % 1.2, Absolute Neutrophils 3.1, Absolute Lymphocytes 1.6, Absolute Monocytes 0.5, Absolute Eosinophils 0.5, Absolute Basophils 0.1 02/27/24 20:02: POC Glucose 134 H Assessment/ Plan: Nephrology Progress Note No Dyspnea No Chest Pain Weakness No Acute Events Overnight Vital Signs, Medications, Blood Work, and Imaging reviewed in the chart NAD. NCAT. MMM. Neck Supple. Normal Respiratory Effort. RRR. Abd ND. No C/C. LE Edema none. No Rash. AAO. Normal Speech. Left sided weakness. Muscle atrophy. 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
--- NOTE | 2024-02-28 21:53 | PN ---
Date of Progress Note: 02/28/2024 Time Of Service: 1 p.m. Subjective: Ms. Priest is resting in bed. The occupational therapy is working with her. She feel s a little bit better about her weakness on the left upper and lower extremity, but still requires to thomas assist for transfers with a Vivi lift. Review of Systems: She denies any myalgias, arthralgias, fevers, chills. No depression, anxiety. Physical Examination: Vital Signs: Blood pressure 118/57, pulse of 70, respiratory rate of 16, temperature 98.1, oxygen sa turation 95%. General: Ms. Priest is resting comfortably. Neuro: She has decrease of left nasolabial fold. She has left upper and lower extremity around 3 to 4/5, sensation decreased on the left compared to the right side. No new findings other than that. Laboratory Studies: White blood cell count 5.8, hemoglobin 12.2, platelets 164. Sodium 135, potassi um 4.5, chloride 101, carbon dioxide 28, BUN 60, creatinine 6.3, glucose 96 and 159, calcium 9.1, mag nesium 2.2, albumin 2.9, prealbumin 29.8. X-ray/imaging: No new x-rays or imaging. Medications: Medications have been reviewed and remain unchanged. She is followed by the Renal Serv ice and is having hemodialysis 3 times weekly. Progress Made With Physical, Occupational, And Speech Therapy: Today with physical therapy, she was able to perform multiple uhwojw-sz-[id number] transfers with maximum assistance and verbal cues for hand migel cement. Tgkio-ck-hmxid transfers were dependent. She mobilized a wheelchair 250 feet independently. With occupational therapy, continue to improve her core strength control. She was sitting unsuppor jeromy and she did work on activities of daily living. With speech, she worked on memory, visuospatial skills. She was able to recall 80% of details from a picture presented to her after 3-minute delay. Working memory skills were at 80% accuracy for 4 units of information. Visual-spatial skills was at 80% accuracy with minimum assistance. Assessment: Ms. Priest is a 58-year-old patient in rehabilitation unit with right-sided subarachno id hemorrhage. She has decreased mobility, decreased physical functioning, end-stage renal disease, on hemodialysis, hypertension, GE reflux, insomnia, and she had some loose stools that are now contro lled. Plan: She will continue with physical, occupational, and speech therapy 3.5 hours, 5 of 7 days. Her comorbid conditions which have been listed are managed by continuing medications including Tylenol, she has albumin during dialysis, aspirin for stroke risk reduction, Lipitor for dyslipidemia, Bumex f or fluid management, Coreg for heart rate control, clonidine for elevated blood pressure greater than 170 systolic, Colace for stool softening, Pepcid for reflux, Apresoline to control blood pressure, I modium if she has loose stools, Cozaar along with the Apresoline for blood pressure control. She has melatonin for insomnia, nifedipine additionally for control of blood pressure. Comorbidities Impacting Rehabilitation: She has end-stage renal disease, on hemodialysis. Her thera py is worked around the schedule to continue dialysis and is not interrupting her capacity to do very well. AUDRA/DAMARISL Voice ID: [id number] Report ID: [id number]
--- NOTE | 2024-02-29 13:16 | P.RH.PN ---
Estimated Length of Stay: 23 Expected Discharge Date: 02/29/24 Discharge Disposition Plan: Home Family Support: Yes Detention Goal: Mobility, Transfers, Self Care Vital Signs: Last Vital Signs Temp 98.1 F 02/29/24 08:00 Pulse 70 02/29/24 08:00 Resp 12 02/29/24 08:00 BP 111/56 L 02/29/24 08:00 Pulse Ox 98 02/29/24 08:00 Laboratory: Laboratory Last Values WBC 5.80 thou/uL (4.3-10.9) 02/28/24 05:34 RBC 3.81 M/uL (3.86-4.86) L 02/28/24 05:34 Hgb 12.2 g/dL (12.0-15.0) 02/28/24 05:34 Hct 36.7 % (36.0-45.0) 02/28/24 05:34 MCV 96.3 fL (80-100) 02/28/24 05:34 MCH 32.1 pg (27.0-35.0) 02/28/24 05:34 MCHC 33.3 g/dL (32.0-36.0) 02/28/24 05:34 RDW 18.1 % (12.1-15.2) H 02/28/24 05:34 Plt Count 164 thou/uL (152-406) 02/28/24 05:34 MPV 7.5 fL (7.6-11.3) L 02/28/24 05:34 Neutrophils % 53.2 % (41.7-73.7) 02/28/24 05:34 Lymphocytes % 27.3 % (15.3-44.8) 02/28/24 05:34 Monocytes % 9.0 % (3.3-12.3) 02/28/24 05:34 Eosinophils % 9.3 % (0-4.4) H 02/28/24 05:34 Basophils % 1.2 % (0-1.3) 02/28/24 05:34 Absolute Neutrophils 3.1 K/uL (1.8-8.0) 02/28/24 05:34 Absolute Lymphocytes 1.6 K/uL (0.7-4.9) 02/28/24 05:34 Absolute Monocytes 0.5 K/uL (0.1-1.3) 02/28/24 05:34 Absolute Eosinophils 0.5 K/uL (0-0.5) 02/28/24 05:34 Absolute Basophils 0.1 K/uL (0-0.5) 02/28/24 05:34 Platelet Estimate Adeq 02/15/24 05:43 Polychromasia 1+ 02/15/24 05:43 Basophilic Stippling 1+ 02/15/24 05:43 Anisocytosis 1+ 02/15/24 05:43 Morphology Comment Noted (NOT SEEN) 02/15/24 05:43 Sodium 135 mEq/L (136-145) L 02/28/24 05:34 Potassium 4.5 mEq/L (3.5-5.1) 02/28/24 05:34 Chloride 101 mEq/L (98-107) 02/28/24 05:34 Carbon Dioxide 28 mEq/L (21-32) 02/28/24 05:34 Anion Gap 10.5 mEq/L (5.0-15.0) 02/28/24 05:34 BUN 60 mg/dL (7-18) H 02/28/24 05:34 Creatinine 6.30 mg/dL (0.55-1.02) H 02/28/24 05:34 Est GFR (CKD-EPI) 7 ml/min (=/>90) L 02/28/24 05:34 Glucose 106 mg/dL (74-106) 02/28/24 05:34 POC Glucose 149 mg/dL (65-120) H 02/29/24 11:28 Hemoglobin A1c 5.5 % (4.2-6.3) 02/15/24 05:43 Uric Acid 5.4 mg/dL (2.6-6.0) 02/19/24 06:34 Calcium 9.1 mg/dL (8.5-10.1) 02/28/24 05:34 Phosphorus 5.7 mg/dL (2.5-4.9) H 02/26/24 06:13 Magnesium 2.2 mg/dL (1.6-2.4) 02/28/24 05:34 Total Bilirubin 0.4 mg/dL (0.2-1.0) 02/26/24 06:13 AST 14 U/L (15-37) L 02/26/24 06:13 ALT 19 U/L (13-56) 02/26/24 06:13 Alkaline Phosphatase 80 U/L (45-117) 02/26/24 06:13 Serum Total Protein 6.9 g/dL (6.4-8.2) 02/26/24 06:13 Albumin 2.9 g/dL (3.4-5.0) L 02/28/24 05:34 Globulin 4.1 g/dL (2.3-3.5) H 02/26/24 06:13 Albumin/Globulin Ratio 0.7 (1.1-1.8) L 02/26/24 06:13 Prealbumin 29.8 mg/dL (20-40) 02/28/24 05:34 Hep Bs Antigen Nonreactive (Nonreactive) 02/15/24 16:48 Hep B Surface Ag Comm Report 02/15/24 16:48 Hep Bs Antibody Reactive (Nonreactive) H 02/15/24 16:48 Hep Bs Antibody, Quant 175.68 mIU/mL (<8.0) 02/15/24 16:48 Smear Scan Ok (OK) 02/15/24 05:43 Weight: 129 lb 6.4 oz Wound Present: No Closed Surgical Incision Present: Yes Negative Pressure Wound Therapy Present: No Physician Update: BIMS 15, SLUMS 19, 3/4 STG and 0/4 LTG with speech. Improved with PT stood with one person assist in parallel bars. WC 150' x 2 with min to CGA. Met 3/5, LTGa nd 5/6 STG at min to mod assist level due to poor trunk control. Labs reviewed and are stable. Summary: Patient's care plan and long term acute care registered nurse goals have been reviewed and revised as necessary. Please see the Rehabilitation Signature page for all necessary signatures.
--- NOTE | 2024-02-29 22:05 | P.PN ---
Date of Service: 02/29/24 Vital Signs Temp Pulse Resp BP Pulse Ox 97.6 F 78 16 203/83 H 97 02/29/24 20:00 02/29/24 20:21 02/29/24 20:00 02/29/24 20:21 02/29/24 20:00 Medications Acetaminophen (Acetaminophen 500 Mg Tab) 500 mg PO Q4H PRN PRN Reason: Pain scale 2-4 (Mild) Last Admin: 02/20/24 11:23 Dose: 500 mg Aspirin (Aspirin 81 Mg Chewable Tablet) 81 mg PO DAILY [facility] Last Admin: 02/29/24 08:11 Dose: 81 mg Atorvastatin Calcium (Atorvastatin 80 Mg Tab) 80 mg PO BEDTIME [facility] Last Admin: 02/29/24 20:22 Dose: 80 mg Bumetanide (Bumetanide 1 Mg Tablet) 1 mg PO DAILY [facility] Last Admin: 02/29/24 08:00 Dose: Not Given Carvedilol (Carvedilol 25 Mg Tab) 25 mg PO BID 6AM 6PM [facility] Last Admin: 02/29/24 17:43 Dose: 25 mg Cinacalcet (Cinacalcet Hcl 30 Mg Tab) 30 mg PO LUNCH [facility] Last Admin: 02/29/24 12:14 Dose: 30 mg Clonidine HCl (Clonidine Hcl 0.1 Mg Tab) 0.1 mg PO BID PRN PRN Reason: Titrate to SBP (MUST DEFINE) Last Admin: 02/29/24 18:12 Dose: 0.1 mg Docusate Sodium (Docusate Na 100 Mg Cap) 100 mg PO DAILY PRN PRN Reason: CONSTIPATION Famotidine (Famotidine 20 Mg Tab) 40 mg PO DAILY [facility]; Protocol Last Admin: 02/29/24 08:11 Dose: 40 mg Home Med (Pt MedTresiba Flextouch 100 Units/Ml) 10 ea SQ BEDTIME [facility] Last Admin: 02/29/24 20:22 Dose: 10 ea Hydralazine HCl (Hydralazine Hcl 25 Mg Tablet) 50 mg PO TID [facility] Last Admin: 02/29/24 20:21 Dose: 50 mg Albumin Human (Albumin 25%) 50 mls @ 100 mls/hr IV EVERY HD [facility] Insulin Human Regular (Insulin Regular (Human) 100 Unit/Ml) 0 unit SQ ACHS [facility]; Protocol Last Admin: 02/29/24 20:23 Dose: Not Given Loperamide HCl (Loperamide Hcl 2 Mg Capsule) 2 mg PO Q4H PRN PRN Reason: DIARRHEA Last Admin: 02/24/24 08:07 Dose: 2 mg Losartan Potassium (Losartan Potassium 50 Mg Tablet) 50 mg PO BID [facility] Last Admin: 02/29/24 20:22 Dose: 50 mg Mannitol (Mannitol 25% 12.5 Gm/50 Ml Vial) 12.5 gm IV EVERY HD PRN PRN Reason: Titrate to SBP (MUST DEFINE) Melatonin (Melatonin 3 Mg Tablet) 3 mg PO BEDTIME PRN PRN PRN Reason: INSOMNIA Mupirocin (Mupirocin 2% Oint 22gm Tube) 1 appl TOP BID [facility] Last Admin: 02/29/24 20:00 Dose: 1 appl Nifedipine (Nifedipine Xl 30 Mg Tablet) 30 mg PO BID [facility] Last Admin: 02/29/24 20:21 Dose: 30 mg Sevelamer Carbonate (Sevelamer Carbonate 800 Mg Tablet) 800 mg PO TIDWM [facility] Last Admin: 02/29/24 17:15 Dose: 800 mg Lab Results (last 24 hrs) 02/29/24 20:22: POC Glucose 143 H 02/29/24 16:26: POC Glucose 101 02/29/24 11:28: POC Glucose 149 H 02/29/24 06:32: POC Glucose 91 Assessment/ Plan: Nephrology Progress Note No Dyspnea No Chest Pain Weakness No Acute Events Overnight Vital Signs, Medications, Blood Work, and Imaging reviewed in the chart NAD. NCAT. MMM. Neck Supple. Normal Respiratory Effort. RRR. Abd ND. No C/C. LE Edema none. No Rash. AAO. Normal Speech. Left sided weakness. Muscle atrophy. Assessment & Plan ESRD on HD TTS -HD TIW HTN with CKD -Continue Coreg -Continue Losartan -Continue Nifedipine XL -Continue Hydralazine -Clonidine PRN DM II with CKD -Continue Tresiba -RISS Anemia in CKD -Retacrit prn CKD MBD Secondary HyperParathyroidism -Continue Sensipar -Continue Renvela Sub-Acute CVA Hydrocephalus sp WEB SOLUTIONS ARCHITECT shunt Left sides weakness -Neurology following -PT as ordered Attending note reviewed
--- NOTE | 2024-03-01 13:36 | RAD REPORT ---
EXAMINATION: CT HEAD WITHOUT CONTRAST CT CERVICAL SPINE WITHOUT CONTRAST CLINICAL INDICATION: Female, 58 years old. post fall TECHNIQUE: Axial CT images from the skull base to the vertex without intravenous contrast. Axial CT i mages through the cervical spine were obtained without intravenous contrast. Sagittal and coronal reformatted images were created from the data set. Coronal and sagittal reformatted images were creat ed from the data set. One or more of the following dose reduction techniques were used: Automated exposure control, adjustment of the mA and/or kV according to patient size, and/or iterative reconstr uction. Unless otherwise specified, incidental findings do not require dedicated imaging follow-up. [id number]. COMPARISON: No prior exam. FINDINGS: Head: INTRACRANIAL: No acute intracranial hemorrhage. No hydrocephalus. No mass effect or midline shift. Mo derate chronic small vessel ischemic changes.White matter hypoattenuation at the right occipital lobe may be secondary to a subacute infarct. VASCULATURE: No visualized abnormalities in the arteries or dural venous sinuses. SCALP/SKULL: No significant soft tissue or osseous abnormalities. Right frontal approach ventriculost good with tip near the midline. SINUSES: Complete opacification of the right maxillary sinus. Near-complete opacification left maxill sabiha sinus. Left mastoid effusion. Cervical spine: ALIGNMENT: The cervical spine has normal alignment without scoliosis or spondylolisthesis. BONE: Vertebral body heights are maintained. No aggressive osseous lesions. DEGENERATIVE CHANGES: None significant. SOFT TISSUE: No significant abnormalities in the soft tissue of the neck. The visualized lung apices are clear. IMPRESSION: No acute intracranial abnormality. No acute fracture or traumatic malalignment of the cervical spine. Right frontal approach ventriculostomy. No hydrocephalus.
[2024-03-03 06:16] LABS: Absolute Basophils 0.1 K/uL (0-0.5); Absolute Eosinophils 0.5 K/uL (0-0.5); Absolute Lymphocytes (CBC) 1.4 K/uL (0.7-4.9); Absolute Monocytes 0.6 K/uL (0.1-1.3); Absolute Neutrophil 3.3 K/uL (1.8-8.0); Basophils % 1.2 % (0-1.3); Eosinophils % 8.1 % (0-4.4); Hematocrit 36.9 % (36.0-45.0); Hemoglobin 12.3 g/dL (12.0-15.0); Lymphocytes % 23.5 % (15.3-44.8); MCH 32.2 pg (27.0-35.0); MCHC 33.4 g/dL (32.0-36.0); MCV 96.2 fL (80-100); MPV 7.7 fL (7.6-11.3); Monocytes % 10.5 % (3.3-12.3); Neutrophils % 56.7 % (41.7-73.7); Platelets 166 thou/uL (152-406); RBC Red Blood Cell Count 3.84 M/uL (3.86-4.86); Red Cell Distribution Width 17.4 % (12.1-15.2)
[2024-03-03 06:29] LABS: Magnesium 2.2 mg/dL (1.6-2.4); Prealbumin 32.9 mg/dL (20-40)
--- NOTE | 2024-03-03 17:06 | P.PN ---
Nephrology note (S) Pt reports progressing with PT, no BARKER, CP, dyspnea, last HD Sat, recorded BP remains labile, with accelerated readings yesterday but not earlier today (O) vitals reviewed in the EMR General: Alert, In no apparent distress, Cooperative HEENT: Atraumatic, Normocephalic, PERRLA Neck: Supple Respiratory: Clear to auscultation bilaterally, Normal air movement Cardiovascular: Regular rate/rhythm, Other (valve click) Gastrointestinal: Soft and benign, Non-distended Musculoskeletal: No swelling, No contractures, No tenderness, Other (Lt UE AVF with thrill and bruit) Integumentary: No rashes Neurological: Normal speech, Normal affect, Other (Lt sided weakness, LE > UE, lt foot drop) Laboratory Data (last 24 hrs) Reviewed in the EMR Conclusions/Impression: A/P) 1. ESRD 2nd to chronic DM/HTN, on iHD TTS schedule while in rehab. Mod azotemia noted on labs, will clear with HD 2. Chronic malignant HTN with CKD -BP remains labile, re-reviewed BP regimen, on several agents, will switch Clonidine back to scheduled dosing but cont holding parameters as the short half life may be causing rebound HTN 3. 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 Unclear etiology and results of any prior vasculitis, other w/u. Stable currently 4. Recent sub-acute CVA of multiple territories, ischemic +/- cerebral vasospasm with mention of some hemorrhagic component/conversion. Management per Neurology, monitor BP closely, secondary prevention. Defer anti platelet therapy/other management to them. Cont IPR 5. Anemia 2nd to CKD, inflammation, Hb has cyclically dropped every few mo for unclear reasons, currently > 11, holding BRYANNA Jeremy Davis MD, [employer]
[2024-03-03] MEDS: cloNIDine HCL 0.1 MG TAB PO SCH (19:21)
[2024-03-03] MEDS: NIFEDIPINE XL 30 MG TABLET PO SCH (19:22)
--- NOTE | 2024-03-03 20:38 | PN ---
Subjective: Ms. Priest is sitting in a chair, much better trunk control. She is beside the bed, v phuong happy with her progress so far. She is to go to longterm, still awaiting approval. She h as no new complaints. Review of Systems: No fevers, chills, nausea, vomiting. No significant myalgias, arthralgias, rash. Still has weakness in the left lower compared to upper extremity, which is doing much better. Physical Examination: Vital Signs: Blood pressure 177/84, earlier today, 117/57; pulse ranged from 68 to 74; respiratory r ate is 18-20; temperature 97.8; oxygen saturation 96%. General: Ms. Priest is sitting in a chair beside bed. HEENT: She is normocephalic, atraumatic. Sclerae anicteric. Oropharynx moist. Neck: Supple. Chest: Clear. Extremities: She does have a dense paresis of the left lower extremity. Unable to do significant do rsiflexion or lift the leg off out of the chair. The left arm is much better, able to go all the way up and beginning to have better strength in terms of the information resources manager. Neuro: Her face shows good movement on the left as well. Laboratory Studies: White blood cell count 5.8, hemoglobin 12.3, platelets 166. Sodium 133; potassi um 5.0; chloride 101; carbon dioxide 24; creatinine 6.22; glucose 85, ranging to 117; calcium 9.1. Magnesium 2.2. Albumin 3.0, prealbumin 32.9. She is end-stage renal disease patient, on hemodialysi s and she is followed by the renal service throughout hospitalization. Medications: Medications have been reviewed. She is continued on all medications. She does have a clonidine 0.1 mg twice daily added. She did have some more elevated blood pressures recently in lani tion to Procardia XL 30 mg twice daily. Progress Made With Physical, Occupational, And Speech Therapy: With physical therapy today, she did multiple ljajbo-ql-nkt transfers with moderate assistance, multiple vxh-tk-irjcr transfers with maxim um assistance, multiple nva-ln-vzqui transfers in parallel bars with moderate assistance. She did mo bilize wheelchair 250 feet independently. With occupational therapy, she is dependent for toilet hyg iene, dependent for wheelchair to supine position in the bed. She is working on the ability to mobil ize wheelchair around objects and cones. She is slowly improving also with trunk control. Regarding speech, she did demonstrate executive functioning skills through comparing and contrasting of object s with 100% accuracy and maximum verbal cues. 2 definitions of multiple meaning of words provided by the patient with 80% accuracy and minimum assistance. She is showing improved cognitive flexibility . Assessment And Plan: Ms. Priest is a 58-year-old patient admitted to rehabilitation unit with hemo rrhagic stroke impacting right brain and causing left-sided hemiparesis lower more than upper extremi ty. She has some dysarthria, dysphagia. She is an end-stage renal disease patient, on hemodialysis. She has decreased mobility, decreased physical functioning, hypertension, GE reflux. Plan: 1.She will continue with physical, occupational, and speech therapy 3.5 hours, 5 of 7 days. 2.She is managed by the renal service for end-stage renal disease, on hemodialysis. She has multipl e medications for blood pressure management, GE reflux medications. She has medications to help with stool softening and for sleeping. Comorbids Impacting Rehabilitation: Her comorbidities are not negatively impacting her rehabilitatio n as she has end-stage renal disease, on hemodialysis and has worked around her schedule. She is to go to longterm as she is unable to be managed at home by family and they are in agreement and support. The patient is awaiting acceptance and longterm. AUDRA/DAYO Voice ID: [id number] Report ID: [id number]
[2024-03-05] MEDS: cloNIDine HCL 0.1 MG TAB PO PRN (12:41)
[2024-03-05] MEDS: ALPRAZOLAM 0.25 MG TABLET PO ONE (14:36)
[2024-03-05] MEDS: cloNIDine HCL 0.1 MG TAB PO ONE (16:23)
--- NOTE | 2024-03-05 17:22 | PN ---
Date of Progress Note: 03/05/2024 Time Of Service: 1 p.m. Subjective: Ms. Priest is resting in bed, happy about the prospect of going home today. She is ac tually going to go to skilled before going home, but discharge is set for today. She has had some el evated blood pressures and medications being adjusted to help have blood pressures under more stable control. Otherwise on subjective, no other specific complaints. Feels a little stronger in the arms , but not so in the left leg. Review of Systems: No fevers, chills, nausea, vomiting. No myalgias, arthralgias. She has mild anxiety about dischargi ng. No rash. No other positives on the systems review. Physical Examination: Vital Signs: Blood pressure currently 164/62, pulse 76, earlier today at 194/72, pulse 75, respirato ry rate 16, temperature 97.7, oxygen saturation 98%. General: Ms. Priest is lying in bed waiting discharge. HEENT: She is normocephalic, atraumatic. Sclerae anicteric. Oropharynx pink and moist. Neck: Supple. Heart: Regular. Extremities: No edema or cyanosis. Extremities: The left upper extremity, she has at least 3/5 strength proximally, distally left lower extremity around 2/5 proximally and distally. Decreased sensation in left compared to right upper a nd lower extremity. Laboratory Studies: Blood sugars ranged from 94 to 151. X-ray/imaging: No new x-rays or imaging. Medications: She is having extra clonidine 0.1 mg q.4 hours to help control systolic greater than 17 0. In addition, Coreg 25 mg twice daily. She has scheduled clonidine 0.1 mg twice daily, Apresoline 50 mg 3 times daily, Cozaar 50 mg twice daily, and Procardia XL 30 mg twice daily. She is also on h emodialysis and managed by the Renal Service. She has aspirin 81 mg daily and heparin on board as we ll. Progress Made With Physical And Occupational Therapy: Today with physical therapy, she did balance t raining in the power bars, 2 people required, maximum assistance. She was able to stand for 15 to 20 seconds before her legs gave away. She attempted to transfer from bed to wheelchair. When she was unable to support herself, started sliding down. The patient had to be held up and she was actually slowly lower to the ground. There was no significant impact. No pain and this was with the therapis t as the patient was working with her today. With speech, she completed the BIMS test. Her score in creased from 19 to 21. She did have more difficulty with memory and of course, she is going to skill ed nursing to continue therapy in a safe environment. Assessment: Ms. Priest is a 58-year-old patient in the rehabilitation unit with multiple embolic s trokes. She has right hemispheric hemorrhage with left lower more than upper extremity paresis, dysa rthria, dysphagia, end-stage renal disease, on hemodialysis, decreased mobility, decreased physical f unctioning, hypertension is fairly difficult to control, GE reflux, and mild anxiety about leaving. Plan: 1.For now, continue with physical, occupational, and speech therapy. 2.She will continue hemodialysis per Renal Service. 3.Multiple antihypertensive medications on board have been listed above and Renal Service is helping . 4.GE reflux medication as above. 5.Protonix for DVT prophylaxis. 6.Aspirin for stroke risk reduction. Comorbidities Impacting Rehabilitation: Currently, hypertension is difficult to control requiring mu ltiple medications and p.r.n. and it should be done prior to the patient being discharged with a goal of being less than 170 systolic prior to her discharge and she will likely continue to require a num ernesto of antihypertensive medications. Of course, she is on hemodialysis and the Renal Team will be managing for that. AUDRA/DAYO Voice ID: [id number] Report ID: [id number]
[2024-03-05 19:13] VITALS: BP 156/71; TEMP 98.1
--- NOTE | 2024-03-05 21:21 | P.PN ---
Date of Service: 03/05/24 Vital Signs Temp Pulse Resp BP Pulse Ox 98.1 F 77 16 156/71 H 98 03/05/24 18:50 03/05/24 18:50 03/05/24 18:50 03/05/24 18:50 03/05/24 18:50 Lab Results (last 24 hrs) 03/05/24 16:03: POC Glucose 139 H 03/05/24 11:03: POC Glucose 151 H 03/05/24 07:31: POC Glucose 94 03/05/24 07:05: POC Glucose 65 Assessment/ Plan: Nephrology Progress Note No Dyspnea No Chest Pain Weakness No Acute Events Overnight Vital Signs, Medications, Blood Work, and Imaging reviewed in the chart NAD. NCAT. MMM. Neck Supple. Normal Respiratory Effort. RRR. Abd ND. No C/C. LE Edema none. No Rash. AAO. Normal Speech. Left sided weakness. Muscle atrophy. 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
--- NOTE | 2024-03-18 12:48 | EKG ---
Test Date: 2024-03-05 Test Time: 14:59:06 Deck Officer: NAVA MEASUREMENT RESULTS: Intervals: Rate: 75 MT: 202 QRSD: 82 QT: 420 QTc: 469 [place]: P: 55 MT: 202 QRS: 0 T: 52 INTERPRETIVE STATEMENTS: Normal sinus rhythm Possible Left atrial enlargement Anterolateral infarct, age undetermined Abnormal ECG Compared to ECG 03/05/2024 14:55:20 No significant changes Electronically Signed On 03-18-24 12:27:26 SERVICING MANAGER by Toro Soliman
== END 2024-03-05 18:55 | DRG 56 ==
LOC: 5TH 20:02
PROVIDERS: ADMIT Psychiatry & Neurology Neurology with Special Qualifications in Child Neurology; ATTEND Psychiatry & Neurology Neurology with Special Qualifications in Child Neurology
PROC: 5A1D70Z Performance of Urinary Filtration, Intermittent, Less than 6 Hours Per Day (ICD-10-PCS; 2024-02-16)
PROC: 5A1D70Z Performance of Urinary Filtration, Intermittent, Less than 6 Hours Per Day (ICD-10-PCS; 2024-02-19)
PROC: 0HBRXZZ Excision of Toe Nail, External Approach (ICD-10-PCS; principal; 2024-02-20)
PROC: 0HBRXZZ Excision of Toe Nail, External Approach (ICD-10-PCS; 2024-02-20)
PROC: 0HBRXZZ Excision of Toe Nail, External Approach (ICD-10-PCS; 2024-02-20)
PROC: 0HBRXZZ Excision of Toe Nail, External Approach (ICD-10-PCS; 2024-02-20)
PROC: 0HBRXZZ Excision of Toe Nail, External Approach (ICD-10-PCS; 2024-02-20)
PROC: 0HBRXZZ Excision of Toe Nail, External Approach (ICD-10-PCS; 2024-02-20)
PROC: 0HBRXZZ Excision of Toe Nail, External Approach (ICD-10-PCS; 2024-02-20)
PROC: 0HBRXZZ Excision of Toe Nail, External Approach (ICD-10-PCS; 2024-02-20)
PROC: 0HBRXZZ Excision of Toe Nail, External Approach (ICD-10-PCS; 2024-02-20)
PROC: 0HBRXZZ Excision of Toe Nail, External Approach (ICD-10-PCS; 2024-02-20)
PROC: 5A1D70Z Performance of Urinary Filtration, Intermittent, Less than 6 Hours Per Day (ICD-10-PCS; 2024-02-21)
PROC: 5A1D70Z Performance of Urinary Filtration, Intermittent, Less than 6 Hours Per Day (ICD-10-PCS; 2024-02-23)
PROC: 5A1D70Z Performance of Urinary Filtration, Intermittent, Less than 6 Hours Per Day (ICD-10-PCS; 2024-02-26)
PROC: 5A1D70Z Performance of Urinary Filtration, Intermittent, Less than 6 Hours Per Day (ICD-10-PCS; 2024-02-28)
PROC: 5A1D70Z Performance of Urinary Filtration, Intermittent, Less than 6 Hours Per Day (ICD-10-PCS; 2024-03-01)
PROC: 5A1D70Z Performance of Urinary Filtration, Intermittent, Less than 6 Hours Per Day (ICD-10-PCS; 2024-03-04)
DX: I69.054 Hemiplegia and hemiparesis following nontraumatic subarachnoid hemorrhage affecting left non-dominant side (principal); N18.6 End stage renal disease; I12.0 Hypertensive chronic kidney disease with stage 5 chronic kidney disease or end stage renal disease; G91.9 Hydrocephalus, unspecified; N25.81 Secondary hyperparathyroidism of renal origin; E11.22 Type 2 diabetes mellitus with diabetic chronic kidney disease; Z99.2 Dependence on renal dialysis; K59.00 Constipation, unspecified; D64.9 Anemia, unspecified; K21.9 Gastro-esophageal reflux disease without esophagitis; E78.5 Hyperlipidemia, unspecified; E03.9 Hypothyroidism, unspecified; D63.1 Anemia in chronic kidney disease; B35.1 Tinea unguium; Z79.01 Long term (current) use of anticoagulants; M62.838 Other muscle spasm
CPT/HCPCS: 36415; 70450; 71045; 72125; 80048; 80053; 80069; 82040; 82947; 83036; 83735; 84100; 84134; 84550; 85025; 86706; 87340; 90935; 92523; 93005; 97110; 97112; 97116; 97129; 97163; 97165; 97530; 97542

== ENCOUNTER 2024-03-11 19:11 | Inpatient (IN) | payer OTHER ==
[2024-03-11] MEDS ORDERED: LORazepam 2 MG/ML VIAL ONE (19:12)
[2024-03-11] MEDS ORDERED: NA CHLORIDE 0.9% 100 ML ONE (19:13)
[2024-03-11] MEDS ORDERED: LEVETIRACETAM 500 MG/5 ML VIAL IV ONE ×2 (19:13→19:18)
[2024-03-11] MEDS ORDERED: propofoL 1,000 MG/100 ML VIAL IV ONE (19:15)
--- NOTE | 2024-03-11 19:54 | RAD REPORT ---
EXAMINATION: CT HEAD stroke protocol WITHOUT CONTRAST CLINICAL INDICATION: Female, 58 years old.STROKE ALERT TECHNIQUE: Axial CT images from the skull base to the vertex without intravenous contrast using a str daisy protocol. Coronal and sagittal reformatted images were created from the data set. One or more of the following dose reduction techniques were used: Automated exposure control, adjustment of the m A and/or kV according to patient size, and/or iterative reconstruction. Unless otherwise specified, incidental findings do not require dedicated imaging follow-up. [id number]. COMPARISON: 03/01/2024 FINDINGS: INTRACRANIAL: No acute intracranial hemorrhage. No hydrocephalus. Moderate areas of bilateral deep wh ite matter hypoattenuation. This is similar to the head CT from 03/01/2024. Mild cerebral atrophy. VASCULATURE: No visualized abnormalities in the arteries or dural venous sinuses. SCALP/SKULL: No significant soft tissue or osseous abnormalities. Right frontal approach ventriculost good. SINUSES: Mastoid fluid bilaterally. Paranasal sinus thickening. IMPRESSION: No acute intracranial hemorrhage or new large vascular territory infarct identified. Patchy areas of white matter hypoattenuation bilaterally which is similar to 03/01/2024 and may reflect areas of prior infarct, prior ventriculostomy catheter placement, and/or chronic small vessel ischemic changes . THIS REPORT CONTAINS FINDINGS THAT MAY BE CRITICAL TO PATIENT CARE. The CT head findings were communi cated to Dr. Shelby on 03/11/2024 7:51 PM.
--- NOTE | 2024-03-11 20:00 | RAD REPORT ---
EXAMINATION: CTA NECK CLINICAL INDICATION: Female, 58 years old. ams TECHNIQUE: Axial CT images were obtained from the aortic arch to the skull base after intravenous con trast utilizing angiographic protocol with 3D post-processing (maximum intensity projection images, volume rendered images and/or shaded surface rendered images). One or more of the following dose redu ction techniques were used: Automated exposure control, adjustment of the mA and/or kV according to patient size, and/or iterative reconstruction. Unless otherwise specified, incidental findings do not require dedicated imaging follow-up. [id number]. NASCET criteria used. Mild 0-49% stenosis Moderate 50-69% stenosis Severe 70-99% stenosis COMPARISON: No prior exam. FINDINGS: AORTA: The imaged aortic arch is normal. CCA: The common carotid arteries are patent and normal in caliber. ICA/ECA: Severe stenosis at the left proximal ICA estimated at 70-80% secondary to calcified and nonc alcified plaque. The right carotid system is patent. The external carotid arteries are patent. VERTEBRAL: Left dominant vertebral artery. No occlusion. SOFT TISSUE: No significant neck soft tissue abnormalities. Right upper lobe and left upper lobe valerie apse. This is partially imaged. 3D images confirm these findings. Endotracheal tube. Paranasal sinus thickening. IMPRESSION: Severe stenosis of the left proximal ICA. No other flow-limiting stenosis identified. No dissection. Bilateral upper lobe consolidation and atelectasis which is likely from atelectasis. Endotracheal tub e can be seen going at least into the right mainstem bronchus. THIS REPORT CONTAINS FINDINGS THAT MAY BE CRITICAL TO PATIENT CARE. The emergent findings regarding t he endotracheal tube were communicated to Dr. Shelby on 03/11/2024 7:57 PM.
--- NOTE | 2024-03-11 20:08 | RAD REPORT ---
EXAMINATION: CTA HEAD CLINICAL INDICATION: Female, 58 years old. ams TECHNIQUE: Axial CT images were obtained through the head after intravenous contrast utilizing angiog raphic protocol with 3D post-processing (maximum intensity projection images, volume rendered images and/or shaded surface rendered images). One or more of the following dose reduction technique s were used: Automated exposure control, adjustment of the mA and/or kV according to patient size, and/or iterative reconstruction. Unless otherwise specified, incidental findings do not require dedic ated imaging follow-up. COMPARISON: No prior exam. FINDINGS: ICA: The petrous, cavernous, and supraclinoid segments of the bilateral internal carotid arteries are normal. The ophthalmic artery origins are visualized and normal. The posterior communicating arteries are patent. Heavily calcified bilateral cavernous carotids though these are patent. EVETTE: Anterior cerebral arteries are normal bilaterally. The anterior communicating artery is patent. MCA: Middle cerebral arteries are normal bilaterally. TRAVELING CRANE OPERATOR: Posterior cerebral arteries are normal bilaterally. Vertebrobasilar: The vertebral arteries are patent. Left dominant vertebral artery. The basilar arter y is normal in appearance. 3D images confirm these findings. IMPRESSION: No occlusion, aneurysm, or hemodynamically significant stenosis identified.
[2024-03-11 20:17] LABS: Absolute Lymphocytes (CBC) 0.6 K/uL (0.7-4.9); Absolute Monocytes 0.2 K/uL (0.1-1.3); Absolute Neutrophil 5.5 K/uL (1.8-8.0); Basophils % 0.8 % (0-1.3); Eosinophils % 0.2 % (0-4.4); Hematocrit 35.8 % (36.0-45.0); Hemoglobin 11.9 g/dL (12.0-15.0); Lymphocytes % 9.4 % (15.3-44.8); MCH 31.6 pg (27.0-35.0); MCHC 33.3 g/dL (32.0-36.0); MCV 94.8 fL (80-100); MPV 8.5 fL (7.6-11.3); Monocytes % 3.3 % (3.3-12.3); Neutrophils % 86.3 % (41.7-73.7); Platelets 122 thou/uL (152-406); RBC Red Blood Cell Count 3.77 M/uL (3.86-4.86); Red Cell Distribution Width 16.6 % (12.1-15.2)
[2024-03-11 20:18] LABS: PT Prothrombin Time 13.1 SECONDS (9.4-12.5); PTT, Activated Partial Thromb 28.1 SECONDS (24.3-36.9); Protime INR 1.25
--- NOTE | 2024-03-11 20:33 | RAD REPORT ---
EXAM: Chest Single View HISTORY: ams COMPARISON: 02/21/2024 FINDINGS: LUNGS/PLEURA: Complete collapse of the right upper lobe and nearly the entire left lung. MEDIASTINUM: The mediastinal silhouette is within normal limits. CARDIAC: Obscured, not well evaluated. UPPER ABDOMEN: No significant abnormality. BONES: No acute abnormality. LINES/TUBES/OTHER: Endotracheal tube in the right mainstem bronchus. BIOMETRICS EXPERIMENTALIST shunt overlies the right yovani thorax. IMPRESSION: Complete collapse of the right upper lobe and near complete collapse of the entire left lung with end otracheal tube at the right mainstem bronchus. Recommend retraction by approximately 6 cm. THIS REPORT CONTAINS FINDINGS THAT MAY BE CRITICAL TO PATIENT CARE. The emergent findings regarding t he endotracheal tube position were communicated to Dr. grover on 03/11/2024 8:30 PM.
[2024-03-11 20:39] LABS: Albumin 3.2 g/dL (3.4-5.0); Albumin/Globulin Ratio 0.7 (1.1-1.8); Anion Gap 15.2 mEq/L (5.0-15.0); Bilirubin Direct 0.2 mg/dL (0-0.2); Bilirubin Indirect, Calculated 0.4 mg/dL (0.2-0.8); Bilirubin Total 0.6 mg/dL (0.2-1.0); Globulin 4.4 g/dL (2.3-3.5); Protein, Total 7.6 g/dL (6.4-8.2); Troponin High Sensitivity 48.4 pg/mL (<58.9)
[2024-03-11 20:40] LABS: Magnesium 2.2 mg/dL (1.6-2.4); Potassium 4.2 mEq/L (3.5-5.1)
[2024-03-11] MEDS ORDERED: LABETALOL 20 MG/4ML SYRINGE IV ONE (21:11)
--- NOTE | 2024-03-11 21:15 | EDPHYS ---
Physician Documentation [facility] Name: Barbara Ibarra Age: 58 yrs Sex: Female : 1965 Arrival Date: 03/11/2024 Time: 19:11 Bed 4 Private MD: ED Physician Laura Henderson HPI: 03/11 20:27 This 58 yrs old Female presents to ER via Unassigned with complaints of rt Seizure, Unresponsive, High Blood Pressure. 20:27 Patient presents to the ED from long term with altered mental status. At shift rt change, it was noted that the patient was altered. Paramedics state that the oxygen saturation was 85%, correcting on nonrebreather. No further history could be obtained, unclear when the timing of onset was. . Historical: - Allergies: 03/12 02:52 No Known Allergies; br2 - PMHx: 03/11 20:34 Anemia; Diabetes - NIDDM; Dialysis; M/W/F; ESRD; Hyperlipidemia; Hypertension; Thyroid br2 problem; - PSHx: 20:34 cataract; br2 - Immunization history:: UNKNOWN. - Infectious Disease History:: UNKNOWN. - Social history:: UNKNOWN, Smoking status: unknown. ROS: 20:27 Unable to obtain ROS due to altered mental status, rt Exam: 20:27 Constitutional: The patient appears Actively seizing, GCS 3 rt 20:27 Head/face: No external signs of trauma. 20:27 Respiratory: Clear to auscultation bilateral, 20:27 Abdomen/GI: No distention, 20:27 Musculoskeletal/extremity: No deformities. 20:27 Neuro: Right gaze deviation, unresponsive, actively seizing on right upper extremity, 21:10 ECG was reviewed by the Attending Physician. EKG demonstrates normal sinus rhythm at 96 sp3 bpm with normal intervals except QTc of 500 ms, normal QRS, normal axis, normal ST/T-segment's without evidence of acute ischemia. Vital Signs: 19:19 BP 196 / 100; Pulse 96; ap3 19:23 BP 196 / 100; Pulse 102; Resp 15; Pulse Ox 100% on AMBU BAG; Weight 49.9 kg; Height 4 br2 ft. 11 in. ; 19:43 BP 153 / 57; Pulse 107; Resp 20; Pulse Ox 96% on ETT vent; br2 19:58 BP 226 / 94; Pulse 103; Resp 16; Pulse Ox 97% on ETT vent; br2 20:00 BP 228 / 94; Pulse 102; Resp 18; Pulse Ox 97% on ETT vent; br2 21:19 BP 225 / 91; Pulse 90; Resp 18; Temp 97.2(Ca); Pulse Ox 100% on ETT vent; br2 21:42 BP 224 / 91; Pulse 88; Resp 18; Temp 97.2; Pulse Ox 100% ; br2 21:48 BP 224 / 90; Pulse 89; Resp 16; Temp 97.2(Ca); Pulse Ox 100% on ETT vent; br2 22:59 BP 154 / 81; Pulse 88; Resp 16; Temp 97.1; Pulse Ox 100% ; br2 23:20 BP 152 / 90; Pulse 85; Resp 14; Temp 97.2; Pulse Ox 100% on ETT vent; br2 03/12 00:15 BP 159 / 110; Pulse 85; Resp 18; Pulse Ox 100% on R/A; br2 00:52 BP 171 / 74; Pulse 82; Resp 18; Temp 98.1(Ca); Pulse Ox 100% ; br2 01:45 BP 100 / 84; Pulse 83; Resp 18; Pulse Ox 100% on ETT vent; br2 01:51 BP 142 / 75; Pulse 59; Resp 18; Pulse Ox 98% on R/A; br2 02:33 BP 144 / 62; Pulse 82; Resp 18; Pulse Ox 100% ; br2 02:51 BP 141 / 62; Pulse 79; Resp 18; Pulse Ox 100% on ETT vent; br2 03:23 BP 131 / 91; Pulse 84; Resp 18; Temp 98.7; Pulse Ox 100% on ETT vent; br2 03:47 BP 136 / 56; Pulse 81; Resp 18; Temp 97.1; Pulse Ox 100% on R/A; br2 04:04 BP 141 / 62; Pulse 79; Resp 19; Temp 98.9; Pulse Ox 100% on ETT vent; br2 04:59 BP 138 / 62; Pulse 78; Resp 18; Pulse Ox 100% on ETT vent; br2 05:20 BP 125 / 86; Pulse 81; Resp 18; Pulse Ox 100% on ETT vent; br2 05:45 BP 130 / 73; Pulse 77; Resp 18; Temp 98.1(Ca); Pulse Ox 99% on ETT vent; br2 06:00 BP 131 / 60; Pulse 76; Resp 18 A; Temp 98.9(Ca); Pulse Ox 100% on ETT vent; br2 06:15 BP 135 / 62; Pulse 77; Resp 18; Temp 98.9(Ca); Pulse Ox 100% on ETT vent; br2 06:51 BP 132 / 60; Pulse 75; Resp 18; Temp 98.8(Ca); Pulse Ox 100% on ETT vent; br2 03/11 19:23 Body Mass Index 22.22 (49.90 kg, 149.86 cm) br2 Maddy Coma Score: 03/11 20:34 Eye Response: none(1). Motor Response: none(1). Verbal Response: none(1). Total: 3. br2 21:00 Eye Response: none(1). Motor Response: none(1). Verbal Response: none(1). Total: 3. br2 Ventilator: 19:46 Fi02: 100%; Rate: 16min; T.V.: 300ml; Peep: 5cm; br2 03/12 07:36 Fi02: 50%; Rate: 18min; T.V.: 350ml; Peep: 5cm; Mode: CMV; ET tube: 7.5 fr (Oral); ko1 Procedures: 03/11 20:27 Intubation: Ventilated with 100% NRB prior to procedure. Intubated orally using For rt GlideScope with 7.5 mm ETT. was successful on first attempt. Ventilated with Ambu bag. ventilator. Tube secured with tape Placement verified by CXR, CO2 detector with (+) color change, Patient tolerated well. MDM: 19:24 Medical Screening Exam initiated rt 20:29 Data reviewed: nurses notes, EMS record, long term records, lab test result(s), sp3 radiologic studies. 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 Patient was intubated upon arrival and stroke protocol initiated. Currently old CVA noted with ventriculostomy tube in adequate position with no active or acute bleeding or other acute ischemic process. CTA of head demonstrates no large vessel occlusion. Patient is now signed out to me from Dr. Shelby. Once lab work reviewed, we will find appropriate facility for transfer and neurological consultation.. 21:13 ED course: Labs reviewed which demonstrate no significant findings other than her sp3 baseline creatinine. Patient still severely hypertensive and IV labetalol has been initiated.. 03/12 03:34 ED course: Multiple attempts at transfer performed including [facility], [facility], [facility], [facility], [facility], [facility] all to no ICU beds available. ICU bed is now available here and although we do not have continuous EEG monitoring, transfer at this time is not possible. Blood pressure is under control on nicardipine and patient is adequately sedated on propofol. During titration, there was a small period where patient was more awake and did not appear to be seizing. I have communicated this with inpatient team Dr. Cifuentes who will be admitting the patient.. 03/11 19:26 Order name: Basic Metabolic Panel; Complete Time: 21:11 rt 03/11 19:26 Order name: CBC with Diff; Complete Time: 23:40 rt 03/11 19:26 Order name: Hepatic Function; Complete Time: 21:11 rt 03/11 19:26 Order name: High Sensitivity Troponin; Complete Time: 21:11 rt 03/11 19:26 Order name: Magnesium; Complete Time: 21:11 rt 03/11 19:26 Order name: Protime (+inr); Complete Time: 20:21 rt 03/11 19:26 Order name: Ptt, Activated; Complete Time: 20:21 rt 03/11 19:26 Order name: ABG; Complete Time: 23:40 rt 03/11 20:58 Order name: Glucose, Ancillary Testing; Complete Time: 21:11 EDMS 03/11 21:27 Order name: Manual Differential; Complete Time: 23:40 EDMS 03/12 04:54 Order name: CBC with Automated Diff EDMS 03/12 04:54 Order name: Comprehensive Metabolic Panel EDMS 03/12 05:10 Order name: Glucose, Ancillary Testing; Complete Time: 08:58 EDMS 03/12 07:22 Order name: Urine Culture ld1 03/11 19:26 Order name: CT Head Angio; Complete Time: 20:11 rt 03/11 19:26 Order name: CT Neck Angio; Complete Time: 20:11 rt 03/11 19:26 Order name: CT Stroke Brain w/o Contrast; Complete Time: 20:11 rt 03/11 19:26 Order name: Stroke CXR 1 View; Complete Time: 20:39 rt 03/11 20:30 Order name: Chest Single View XRAY; Complete Time: 21:22 rt 03/12 09:35 Order name: RAD EDMS 03/12 04:54 Order name: CONS Physician Consult EDMS 03/11 19:26 Order name: Accucheck; Complete Time: 20:52 rt 03/11 19:26 Order name: Cardiac monitoring; Complete Time: 20:04 rt 03/11 19:26 Order name: EKG - Nurse/Tech; Complete Time: 20:52 rt 03/11 19:26 Order name: IV Saline Lock rt 03/11 19:26 Order name: Labs collected and sent; Complete Time: 20:04 rt 03/11 19:26 Order name: NPO; Complete Time: 20:04 rt 03/11 19:26 Order name: O2 Per Protocol; Complete Time: 20:04 rt 03/11 19:26 Order name: O2 Sat Monitoring; Complete Time: 20:04 rt 03/11 19:26 Order name: Stroke Swallow Screen rt Administered Medications: 03/11 19:20 Drug: Rocuronium IVP 100 mg IVP once Route: IVP; Site: right hand; ap3 20:00 Follow up: Response: No adverse reaction br2 19:20 Drug: Propofol IVP 100 mg IVP once; Document RASS score. Route: IVP; Site: right hand; ap3 03/12 03:21 Follow up: Response: No adverse reaction br2 03/11 19:23 Drug: Keppra IV 1000 mg IV at 2000 calculated rate once Route: IV; Rate: 2000 ap3 calculated rate; Site: right hand; 20:30 Follow up: Response: No adverse reaction; IV Status: Completed infusion; IV Intake: br2 100ml 21:18 Drug: Labetalol IV 40 mg IV at calculated rate once over 2 mins Route: IV; Rate: 20 br2 mg/min; Infused Over: 2 mins; Site: right wrist; 21:20 Follow up: IV Status: Completed infusion; IV Intake: 3ml br2 22:15 Drug: niCARdipine IV 5 mg/hr IV at calculated rate See Administration Instructions; br2 (Standard concentration 25 mg / 250 mL NS); Recommended max rate 15 mg/hr; Titrate 2.5 mg/hr as often as every 15 minutes to achieve goal (see titration policy); Goal parameter SBP less than 160 mmHg Route: IV; Rate: calculated rate; Site: right jugular; 03/12 07:39 Follow up: IV Status: Infusion continued upon admission ko1 01:11 Drug: Propofol IV 5 mcg/kg/min IV at calculated rate See Administration Instructions; br2 Standard concentration 1000 mg / 100 mL; Recommended max rate 50 mcg/kg/min; Titrate 5 mcg/kg/min every 5 minutes to achieve goal (see titration policy); Goal parameter RASS score 0 to -2 Route: IV; Rate: 5 mcg/min; Site: right jugular; 07:39 Follow up: Response: No adverse reaction; IV Status: Infusion continued upon admission ko1 Point of Care Testing: Blood Glucose: 04:59 Blood Glucose: 123 mg/dL; br2 Ranges: Critical Glucose Levels:Adult <50 mg/dl or >400 mg/dl <40 mg/dl or >180 mg/dl Disposition Summary: 03/12/24 03:35 Hospitalization Ordered Notes: Hospitalization Status: Inpatient Admission sp3 Provider: Jules Cifuentes spRadha Condition: Critical(03/12/24 03:35) sp3 Problem: an acute exacerbation(03/12/24 03:35) sp3 Symptoms: have worsened(03/12/24 03:35) sp3 Bed/Room Type: Standard sp3 Location: Intensive Care Unit(03/12/24 07:57) bd Room Assignment: 7-(03/12/24 07:57) bd Diagnosis - Altered mental status, seizure, hypertensive urgency sp3 Forms: - Medication Reconciliation Form sp3 - SBAR form sp3 - Leadership Thank You Letter sp3 Critical care time excluding procedures: 03:38 Critical care time: Bedside Care: 30 minutes, Consultation: 15 minutes, Family sp3 Intervention: 5 minutes. Total time: 50 minutes Signatures: Dispatcher [employer] EDJusta Lai Amanda, RN RN ap3 Laura Henderson MD MD sp3 Ruth Batista RN RN kb3 Robina Bragg, BHAKTI RN ko1 Huan Shelby MD MD rt Maddison Ballard, BHAKTI RN br2 Corrections: (The following items were deleted from the chart) 03/11 19:27 19:26 BASIC METABOLIC PANEL+C.LAB.BRZ ordered. EDMS EDMS 19:27 19:26 CBC+H.LAB.BRZ ordered. EDMS EDMS 19:27 19:26 HEPATIC FUNCTION+C.LAB.BRZ ordered. EDMS EDMS 19:27 19:26 Troponin High Sensitivity+C.LAB.BRZ ordered. EDMS EDMS 19:27 19:26 MAGNESIUM+C.LAB.BRZ ordered. EDMS EDMS 19:27 19:26 PROTIME (+INR)+COAG.LAB.BRZ ordered. EDMS EDMS 19:27 19:27 PTT, ACTIVATED+COAG.LAB.BRZ ordered. EDMS EDMS 19:27 19:27 Head Angio+CT.RAD.BRZ ordered. EDMS EDMS 19:27 19:27 Neck Angio+CT.RAD.BRZ ordered. EDMS EDMS 19:27 19:27 CT-STROKE BRAIN W/O CONTRAST+CT.RAD.BRZ ordered. EDMS EDMS 19:27 19:27 Chest Single View+RAD.RAD.BRZ ordered. EDIL EDMS 19:27 19:27 Arterial Blood Gas+RC.LAB.BRZ ordered. EDIL EDMS 03/12 03:34 03/11 21:15 TBD neuro ICU sp3 sp3 03/12 03:34 03/11 21:15 [facility] sp3 sp3 03/12 03:34 03/11 21:15 Higher level of care sp3 sp3 03/12 03:34 03/11 21:15 Critical sp3 sp3 03/12 03:34 03/11 21:15 an acute exacerbation sp3 sp3 03/12 03:34 03/11 21:15 have worsened sp3 sp3 03/12 03:34 03/11 21:15 Altered mental status, seizure new onset, hypertensive emergency, sp3 intubation sp3 03/12 07:46 03:35 Telemetry/MedSurg (Inpatient) sp3 kb3 07:46 03:35 sp3 kb3 07:57 07:46 [facility] ER HOLD kb3 bd 07:57 07:46 ERHOLD- kb3 bd
--- NOTE | 2024-03-11 21:15 | ER ---
Nurse's Notes [facility] Name: Barbara Ibarra Age: 58 yrs Sex: Female : 1965 Arrival Date: 03/11/2024 Time: 19:11 Bed 4 Private MD: Diagnosis: Altered mental status, seizure, hypertensive urgency Presentation: 03/11 19:23 Chief complaint: EMS states: PER EMS PT WAS FOUND BY [facility] STAFF UNRESPONSIVE. br2 LAST "WELL KNOW TIME" WAS APPROX 1814. PT ARRIVES BY EMS ON AMBU BAG AND BEGAN SEIZING. Coronavirus screen: At this time, unable to obtain information related to travel outside the [place] Initial Sepsis Screen: Does the patient meet any 2 criteria?. Initial Sepsis Screen: Does the patient have a suspected source of infection? No. Patient's initial sepsis screen is negative. Risk Assessment: Do you want to hurt yourself or someone else? Patient reports no desire to harm self or others. Onset of symptoms is unknown. 19:25 Acuity: AZUCENA 1 ap3 20:01 Ebola Screen: Patient denies travel to an Ebola-affected area in the 21 days before br2 illness onset. 20:01 Method Of Arrival: EMS: [facility] br2 Triage Assessment: 20:34 General: Appears Behavior is unresponsive. Pain: Unable to use pain scale. Neuro: br2 Cunningham Agitation-Sedation Scale (RASS): -5 Unarousable Level of Consciousness is unresponsive, Oriented to Pupils are fixed, non-reactive, gazing towards the right. Cardiovascular: Dialysis shunt: FISTULA LEFT UPPER ARM. Respiratory: Ventilator assessment: AMBU BAG ON ARRIVAL. Historical: - Allergies: 03/12 02:52 No Known Allergies; br2 - PMHx: 03/11 20:34 Anemia; Diabetes - NIDDM; Dialysis; M/W/F; ESRD; Hyperlipidemia; Hypertension; Thyroid br2 problem; - PSHx: 20:34 cataract; br2 - Immunization history:: UNKNOWN. - Infectious Disease History:: UNKNOWN. - Social history:: UNKNOWN, Smoking status: unknown. Screenin:18 [facility] ED Fall Risk Assessment (Adult) History of falling in the last 3 months, br2 including since admission Confusion or Disorientation Intoxicated or Sedated Impaired Gait Mobility Assist Device Used Altered Elimination Score/Fall Risk Level. 19:18 Abuse screen: Denies threats or abuse. Denies injuries from another. Nutritional br2 screening: No deficits noted. Tuberculosis screening: No symptoms or risk factors identified. Assessment: 19:18 Reassessment: RT at bedside at 1918. ap3 19:25 Reassessment: Pt to CT now VIA stretcher with RT and BHAKTI Washburn. ss 19:46 Reassessment: PT TAKEN TO CT WITH NURSE, TECH, AND RT. br2 23:23 Reassessment: SPOKE TO JASMYN BERGER (SON [phone]) AND ADVISED HIM OF HIS br2 MOTHER'S MEDICAL CONDITION. HE GAVE VERBAL CONSENT TO TRANSFER AND VERIFIED BY BHAKTI WASHBURN AND BHAKTI LUDWIG VIA PHONE. SON STATES HE WILL NOT BE COMING TO THE ER JUST WANTS TO BE NOTIFIED WHERE SHE GETS TRANSFERRED. 23:31 Reassessment:. br2 03/12 00:57 Reassessment: CALLED [facility] AND SPOKE TO [facility], SHE IS ATTEMPTING TO REACH FAMILY br2 AND WILL CALL BACK IF SHE REACHES SOMEONE. 01:01 Reassessment: REPEAT CHEST X-RAY FOR ETT PLACEMENT AFTER PULLED BACK TO 22CM. br2 04:05 Reassessment:. br2 Vital Signs: 03/11 19:19 BP 196 / 100; Pulse 96; ap3 19:23 BP 196 / 100; Pulse 102; Resp 15; Pulse Ox 100% on AMBU BAG; Weight 49.9 kg; Height 4 br2 ft. 11 in. ; 19:43 BP 153 / 57; Pulse 107; Resp 20; Pulse Ox 96% on ETT vent; br2 19:58 BP 226 / 94; Pulse 103; Resp 16; Pulse Ox 97% on ETT vent; br2 20:00 BP 228 / 94; Pulse 102; Resp 18; Pulse Ox 97% on ETT vent; br2 21:19 BP 225 / 91; Pulse 90; Resp 18; Temp 97.2(Ca); Pulse Ox 100% on ETT vent; br2 21:42 BP 224 / 91; Pulse 88; Resp 18; Temp 97.2; Pulse Ox 100% ; br2 21:48 BP 224 / 90; Pulse 89; Resp 16; Temp 97.2(Ca); Pulse Ox 100% on ETT vent; br2 22:59 BP 154 / 81; Pulse 88; Resp 16; Temp 97.1; Pulse Ox 100% ; br2 23:20 BP 152 / 90; Pulse 85; Resp 14; Temp 97.2; Pulse Ox 100% on ETT vent; br2 03/12 00:15 BP 159 / 110; Pulse 85; Resp 18; Pulse Ox 100% on R/A; br2 00:52 BP 171 / 74; Pulse 82; Resp 18; Temp 98.1(Ca); Pulse Ox 100% ; br2 01:45 BP 100 / 84; Pulse 83; Resp 18; Pulse Ox 100% on ETT vent; br2 01:51 BP 142 / 75; Pulse 59; Resp 18; Pulse Ox 98% on R/A; br2 02:33 BP 144 / 62; Pulse 82; Resp 18; Pulse Ox 100% ; br2 02:51 BP 141 / 62; Pulse 79; Resp 18; Pulse Ox 100% on ETT vent; br2 03:23 BP 131 / 91; Pulse 84; Resp 18; Temp 98.7; Pulse Ox 100% on ETT vent; br2 03:47 BP 136 / 56; Pulse 81; Resp 18; Temp 97.1; Pulse Ox 100% on R/A; br2 04:04 BP 141 / 62; Pulse 79; Resp 19; Temp 98.9; Pulse Ox 100% on ETT vent; br2 04:59 BP 138 / 62; Pulse 78; Resp 18; Pulse Ox 100% on ETT vent; br2 05:20 BP 125 / 86; Pulse 81; Resp 18; Pulse Ox 100% on ETT vent; br2 05:45 BP 130 / 73; Pulse 77; Resp 18; Temp 98.1(Ca); Pulse Ox 99% on ETT vent; br2 06:00 BP 131 / 60; Pulse 76; Resp 18 A; Temp 98.9(Ca); Pulse Ox 100% on ETT vent; br2 06:15 BP 135 / 62; Pulse 77; Resp 18; Temp 98.9(Ca); Pulse Ox 100% on ETT vent; br2 06:51 BP 132 / 60; Pulse 75; Resp 18; Temp 98.8(Ca); Pulse Ox 100% on ETT vent; br2 03/11 19:23 Body Mass Index 22.22 (49.90 kg, 149.86 cm) br2 Maddy Coma Score: 03/11 20:34 Eye Response: none(1). Motor Response: none(1). Verbal Response: none(1). Total: 3. br2 21:00 Eye Response: none(1). Motor Response: none(1). Verbal Response: none(1). Total: 3. br2 ED Course: 19:18 Seizure precautions initiated. br2 19:23 Patient arrived in ED. mt4 19:24 Huan Shelby MD is Attending Physician. rt 19:25 Triage completed. ap3 19:25 Assisted provider with intubation using 7.5 mm ETT via oral route. ET tube secured at ap3 24cm at the teeth. Set up intubation tray. Intubated by Huan Shelby MD Placement verified by CO2 detector w/ + color change, auscultating bilateral breath sounds. 19:25 Maintain EMS IV. Dressing intact. Good blood return noted. Gauge \\T\\ site: 20G RIGHT br2 WRIST. 19:30 Client placed on continuous cardiac and pulse oximetry monitoring. NIBP monitoring br2 applied. panel monitor on. Pulse ox on. 19:39 CT Stroke Brain w/o Contrast In Process Unspecified. EDMS 19:43 CT Head Angio In Process Unspecified. EDMS 19:43 CT Neck Angio In Process Unspecified. EDMS 20:00 Maddison Ballard, RN is Primary Nurse. br2 20:03 Missed attempt(s): 20 gauge in right antecubital area. vk 20:03 Initial lab(s) drawn, by ED staff, sent to lab. vk 20:10 Stroke CXR 1 View In Process Unspecified. EDMS 20:22 Attending Physician role handed off by Huan Shelby MD sp3 20:22 Laura Henderson MD is Attending Physician. sp3 20:30 ETT TUBE PULLED BACK TO 22CM" PER CT RESULTS, PERFORMED BY .LIAT RT. br2 20:39 Colunga cath inserted, using sterile technique, 16 Fr., by pipe stem sawyer, balloon inflated, to vk gravity drainage. 20:55 EKG done, by ED staff. vk 21:01 Suctioned orally - small amount. br2 21:01 NGT: inserted 12 Fr. other OG verified placement of air over stomach, to intermittent br2 suction. 21:05 Chest Single View XRAY In Process Unspecified. EDMS 21:[address] [facility] AT CAP. kmf 21:28 initiated transfer at [facility], all icu at cap. kmf 21:34 initiated transfer with [facility] on hold for 35 mins, declined due to capability. kmf 22:00 Inserted saline lock: 20 gauge in right EJ, using aseptic technique. Blood collected. br2 Flushed with 10 mL NS. 23:37 initiated transfer with kirsten - declined due to capability. kmf 23:40 initiated transfer with miguel, declined due to capacity. kmf 03/12 00:32 initiated transfer with [facility]. Declined due to capacity. kmf 01:29 attempted to initiate transfer at [facility]. kmf 03:34 Jules Cifuentes MD is Hospitalizing Provider. sp3 07:20 Patient admitted, IV remains in place. ko1 07:20 Provided Education on: lab. ko1 07:22 Arm band placed on right wrist. ko1 Administered Medications: 03/11 19:20 Drug: Rocuronium IVP 100 mg IVP once Route: IVP; Site: right hand; ap3 20:00 Follow up: Response: No adverse reaction br2 19:20 Drug: Propofol IVP 100 mg IVP once; Document RASS score. Route: IVP; Site: right hand; ap3 03/12 03:21 Follow up: Response: No adverse reaction br2 03/11 19:23 Drug: Keppra IV 1000 mg IV at 2000 calculated rate once Route: IV; Rate: 2000 ap3 calculated rate; Site: right hand; 20:30 Follow up: Response: No adverse reaction; IV Status: Completed infusion; IV Intake: br2 100ml 21:18 Drug: Labetalol IV 40 mg IV at calculated rate once over 2 mins Route: IV; Rate: 20 br2 mg/min; Infused Over: 2 mins; Site: right wrist; 21:20 Follow up: IV Status: Completed infusion; IV Intake: 3ml br2 22:15 Drug: niCARdipine IV 5 mg/hr IV at calculated rate See Administration Instructions; br2 (Standard concentration 25 mg / 250 mL NS); Recommended max rate 15 mg/hr; Titrate 2.5 mg/hr as often as every 15 minutes to achieve goal (see titration policy); Goal parameter SBP less than 160 mmHg Route: IV; Rate: calculated rate; Site: right jugular; 03/12 07:39 Follow up: IV Status: Infusion continued upon admission ko1 01:11 Drug: Propofol IV 5 mcg/kg/min IV at calculated rate See Administration Instructions; br2 Standard concentration 1000 mg / 100 mL; Recommended max rate 50 mcg/kg/min; Titrate 5 mcg/kg/min every 5 minutes to achieve goal (see titration policy); Goal parameter RASS score 0 to -2 Route: IV; Rate: 5 mcg/min; Site: right jugular; 07:39 Follow up: Response: No adverse reaction; IV Status: Infusion continued upon admission ko1 Medication: 07:20 VIS not applicable for this client. ko1 Point of Care Testing: Blood Glucose: 04:59 Blood Glucose: 123 mg/dL; br2 Ranges: Intake: 03/11 20:30 IV: 100ml; Total: 100ml. br2 21:20 IV: 3ml; Total: 103ml. br2 Ventilator: 19:46 Fi02: 100%; Rate: 16min; T.V.: 300ml; Peep: 5cm; br2 03/12 07:36 Fi02: 50%; Rate: 18min; T.V.: 350ml; Peep: 5cm; Mode: CMV; ET tube: 7.5 fr (Oral); ko1 Outcome: 03/11 21:15 ER care complete, transfer ordered by . sp3 03/12 03:35 Decision to Hospitalize by Provider. sp3 07:20 Admitted to ER Hold. Please see [facility] for further documentation. ko1 07:20 Condition: stable 07:20 Instructed on the need for admit, 09:37 Patient left the ED. ko1 Signatures: Dispatcher [employer] EDMS Sheridan De Los Santos RN BHAKTI ss Darlene Penny RN RN ap3 Laura Henderson MD MD sp3 Robina Bragg RN RN ko1 Huan Shelby MD MD Asha Ravi [facility] Yolande Johnson Molinec RN RN mt4 Maddison Ballard, BHAKTI RN br2 Corrections: (The following items were deleted from the chart) 03/11 23:39 23:25 initiated transfer at [facility], all icu at [facility] 23:39 23:31 initiated transfer with [facility] on hold for 35 mins, declined due to capability. kmf kmf 03/12 00:55 03/11 19:18 Inserted saline lock: 20 gauge in right EJ, using aseptic technique. Blood br2 collected. Flushed with 10 mL NS br2 03/12 00:59 03/11 23:23 Reassessment: SPOKE TO JASMYN BERGER (SON) AND ADVISED HIM OF HIS br2 MOTHER'S MEDICAL CONDITION. HE GAVE VERBAL CONSENT TO TRANSFER AND VERIFIED BY BHAKTI WASHBURN AND BHAKTI LUDWIG VIA PHONE. SON STATES HE WILL NOT BE COMING TO THE ER JUST WANTS TO BE NOTIFIED WHERE SHE GETS TRANSFERRED. br2 03/12 01:07 03/11 22:00 Inserted saline lock: 20 gauge in right EJ, using aseptic technique. Blood br2 collected. Flushed with 10 mL NS br2 03/12 01:09 03/11 20:20 Propofol IV 249.5 mcg/min IV at 10 mcg/kg/min in right antecubital br2 br2 03/12 01:11 01:10 Propofol IV 249.5 mcg/min IV at 5 mcg/min in right jugular br2 br2
--- NOTE | 2024-03-11 21:18 | RAD REPORT ---
EXAM: Chest Single View HISTORY: intubation COMPARISON: 30 minutes prior FINDINGS: The endotracheal tube has been retracted and is just above the nuno. Consider retracting by another 1.5 cm. The right upper lobe remains collapsed. Improved aeration of the left lung. NG tube tip overlies the stomach. Suggest advancing by another 5 cm. IMPRESSION: 1. Retracted endotracheal tube which now sits at the level of the nuno. Suggest retracting by anoth er 1.5 cm. 2. NG tube tip overlies the stomach with distal side port near the GE junction. Suggest advancing ano ther 5 cm. 3. Improved aeration of the left lung. Similar collapse of the right upper lobe.
[2024-03-11 21:32] LABS: Arterial Blood Carboxyhemoglob 1.1 % (0-1.5); Blood Gas Oxyhemoglobin 92.4 % (94-97); Blood O2 Saturation 95.7 % (92-98.5)
[2024-03-11 21:33] LABS: Blood Gas THB 12.2 g/dl (12-18)
[2024-03-11] MEDS ORDERED: Nicardipine/NS 25 MG/250 ML KIT IV ONE (22:08)
[2024-03-11 23:32] LABS: Band Neutrophils 9 % (0-1); Blood Morphology Comment NOT SEEN (NOT SEEN); Differential Total Cells Count 100; Lymphocytes 7 % (15-42); Monocytes 1 % (0-10); Platelet Estimate ADEQ; Segmented Neutrophils 83 % (40-80)
[2024-03-12] MEDS ORDERED: propofoL 1,000 MG/100 ML VIAL IV ONE ×2 (02:38→08:25)
--- NOTE | 2024-03-12 04:43 | P.HP ---
Certification for Inpatient Patient admitted to: Inpatient With expected LOS: >2 Midnights Practitioner: I am a practitioner with admitting privileges, knowledge of patient current condition, hospital course, and medical plan of care. Services: Services provided to patient in accordance with Admission requirements found in Title 42 Section 412.3 of the Code of Federal Regulations Patient History Date of Service: 03/12/24 Reason for admission: Seizure History of Present Illness: 58-year-old female with past medical history of CVA, prior nontraumatic subarachnoid hemorrhage causing left hemiplegia, hydrocephalus s/p shunt, ESRD on dialysis, diabetes, hypertension, hyperlipidemia, hypothyroidism, anemia who was brought to ER with altered mental status and active seizures from long-term. Patient was found to be hypoxic and was intubated at arrival. She was started on protocol. Patient was also found to be hypertensive emergency and was admitted to ICU and was started on Cardene drip. Patient was intubated and sedated at the time of interview hence most of the history is obtained from the chart review and also talking to the ER physician. ER tried to transfer for the patient for higher level of care but could not find any bed in ICU in the ER by hospitalist and was admitted here for further management. Allergies No Known Allergies Allergy (Verified 02/14/24 21:01) Home medications list reviewed: Yes Home Medications: Aspirin Chewable [Aspirin Chewable*] 81 mg PO DAILY tab.chew 02/28/24 Atorvastatin Calcium [Lipitor] 80 mg PO BEDTIME tab 02/28/24 Bumetanide [Bumex*] 1 mg PO DAILY tab 02/28/24 Cinacalcet HCl [Sensipar*] 30 mg PO LUNCH tab 02/28/24 Docusate [Colace Cap*] 100 mg PO DAILY PRN cap 02/28/24 Famotidine [Pepcid*] 40 mg PO DAILY tab 02/28/24 Hydralazine [Apresoline*] 50 mg PO TID tab 02/28/24 Loperamide [Imodium*] 2 mg PO Q4H PRN cap 02/28/24 Losartan Potassium [Cozaar*] 50 mg PO BID 02/28/24 Melatonin [Melatonin*] 3 mg PO BEDTIME PRN PRN 02/28/24 Mupirocin Oint [Bactroban 2% Ointment*] 1 appl TOP BID tube 02/28/24 Nifedipine Xl [Procardia Xl*] 30 mg PO BID tab 02/28/24 carvediloL [Coreg*] 25 mg PO BID 6AM 6PM tab 02/28/24 cloNIDine HCL [Catapres*] 0.1 mg PO BID tab 03/05/24 Acetaminophen [Tylenol] 650 mg PO Q6HR PRN MDD 3G 03/12/24 Insulin Degludec [Tresiba Flextouch U-100] 10 unit SQ BEDTIME 03/12/24 Nifedipine Xl [Procardia Xl*] 60 mg PO BID 03/12/24 Ondansetron [Zofran] 4 mg PO Q4H PRN 03/12/24 Sevelamer Carbonate [Renvela*] 800 mg PO SEECOM 03/12/24 - Past Medical/Surgical History Diabetic: Yes Past Medical History: Reviewed- Non-Contributory -: Anemia -: Diabetes mellitus type 2 -: Hypertension -: Hypothyroidism -: ESRD followed by Dr. Davis/Abdi -: Hyperlipidemia Past Surgical History: Reviewed- Non-Contributory -: Incision and drainage -: -: Perma-Cath placement Psychosocial/ Personal History: Patient lives with her family. - Family History Mother -: Diabetes, Stroke, Kidney disease Father -: Cancer - Social History Smoking Status: Unknown if ever smoked Alcohol use: No CD- Drugs: No Caffeine use: Yes Review of Systems is unable to be obtained Physical Examination - Vital Signs Temperature: 98.2 F Blood Pressure: 186/114 Pulse: 87 Respirations: 18 Pulse Ox (%): 100 - Physical Exam General: Moderate distress, Comatose HEENT: Atraumatic, Normocephalic Neck: Supple Respiratory: Diminished, Crackles/rales Cardiovascular: Regular rate/rhythm, Normal S1 S2 Capillary refill: <2 Seconds Gastrointestinal: Soft and benign, W/out hepatosplenomegaly Musculoskeletal: No clubbing Integumentary: No rashes Neurological: Other (Sedated), Abnormal gait, Abnormal speech Lymphatics: No axilla or inguinal lymphadenopathy - Studies Laboratory Data (last 24 hrs) 03/11/24 03/11/24 03/11/24 19:59 19:59 19:59 WBC 6.30 Hgb 11.9 L Hct 35.8 L Plt Count 122 L PT 13.1 H INR 1.25 APTT 28.1 Sodium 136 Potassium 4.2 BUN 48 H Creatinine 5.55 H Glucose 183 H Magnesium 2.2 Total Bilirubin 0.6 AST 49 H ALT 55 Alkaline Phosphatase 84 Assessment and Plan - Plan Acute encephalopathy Possibly postictal versus metabolic Monitor closely on telemetry CT findings noted Hypertensive emergency Started on Cardene drip Will try to wean down as possible Admit to ICU Antihypertensives titrated Continue home medications and titrate as needed when list available History of hemorrhagic stroke 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 Continue home medications Neurology consulted Seizures Continue antiepileptic medications Neurology consulted ESRD on dialysis Monitor renal parameters Electrolytes monitor and replace accordingly Nephrology consulted Diabetes Insulin sliding scale Accu-Chek before every meal and at bedtime Anemia of chronic disease Monitor H&H closely No overt bleeding at this time GI/DVT prophylaxis Advanced directive full code Discharge Plan: [facility] Plan to discharge in: 48 Hours - Advance Directives Does patient have a Living Will: No Does patient have a Durable POA for Healthcare: No - Code Status/Comfort Care Code Status: Full Code Time Spent Managing Pts Care (In Minutes): 55
[2024-03-12] MEDS ORDERED: ACETAMINOPHEN 650MG/RECT SUPP PR PRN (04:48)
[2024-03-12] MEDS ORDERED: SODIUM CHLORIDE 0.9% 10ML INJ IV PRN (04:53)
[2024-03-12] MEDS: Nicardipine/NS 25 MG/250 ML KIT IV SCH (07:00)
[2024-03-12] MEDS: propofoL 1,000 MG/100 ML VIAL IV SCH (07:00)
[2024-03-12] MEDS ORDERED: ETOMIDATE 20 MG/10 ML VIAL IV ONE (08:19)
[2024-03-12] MEDS ORDERED: MIDAZOLAM HCL 2 MG/2 ML INJ IV PRN (08:36)
[2024-03-12] MEDS: PANTOPRAZOLE 40 MG INJ IVP SCH (08:38)
[2024-03-12] MEDS: levETIRAcetam 500 MG in NA CHLORIDE 0.9% 100 ML IV SCH (08:40)
[2024-03-12] MEDS ORDERED: NA CHLORIDE 0.9% 100 ML ONE (08:42)
[2024-03-12] MEDS ORDERED: LEVETIRACETAM 500 MG/5 ML VIAL IV ONE (08:42)
[2024-03-12] MEDS ORDERED: PANTOPRAZOLE 40 MG INJ ONE (08:42)
--- NOTE | 2024-03-12 09:35 | RAD REPORT ---
EXAM: AP view(s) of the abdomen Abdomen 1 View (KUB) HISTORY: Placement of NGT/OGT. Post Insertion. COMPARISON: Yesterday FINDINGS: NG tube tip terminate overlying the lower stomach and suspected position. Endotracheal tube at the ao rtic arch, just above the nuno. Right-sided BAR ASSISTANT shunt. Improved aeration of the lungs bilaterally though there are still some residual consolidation and left lower lobe. IMPRESSION: 1. NG tube tip overlies lower stomach in satisfactory position. 2. Endotracheal tube just above the nuno. Could consider retracting by 1 cm. 3. Improved aeration of the lungs bilaterally though residual left lower lobe consolidations remains.
[2024-03-12] MEDS: LORazepam 2 MG/ML VIAL IV PRN (09:39)
[2024-03-12 10:23] LABS: Absolute Basophils 0.1 K/uL (0-0.5); Absolute Lymphocytes (CBC) 1.2 K/uL (0.7-4.9); Absolute Monocytes 0.8 K/uL (0.1-1.3); Eosinophils % 0.1 % (0-4.4); Hematocrit 33.6 % (36.0-45.0); Hemoglobin 11.3 g/dL (12.0-15.0); Lymphocytes % 16.8 % (15.3-44.8); MCH 31.8 pg (27.0-35.0); MCHC 33.8 g/dL (32.0-36.0); MCV 94.2 fL (80-100); MPV 7.7 fL (7.6-11.3); Neutrophils % 71.1 % (41.7-73.7); Nucleated Red Blood Cells % 0.1 % (0-0); Platelets 147 thou/uL (152-406); RBC Red Blood Cell Count 3.56 M/uL (3.86-4.86); Red Cell Distribution Width 17.1 % (12.1-15.2)
[2024-03-12] MEDS: FENTANYL CITR 100 MCG/2 ML IV PRN (10:48)
[2024-03-12 10:52] LABS: Albumin 3.3 g/dL (3.4-5.0); Albumin/Globulin Ratio 0.8 (1.1-1.8); Anion Gap 12.9 mEq/L (5.0-15.0); Bilirubin Total 0.5 mg/dL (0.2-1.0); Globulin 4.3 g/dL (2.3-3.5); Potassium 3.9 mEq/L (3.5-5.1); Protein, Total 7.6 g/dL (6.4-8.2)
--- NOTE | 2024-03-12 14:00 | RAD REPORT ---
EXAMINATION: ONE VIEW CHEST XR CLINICAL INDICATION: Female, 58 years old.,ETT placement TECHNIQUE: Frontal chest projection is submitted. Examination is limited by patient positioning and t echnique. COMPARISON: 03/12/2024 at 9:16 AM FINDINGS: Endotracheal tube tip reaches the nuno, within extensive millimeter of its bifurcation. Enteric tub e extends into the stomach. Segment of right chest wall ventriculoperitoneal shunt catheter is noted. The lungs are well inflated and clear apart from mild left basilar atelectasis. No pneumothor ax or sizable effusion. The heart is normal in size. Mediastinal contours are unremarkable. IMPRESSION: Endotracheal tube tip almost reaching the nuno, consider retracting the tube by approximately 3 cm.
[2024-03-12] MEDS ORDERED: DOCUSATE NA 100 MG CAP PO PRN (15:38)
--- NOTE | 2024-03-12 15:48 | P.PN ---
Date of Service: 03/12/24 This is a 58 years old female correction resident who has a multiple comorbidity including ESRD on hemodialysis, debilitating subarachnoid hemorrhage status ventriculoperitoneal stent, refractory hypertension who was sent from her correction to emergency room for status epilepticus, patient found to have respiratory failure at ED and intubated and put on mechanical ventilator, started on nicardipine infusion for hypertensive urgency and admitted in MICU. #1 status epilepticus in underlying debilitating subarachnoid hemorrhage status post previous stent CT of the abdomen in the emergency room shows no acute change, seizure seems to be controlled with IV Keppra, continue IV Keppra, follow-up on neurology input, the cause of seizure is unclear, no definite metabolic abnormality, her electrolytes seems to be normal 2. ESRD on hemodialysis Euvolemia, normokalemia, BUN/creatinine 48/5, bicarb 25, no urgent hemodialysis indicated, will resume her scheduled dialysis 3. Hypertensive urgency Blood pressure seems to be improved on Cardizem, will resume her home hypertensive regimen, hydralazine, carvedilol, clonidine through NG tube #4 acute respiratory failure related #1 Currently intubated on mechanical ventilator, pulmonology on board DVT prophylaxis; contraindication to chemoprophylaxis, sequential compression device will be applied Stress ulcer prophylaxis; IV pantoprazole
[2024-03-12] MEDS: SEVELAMER CARBONATE 800 MG TABLET PO SCH (16:28)
[2024-03-12] MEDS: HYDRALAZINE HCL 20 MG/ML VIAL IV PRN (16:44)
[2024-03-12] MEDS: carvediloL 25 MG TAB PO SCH (16:44)
[2024-03-12] MEDS: levETIRAcetam 750 MG in NA CHLORIDE 0.9% 100 ML IV SCH (19:52)
[2024-03-12] MEDS: cloNIDine HCL 0.1 MG TAB PO SCH (19:53)
[2024-03-12] MEDS: HYDRALAZINE HCL 25 MG TABLET PO SCH (19:54)
[2024-03-12] MEDS: ATORVASTATIN 80 MG TAB PO SCH (19:54)
--- NOTE | 2024-03-12 21:39 | P.CNS ---
Date of Consult: 03/12/24 Reason for Consult: ESRD Requesting Physician: NREI Del Valle Chief Complaint: Seizure History of Present Illness: 58-year-old female with past medical history of CVA, prior nontraumatic subarachnoid hemorrhage causing left hemiplegia, hydrocephalus s/p shunt, ESRD on dialysis, diabetes, hypertension, hyperlipidemia, hypothyroidism, anemia who was brought to ER with altered mental status and active seizures from halfway. Patient was found to be hypoxic and was intubated at arrival. She was started on protocol. Patient was also found to be hypertensive emergency and was admitted to ICU and was started on Cardene drip. Patient was intubated and sedated at the time of interview hence most of the history is obtained from the chart review and also talking to the ER physician. ER tried to transfer for the patient for higher level of care but could not find any bed in ICU in the ER by hospitalist and was admitted here for further management. [id number] 20:27 This 58 yrs old Female presents to ER via Unassigned with complaints of rt Seizure, Unresponsive, High Blood Pressure. 20:27 Patient presents to the ED from halfway with altered mental status. At shift rt change, it was noted that the patient was altered. Paramedics state that the oxygen saturation was 85%, correcting on nonrebreather. No further history could be obtained, unclear when the timing of onset was. Allergies No Known Allergies Allergy (Verified 02/14/24 21:01) Home medications list reviewed: Yes Home Medications: Aspirin Chewable [Aspirin Chewable*] 81 mg PO DAILY tab.chew 02/28/24 Atorvastatin Calcium [Lipitor] 80 mg PO BEDTIME tab 02/28/24 Bumetanide [Bumex*] 1 mg PO DAILY tab 02/28/24 Cinacalcet HCl [Sensipar*] 30 mg PO LUNCH tab 02/28/24 Docusate [Colace Cap*] 100 mg PO DAILY PRN cap 02/28/24 Famotidine [Pepcid*] 40 mg PO DAILY tab 02/28/24 Hydralazine [Apresoline*] 50 mg PO TID tab 02/28/24 Loperamide [Imodium*] 2 mg PO Q4H PRN cap 02/28/24 Losartan Potassium [Cozaar*] 50 mg PO BID 02/28/24 Melatonin [Melatonin*] 3 mg PO BEDTIME PRN PRN 02/28/24 Mupirocin Oint [Bactroban 2% Ointment*] 1 appl TOP BID tube 02/28/24 Nifedipine Xl [Procardia Xl*] 30 mg PO BID tab 02/28/24 carvediloL [Coreg*] 25 mg PO BID 6AM 6PM tab 02/28/24 cloNIDine HCL [Catapres*] 0.1 mg PO BID tab 03/05/24 Acetaminophen [Tylenol] 650 mg PO Q6HR PRN MDD 3G 03/12/24 Insulin Degludec [Tresiba Flextouch U-100] 10 unit SQ BEDTIME 03/12/24 Nifedipine Xl [Procardia Xl*] 60 mg PO BID 03/12/24 Ondansetron [Zofran] 4 mg PO Q4H PRN 03/12/24 Sevelamer Carbonate [Renvela*] 800 mg PO SEECOM 03/12/24 - Past Medical/Surgical History Diabetic: Yes -: Anemia -: DM II -: HTN -: Hypothyroidism -: ESRD followed by Dr. Davis/Abdi -: HLD -: Incision and drainage -: -: Perma-Cath placement Psychosocial/ Personal History: Patient lives with her family. - Family History Mother Medical History: Diabetes, Stroke, Kidney disease Father Medical History: Cancer - Social History Smoking Status: Unknown if ever smoked Alcohol use: No CD- Drugs: No Caffeine use: Yes Place of Residence: [facility] Review of Systems is unable to be obtained Physical Examination Temp Pulse Resp BP Pulse Ox 98.1 F 78 14 167/75 H 94 03/12/24 16:00 03/12/24 19:53 03/12/24 18:00 03/12/24 19:53 03/12/24 18:00 General: Delirious HEENT: Atraumatic Neck: Supple Respiratory: Clear to auscultation bilaterally Cardiovascular: No edema, Regular rate/rhythm Gastrointestinal: Soft and benign, Non-distended Musculoskeletal: No clubbing, No contractures Integumentary: No rashes, No cyanosis Neurological: Normal speech Blood work reviewed in the chart. Imagings Data: [id number] 20:27 This 58 yrs old Female presents to ER via Unassigned with complaints of rt Seizure, Unresponsive, High Blood Pressure. [id number] EXAMINATION: ONE VIEW CHEST XR CLINICAL INDICATION: Female, 58 years old.,ETT placement TECHNIQUE: Frontal chest projection is submitted. Examination is limited by patient positioning and technique. COMPARISON: 03/12/2024 at 9:16 AM FINDINGS: Endotracheal tube tip reaches the nuno, within extensive millimeter of its bifurcation. Enteric tube extends into the stomach. Segment of right chest wall ventriculoperitoneal shunt catheter is noted. The lungs are well inflated and clear apart from mild left basilar atelectasis. No pneumothorax or sizable effusion. The heart is normal in size. Mediastinal contours are unremarkable. IMPRESSION: Endotracheal tube tip almost reaching the nuno, consider retracting the tube by approximately 3 cm. [id number] EXAM: AP view(s) of the abdomen Abdomen 1 View (KUB) HISTORY: Placement of NGT/OGT. Post Insertion. COMPARISON: Yesterday FINDINGS: NG tube tip terminate overlying the lower stomach and suspected position. Endotracheal tube at the aortic arch, just above the nuno. Right-sided LINE COOK shunt. Improved aeration of the lungs bilaterally though there are still some residual consolidation and left lower lobe. IMPRESSION: 1. NG tube tip overlies lower stomach in satisfactory position. 2. Endotracheal tube just above the nuno. Could consider retracting by 1 cm. 3. Improved aeration of the lungs bilaterally though residual left lower lobe consolidations remains. Conclusions/Impression: 58 yo HF admitted to the ER from SNF for status epilepticus ESRD on HD -HD TIW HTN Urgency -Cardene gtt started in the ER and weaned off -Continue Coreg -Continue Hydralazine Acute Respiratory Failure sp intubation -Continue ventilatory support Anemia in CKD Thrombocytopenia -Retacrit prn CKD MBD Secondary HyperParathyroidism -Continue Sensipar -Continue Renvela Hospitalist and ER notes reviewed Thank you kindly for the consultation
--- NOTE | 2024-03-13 03:09 | CON ---
Reason For Consultation: Consultation called because of multiple seizures. History Of Present Illness: Ms. Priest is a 58-year-old patient with a history of stroke, nontraum atic subdural hematoma with significant left hemiparesis, hydrocephalus status post shunt placement, end-stage renal disease on hemodialysis, diabetes, hypertension, dyslipidemia, hypothyroidism, anemia , who was recently in rehabilitation and was discharged to alf when she on earlier today was found to have ongoing seizures. She was brought to the [facility], was hypoxic and unab le to protect airway. She was intubated and received propofol and required management of hypertensiv e emergency. She had a Cardene drip placed and load of Keppra 1 g and continued 500 b.i.d., now 750 twice daily. Keppra level pending. CT scan of the head showed no acute ischemic or hemorrhagic find ings. This study showed no intracerebral hemorrhage or new large vascular territory identified. The re were patchy areas of white matter hypoattenuation bilaterally similar to a study from 03/01/2024, which reflected prior infarcts. Also, the ventriculostomy catheter was placed and was seen where lyndsay t was and again chronic small vessel ischemic disease. Her blood work did not show an elevated white blood cell count, normal white blood cell, hemoglobin stable around 11.3, platelets 147. INR 1.2. Blood gases did show pH 7.37, pCO2 slightly elevated at 47, pO2 of 89.4. Sodium was 140, potassium 3 .9, chloride 103, carbon dioxide 28. She is a renal patient. BUN of 58, creatinine 6.36. Glucose r hong of 103 to 123. Calcium 9.8, total bilirubin 0.5, AST 32, ALT 46, alkaline phosphatase is 78, to thomas serum protein 7.6, albumin 3.4, and Keppra level is pending. Since the patient was in ICU, she was intubated, sedated, and had propofol. Unable to do a meaningfu l examination. Her blood pressures were in the normotensive range. She was afebrile. She did not h ave any evidence of hypertonia . Past Medical History: As noted. Allergies: NO KNOWN DRUG ALLERGIES. Current Medications: Suppository Tylenol 650 every 6 hours as needed, Lipitor 80 mg at night, aspiri n 81 mg daily, Sensipar 30 mg daily, Coreg 25 mg twice daily, Bumex 1 mg daily, clonidine 0.1 mg twic e daily scheduled, Colace 100 mg daily, sublimaze 25 mcg every 4 hours as needed, Apresoline 50 mg 3 times daily, Keppra 750 mg twice daily, Ativan 2 mg every 2 hours as needed, Versed 2 mg IV push and she did have that for sedation. She received a Cardene drip, Zofran as well and Renvela and of cours e the propofol. Family History: Noncontributory. Review of Systems: Not possible. The patient is sedated on propofol and intubated. Physical Examination: Vital Signs: Blood pressure 150/71, pulse 75, respiratory rate of 14, temperature 98.1, oxygen satur ation 97%. General: Ms. Priest is in ICU, intubated, sedated on the propofol. HEENT: No symmetrically had conjugate. Extremities: Tone is normal in upper and lower extremities. Assessment And Plan: Ms. Priest is a 58-year-old patient with multiple medical problems including significant chronic stroke with hemiparesis, hydrocephalus, end-stage renal disease on hemodialysis, who has had [id number] multiple seizures. Her Keppra level is pending. Her Keppra dose was increa sed after she received 1 g load. She is now receiving 750 mg twice daily. She does of coarse have h er airway protected, as she is intubated and sedated. In the hospital, no mail carrier technician available and EEG will be very helpful to determine if there are ongoing seizure-like discharges. However, while on p ropofol, the EEG may normalize and she would have to be off sedation after a true reading what is hap pening with cortical activity. Otherwise, the patient may be off sedation when the senior mechanical estimator and respiratory therapist determine she is able to protect the airway and can be further assessed off de ep sedation. In the meantime, continue Keppra 750 mg twice daily and aggressive management of her comorbid conditions including her hemodial ysis schedule as per Renal team. LB/MODL Voice ID: [id number] Report ID: [id number]
[2024-03-13 06:06] LABS: Anion Gap 17.1 mEq/L (5.0-15.0); Potassium 4.1 mEq/L (3.5-5.1)
--- NOTE | 2024-03-13 08:02 | P.CNS ---
Date of Consult: 03/12/24 Reason for Consult: Respiratory failure patient on a ventilator Chief Complaint: Seizure History of Present Illness: Patient is 58 years of age with a past history of stroke hemiplegia hydrocephalus end-stage renal disease multiple other medical problems was a dmitted for to the emergency room actively seizing hypoxic intubated also has hypertension started on Cardene drip was transferred to the ICU elevated her on 129 patient was stable no seizure activity noted propofol Allergies No Known Allergies Allergy (Verified 02/14/24 21:01) Home Medications: Aspirin Chewable [Aspirin Chewable*] 81 mg PO DAILY tab.chew 02/28/24 Atorvastatin Calcium [Lipitor] 80 mg PO BEDTIME tab 02/28/24 Bumetanide [Bumex*] 1 mg PO DAILY tab 02/28/24 Cinacalcet HCl [Sensipar*] 30 mg PO LUNCH tab 02/28/24 Docusate [Colace Cap*] 100 mg PO DAILY PRN cap 02/28/24 Famotidine [Pepcid*] 40 mg PO DAILY tab 02/28/24 Hydralazine [Apresoline*] 50 mg PO TID tab 02/28/24 Loperamide [Imodium*] 2 mg PO Q4H PRN cap 02/28/24 Losartan Potassium [Cozaar*] 50 mg PO BID 02/28/24 Melatonin [Melatonin*] 3 mg PO BEDTIME PRN PRN 02/28/24 Mupirocin Oint [Bactroban 2% Ointment*] 1 appl TOP BID tube 02/28/24 Nifedipine Xl [Procardia Xl*] 30 mg PO BID tab 02/28/24 carvediloL [Coreg*] 25 mg PO BID 6AM 6PM tab 02/28/24 cloNIDine HCL [Catapres*] 0.1 mg PO BID tab 03/05/24 Acetaminophen [Tylenol] 650 mg PO Q6HR PRN MDD 3G 03/12/24 Insulin Degludec [Tresiba Flextouch U-100] 10 unit SQ BEDTIME 03/12/24 Nifedipine Xl [Procardia Xl*] 60 mg PO BID 03/12/24 Ondansetron [Zofran] 4 mg PO Q4H PRN 03/12/24 Sevelamer Carbonate [Renvela*] 800 mg PO SEECOM 03/12/24 - Past Medical/Surgical History Diabetic: Yes -: Anemia -: DM II -: HTN -: Hypothyroidism -: ESRD followed by Dr. Davis/Abdi -: HLD -: Incision and drainage -: -: Perma-Cath placement Psychosocial/ Personal History: Patient lives with her family. - Family History Mother Medical History: Diabetes, Stroke, Kidney disease Father Medical History: Cancer - Social History Smoking Status: Unknown if ever smoked Alcohol use: No CD- Drugs: No Caffeine use: Yes Place of Residence: [facility] Review of Systems is unable to be obtained Physical Examination Temp Pulse Resp BP Pulse Ox 98.6 F 74 14 170/63 H 98 03/13/24 04:00 03/13/24 06:19 03/13/24 06:00 03/13/24 06:19 03/13/24 06:00 General: Unresponsive Respiratory: Clear to auscultation bilaterally Cardiovascular: No edema, Normal S1 S2 Gastrointestinal: Normal bowel sounds, Soft and benign - Problems (1) Respiratory failure Current Visit: Yes Status: Acute Plan: Patient is 58 years of age admitted with seizures respiratory failure currently intubated labs reviewed white count normal patient is in chronic renal failure patient's chest x-ray is clear did develop right upper lobe atelectasis due to endotracheal tube positioning which has not been corrected CT scan of the head No acute intracranial hemorrhage or new large vascular territory infarct identified. Patchy areas of white matter hypoattenuation bilaterally which is similar to 03/01/2024 and may reflect areas of prior infarct, prior ventriculostomy catheter placement, and/or chronic small vessel ischemic changes Continue with Keppra wean off the ventilator as soon as possible Qualifiers: Chronicity: unspecified
--- NOTE | 2024-03-13 08:05 | RAD REPORT ---
EXAMINATION: ONE VIEW CHEST XR CLINICAL INDICATION: Female, 58 years old.,ETT placement TECHNIQUE: Frontal chest projection is submitted. Examination is limited by patient positioning and t echnique. COMPARISON: 03/12/2024 FINDINGS: Endotracheal tube has been repositioned, tip now present 3.2 cm above the nuno. Enteric tube and se gment of COLLECTION TELLER shunt in place. The lungs are well inflated and clear, with stable chronic interstitial changes. No pneumothorax or sizable effusion. The heart is normal in size. Mediastinal contours are unremarkable. IMPRESSION: Satisfactory endotracheal tube positioning. No acute intrathoracic abnormalities.
[2024-03-13] MEDS: ASPIRIN 81 MG CHEWABLE TABLET PO SCH (09:01)
[2024-03-13] MEDS: LOSARTAN POTASSIUM 50 MG TABLET PO SCH (09:02)
[2024-03-13] MEDS: NIFEDIPINE XL 30 MG TABLET PO SCH (09:02)
[2024-03-13] MEDS: BUMETANIDE 1 MG TABLET PO SCH (09:02)
[2024-03-13] MEDS: CINACALCET HCL 30 MG TAB PO SCH (11:37)
--- NOTE | 2024-03-13 12:16 | P.PN ---
Subjective Date of Service: 03/13/24 Chief Complaint: Seizure Subjective: Improving Patient still sedated, intubated on mechanical ventilator but no clinical seizure activity over the past 24-hour on IV Keppra, bedside EEG is not available at this facility, her blood pressure is elevated but reasonably controlled with her home medication, clonidine, carvedilol, hydralazine, patient required IV hydralazine for elevated blood pressure off nicardipine infusion. Review of Systems is unable to be obtained Physical Examination - Vital Signs Temperature: 98.1 F Blood Pressure: 101/55 Pulse: 73 Respirations: 14 Pulse Ox (%): 98 - Physical Exam Other Physical/Emotional Findings: - Physical Exam. General: Sedated, intubated not acutely ill looking, in no apparent distress,. HEENT: Endotracheal tube and nasogastric tube in place. Neck: Supple, without JVD or goiter or thyroid mass. Respiratory: Normal breathing effort, clear to auscultation bilaterally, no crackles no wheezing or rhonchi. Cardiovascular: Regular rate and rhythm, S1, S2 normal, no murmur no gallop. Gastrointestinal: Normal bowel sounds, nondistended, nontender, No ascites, , No masses, no hepatosplenomegaly. Extremities : No clubbing, No peripheral edema,. Integumentary: No rashes, petechia, suspected lesions. Lymphatics: No axilla or cervical lymphadenopathy. Neurology; sedated Assessment And Plan - Plan This is a 58 years old female snf resident who has a multiple comorbidity including ESRD on hemodialysis, debilitating subarachnoid hemorrhage status ventriculoperitoneal stent, refractory hypertension who was sent from her snf to emergency room for status epilepticus, patient found to have respiratory failure at ED and intubated and put on mechanical ventilator, started on nicardipine infusion for hypertensive urgency and admitted in MICU. #1 status epilepticus in underlying debilitating subarachnoid hemorrhage status post ventriculoperitoneal shunt Resolved, clinically no more seizure, nonconvulsive seizures cannot be excluded because no bedside EEG is available at this facility, neurology on board, continue on IV Keppra, serum Keppra level pending, the cause of seizure is unclear, no definite metabolic abnormality, no infection 2. ESRD on hemodialysis Euvolemia, normokalemia, BUN/creatinine 48/5, bicarb 25, no urgent hemodialysis indicated, will resume her scheduled dialysis 3. Hypertensive urgency in underlying refractory hypertension Blood pressure improved, currently off Cardizem, will resume losartan and nifedipine in addition to hydralazine, carvedilol, clonidine through NG tube #4 acute respiratory failure related #1 Currently intubated on mechanical ventilator, pulmonology on board, ABG reviewed, follow-up chest x-ray reviewed, endotracheal tube is in good place, iatrogenic atelectasis resolved, planning on spontaneous breathing trial and extubation today DVT prophylaxis; contraindication to chemoprophylaxis, sequential compression device Stress ulcer prophylaxis; IV pantoprazole
--- NOTE | 2024-03-13 20:20 | P.PN ---
Date of Service: 03/13/24 Vital Signs Temp Pulse Resp BP Pulse Ox 97.8 F 79 14 149/64 H 100 03/13/24 16:00 03/13/24 19:00 03/13/24 19:00 03/13/24 19:00 03/13/24 19:00 Medications Acetaminophen (Acetaminophen 650mg/Rect Supp) 650 mg [place] Q6HP PRN PRN Reason: TEMP > 100' F Acetaminophen (Acetaminophen 325 Mg Tablet) 650 mg PO Q6HR PRN PRN Reason: Temp >100 Aspirin (Aspirin 81 Mg Chewable Tablet) 81 mg PO DAILY [facility] Last Admin: 03/13/24 09:01 Dose: 81 mg Atorvastatin Calcium (Atorvastatin 80 Mg Tab) 80 mg PO BEDTIME [facility] Last Admin: 03/12/24 19:54 Dose: 80 mg Bumetanide (Bumetanide 1 Mg Tablet) 1 mg PO DAILY [facility] Last Admin: 03/13/24 09:02 Dose: 1 mg Carvedilol (Carvedilol 25 Mg Tab) 25 mg PO BID 6AM 6PM [facility] Last Admin: 03/13/24 17:11 Dose: 25 mg Cinacalcet (Cinacalcet Hcl 30 Mg Tab) 30 mg PO LUNCH [facility] Last Admin: 03/13/24 11:37 Dose: Not Given Clonidine HCl (Clonidine Hcl 0.1 Mg Tab) 0.1 mg PO BID [facility] Last Admin: 03/13/24 09:01 Dose: 0.1 mg Docusate Sodium (Docusate Na 100 Mg Cap) 100 mg PO DAILY PRN PRN Reason: CONSTIPATION Fentanyl Citrate (Fentanyl Citr 100 Mcg/2 Ml) 25 mcg IV Q4HP PRN PRN Reason: Pain scale 8-10 (Severe) Last Admin: 03/13/24 09:55 Dose: 25 mcg Hydralazine HCl (Hydralazine Hcl 25 Mg Tablet) 50 mg PO TID [facility] Last Admin: 03/13/24 14:36 Dose: 50 mg Hydralazine HCl (Hydralazine Hcl 20 Mg/Ml Vial) 10 mg IV Q6HP PRN PRN Reason: FOR SBP>160 OR DBP>100 [facility] Last Admin: 03/13/24 06:20 Dose: 10 mg Nicardipine/Sodium Chloride (Cardene Kit 25 Mg/250 Ml Ns) 25 mg in 250 mls @ 50 mls/hr IV TITR [facility]; Protocol Last Admin: 03/12/24 08:51 Dose: 2.5 mg/hr, 25 mls/hr Propofol (Diprivan) 1,000 mg in 100 mls @ 1.719 mls/hr IV TITR [facility]; Protocol Last Titration: 03/13/24 09:30 Dose: 0 mcg/kg/min, 0 mls/hr Levetiracetam 750 mg/ Sodium (Chloride) 107.5 mls @ 430 mls/hr IV BID [facility] Last Admin: 03/13/24 09:01 Dose: 107.5 mls Lorazepam (Lorazepam 2 Mg/Ml Vial) 2 mg IV Q2HP PRN PRN Reason: Sedation-Propofol not effect Last Admin: 03/13/24 17:10 Dose: 2 mg Losartan Potassium (Losartan Potassium 50 Mg Tablet) 50 mg PO BID [facility] Last Admin: 03/13/24 09:02 Dose: 50 mg Midazolam HCl (Midazolam Hcl 2 Mg/2 Ml Inj) 2 mg IV Q2HP PRN PRN Reason: Sedation-Propofol not effect Nifedipine (Nifedipine Xl 30 Mg Tablet) 30 mg PO BID [facility] Last Admin: 03/13/24 09:02 Dose: 30 mg Ondansetron HCl (Ondansetron 4 Mg/2 Ml Vial) 4 mg IV Q6HP PRN PRN Reason: NAUSEA / VOMITING Pantoprazole Sodium (Pantoprazole 40 Mg Inj) 40 mg IVP Q12HR [facility]; Protocol Last Admin: 03/13/24 09:01 Dose: 40 mg Sevelamer Carbonate (Sevelamer Carbonate 800 Mg Tablet) 800 mg PO TIDWM [facility] Last Admin: 03/13/24 15:33 Dose: Not Given Sodium Chloride (Sodium Chloride 0.9% 10ml Inj) 10 ml IV UD PRN PRN Reason: Diluant Assessment/ Plan: Nephrology Limited IH/ ROS due to intubation Hypotension this morning Vitals, medications, blood work and imaging reviewed in the chart General: Delirious HEENT: Atraumatic Neck: Supple Respiratory: Clear to auscultation bilaterally; intubated Cardiovascular: No edema, Regular rate/rhythm Gastrointestinal: Soft and benign, Non-distended Musculoskeletal: No clubbing, No contractures Integumentary: No rashes, No cyanosis Neurological: Normal speech Blood work reviewed in the chart. Imagings Data: 20:27 This 58 yrs old Female presents to ER via Unassigned with complaints of rt Seizure, Unresponsive, High Blood Pressure. [id number] EXAMINATION: ONE VIEW CHEST XR CLINICAL INDICATION: Female, 58 years old.,ETT placement TECHNIQUE: Frontal chest projection is submitted. Examination is limited by patient positioning and technique. COMPARISON: 03/12/2024 at 9:16 AM FINDINGS: Endotracheal tube tip reaches the nuno, within extensive millimeter of its bifurcation. Enteric tube extends into the stomach. Segment of right chest wall ventriculoperitoneal shunt catheter is noted. The lungs are well inflated and clear apart from mild left basilar atelectasis. No pneumothorax or sizable effusion. The heart is normal in size. Mediastinal contours are unremarkable. IMPRESSION: Endotracheal tube tip almost reaching the nuno, consider retracting the tube by approximately 3 cm. EXAM: AP view(s) of the abdomen Abdomen 1 View (KUB) HISTORY: Placement of NGT/OGT. Post Insertion. COMPARISON: Yesterday FINDINGS: NG tube tip terminate overlying the lower stomach and suspected position. Endotracheal tube at the aortic arch, just above the nuno. Right-sided BRAKES INSPECTOR shunt. Improved aeration of the lungs bilaterally though there are still some residual consolidation and left lower lobe. IMPRESSION: 1. NG tube tip overlies lower stomach in satisfactory position. 2. Endotracheal tube just above the nuno. Could consider retracting by 1 cm. 3. Improved aeration of the lungs bilaterally though residual left lower lobe consolidations remains. EXAMINATION: ONE VIEW CHEST XR CLINICAL INDICATION: Female, 58 years old.,ETT placement TECHNIQUE: Frontal chest projection is submitted. Examination is limited by patient positioning and technique. COMPARISON: 03/12/2024 FINDINGS: Endotracheal tube has been repositioned, tip now present 3.2 cm above the nuno. Enteric tube and segment of BRAKES INSPECTOR shunt in place. The lungs are well inflated and clear, with stable chronic interstitial changes. No pneumothorax or sizable effusion. The heart is normal in size. Mediastinal contours are unremarkable. IMPRESSION: Satisfactory endotracheal tube positioning. No acute intrathoracic abnormalities. Conclusions/Impression: 58 yo HF admitted to the ER from SNF for status epilepticus ESRD on HD -HD TIW HTN Urgency -Cardene gtt prn -Continue Coreg -Continue Hydralazine -Continue Nifedipine ER Acute Respiratory Failure sp intubation -Continue ventilatory support; wean as tolerated Anemia in CKD Thrombocytopenia -Retacrit prn CKD MBD Secondary HyperParathyroidism -Continue Sensipar -Continue Lj Hospitalist note reviewed 40min patient care
[2024-03-13] MEDS ORDERED: MANNITOL 25% 12.5 GM/50 ML VIAL IV PRN (20:26)
[2024-03-13] MEDS ORDERED: NA CHLORIDE 0.9% 1,000 ML IV PRN (20:26)
[2024-03-13] MEDS ORDERED: EPOETIN ALFA 10,000 UNIT/ML VIAL IV SCH (20:30)
[2024-03-13] MEDS ORDERED: ALBUMIN HUMAN 25% 50 ML IV SCH (21:00)
[2024-03-13] MEDS: LABETALOL 20 MG/4ML SYRINGE IV ONE (23:22)
[2024-03-14 06:04] LABS: Absolute Basophils 0.1 K/uL (0-0.5); Absolute Eosinophils 0.1 K/uL (0-0.5); Absolute Lymphocytes (CBC) 0.9 K/uL (0.7-4.9); Absolute Monocytes 0.6 K/uL (0.1-1.3); Absolute Neutrophil 5.7 K/uL (1.8-8.0); Basophils % 0.7 % (0-1.3); Hemoglobin 10.8 g/dL (12.0-15.0); Lymphocytes % 12.3 % (15.3-44.8); MCH 32.2 pg (27.0-35.0); MCHC 33.9 g/dL (32.0-36.0); MPV 8.5 fL (7.6-11.3); Monocytes % 8.1 % (3.3-12.3); Neutrophils % 76.9 % (41.7-73.7); Platelets 128 thou/uL (152-406); RBC Red Blood Cell Count 3.37 M/uL (3.86-4.86)
[2024-03-14 06:24] LABS: Anion Gap 20.1 mEq/L (5.0-15.0); Potassium 4.1 mEq/L (3.5-5.1)
[2024-03-14] MEDS ORDERED: EPOETIN ALFA 10,000 UNIT/ML VIAL IV SCH (09:45)
--- NOTE | 2024-03-14 10:34 | P.PN ---
Nephrology note (S) Pt remains intubated, on sedation, pt seen at the start of HD, remains hypertensive. (O) vitals reviewed in the EMR General: Intubated, sedated HEENT: Atraumatic, Normocephalic, ET/OT Neck: Supple Respiratory: b/l vent BS, no rhonchi anteriorly Cardiovascular: Regular rate/rhythm, Other (valve click) Gastrointestinal: Soft and benign, Non-distended Musculoskeletal: No swelling, No contractures, No tenderness, Other (Lt UE AVF with thrill and bruit) Integumentary: No rashes Neurological: Sedated so exam deferred, no tonic clonic movements observed Laboratory Data (last 24 hrs) Reviewed in the EMR Conclusions/Impression: A/P) 1. ESRD 2nd to chronic DM/HTN, HD today for metab clearance and UF as tolerated. HD orders adjusted, see orders for details. 2. Chronic malignant HTN with CKD. Hypertensive urgency on admission. PRES could be on the ddx for pt's presentation with seizures and may not be seen early on CT. F/u post HD BP, pt has long been on multiple agents 3. Hydrocephalus -s/p BONE CHAR KILN OPERATOR shunt with complication, management per Neurology. Unclear etiology and results of any prior vasculitis, other w/u. Neuroimaging repeated on admission. Seizures, unspecified. AED management per Neuro 4. Recent sub-acute CVA of multiple territories, ischemic +/- cerebral vasospasm with mention of some hemorrhagic component/conversion a few mo ago. Management per Neurology, monitor BP closely, secondary prevention. Defer anti platelet therapy/other management to them. 5. Anemia 2nd to CKD, inflammation, Hb has cyclically dropped every few mo for unclear reasons, currently > 10 and with HTN, would hold any BRYANNA agents Jeremy Davis MD, [employer]
--- NOTE | 2024-03-14 11:15 | P.PN ---
Subjective Date of Service: 03/14/24 Chief Complaint: Seizure Subjective: No new changes Patient still sedated, intubated on mechanical ventilator but no clinical seizure activity over the past 24-hour on IV Keppra, bedside EEG is not available at this facility, her blood pressure was elevated and started on nicardipine infusion last night, this morning but reasonably controlled with her home medication, clonidine, carvedilol, hydralazine, nifedipine XL with IV hydralazine as needed Review of Systems is unable to be obtained Physical Examination - Vital Signs Temperature: 97.6 F Blood Pressure: 169/69 Pulse: 79 Respirations: 14 Pulse Ox (%): 100 - Physical Exam Other Physical/Emotional Findings: - Physical Exam. General: Sedated, intubated not acutely ill looking, in no apparent distress,. HEENT: Endotracheal tube and nasogastric tube in place. Neck: Supple, without JVD or goiter or thyroid mass. Respiratory: Normal breathing effort, clear to auscultation bilaterally, no crackles no wheezing or rhonchi. Cardiovascular: Regular rate and rhythm, S1, S2 normal, no murmur no gallop. Gastrointestinal: Normal bowel sounds, nondistended, nontender, No ascites, , No masses, no hepatosplenomegaly. Extremities : No clubbing, No peripheral edema, AV fistula in the left upper arm. Integumentary: No rashes, petechia, suspected lesions. Lymphatics: No axilla or cervical lymphadenopathy. Neurology; sedated Assessment And Plan - Plan This is a 58 years old female long term resident who has a multiple comorbidity including ESRD on hemodialysis, debilitating subarachnoid hemorrhage status ventriculoperitoneal stent, refractory hypertension who was sent from her long term to emergency room for status epilepticus, patient found to have respiratory failure at ED and intubated and put on mechanical ventilator, started on nicardipine infusion for hypertensive urgency and admitted in MICU. #1 status epilepticus in underlying debilitating subarachnoid hemorrhage status post ventriculoperitoneal shunt Resolved, clinically no more seizure, nonconvulsive seizures cannot be excluded because no bedside EEG is available at this facility, neurology on board, continue on IV Keppra, serum Keppra level pending, the cause of seizure is unclear, no definite metabolic abnormality, no infection 2. ESRD on hemodialysis Euvolemia, normokalemia, but refractory hypertension, scheduled for hemodialysis today 3. Hypertensive urgency in underlying refractory hypertension Blood pressure not well-controlled, currently off Cardizem, losartan, nifedipine, hydralazine, carvedilol, clonidine through NG tube with IV hydralazine as needed #4 acute respiratory failure related #1 Currently intubated on mechanical ventilator, pulmonology on board, ABG reviewed, follow-up chest x-ray reviewed, endotracheal tube is in good place, iatrogenic atelectasis resolved, planning on spontaneous breathing trial and extubation today after hemodialysis DVT prophylaxis; contraindication to chemoprophylaxis, sequential compression device Stress ulcer prophylaxis; IV pantoprazole
--- NOTE | 2024-03-14 16:05 | P.PN ---
Subjective Date of Service: 03/14/24 Chief Complaint: Patient on a ventilator Subjective: Improving (Improving doing well obeying commands tolerated spontaneous breathing trial and was extubated today) Review of Systems is unable to be obtained Physical Examination - Vital Signs Temperature: 98.6 F Blood Pressure: 152/69 Pulse: 82 Respirations: 15 Pulse Ox (%): 100 - Physical Exam General: Alert, Cooperative Respiratory: Clear to auscultation bilaterally Cardiovascular: No edema, Regular rate/rhythm, Normal S1 S2 Other Physical/Emotional Findings: - Physical Exam. General: Sedated, intubated not acutely ill looking, in no apparent distress,. HEENT: Endotracheal tube and nasogastric tube in place. Neck: Supple, without JVD or goiter or thyroid mass. Respiratory: Normal breathing effort, clear to auscultation bilaterally, no crackles no wheezing or rhonchi. Cardiovascular: Regular rate and rhythm, S1, S2 normal, no murmur no gallop. Gastrointestinal: Normal bowel sounds, nondistended, nontender, No ascites, , No masses, no hepatosplenomegaly. Extremities : No clubbing, No peripheral edema, AV fistula in the left upper arm. Integumentary: No rashes, petechia, suspected lesions. Lymphatics: No axilla or cervical lymphadenopathy. Neurology; sedated Assessment And Plan - Current Problems (Diagnosis) (1) Respiratory failure Current Visit: Yes Status: Acute Plan: Patient developed respiratory failure and new onset of seizures is now on Keppra tolerated spontaneous breathing trial has been extubated successfully patient has chronic renal failure anemia of chronic disease urine culture shows E. coli right upper lobe atelectasis has resolved sputum culture shows 4+ coagulase positive staph start patient on Rocephin Qualifiers: Chronicity: unspecified
[2024-03-14] MEDS: CEFTRIAXONE 1,000 MG in NA CHLORIDE 0.9% 50 ML IVPB SCH (16:26)
[2024-03-14] MEDS: EPINEPHRINE INH 0.5 ML VIAL IH STA (16:34)
[2024-03-14] MEDS: LABETALOL 20 MG/4ML SYRINGE IV ONE (19:30)
[2024-03-14] MEDS: ALBUTEROL 2.5 MG/3 ML NEB SOL NEB PRN (19:50)
[2024-03-15 06:01] LABS: Absolute Basophils 0.1 K/uL (0-0.5); Absolute Eosinophils 0.2 K/uL (0-0.5); Absolute Lymphocytes (CBC) 1.3 K/uL (0.7-4.9); Absolute Monocytes 0.8 K/uL (0.1-1.3); Absolute Neutrophil 4.4 K/uL (1.8-8.0); Basophils % 0.9 % (0-1.3); Eosinophils % 3.2 % (0-4.4); Hemoglobin 11.1 g/dL (12.0-15.0); Lymphocytes % 19.8 % (15.3-44.8); MCH 32.4 pg (27.0-35.0); MCHC 33.7 g/dL (32.0-36.0); MCV 96.1 fL (80-100); MPV 8.1 fL (7.6-11.3); Monocytes % 11.7 % (3.3-12.3); Neutrophils % 64.4 % (41.7-73.7); Nucleated Red Blood Cells % 0.1 % (0-0); Platelets 149 thou/uL (152-406); RBC Red Blood Cell Count 3.43 M/uL (3.86-4.86); Red Cell Distribution Width 16.9 % (12.1-15.2)
[2024-03-15 06:27] LABS: Anion Gap 16.3 mEq/L (5.0-15.0); Potassium 4.3 mEq/L (3.5-5.1)
[2024-03-15] MEDS: NA CHLORIDE 0.9% 0 ML ONE (08:25)
--- NOTE | 2024-03-15 12:23 | P.PN ---
Subjective Date of Service: 03/15/24 Chief Complaint: Patient on a ventilator Subjective: Improving She was successfully extubated yesterday after hemodialysis, no more seizure, she has no complaint except productive cough and sore throat after extubation. Review of Systems Other: Consitutional; fever(-), chills (-), rigor(-), night sweat(-), unintentional weight loss(-), malaise (-) HEENT; diplopia (-), rhinorrhea (-), epistaxis (-), otorrhea (-), otalgia (-), sore throat (+) Respiratory; shortness of breath (-), wheezing (-), cough (+), sputum (+), pleuritic chest pain (-) Cardiovascular; chest pain (-), peripheral edema (-), paroxysmal nocturnal dyspnea (-), orthopnea (-) Gastrointestinal; nausea (-), vomiting (-), abdominal pain (-), diarrhea (-), constipation (-), melena (-), hematochezia (-) Genitourinary; urinary frequency (-), dysuria (-), urgency (-), flank pain (-), gross hematuria (-), incontinence (-) Skin; rash (-), 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 General: acutely ill looking, in no apparent distress,. HEENT: Endotracheal tube and nasogastric tube in place. Neck: Supple, without JVD or goiter or thyroid mass. Respiratory: Normal breathing effort, clear to auscultation bilaterally, no crackles no wheezing or rhonchi. Cardiovascular: Regular rate and rhythm, S1, S2 normal, no murmur no gallop. Gastrointestinal: Normal bowel sounds, nondis tended, nontender, No ascites, , No masses, no hepatosplenomegaly. Extremities : No clubbing, No peripheral edema, AV fistula in the left upper arm. Integumentary: No rashes, petechia, suspected lesions. Lymphatics: No axilla or cervical lymphadenopathy. Neurology; sedated Assessment And Plan - Plan This is a 58 years old female [facility] resident who has a multiple comorbidity including ESRD on hemodialysis, debilitating subarachnoid hemorrhage status ventriculoperitoneal stent, refractory hypertension who was sent from her [facility] to emergency room for status epilepticus, patient found to have respiratory failure at ED and intubated and put on mechanical ventilator, started on nicardipine infusion for hypertensive urgency and admitted in MICU. #1 status epilepticus in underlying debilitating subarachnoid hemorrhage status post ventriculoperitoneal shunt Resolved, clinically no more seizure, nonconvulsive seizures cannot be excluded because no bedside EEG is available at this facility, neurology on board, Keppra level is mildly elevated, I will change IV Keppra to oral, recheck Keppra level tomorrow, the cause of seizure is unclear, no definite metabolic abnormality, no infection 2. ESRD on hemodialysis Euvolemia, normokalemia, continue inpatient hemodialysis as scheduled 3. Hypertensive urgency in underlying refractory hypertension Blood pressure is improving after hemodialysis currently off Cardizem, keep on losartan, nifedipine, hydralazine, carvedilol, clonidine with IV hydralazine as needed #4 acute respiratory failure related #1 Resolved, intubated on March 12, successfully extubated on March 14 #5 acute bronchitis with MRSA, Sputum culture reviewed, I will start her on doxycycline and discontinue ceftriaxone #6 transient iatrogenic collapse right upper lobe and left upper lobe during intubation Resolved DVT prophylaxis; contraindication to chemoprophylaxis, sequential compression device Stress ulcer prophylaxis; not indicated anymore, I would stopped IV pantoprazole Disposition; plan to downgrade 1 or 2 days
--- NOTE | 2024-03-15 14:58 | P.PN ---
Nephrology note (S) Pt extubated, pt awake, alert, BP remains accelerated, took her meds this AM, not currently on any drips. Denies BARKER (O) vitals reviewed in the EMR General: Extubated, NAD HEENT: Atraumatic, Normocephalic, ET/OT removed Neck: Supple Respiratory: b/l vent BS, no rhonchi anteriorly Cardiovascular: Regular rate/rhythm, Other (valve click) Gastrointestinal: Soft and benign, Non-distended Musculoskeletal: No swelling, No contractures, No tenderness, Other (Lt UE AVF with thrill and bruit) Integumentary: No rashes Neurological: Awake, alert, responds briefly, left sided weakness, LE > UE Laboratory Data (last 24 hrs) Reviewed in the EMR Conclusions/Impression: A/P) 1. ESRD 2nd to chronic DM/HTN, HD performed yesterday for metab clearance and UF as tolerated. No urgent indication to repeat today 2. Chronic malignant HTN with CKD. Hypertensive urgency on admission. PRES could be on the ddx for pt's presentation with seizures and may not be seen early on CT. BP remains accelerated, back up off HD. Will titrate Clonidine to TID dosing and will resume Nifedipine from hold and increase to 60 mg q12h. Holding parameters placed 3. Hydrocephalus -s/p INVESTOR RELATIONS ASSOCIATE shunt with complication, management per Neurology. Unclear etiology and results of any prior vasculitis, other w/u. Neuroimaging repeated on admission. Seizures, unspecified. AED management per Neuro 4. Recent sub-acute CVA of multiple territories, ischemic +/- cerebral vasospasm with mention of some hemorrhagic component/conversion a few mo ago. Management per Neurology, monitor BP closely, secondary prevention. Defer anti platelet therapy/other management to them. 5. Anemia 2nd to CKD, inflammation, Hb has cyclically dropped every few mo for unclear reasons, currently > 10 and with HTN, would hold any BRYANNA agents Jeremy Davis MD, [employer]
[2024-03-15] MEDS: cloNIDine HCL 0.1 MG TAB PO SCH (15:10)
[2024-03-15 15:40] LABS: CDIFF INTERNAL NEG CONTROL White Background (WHITE BKGD); STOOL CONSISTENCY Liquid/Semi-Solid
[2024-03-15 15:41] LABS: C.diff Antigen/Toxin Ag pos : Tox neg (NEG : NEG)
[2024-03-15] MEDS: NIFEDIPINE XL 30 MG TABLET PO ONE (18:14)
[2024-03-15] MEDS: NIFEDIPINE XL 60 MG TABLET PO ONE (18:16)
[2024-03-15] MEDS: NIFEDIPINE XL 60 MG TABLET PO SCH (18:27)
[2024-03-15] MEDS: levETIRAcetam 500 MG TAB PO SCH (19:19)
[2024-03-15] MEDS: DOXYCYCLINE 100 MG CAP PO SCH (19:19)
[2024-03-15] MEDS ORDERED: NIFEDIPINE XL 30 MG TABLET PO SCH (21:00)
[2024-03-16] MEDS: BENZONATATE 100 MG CAP PO PRN (00:09)
[2024-03-16] MEDS: GUAIFENESIN 600 MG SA TAB PO SCH (00:09)
[2024-03-16] MEDS: ACETAMINOPHEN 325 MG TABLET PO PRN (04:43)
[2024-03-16 05:46] LABS: Absolute Neutrophil 3.7 K/uL (1.8-8.0); Basophils % 0.7 % (0-1.3); Hematocrit 31.6 % (36.0-45.0); Hemoglobin 10.6 g/dL (12.0-15.0); MCH 31.9 pg (27.0-35.0); MCHC 33.7 g/dL (32.0-36.0); MCV 94.8 fL (80-100); MPV 8.3 fL (7.6-11.3); Monocytes % 11.5 % (3.3-12.3); Neutrophils % 57.8 % (41.7-73.7); Platelets 153 thou/uL (152-406); RBC Red Blood Cell Count 3.33 M/uL (3.86-4.86); Red Cell Distribution Width 16.6 % (12.1-15.2)
[2024-03-16 05:47] LABS: Absolute Eosinophils 0.4 K/uL (0-0.5); Absolute Lymphocytes (CBC) 1.5 K/uL (0.7-4.9); Absolute Monocytes 0.7 K/uL (0.1-1.3)
[2024-03-16 06:11] LABS: Anion Gap 15.3 mEq/L (5.0-15.0); Magnesium 2.5 mg/dL (1.6-2.4); Phosphorus 6.5 mg/dL (2.5-4.9); Potassium 4.3 mEq/L (3.5-5.1)
[2024-03-16] MEDS: VANCOMYCIN HCL 125 MG CAPSULE PO SCH (09:08)
[2024-03-16 09:24] LABS: Blood Morphology Comment NOT SEEN (NOT SEEN); Differential Total Cells Count 100; Eosinophils 4 % (0-3); Lymphocytes 22 % (15-42); Monocytes 8 % (0-10); Myelocytes 3 % (0-0); Platelet Estimate ADEQ; Segmented Neutrophils 62 % (40-80)
--- NOTE | 2024-03-16 10:36 | P.PN ---
Subjective Date of Service: 03/16/24 Chief Complaint: Patient on a ventilator Subjective: New changes She had 4 watery diarrhea yesterday, stool test positive for C. difficile but negative for C. difficile toxin. Complaining of diarrhea but no nausea and vomiting or abdominal pain, no respiratory distress or chest pain or fever or chill. Review of Systems Other: Consitutional; fever(-), chills (-), rigor(-), night sweat(-), unintentional weight loss(-), malaise (-) HEENT; diplopia (-), rhinorrhea (-), epistaxis (-), otorrhea (-), otalgia (-) Respiratory; shortness of breath (-), wheezing (-), cough (-), sputum (-), pleuritic chest pain (-) Cardiovascular; chest pain (-), peripheral edema (-), paroxysmal nocturnal dyspnea (-), orthopnea (-) Gastrointestinal; nausea (-), vomiting (-), abdominal pain (-), diarrhea (+), constipation (-), melena (-), hematochezia (-) Genitourinary; urinary frequency (-), dysuria (-), urgency (-), flank pain (-), gross hematuria (-), incontinence (-) Skin; rash (-), pruritus (-) 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 General: acutely ill looking, in no apparent distress,. HEENT: Endotracheal tube and nasogastric tube in place. Neck: Supple, without JVD or goiter or thyroid mass. Respiratory: Normal breathing effort, clear to auscultation bilaterally, no crackles no wheezing or rhonchi. Cardiovascular: Regular rate and rhythm, S1, S2 normal, no murmur no gallop. Gastrointestinal: Normal bowel sounds, nondistended, nontender, No ascites, , No masses, no hepatosplenomegaly. Extremities : No clubbing, No peripheral edema, AV fistula in the left upper arm. Integumentary: No rashes, petechia, suspected lesions. Lymphatics: No axilla or cervical lymphadenopathy. Neurology; alert, awake oriented x 3, no focal neurologic deficit Assessment And Plan - Plan This is a 58 years old female assisted resident who has a multiple comorbidity including ESRD on hemodialysis, debilitating subarachnoid hemorrhage status ventriculoperitoneal stent, refractory hypertension who was sent from her assisted to emergency room for status epilepticus, patient found to have respiratory failure at ED and intubated and put on mechanical ventilator, started on nicardipine infusion for hypertensive urgency and admitted in MICU. #1 status epilepticus in underlying debilitating subarachnoid hemorrhage status post ventriculoperitoneal shunt Resolved, clinically no more seizure,, Keppra changed from IV to p.o. Repeat Keppra level pending the cause of seizure is unclear, no definite metabolic abnormality, no infection 2. ESRD on hemodialysis Euvolemia, normokalemia, continue inpatient hemodialysis as scheduled 3. Hypertensive urgency in underlying refractory hypertension Blood pressure is improving after hemodialysis but fluctuating, currently off Cardizem, keep on losartan, nifedipine, hydralazine, carvedilol, clonidine with IV hydralazine as needed #4 acute respiratory failure related #1 Resolved, intubated on March 12, successfully extubated on March 14 #5 acute bronchitis with MRSA, Sputum culture reviewed, on doxycycline #6 transient iatrogenic collapse right upper lobe and left upper lobe during intubation Resolved #7 nonsevere C. difficile colitis Stool test positive for C. difficile but negative for toxin, will treated as a C. difficile colitis, I will start her on oral Vanco 125 mg 3 times daily for 10 days And assess response to the treatment. Continue on contact isolation DVT prophylaxis; contraindication to chemoprophylaxis, sequential compression device Disposition; plan to downgrade later today if her blood pressure is more stabilized
[2024-03-16] MEDS: SEVELAMER CARBONATE 800 MG TABLET PO SCH (17:00)
--- NOTE | 2024-03-16 17:04 | P.PN ---
Nephrology note (S) Pt extubated, pt awake, alert, BP remained accelerated yesterday, better today after scheduled Nifedipine resumed, some loose stools (two episodes), primary team placed on PO Vanc for positive C diff Ag (O) vitals reviewed in the EMR General: Extubated, NAD HEENT: Atraumatic, Normocephalic, ET/OT removed Neck: Supple Respiratory: b/l vent BS, no rhonchi anteriorly Cardiovascular: Regular rate/rhythm, Other (valve click) Gastrointestinal: Soft and benign, Non-distended Musculoskeletal: No swelling, No contractures, No tenderness, Other (Lt UE AVF with thrill and bruit) Integumentary: No rashes Neurological: Awake, alert, conversive, left sided weakness, LE > UE Laboratory Data (last 24 hrs) Reviewed in the EMR Conclusions/Impression: A/P) 1. ESRD 2nd to chronic DM/HTN, HD performed Fri for metab clearance and UF as tolerated. No urgent indication to repeat today, next HD tmrw 2. Chronic malignant HTN with CKD. Hypertensive urgency on admission. PRES could be on the ddx for pt's presentation with seizures and may not be seen early on CT. BP remained accelerated, back up off HD. Did titrate Clonidine to TID dosing and did resume Nifedipine from hold and increase to 60 mg q12h and BP better today. Holding parameters placed 3. 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 Unclear etiology and results of any prior vasculitis, other w/u. Neuroimaging repeated on admission. Seizures, unspecified. AED management per Neuro 4. Recent sub-acute CVA of multiple territories, ischemic +/- cerebral vasospasm with mention of some hemorrhagic component/conversion a few mo ago. Management per Neurology, monitor BP closely, secondary prevention. Defer anti platelet therapy/other management to them. 5. Anemia 2nd to CKD, inflammation, Hb has cyclically dropped every few mo for unclear reasons, currently > 10 and with HTN, would hold any BRYANNA agents Jeremy Davis MD, [employer]
[2024-03-16 20:55] VITALS: O2SAT 97
[2024-03-16 21:16] VITALS: BMI 25.1
[2024-03-17 06:51] LABS: Absolute Basophils 0.1 K/uL (0-0.5); Absolute Eosinophils 0.5 K/uL (0-0.5); Absolute Lymphocytes (CBC) 1.3 K/uL (0.7-4.9); Absolute Monocytes 0.7 K/uL (0.1-1.3); Absolute Neutrophil 3.6 K/uL (1.8-8.0); Basophils % 1.3 % (0-1.3); Eosinophils % 7.9 % (0-4.4); Hemoglobin 10.8 g/dL (12.0-15.0); Lymphocytes % 21.3 % (15.3-44.8); MCH 31.7 pg (27.0-35.0); MCHC 33.8 g/dL (32.0-36.0); MCV 93.8 fL (80-100); MPV 7.8 fL (7.6-11.3); Monocytes % 11.4 % (3.3-12.3); Neutrophils % 58.1 % (41.7-73.7); Nucleated Red Blood Cells % 0.1 % (0-0); Platelets 171 thou/uL (152-406); RBC Red Blood Cell Count 3.41 M/uL (3.86-4.86)
[2024-03-17 07:25] LABS: Anion Gap 12.3 mEq/L (5.0-15.0); Magnesium 2.4 mg/dL (1.6-2.4); Phosphorus 6.4 mg/dL (2.5-4.9); Potassium 4.3 mEq/L (3.5-5.1)
[2024-03-17] MEDS: SEVELAMER CARBONATE 800 MG TABLET PO SCH (08:21)
--- NOTE | 2024-03-17 10:45 | P.PN ---
Date of Service: 03/17/24 Vital Signs Temp Pulse Resp BP Pulse Ox 97.7 F 67 14 145/58 H 96 03/17/24 08:00 03/17/24 08:00 03/17/24 08:00 03/17/24 08:00 03/17/24 08:00 Medications Acetaminophen (Acetaminophen 650mg/Rect Supp) [address] Q6HP PRN PRN Reason: TEMP > 100' F Acetaminophen (Acetaminophen 325 Mg Tablet) 650 mg PO Q6HR PRN PRN Reason: Temp >100 Last Admin: 03/16/24 04:43 Dose: 650 mg Albuterol Sulfate (Albuterol 2.5 Mg/3 Ml Neb Janine) 2.5 mg NEB Q4H PRN PRN Reason: WHEEZING Last Admin: 03/14/24 19:50 Dose: 2.5 mg Aspirin (Aspirin 81 Mg Chewable Tablet) 81 mg PO DAILY [facility] Last Admin: 03/17/24 08:21 Dose: 81 mg Atorvastatin Calcium (Atorvastatin 80 Mg Tab) 80 mg PO BEDTIME [facility] Last Admin: 03/16/24 19:59 Dose: 80 mg Benzonatate (Benzonatate 100 Mg Cap) 100 mg PO TID PRN PRN Reason: COUGH Last Admin: 03/16/24 23:02 Dose: 100 mg Bumetanide (Bumetanide 1 Mg Tablet) 1 mg PO DAILY [facility] Last Admin: 03/17/24 08:24 Dose: 1 mg Carvedilol (Carvedilol 25 Mg Tab) 25 mg PO BID 6AM 6PM [facility] Last Admin: 03/17/24 06:21 Dose: 25 mg Cinacalcet (Cinacalcet Hcl 30 Mg Tab) 30 mg PO LUNCH [facility] Last Admin: 03/16/24 13:14 Dose: 30 mg Clonidine HCl (Clonidine Hcl 0.1 Mg Tab) 0.1 mg PO TID [facility] Last Admin: 03/16/24 19:59 Dose: 0.1 mg Docusate Sodium (Docusate Na 100 Mg Cap) 100 mg PO DAILY PRN PRN Reason: CONSTIPATION Doxycycline Monohydrate (Doxycycline 100 Mg Cap) 100 mg PO BID [facility]; Protocol Stop: 03/20/24 21:01 Last Admin: 03/17/24 08:21 Dose: 100 mg Guaifenesin (Guaifenesin 600 Mg Sa Tab) 600 mg PO BID [facility] Last Admin: 03/17/24 08:24 Dose: 600 mg Heparin Sodium (Porcine) (Heparin 1,000 Unit/Ml Vial) 6,000 unit IV EVERY HD PRN PRN Reason: AFTER EACH Hydralazine HCl (Hydralazine Hcl 25 Mg Tablet) 50 mg PO TID [facility] Last Admin: 03/16/24 19:58 Dose: 50 mg Hydralazine HCl (Hydralazine Hcl 20 Mg/Ml Vial) 10 mg IV Q6HP PRN PRN Reason: FOR SBP>160 OR DBP>100 [facility] Last Admin: 03/15/24 23:33 Dose: 10 mg Levetiracetam (Levetiracetam 500 Mg Tab) 750 mg PO BID [facility] Last Admin: 03/17/24 08:21 Dose: 750 mg Losartan Potassium (Losartan Potassium 50 Mg Tablet) 50 mg PO BID [facility] Last Admin: 03/16/24 19:58 Dose: 50 mg Nifedipine (Nifedipine Xl 60 Mg Tablet) 60 mg PO Q12HR [facility] Last Admin: 03/16/24 19:58 Dose: 60 mg Ondansetron HCl (Ondansetron 4 Mg/2 Ml Vial) 4 mg IV Q6HP PRN PRN Reason: NAUSEA / VOMITING Sevelamer Carbonate (Sevelamer Carbonate 800 Mg Tablet) 800 mg PO TIDWM [facility] Last Admin: 03/17/24 08:21 Dose: 800 mg Sodium Chloride (Sodium Chloride 0.9% 10ml Inj) 10 ml IV UD PRN PRN Reason: Diluant Vancomycin HCl (Vancomycin Hcl 125 Mg Capsule) 125 mg PO QID [facility] Stop: 03/26/24 09:01 Last Admin: 03/17/24 08:24 Dose: 125 mg Assessment/ Plan: Nephrology No Dyspnea No Chest Pain Feeling better No acute events overnight Vitals, medications, blood work and imaging reviewed in the chart General: AAO. Cooperative HEENT: Atraumatic Neck: Supple Respiratory: Clear to auscultation bilaterally; intubated Cardiovascular: No edema, Regular rate/rhythm Gastrointestinal: Soft and benign, Non-distended Musculoskeletal: No clubbing, No contractures Integumentary: No rashes, No cyanosis Neurological: Normal speech Blood work reviewed in the chart. Imagings Data: 20:27 This 58 yrs old Female presents to ER via Unassigned with complaints of rt Seizure, Unresponsive, High Blood Pressure. [id number] EXAMINATION: ONE VIEW CHEST XR CLINICAL INDICATION: Female, 58 years old.,ETT placement TECHNIQUE: Frontal chest projection is submitted. Examination is limited by patient positioning and technique. COMPARISON: 03/12/2024 at 9:16 AM FINDINGS: Endotracheal tube tip reaches the nuno, within extensive millimeter of its bifurcation. Enteric tube extends into the stomach. Segment of right chest wall ventriculoperitoneal shunt catheter is noted. The lungs are well inflated and clear apart from mild left basilar atelectasis. No pneumothorax or sizable effusion. The heart is normal in size. Mediastinal contours are unremarkable. IMPRESSION: Endotracheal tube tip almost reaching the nuno, consider retracting the tube by approximately 3 cm. EXAM: AP view(s) of the abdomen Abdomen 1 View (KUB) HISTORY: Placement of NGT/OGT. Post Insertion. COMPARISON: Yesterday FINDINGS: NG tube tip terminate overlying the lower stomach and suspected position. Endotracheal tube at the aortic arch, just above the nuno. Right-sided VEGETABLE SCULLION shunt. Improved aeration of the lungs bilaterally though there are still some residual consolidation and left lower lobe. IMPRESSION: 1. NG tube tip overlies lower stomach in satisfactory position. 2. Endotracheal tube just above the nuno. Could consider retracting by 1 cm. 3. Improved aeration of the lungs bilaterally though residual left lower lobe consolidations remains. EXAMINATION: ONE VIEW CHEST XR CLINICAL INDICATION: Female, 58 years old.,ETT placement TECHNIQUE: Frontal chest projection is submitted. Examination is limited by patient positioning and technique. COMPARISON: 03/12/2024 FINDINGS: Endotracheal tube has been repositioned, tip now present 3.2 cm above the nuno. Enteric tube and segment of VEGETABLE SCULLION shunt in place. The lungs are well inflated and clear, with stable chronic interstitial changes. No pneumothorax or sizable effusion. The heart is normal in size. Mediastinal contours are unremarkable. IMPRESSION: Satisfactory endotracheal tube positioning. No acute intrathoracic abnormalities. Conclusions/Impression: 58 yo HF admitted to the ER from SNF for status epilepticus ESRD on HD Hyponatremia -HD TIW HTN Urgency HTN with ESRD -Cardene gtt prn -Continue Coreg -Continue Hydralazine -Continue Nifedipine ER -Continue Clonidine Acute Respiratory Failure sp extubation 03-14-24 -Continue ventilatory support; wean as tolerated Anemia in CKD Thrombocytopenia -Retacrit prn CKD MBD Secondary HyperParathyroidism -Continue Sensipar -Continue Lj Hospitalist note reviewed
[2024-03-17] MEDS: ONDANSETRON 4 MG/2 ML VIAL IV PRN (17:53)
[2024-03-18 06:08] LABS: Anion Gap 10.1 mEq/L (5.0-15.0); Potassium 4.1 mEq/L (3.5-5.1)
--- NOTE | 2024-03-18 12:42 | EKG ---
Test Date: 2024-03-11 Test Time: 20:52:21 Tool Checker: VINH MEASUREMENT RESULTS: Intervals: Rate: 96 IN: 198 QRSD: 82 QT: 396 QTc: 500 [place]: P: 67 IN: 198 QRS: 54 T: 78 INTERPRETIVE STATEMENTS: Normal sinus rhythm Left ventricular hypertrophy Prolonged QT Abnormal ECG Compared to ECG 03/05/2024 14:59:06 Left ventricular hypertrophy now present Prolonged QT interval now present Myocardial infarct finding no longer present Electronically Signed On 03-18-24 12:25:09 SOFTWARE ENGINEERING SUPERVISOR by Toro Soliman
--- NOTE | 2024-03-18 12:48 | EKG ---
Test Date: 2024-03-05 Test Time: 14:55:20 Primer Inserting Machine Operator: NAVA MEASUREMENT RESULTS: Intervals: Rate: 76 MO: 202 QRSD: 82 QT: 420 QTc: 472 [place]: P: 55 MO: 202 QRS: -4 T: 63 INTERPRETIVE STATEMENTS: Normal sinus rhythm Possible Left atrial enlargement Anterior infarct, age undetermined Abnormal ECG Compared to ECG 04/18/2019 10:37:31 Sinus tachycardia no longer present Myocardial infarct finding still present Electronically Signed On 03-18-24 12:27:28 HUMAN CAPITAL ANALYST by Toro Soliman
--- NOTE | 2024-03-18 19:12 | P.PN ---
Date of Service: 03/18/24 Vital Signs Temp Pulse Resp BP Pulse Ox 97.9 F 73 20 127/60 96 03/18/24 16:00 03/18/24 16:00 03/18/24 16:00 03/18/24 16:00 03/18/24 16:00 Medications Acetaminophen (Acetaminophen 650mg/Rect Supp) 650 mg [place] Q6HP PRN PRN Reason: TEMP > 100' F Acetaminophen (Acetaminophen 325 Mg Tablet) 650 mg PO Q6HR PRN PRN Reason: Temp >100 Last Admin: 03/17/24 20:41 Dose: 650 mg Albuterol Sulfate (Albuterol 2.5 Mg/3 Ml Neb Janine) 2.5 mg NEB Q4H PRN PRN Reason: WHEEZING Last Admin: 03/14/24 19:50 Dose: 2.5 mg Aspirin (Aspirin 81 Mg Chewable Tablet) 81 mg PO DAILY [facility] Last Admin: 03/18/24 09:46 Dose: 81 mg Atorvastatin Calcium (Atorvastatin 80 Mg Tab) 80 mg PO BEDTIME [facility] Last Admin: 03/17/24 22:10 Dose: 80 mg Benzonatate (Benzonatate 100 Mg Cap) 100 mg PO TID PRN PRN Reason: COUGH Last Admin: 03/16/24 23:02 Dose: 100 mg Bumetanide (Bumetanide 1 Mg Tablet) 1 mg PO DAILY [facility] Last Admin: 03/18/24 09:47 Dose: 1 mg Carvedilol (Carvedilol 25 Mg Tab) 25 mg PO BID 6AM 6PM [facility] Last Admin: 03/18/24 05:04 Dose: 25 mg Cinacalcet (Cinacalcet Hcl 30 Mg Tab) 30 mg PO LUNCH [facility] Last Admin: 03/18/24 13:22 Dose: 30 mg Clonidine HCl (Clonidine Hcl 0.1 Mg Tab) 0.1 mg PO TID [facility] Last Admin: 03/18/24 13:24 Dose: 0.1 mg Docusate Sodium (Docusate Na 100 Mg Cap) 100 mg PO DAILY PRN PRN Reason: CONSTIPATION Doxycycline Monohydrate (Doxycycline 100 Mg Cap) 100 mg PO BID [facility]; Protocol Stop: 03/20/24 21:01 Last Admin: 03/18/24 09:47 Dose: 100 mg Guaifenesin (Guaifenesin 600 Mg Sa Tab) 600 mg PO BID [facility] Last Admin: 03/18/24 09:47 Dose: 600 mg Heparin Sodium (Porcine) (Heparin 1,000 Unit/Ml Vial) 6,000 unit IV EVERY HD P RN PRN Reason: AFTER EACH Hydralazine HCl (Hydralazine Hcl 25 Mg Tablet) 50 mg PO TID [facility] Last Admin: 03/18/24 13:22 Dose: 50 mg Hydralazine HCl (Hydralazine Hcl 20 Mg/Ml Vial) 10 mg IV Q6HP PRN PRN Reason: FOR SBP>160 OR DBP>100 [facility] Last Admin: 03/15/24 23:33 Dose: 10 mg Levetiracetam (Levetiracetam 500 Mg Tab) 750 mg PO BID [facility] Last Admin: 03/18/24 09:45 Dose: 750 mg Losartan Potassium (Losartan Potassium 50 Mg Tablet) 50 mg PO BID [facility] Last Admin: 03/18/24 09:47 Dose: 50 mg Nifedipine (Nifedipine Xl 60 Mg Tablet) 60 mg PO Q12HR [facility] Last Admin: 03/18/24 09:46 Dose: 60 mg Ondansetron HCl (Ondansetron 4 Mg/2 Ml Vial) 4 mg IV Q6HP PRN PRN Reason: NAUSEA / VOMITING Last Admin: 03/17/24 17:53 Dose: 4 mg Sevelamer Carbonate (Sevelamer Carbonate 800 Mg Tablet) 800 mg PO TIDWM [facility] Last Admin: 03/18/24 18:18 Dose: 800 mg Sodium Chloride (Sodium Chloride 0.9% 10ml Inj) 10 ml IV UD PRN PRN Reason: Diluant Vancomycin HCl (Vancomycin Hcl 125 Mg Capsule) 125 mg PO QID [facility] Stop: 03/26/24 09:01 Last Admin: 03/18/24 17:00 Dose: 125 mg Assessment/ Plan: Nephrology No Dyspnea No Chest Pain Feeling better No acute events overnight Vitals, medications, blood work and imaging reviewed in the chart General: AAO. Cooperative HEENT: Atraumatic Neck: Supple Respiratory: Clear to auscultation bilaterally; intubated Cardiovascular: No edema, Regular rate/rhythm Gastrointestinal: Soft and benign, Non-distended Musculoskeletal: No clubbing, No contractures Integumentary: No rashes, No cyanosis Neurological: Normal speech Blood work reviewed in the chart. Imagings Data: 20:27 This 58 yrs old Female presents to ER via Unassigned with complaints of rt Seizure, Unresponsive, High Blood Pressure. [id number] EXAMINATION: ONE VIEW CHEST XR CLINICAL INDICATION: Female, 58 years old.,ETT placement TECHNIQUE: Frontal chest projection is submitted. Examination is limited by patient positioning and technique. COMPARISON: 03/12/2024 at 9:16 AM FINDINGS: Endotracheal tube tip reaches the nuno, within extensive millimeter of its bifurcation. Enteric tube extends into the stomach. Segment of right chest wall ventriculoperitoneal shunt catheter is noted. The lungs are well inflated and clear apart from mild left basilar atelectasis. No pneumothorax or sizable effusion. The heart is normal in size. Mediastinal contours are unremarkable. IMPRESSION: Endotracheal tube tip almost reaching the nuno, consider retracting the tube by approximately 3 cm. EXAM: AP view(s) of the abdomen Abdomen 1 View (KUB) HISTORY: Placement of NGT/OGT. Post Insertion. COMPARISON: Yesterday FINDINGS: NG tube tip terminate overlying the lower stomach and suspected position. Endotracheal tube at the aortic arch, just above the nuno. Right-sided RECORDIST shunt. Improved aeration of the lungs bilaterally though there are still some residual consolidation and left lower lobe. IMPRESSION: 1. NG tube tip overlies lower stomach in satisfactory position. 2. Endotracheal tube just above the nuno. Could consider retracting by 1 cm. 3. Improved aeration of the lungs bilaterally though residual left lower lobe consolidations remains. EXAMINATION: ONE VIEW CHEST XR CLINICAL INDICATION: Female, 58 years old.,ETT placement TECHNIQUE: Frontal chest projection is submitted. Examination is limited by patient positioning and technique. COMPARISON: 03/12/2024 FINDINGS: Endotracheal tube has been repositioned, tip now present 3.2 cm above the nuno. Enteric tube and segment of RECORDIST shunt in place. The lungs are well inflated and clear, with stable chronic interstitial changes. No pneumothorax or sizable effusion. The heart is normal in size. Mediastinal contours are unremarkable. IMPRESSION: Satisfactory endotracheal tube positioning. No acute intrathoracic abnormalities. Conclusions/Impression: 58 yo HF admitted to the ER from SNF for status epilepticus ESRD on HD Hyponatremia -HD TIW HTN Urgency HTN with ESRD -Cardene gtt prn -Continue Coreg -Continue Hydralazine -Continue Nifedipine ER -Continue Clonidine Acute Respiratory Failure sp extubation 1-31-25 -Continue ventilatory support; wean as tolerated Anemia in CKD Thrombocytopenia -Retacrit prn CKD MBD Secondary HyperParathyroidism -Continue Sensipar -Continue Lj Hospitalist note reviewed
--- NOTE | 2024-03-18 19:18 | P.PN ---
Date of Service: 03/18/24 Subjective Resting in bed with eyes closed, no complaint Pending snf facility at discharge Review of Systems 10-clinically review of system negative unless listed in HPI Physical Examination - Vital Signs reviewed - Physical Exam General: Alert and oriented x 3, no acute distress HEENT: Normocephalic, atraumatic, Neck: Supple, without JVD Respiratory: distant breath bilaterally, unlabored Cardiovascular: Regular rate and rhythm, Gastrointestinal: Normal bowel sounds, nontender Extremities : No clubbing, No peripheral edema,. Integumentary: No rashes, or lesions Neurology: Alert and oriented x 3, no focal deficit Assessment And Plan - Plan - Plan This is a 58 years old female care home resident who has a multiple comorbidity including ESRD on hemodialysis, debilitating subarachnoid hemorrhage status ventriculoperitoneal stent, refractory hypertension who was sent from her care home to emergency room for status epilepticus, patient found to have respiratory failure at ED and intubated and put on mechanical ventilator, started on nicardipine infusion for hypertensive urgency and admitted in MICU. #1 status epilepticus in underlying debilitating subarachnoid hemorrhage status post ventriculoperitoneal shunt-improved Resolved, clinically no more seizure,, Keppra changed from IV to p.o. Repeat Keppra level pending the cause of seizure is unclear, no definite metabolic abnormality, no infection 2. ESRD on hemodialysis Euvolemia, normokalemia, continue inpatient hemodialysis as scheduled 3. Hypertensive urgency in underlying refractory hypertension improved Blood pressure is improving after hemodialysis but fluctuating, currently off Cardizem, keep on losartan, nifedipine, hydralazine, carvedilol, clonidine with IV hydralazine as needed chest pain, Troponin was negative, #4 acute respiratory failure related #1 improved Resolved, intubated on March 12, successfully extubated on March 14 #5 acute bronchitis with MRSA, Sputum culture reviewed, on doxycycline #6 transient iatrogenic collapse right upper lobe and left upper lobe during intubation Resolved #7 nonsevere C. difficile colitis imporved Stool test positive for C. difficile but negative for toxin, will treated as a C. difficile colitis, I will start her on oral Vanco 125 mg 3 times daily for 10 days And assess response to the treatment. Continue on contact isolation DVT prophylaxis; contraindication to chemoprophylaxis, sequential compression device Disposition; pending snf facility for discharge planning
--- NOTE | 2024-03-19 02:10 | P.PN ---
Subjective Date of Service: 03/17/24 Patient is clinically doing well. Patient denies any new complaints. More awake and alert. She is clinically doing much better. We will arrange for intermediate facility placement if she does well on the floor. Review of Systems 10-point ROS is otherwise unremarkable Physical Examination - Vital Signs Temperature: 98.7 F Blood Pressure: 142/63 Pulse: 70 Respirations: 20 Pulse Ox (%): 97 - Physical Exam General: Alert, In no apparent distress HEENT: Atraumatic, PERRLA, EOMI Neck: Supple, JVD not distended Respiratory: Clear to auscultation bilaterally, Normal air movement Cardiovascular: Regular rate/rhythm, Normal S1 S2 Gastrointestinal: Normal bowel sounds, No tenderness Musculoskeletal: No tenderness Integumentary: No rashes Neurological: Normal speech, Other ( Contraction of the her left upper and lower extremity), Abnormal tone Other Physical/Emotional Findings: - Physical Exam. General: acutely ill looking, in no apparent distress,. HEENT: Endotracheal tube and nasogastric tube in place. Neck: Supple, without JVD or goiter or thyroid mass. Respiratory: Normal breathing effort, clear to auscultation bilaterally, no crackles no wheezing or rhonchi. Cardiovascular: Regular rate and rhythm, S1, S2 normal, no murmur no gallop. Gastrointestinal: Normal bowel sounds, nondistended, nontender, No ascites, , No masses, no hepatosplenomegaly. Extremities : No clubbing, No peripheral edema, AV fistula in the left upper arm. Integumentary: No rashes, petechia, suspected lesions. Lymphatics: No axilla or cervical lymphadenopathy. Neurology; alert, awake oriented x 3, no focal neurologic deficit - Studies Medications List Reviewed: Yes Assessment & Plan - Problems (Diagnosis) (1) ESRD (end stage renal disease) Current Visit: Yes Status: Acute (2) Influenza Current Visit: Yes Status: Acute (3) Respiratory failure Current Visit: Yes Status: Acute Qualifiers: Chronicity: unspecified (4) Pneumonia Current Visit: No Status: Acute Qualifiers: Pneumonia type: due to unspecified organism Laterality: right (5) DM type 2 (diabetes mellitus, type 2) Current Visit: No Status: Chronic (6) Essential hypertension Current Visit: No Status: Chronic (7) Hypothyroidism Current Visit: No Status: Chronic - Advance Directives Does patient have a Living Will: No Does patient have a Durable POA for Healthcare: No - Code Status/Comfort Care Code Status: Full Code
[2024-03-19] MEDS: SEVELAMER CARBONATE 800 MG TABLET PO SCH (12:00)
[2024-03-19] MEDS: levoFLOXacin 500 MG TAB PO SCH (17:31)
--- NOTE | 2024-03-19 20:19 | P.PN ---
Date of Service: 03/19/24 Vital Signs Temp Pulse Resp BP Pulse Ox 98.2 F 73 16 141/67 H 97 03/19/24 16:00 03/19/24 17:32 03/19/24 16:00 03/19/24 17:32 03/19/24 16:00 Medications Acetaminophen (Acetaminophen 650mg/Rect Supp) 650 mg VA Q6HP PRN PRN Reason: TEMP > 100' F Acetaminophen (Acetaminophen 325 Mg Tablet) 650 mg PO Q6HR PRN PRN Reason: Temp >100 Last Admin: 03/17/24 20:41 Dose: 650 mg Albuterol Sulfate (Albuterol 2.5 Mg/3 Ml Neb Janine) 2.5 mg NEB Q4H PRN PRN Reason: WHEEZING Last Admin: 03/14/24 19:50 Dose: 2.5 mg Aspirin (Aspirin 81 Mg Chewable Tablet) 81 mg PO DAILY [facility] Last Admin: 03/19/24 12:31 Dose: 81 mg Atorvastatin Calcium (Atorvastatin 80 Mg Tab) 80 mg PO BEDTIME [facility] Last Admin: 03/18/24 21:09 Dose: 80 mg Benzonatate (Benzonatate 100 Mg Cap) 100 mg PO TID PRN PRN Reason: COUGH Last Admin: 03/16/24 23:02 Dose: 100 mg Bumetanide (Bumetanide 1 Mg Tablet) 1 mg PO DAILY [facility] Last Admin: 03/19/24 12:29 Dose: 1 mg Carvedilol (Carvedilol 25 Mg Tab) 25 mg PO BID 6AM 6PM [facility] Last Admin: 03/19/24 17:32 Dose: 25 mg Cinacalcet (Cinacalcet Hcl 30 Mg Tab) 30 mg PO LUNCH [facility] Last Admin: 03/19/24 12:00 Dose: Not Given Clonidine HCl (Clonidine Hcl 0.1 Mg Tab) 0.1 mg PO TID [facility] Last Admin: 03/19/24 14:00 Dose: Not Given Docusate Sodium (Docusate Na 100 Mg Cap) 100 mg PO DAILY PRN PRN Reason: CONSTIPATION Doxycycline Monohydrate (Doxycycline 100 Mg Cap) 100 mg PO BID [facility]; Protocol Stop: 03/20/24 21:01 Last Admin: 03/19/24 12:39 Dose: 100 mg Guaifenesin (Guaifenesin 600 Mg Sa Tab) 600 mg PO BID [facility] Last Admin: 03/19/24 12:30 Dose: 600 mg Heparin Sodium (Porcine) (Heparin 1,000 Unit/Ml Vial) 6,000 unit IV EVERY HD PRN PRN Reason: AFTER EACH Hydralazine HCl (Hydralazine Hcl 25 Mg Tablet) 50 mg PO TID [facility] Last Admin: 03/19/24 14:00 Dose: Not Given Hydralazine HCl (Hydralazine Hcl 20 Mg/Ml Vial) 10 mg IV Q6HP PRN PRN Reason: FOR SBP>160 OR DBP>100 [facility] Last Admin: 03/15/24 23:33 Dose: 10 mg Levetiracetam (Levetiracetam 500 Mg Tab) 750 mg PO BID [facility] Last Admin: 03/19/24 12:30 Dose: 750 mg Levofloxacin (Levofloxacin 500 Mg Tab) 500 mg PO M,W,F [facility]; Protocol Stop: 03/28/24 17:01 Last Admin: 03/19/24 17:31 Dose: 500 mg Losartan Potassium (Losartan Potassium 50 Mg Tablet) 50 mg PO BID [facility] Last Admin: 03/19/24 12:30 Dose: 50 mg Nifedipine (Nifedipine Xl 60 Mg Tablet) 60 mg PO Q12HR [facility] Last Admin: 03/19/24 12:30 Dose: 60 mg Ondansetron HCl (Ondansetron 4 Mg/2 Ml Vial) 4 mg IV Q6HP PRN PRN Reason: NAUSEA / VOMITING Last Admin: 03/17/24 17:53 Dose: 4 mg Sevelamer Carbonate (Sevelamer Carbonate 800 Mg Tablet) 800 mg PO TIDWM [facility] Last Admin: 03/19/24 17:31 Dose: 800 mg Sodium Chloride (Sodium Chloride 0.9% 10ml Inj) 10 ml IV UD PRN PRN Reason: Diluant Vancomycin HCl (Vancomycin Hcl 125 Mg Capsule) 125 mg PO QID [facility] Stop: 03/26/24 09:01 Last Admin: 03/19/24 17:32 Dose: 125 mg Assessment/ Plan: Nephrology No Dyspnea No Chest Pain Feeling better No acute events overnight Vitals, medications, blood work and imaging reviewed in the chart General: AAO. Cooperative HEENT: Atraumatic Neck: Supple Respiratory: Clear to auscultation bilaterally; intubated Cardiovascular: No edema, Regular rate/rhythm Gastrointestinal: Soft and benign, Non-distended Musculoskeletal: No clubbing, No contractures Integumentary: No rashes, No cyanosis Neurological: Normal speech Blood work reviewed in the chart. Imagings Data: 20:27 This 58 yrs old Female presents to ER via Unassigned with complaints of rt Seizure, Unresponsive, High Blood Pressure. [id number] EXAMINATION: ONE VIEW CHEST XR CLINICAL INDICATION: Female, 58 years old.,ETT placement TECHNIQUE: Frontal chest projection is submitted. Examination is limited by pat ient positioning and technique. COMPARISON: 03/12/2024 at 9:16 AM FINDINGS: Endotracheal tube tip reaches the nuno, within extensive millimeter of its bifurcation. Enteric tube extends into the stomach. Segment of right chest wall ventriculoperitoneal shunt catheter is noted. The lungs are well inflated and clear apart from mild left basilar atelectasis. No pneumothorax or sizable effusion. The heart is normal in size. Mediastinal contours are unremarkable. IMPRESSION: Endotracheal tube tip almost reaching the nuno, consider retracting the tube by approximately 3 cm. EXAM: AP view(s) of the abdomen Abdomen 1 View (KUB) HISTORY: Placement of NGT/OGT. Post Insertion. COMPARISON: Yesterday FINDINGS: NG tube tip terminate overlying the lower stomach and suspected position. Endotracheal tube at the aortic arch, just above the nuno. Right-sided REGULATORY SPECIALIST shunt. Improved aeration of the lungs bilaterally though there are still some residual consolidation and left lower lobe. IMPRESSION: 1. NG tube tip overlies lower stomach in satisfactory position. 2. Endotracheal tube just above the nuno. Could consider retracting by 1 cm. 3. Improved aeration of the lungs bilaterally though residual left lower lobe consolidations remains. EXAMINATION: ONE VIEW CHEST XR CLINICAL INDICATION: Female, 58 years old.,ETT placement TECHNIQUE: Frontal chest projection is submitted. Examination is limited by patient positioning and technique. COMPARISON: 03/12/2024 FINDINGS: Endotracheal tube has been repositioned, tip now present 3.2 cm above the nuno. Enteric tube and segment of REGULATORY SPECIALIST shunt in place. The lungs are well inflated and clear, with stable chronic interstitial changes. No pneumothorax or sizable effusion. The heart is normal in size. Mediastinal contours are unremarkable. IMPRESSION: Satisfactory endotracheal tube positioning. No acute intrathoracic abnormalities. Conclusions/Impression: 58 yo HF admitted to the ER from SNF for status epilepticus ESRD on HD Hyponatremia -HD TIW -Acute HD today HTN Urgency HTN with ESRD -Continue Coreg -Continue Hydralazine -Continue Nifedipine ER -Continue Clonidine Acute Respiratory Failure sp extubation 03-14-24 -Continue ventilatory support; wean as tolerated Anemia in CKD Thrombocytopenia -Retacrit prn CKD MBD Secondary HyperParathyroidism -Continue Sensipar -Continue [facility] Hospitalist note reviewed
--- NOTE | 2024-03-19 22:32 | P.PN ---
Date of Service: 03/19/24 Subjective Dialysis today, no acute distress noted Working with physical therapy Review of Systems 10-clinically review of system negative unless listed in HPI Physical Examination - Vital Signs reviewed - Physical Exam General: Alert and oriented x 3, no acute distress HEENT: Normocephalic, atraumatic, Neck: Supple, without JVD Respiratory: distant breath bilaterally, unlabored Cardiovascular: Regular rate and rhythm, Gastrointestinal: Normal bowel sounds, nontender Extremities : No clubbing, No peripheral edema,. Integumentary: No rashes, or lesions Neurology: Alert and oriented x 3, no focal deficit Assessment And Plan - Plan - Plan This is a 58 years old female snf resident who has a multiple comorbidity including ESRD on hemodialysis, debilitating subarachnoid hemorrhage status ventriculoperitoneal stent, refractory hypertension who was sent from her snf to emergency room for status epilepticus, patient found to have respiratory failure at ED and intubated and put on mechanical ventilator, started on nicardipine infusion for hypertensive urgency and admitted in MICU. status epilepticus in underlying debilitating subarachnoid hemorrhage status post ventriculoperitoneal shunt-improved Resolved, clinically no more seizure,, Keppra changed from IV to p.o. Repeat Keppra level pending the cause of seizure is unclear, no definite metabolic abnormality, no infection ESRD on hemodialysis Euvolemia, normokalemia, continue inpatient hemodialysis as scheduled Hypertensive urgency in underlying refractory hypertension improved Blood pressure is improving after hemodialysis but fluctuating, currently off Cardizem, keep on losartan, nifedipine, hydralazine, carvedilol, clonidine with IV hydralazine as needed chest pain, Troponin was negative, acute respiratory failure related improving Resolved, intubated on March 12, successfully extubated on March 14 acute bronchitis with MRSA, improving Sputum culture reviewed, on doxycycline transient iatrogenic collapse right upper lobe and left upper lobe during intubation improved Resolved nonsevere C. difficile colitis resolved Stool test positive for C. difficile but negative for toxin, will treated as a C. difficile colitis, I will start her on oral Vanco 125 mg 3 times daily for 10 days And assess response to the treatment. Continue on contact isolation DVT prophylaxis; contraindication to chemoprophylaxis, sequential compression device Disposition; pending assisted facility for discharge planning Time with patient 25 minutes
[2024-03-20 04:52] LABS: Absolute Basophils 0.1 K/uL (0-0.5); Absolute Eosinophils 0.3 K/uL (0-0.5); Absolute Lymphocytes (CBC) 1.6 K/uL (0.7-4.9); Absolute Monocytes 0.6 K/uL (0.1-1.3); Absolute Neutrophil 2.7 K/uL (1.8-8.0); Eosinophils % 5.8 % (0-4.4); Hematocrit 35.5 % (36.0-45.0); Hemoglobin 11.8 g/dL (12.0-15.0); Lymphocytes % 30.4 % (15.3-44.8); MCH 31.7 pg (27.0-35.0); MCHC 33.2 g/dL (32.0-36.0); MCV 95.2 fL (80-100); MPV 7.1 fL (7.6-11.3); Monocytes % 11.7 % (3.3-12.3); Neutrophils % 51.1 % (41.7-73.7); Nucleated Red Blood Cells % 0.2 % (0-0); Platelets 180 thou/uL (152-406); RBC Red Blood Cell Count 3.72 M/uL (3.86-4.86); Red Cell Distribution Width 15.7 % (12.1-15.2)
[2024-03-20 05:21] LABS: Anion Gap 10.3 mEq/L (5.0-15.0); Magnesium 1.9 mg/dL (1.6-2.4); Potassium 4.3 mEq/L (3.5-5.1)
--- NOTE | 2024-03-20 22:36 | P.PN ---
Date of Service: 03/20/24 Vital Signs Temp Pulse Resp BP Pulse Ox 98.3 F 78 17 144/68 H 99 03/20/24 20:00 03/20/24 22:16 03/20/24 20:00 03/20/24 22:16 03/20/24 20:00 Medications Acetaminophen (Acetaminophen 650mg/Rect Supp) 650 mg [place] Q6HP PRN PRN Reason: TEMP > 100' F Acetaminophen (Acetaminophen 325 Mg Tablet) 650 mg PO Q6HR PRN PRN Reason: Temp >100 Last Admin: 03/17/24 20:41 Dose: 650 mg Albuterol Sulfate (Albuterol 2.5 Mg/3 Ml Neb Janine) 2.5 mg NEB Q4H PRN PRN Reason: WHEEZING Last Admin: 03/14/24 19:50 Dose: 2.5 mg Aspirin (Aspirin 81 Mg Chewable Tablet) 81 mg PO DAILY [facility] Last Admin: 03/20/24 09:46 Dose: 81 mg Atorvastatin Calcium (Atorvastatin 80 Mg Tab) 80 mg PO BEDTIME [facility] Last Admin: 03/20/24 22:17 Dose: 80 mg Benzonatate (Benzonatate 100 Mg Cap) 100 mg PO TID PRN PRN Reason: COUGH Last Admin: 03/16/24 23:02 Dose: 100 mg Bumetanide (Bumetanide 1 Mg Tablet) 1 mg PO DAILY [facility] Last Admin: 03/20/24 09:47 Dose: 1 mg Carvedilol (Carvedilol 25 Mg Tab) 25 mg PO BID 6AM 6PM [facility] Last Admin: 03/20/24 18:02 Dose: 25 mg Cinacalcet (Cinacalcet Hcl 30 Mg Tab) 30 mg PO LUNCH [facility] Last Admin: 03/20/24 13:26 Dose: 30 mg Clonidine HCl (Clonidine Hcl 0.1 Mg Tab) 0.1 mg PO TID [facility] Last Admin: 03/20/24 22:16 Dose: 0.1 mg Docusate Sodium (Docusate Na 100 Mg Cap) 100 mg PO DAILY PRN PRN Reason: CONSTIPATION Guaifenesin (Guaifenesin 600 Mg Sa Tab) 600 mg PO BID [facility] Last Admin: 03/20/24 22:16 Dose: 600 mg Hydralazine HCl (Hydralazine Hcl 25 Mg Tablet) 50 mg PO TID [facility] Last Admin: 03/20/24 22:17 Dose: 50 mg Hydralazine HCl (Hydralazine Hcl 20 Mg/Ml Vial) 10 mg IV Q6HP PRN PRN Reason: FOR SBP>160 OR DBP>100 [facility] Last Admin: 03/15/24 23:33 Dose: 10 mg Levetiracetam (Levetiracetam 500 Mg Tab) 750 mg PO BID [facility] Last Admin: 03/20/24 22:17 Dose: 750 mg Levofloxacin (Levofloxacin 500 Mg Tab) 500 mg PO M,W,F [facility]; Protocol Stop: 03/28/24 17:01 Last Admin: 03/19/24 17:31 Dose: 500 mg Losartan Potassium (Losartan Potassium 50 Mg Tablet) 50 mg PO BID [facility] Last Admin: 03/20/24 21:00 Dose: Not Given Nifedipine (Nifedipine Xl 60 Mg Tablet) 60 mg PO Q12HR [facility] Last Admin: 03/20/24 22:16 Dose: 60 mg Ondansetron HCl (Ondansetron 4 Mg/2 Ml Vial) 4 mg IV Q6HP PRN PRN Reason: NAUSEA / VOMITING Last Admin: 03/17/24 17:53 Dose: 4 mg Sevelamer Carbonate (Sevelamer Carbonate 800 Mg Tablet) 800 mg PO TIDWM [facility] Last Admin: 03/20/24 18:01 Dose: 800 mg Sodium Chloride (Sodium Chloride 0.9% 10ml Inj) 10 ml IV UD PRN PRN Reason: Diluant Vancomycin HCl (Vancomycin Hcl 125 Mg Capsule) 125 mg PO QID [facility] Stop: 03/26/24 09:01 Last Admin: 03/20/24 22:17 Dose: 125 mg Assessment/ Plan: Nephrology No Dyspnea No Chest Pain Feeling better No acute events overnight Vitals, medications, blood work and imaging reviewed in the chart General: AAO. Cooperative HEENT: Atraumatic Neck: Supple Respiratory: Clear to auscultation bilaterally; intubated Cardiovascular: No edema, Regular rate/rhythm Gastrointestinal: Soft and benign, Non-distended Musculoskeletal: No clubbing, No contractures Integumentary: No rashes, No cyanosis Neurological: Normal speech Blood work reviewed in the chart. Imagings Data: 20:27 This 58 yrs old Female presents to ER via Unassigned with complaints of rt Seizure, Unresponsive, High Blood Pressure. [id number] EXAMINATION: ONE VIEW CHEST XR CLINICAL INDICATION: Female, 58 years old.,ETT placement TECHNIQUE: Frontal chest projection is submitted. Examination is limited by patient positioning and technique. COMPARISON: 03/12/2024 at 9:16 AM FINDINGS: Endotracheal tube tip reaches the nuno, within extensive millimeter of its bifurcation. Enteric tube extends into the stomach. Segment of right chest wall ventriculoperitoneal shunt catheter is noted. The lungs are well inflated and clear apart from mild left basilar atelectasis. No pneumothorax or sizable effusion. The heart is normal in size. Mediastinal contours are unremarkable. IMPRESSION: Endotracheal tube tip almost reaching the nuno, consider retracting the tube by approximately 3 cm. EXAM: AP view(s) of the abdomen Abdomen 1 View (KUB) HISTORY: Placement of NGT/OGT. Post Insertion. COMPARISON: Yesterday FINDINGS: NG tube tip terminate overlying the lower stomach and suspected position. Endotracheal tube at the aortic arch, just above the nuno. Right-sided BUDGET TECHNICIAN shunt. Improved aeration of the lungs bilaterally though there are still some residual consolidation and left lower lobe. IMPRESSION: 1. NG tube tip overlies lower stomach in satisfactory position. 2. Endotracheal tube just above the nuno. Could consider retracting by 1 cm. 3. Improved aeration of the lungs bilaterally though residual left lower lobe consolidations remains. EXAMINATION: ONE VIEW CHEST XR CLINICAL INDICATION: Female, 58 years old.,ETT placement TECHNIQUE: Frontal chest projection is submitted. Examination is limited by patient positioning and technique. COMPARISON: 03/12/2024 FINDINGS: Endotracheal tube has been repositioned, tip now present 3.2 cm above the nuno. Enteric tube and segment of BUDGET TECHNICIAN shunt in place. The lungs are well inflated and clear, with stable chronic interstitial changes. No pneumothorax or sizable effusion. The heart is normal in size. Mediastinal contours are unremarkable. IMPRESSION: Satisfactory endotracheal tube positioning. No acute intrathoracic abnormalities. Conclusions/Impression: 58 yo HF admitted to the ER from SNF for status epilepticus ESRD on HD Hyponatremia -HD TIW -Acute HD today HTN Urgency HTN with ESRD -Continue Coreg -Continue Hydralazine -Continue Nifedipine ER -Continue Clonidine Acute Respiratory Failure sp extubation 03-14-24 -Continue ventilatory support; wean as tolerated Anemia in CKD Thrombocytopenia -Retacrit prn CKD MBD Secondary HyperParathyroidism -Continue Sensipar -Continue [facility] Hospitalist note reviewed Case reviewed with Dr. Bauman
[2024-03-21 06:17] LABS: Absolute Basophils 0.1 K/uL (0-0.5); Absolute Eosinophils 0.3 K/uL (0-0.5); Absolute Lymphocytes (CBC) 1.7 K/uL (0.7-4.9); Absolute Monocytes 0.8 K/uL (0.1-1.3); Albumin 2.6 g/dL (3.4-5.0); Anion Gap 14.3 mEq/L (5.0-15.0); Basophils % 0.8 % (0-1.3); Eosinophils % 4.9 % (0-4.4); Hematocrit 33.2 % (36.0-45.0); Hemoglobin 11.3 g/dL (12.0-15.0); Lymphocytes % 24.9 % (15.3-44.8); MCH 32.5 pg (27.0-35.0); MCHC 34.2 g/dL (32.0-36.0); MCV 95.2 fL (80-100); MPV 7.4 fL (7.6-11.3); Monocytes % 11.2 % (3.3-12.3); Neutrophils % 58.2 % (41.7-73.7); Nucleated Red Blood Cells % 0.1 % (0-0); Phosphorus 4.2 mg/dL (2.5-4.9); Platelets 198 thou/uL (152-406); Potassium 5.3 mEq/L (3.5-5.1); RBC Red Blood Cell Count 3.49 M/uL (3.86-4.86); Red Cell Distribution Width 16.1 % (12.1-15.2)
[2024-03-21] MEDS: SOD POLYSTYREN SUL 15 GM/60 ML UCUP PO ONE (09:22)
--- NOTE | 2024-03-21 09:31 | P.PN ---
Date of Service: 03/20/24 Subjective 96% on room air, Plan HD on Sunday Review of Systems 10-clinically review of system negative unless listed in HPI Physical Examination - Vital Signs reviewed - Physical Exam General: Alert and oriented x 3, no acute distress, afebrile, HEENT: Normocephalic, atraumatic, Neck: Supple, without JVD Respiratory: distant breath bilaterally, unlabored Cardiovascular: Regular rate and rhythm, Gastrointestinal: Normal bowel sounds, nontender Extremities : R) weakness, moderate deconditioning,b) lower ext weakness, Integumentary: No rashes, or lesions Neurology: Alert and oriented x 3, no focal deficit Assessment And Plan - Plan - Plan This is a 58 years old female half-way resident who has a multiple comorbidity including ESRD on hemodialysis, debilitating subarachnoid hemorrhage status ventriculoperitoneal stent, refractory hypertension who was sent from her half-way to emergency room for status epilepticus, patient found to have respiratory failure at ED and intubated and put on mechanical ventilator, started on nicardipine infusion for hypertensive urgency and admitted in MICU. status epilepticus in underlying debilitating subarachnoid hemorrhage status post ventriculoperitoneal shunt-improved Resolved, clinically no more seizure,, Keppra changed from IV to p.o. Repeat Keppra level pending the cause of seizure is unclear, no definite metabolic abnormality, no infection Neurology following, ESRD on hemodialysis Euvolemia, normokalemia, continue inpatient hemodialysis as scheduled Nephrology following Hypertensive urgency in underlying refractory hypertension improved Blood pressure is improving after hemodialysis but fluctuating, currently off Cardizem, keep on losartan, nifedipine, hydralazine, carvedilol, clonidine with IV hydralazine as needed chest pain, Troponin was negative, acute respiratory failure, intuabed resolved Resolved, intubated on March 12, successfully extubated on March 14 waned to room air 96% acute bronchitis with MRSA, improved Sputum culture reviewed, on doxycycline transient iatrogenic collapse right upper lobe and left upper lobe during intubation, resolved Resolved nonsevere C. difficile colitis improved, Stool test positive for C. difficile but negative for toxin, will treated as a C. difficile colitis, I will start her on oral Vanco 125 mg 3 times daily for 10 days And assess response to the treatment. Continue on contact isolation DVT prophylaxis; contraindication to chemoprophylaxis, sequential compression device Disposition; pending nursing home facility for discharge planning Time with patient 25 minutes
--- NOTE | 2024-03-21 09:44 | P.DS ---
Admission Date: 03/12/24 Discharge Date: 03/21/24 Disposition: TRANSFER TO CORRECTION Discharge Condition: GOOD Reason for Admission: Patient on a ventilator Brief History of Present Illness: 58-year-old female with past medical history of CVA, prior nontraumatic subarachnoid hemorrhage causing left hemiplegia, hydrocephalus s/p shunt, ESRD on dialysis, diabetes, hypertension, hyperlipidemia, hypothyroidism, anemia who was brought to ER with altered mental status and active seizures from senior living. Patient was found to be hypoxic and was intubated at arrival. She was started on protocol. Patient was also found to be hypertensive emergency and was admitted to ICU and was started on Cardene drip. Patient was intubated and sedated at the time of interview hence most of the history is obtained from the chart review and also talking to the ER physician. ER tried to transfer for the patient for higher level of care but could not find any bed in ICU in the ER by hospitalist and was admitted here for further management. - Physical Exam General: Alert and oriented x 3, no acute distress, afebrile, HEENT: Normocephalic, atraumatic, Neck: Supple, without JVD Respiratory: distant breath bilaterally, unlabored Cardiovascular: Regular rate and rhythm, Gastrointestinal: Normal bowel sounds, nontender Extremities : R) weakness, moderate deconditioning,b) lower ext weakness, Integumentary: No rashes, or lesions Neurology: Alert and oriented x 3, no focal deficit Hospital Course: 58-year-old female with past medical history of CVA, prior nontraumatic suba rachnoid hemorrhage causing left hemiplegia, hydrocephalus s/p shunt, ESRD on dialysis, diabetes, hypertension, hyperlipidemia, hypothyroidism, anemia who was brought to ER with altered mental status and active seizures from senior living. Patient was found to be hypoxic and was intubated at arrival. . Patient was also found to be hypertensive emergency and was admitted to ICU and was started on Cardene drip. ER tried to transfer for the patient for higher level of care but could not find any bed in ICU in the ER by hospitalist and was admitted here for further management. She has improved, being weaned from ventilator management, transferred, downgraded to floor,She noted to have status epilepticus with debilitating subarachnoid hemorrhage post ventricular peritoneal shunt is on room air. Alert and oriented x 3, tolerated diet. Being seen by physical therapy, has moderate generalized weakness, right sided weakness, lower extremity weakness. She is end-stage renal disease on hem odialysis. Nephrology following for dialysis schedule. Was noted to have hypertensive urgency, improved, on p.o. meds. Had acute respiratory failure, acute bronchitis with MRSA, currently on room air. Had nonsevere C. difficile on p.o. vancomycin. Pending discharge to group home facility. Assessment acute respiratory failure, intuabed Resolved, intubated on March 12, successfully extubated on March 14, weaned to room air 96% acute bronchitis with MRSA, improved Sputum culture on doxycycline status epilepticus in underlying debilitating subarachnoid hemorrhage status post ventriculoperitoneal shunt-improved Resolved, clinically no more seizure,, Keppra changed from IV to p.o. Repeat Keppra level pending the cause of seizure is unclear, no definite metabolic abnormality, no infection Neurology following, ESRD on hemodialysis-Euvolemia, normokalemia, continue inpatient hemodialysis as scheduled-Nephrology following Hyperkalemia, Kayexalate given- Hypertensive urgency in underlying refractory hypertension improved, weaned to p.o. antihypertensive transient iatrogenic collapse right upper lobe and left upper lobe during intubation, resolved nonsevere C. difficile colitis improved, Stool test positive for C. difficile but negative for toxin, will treated as a C. difficile colitis, I will start her on oral Vanco 125 mg 3 times daily for 10 days Continue on contact isolation Continue home medicines as previously prescribed GOAL: Clear understanding of disease process INSTRUCTIONS: Physician Discharge Instructions: -Follow-up with nephrology after discharge for hemodialysis outpatient schedule -Follow-up with neurology after discharge -Follow-up with PCP in 1 to 2 weeks -Please call Dr. Bauman at [phone] if any questions regarding hospital stay -Please call nursing station at [phone] if any nursing or medication questions -Return to the emergency room if symptoms worsen Diet: ADA, low sodium Activity: Fall precautions Vital Signs/Physical Exam: Temp Pulse Resp BP Pulse Ox 98.8 F 73 16 146/69 H 96 03/21/24 08:00 03/21/24 08:00 03/21/24 08:00 03/21/24 08:00 03/21/24 08:00 Other Physical/Emotional Findings: - Physical Exam. General: acutely ill looking, in no apparent distress,. HEENT: Endotracheal tube and nasogastric tube in place. Neck: Supple, without JVD or goiter or thyroid mass. Respiratory: Normal breathing effort, clear to auscultation bilaterally, no crackles no wheezing or rhonchi. Cardiovascular: Regular rate and rhythm, S1, S2 normal, no murmur no gallop. Gastrointestinal: Normal bowel sounds, nondistended, nontender, No ascites, , No masses, no hepatosplenomegaly. Extremities : No clubbing, No peripheral edema, AV fistula in the left upper arm. Integumentary: No rashes, petechia, suspected lesions. Lymphatics: No axilla or cervical lymphadenopathy. Neurology; alert, awake oriented x 3, no focal neurologic deficit Laboratory Data at Discharge: WBC 6.80 thou/uL (4.3-10.9) 03/21/24 05:13 Hgb 11.3 g/dL (12.0-15.0) L 03/21/24 05:13 Hct 33.2 % (36.0-45.0) L 03/21/24 05:13 Plt Count 198 thou/uL (152-406) 03/21/24 05:13 PT 13.1 SECONDS (9.4-12.5) H 03/11/24 19:59 INR 1.25 03/11/24 19:59 APTT 28.1 SECONDS (24.3-36.9) 03/11/24 19:59 Sodium 133 mEq/L (136-145) L 03/21/24 05:13 Potassium 5.3 mEq/L (3.5-5.1) H D 03/21/24 05:13 BUN 48 mg/dL (7-18) H 03/21/24 05:13 Creatinine 6.70 mg/dL (0.55-1.02) H 03/21/24 05:13 Glucose 162 mg/dL (74-106) H 03/21/24 05:13 Phosphorus 4.2 mg/dL (2.5-4.9) 03/21/24 05:13 Magnesium 2.0 mg/dL (1.6-2.4) 03/21/24 05:13 Total Bilirubin 0.5 mg/dL (0.2-1.0) 03/12/24 10:04 AST 32 U/L (15-37) 03/12/24 10:04 ALT 46 U/L (13-56) 03/12/24 10:04 Alkaline Phosphatase 78 U/L (45-117) 03/12/24 10:04 Home Medications: Aspirin Chewable [Aspirin Chewable*] 81 mg PO DAILY tab.chew 02/28/24 Atorvastatin Calcium [Lipitor] 80 mg PO BEDTIME tab 02/28/24 Bumetanide [Bumex*] 1 mg PO DAILY tab 02/28/24 Cinacalcet HCl [Sensipar*] 30 mg PO LUNCH tab 02/28/24 Docusate [Colace Cap*] 100 mg PO DAILY PRN cap 02/28/24 Famotidine [Pepcid*] 40 mg PO DAILY tab 02/28/24 Hydralazine [Apresoline*] 50 mg PO TID tab 02/28/24 Loperamide [Imodium*] 2 mg PO Q4H PRN cap 02/28/24 Losartan Potassium [Cozaar*] 50 mg PO BID 02/28/24 Melatonin [Melatonin*] 3 mg PO BEDTIME PRN PRN 02/28/24 Mupirocin Oint [Bactroban 2% Ointment*] 1 appl TOP BID tube 02/28/24 Nifedipine Xl [Procardia Xl*] 30 mg PO BID tab 02/28/24 carvediloL [Coreg*] 25 mg PO BID 6AM 6PM tab 02/28/24 cloNIDine HCL [Catapres*] 0.1 mg PO BID tab 03/05/24 Acetaminophen [Tylenol] 650 mg PO Q6HR PRN MDD 3G 03/12/24 Insulin Degludec [Tresiba Flextouch U-100] 10 unit SQ BEDTIME 03/12/24 Nifedipine Xl [Procardia Xl*] 60 mg PO BID 03/12/24 Ondansetron [Zofran] 4 mg PO Q4H PRN 03/12/24 Sevelamer Carbonate [Renvela*] 800 mg PO SEECOM 03/12/24 Physician Discharge Instructions: OK TO DC IV AND DC HOME FOLLOW-UP WITH PRIMARY CARE PROVIDER IN 1-2 WEEKS FOLLOW-UP WITH Nephrology IN 2-4 WEEKs RETURN TO THE ER IF SYMPTOMS WORSEN CALL DR. BAUMAN AT [phone] IF ANY QUESTIONS REGARDING HOSPITAL STAY. PLEASE CALL THE FLOOR AT [phone] IF ANY MEDICATION OR NURSING QUESTIONS. Diet: Renal Activity: Fall precautions Followup: Garrett Henderson, DO [Primary Care Provider] - Time spent managing pt's care (in minutes): 45
--- NOTE | 2024-03-21 11:56 | P.PN ---
Nephrology note (S) Doing better, denies CP, dyspnea, abd pain or N/V/D (O) vitals reviewed in the EMR General: Extubated, NAD HEENT: Atraumatic, Normocephalic, not on O2 Neck: Supple Respiratory: b/l vent BS, no rhonchi anteriorly Cardiovascular: Regular rate/rhythm, Other (valve click) Gastrointestinal: Soft and benign, Non-distended Musculoskeletal: No swelling, No contractures, No tenderness, Other (Lt UE AVF with thrill and bruit) Integumentary: No rashes Neurological: Awake, alert, conversive, left sided weakness, LE > UE Laboratory Data (last 24 hrs) Reviewed in the EMR Conclusions/Impression: A/P) 1. ESRD 2nd to chronic DM/HTN, HD today, will address mild hyperkalemia with low K bath 2. Chronic malignant HTN with CKD. Hypertensive urgency on admission. PRES could be on the ddx for pt's presentation with seizures and may not be seen early on CT. BP remained initially accelerated, back up off HD. Did titrate Clonidine to TID dosing and did resume Nifedipine from hold and increased to 60 mg q12h and BP better since. Holding parameters placed 3. 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 Unclear etiology and results of any prior vasculitis, other w/u. Neuroimaging repeated on admission. Seizures, unspecified, resolved. AED management per Neuro 4. Recent sub-acute CVA of multiple territories, ischemic +/- cerebral vasospasm with mention of some hemorrhagic component/conversion a few mo ago. Management per Neurology, monitor BP closely, secondary prevention. Defer anti platelet therapy/other management to them. 5. Anemia 2nd to CKD, inflammation, Hb has cyclically dropped every few mo for unclear reasons, currently > 10 and with HTN, would hold any BRYANNA agents Jeremy Davis MD, [employer]
[2024-03-22 05:00] LABS: Absolute Basophils 0.1 K/uL (0-0.5); Absolute Eosinophils 0.4 K/uL (0-0.5); Absolute Lymphocytes (CBC) 1.7 K/uL (0.7-4.9); Absolute Monocytes 0.8 K/uL (0.1-1.3); Eosinophils % 5.9 % (0-4.4); Hematocrit 33.6 % (36.0-45.0); Hemoglobin 11.5 g/dL (12.0-15.0); Lymphocytes % 23.7 % (15.3-44.8); MCH 32.2 pg (27.0-35.0); MCHC 34.2 g/dL (32.0-36.0); MCV 94.1 fL (80-100); MPV 7.3 fL (7.6-11.3); Monocytes % 11.7 % (3.3-12.3); Neutrophils % 57.7 % (41.7-73.7); Nucleated Red Blood Cells % 0.1 % (0-0); Platelets 176 thou/uL (152-406); RBC Red Blood Cell Count 3.57 M/uL (3.86-4.86); Red Cell Distribution Width 15.5 % (12.1-15.2)
[2024-03-22 05:29] LABS: Albumin 2.8 g/dL (3.4-5.0); Anion Gap 12.1 mEq/L (5.0-15.0); Phosphorus 4.2 mg/dL (2.5-4.9); Potassium 4.1 mEq/L (3.5-5.1)
[2024-03-22 12:44] VITALS: BP 178/84; TEMP 98.2
--- NOTE | 2024-03-22 20:26 | P.PN ---
Date of Service: 03/22/24 Vital Signs Temp Pulse Resp BP Pulse Ox 98.2 F 79 16 178/84 H 98 03/22/24 12:00 03/22/24 12:00 03/22/24 12:00 03/22/24 12:00 03/22/24 12:00 Assessment/ Plan: Nephrology No Dyspnea No Chest Pain Feeling better No acute events overnight Vitals, medications, blood work and imaging reviewed in the chart General: AAO. Cooperative HEENT: Atraumatic Neck: Supple Respiratory: Clear to auscultation bilaterally; intubated Cardiovascular: No edema, Regular rate/rhythm Gastrointestinal: Soft and benign, Non-distended Musculoskeletal: No clubbing, No contractures Integumentary: No rashes, No cyanosis Neurological: Normal speech Blood work reviewed in the chart. Imagings Data: 20:27 This 58 yrs old Female presents to ER via Unassigned with complaints of rt Seizure, Unresponsive, High Blood Pressure. [id number] EXAMINATION: ONE VIEW CHEST XR CLINICAL INDICATION: Female, 58 years old.,ETT placement TECHNIQUE: Frontal chest projection is submitted. Examination is limited by patient positioning and technique. COMPARISON: 03/12/2024 at 9:16 AM FINDINGS: Endotracheal tube tip reaches the nuno, within extensive millimeter of its bifurcation. Enteric tube extends into the stomach. Segment of right chest wall ventriculoperitoneal shunt catheter is noted. The lungs are well inflated and clear apart from mild left basilar atelectasis. No pneumothorax or sizable effusion. The heart is normal in size. Mediastinal contours are unremarkable. IMPRESSION: Endotracheal tube tip almost reaching the nuno, consider retracting the tube by approximately 3 cm. EXAM: AP view(s) of the abdomen Abdomen 1 View (KUB) HISTORY: Placement of NGT/OGT. Post Insertion. COMPARISON: Yesterday FINDINGS: NG tube tip terminate overlying the lower stomach and suspected position. Endotracheal tube at the aortic arch, just above the nuno. 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 Improved aeration of the lungs bilaterally though there are still some residual consolidation and left lower lobe. IMPRESSION: 1. NG tube tip overlies lower stomach in satisfactory position. 2. Endotracheal tube just above the nuno. Could consider retracting by 1 cm. 3. Improved aeration of the lungs bilaterally though residual left lower lobe consolidations remains. EXAMINATION: ONE VIEW CHEST XR CLINICAL INDICATION: Female, 58 years old.,ETT placement TECHNIQUE: Frontal chest projection is submitted. Examination is limited by patient positioning and technique. COMPARISON: 03/12/2024 FINDINGS: Endotracheal tube has been repositioned, tip now present 3.2 cm above the nuno. Enteric tube and segment of HOSPITAL HOUSEKEEPER shunt in place. The lungs are well inflated and clear, with stable chronic interstitial changes. No pneumothorax or sizable effusion. The heart is normal in size. Mediastinal contours are unremarkable. IMPRESSION: Satisfactory endotracheal tube positioning. No acute intrathoracic abnormalities. Conclusions/Impression: 58 yo HF admitted to the ER from SNF for status epilepticus ESRD on HD Hyponatremia -HD TIW -Acute HD today HTN Urgency HTN with ESRD -Continue Coreg -Continue Hydralazine -Continue Nifedipine ER -Continue Clonidine Acute Respiratory Failure sp extubation 03-14-24 -Continue ventilatory support; wean as tolerated Anemia in CKD Thrombocytopenia -Retacrit prn CKD MBD Secondary HyperParathyroidism -Continue Sensipar -Continue Renvela Hospitalist note reviewed Case reviewed with Dr. Bauman
== END 2024-03-22 14:43 | DRG 208 ==
LOC: ER 19:11 → ERHOLD 03-12 04:48 → 3RD-ICU 03-12 08:34 → 2ND 03-17 15:30
PROVIDERS: ADMIT Family Medicine; ATTEND Hospitalist
PROC: 5A1945Z Respiratory Ventilation, 24-96 Consecutive Hours (ICD-10-PCS; principal; 2024-03-11)
PROC: 0BH17EZ Insertion of Endotracheal Airway into Trachea, Via Natural or Artificial Opening (ICD-10-PCS; 2024-03-11)
PROC: 4A033R1 Measurement of Arterial Saturation, Peripheral, Percutaneous Approach (ICD-10-PCS; 2024-03-12)
PROC: 5A1D70Z Performance of Urinary Filtration, Intermittent, Less than 6 Hours Per Day (ICD-10-PCS; 2024-03-12)
PROC: 0DH67UZ Insertion of Feeding Device into Stomach, Via Natural or Artificial Opening (ICD-10-PCS; 2024-03-12)
DX: J96.01 Acute respiratory failure with hypoxia (principal); N18.6 End stage renal disease; J11.00 Influenza due to unidentified influenza virus with unspecified type of pneumonia; I16.1 Hypertensive emergency; I69.354 Hemiplegia and hemiparesis following cerebral infarction affecting left non-dominant side; I12.0 Hypertensive chronic kidney disease with stage 5 chronic kidney disease or end stage renal disease; N25.81 Secondary hyperparathyroidism of renal origin; G91.9 Hydrocephalus, unspecified; A04.72 Enterocolitis due to Clostridium difficile, not specified as recurrent; E87.1 Hypo-osmolality and hyponatremia; G40.901 Epilepsy, unspecified, not intractable, with status epilepticus; E11.22 Type 2 diabetes mellitus with diabetic chronic kidney disease; D63.1 Anemia in chronic kidney disease; J20.9 Acute bronchitis, unspecified; E78.5 Hyperlipidemia, unspecified; E03.9 Hypothyroidism, unspecified; D69.6 Thrombocytopenia, unspecified; B95.62 Methicillin resistant Staphylococcus aureus infection as the cause of diseases classified elsewhere; Z99.2 Dependence on renal dialysis; Z78.1 Physical restraint status; Z79.4 Long term (current) use of insulin; Z79.82 Long term (current) use of aspirin; Z79.02 Long term (current) use of antithrombotics/antiplatelets; Z79.899 Other long term (current) drug therapy; Z91.158 Patient's noncompliance with renal dialysis for other reason
CPT/HCPCS: 31500; 36415; 36600; 43753; 51702; 70450; 70496; 70498; 71045; 74018; 80048; 80053; 80069; 80076; 80177; 82805; 82947; 83735; 84100; 84484; 85025; 85610; 85730; 87070; 87077; 87086; 87088; 87186; 87205; 87324; 90935; 93005; 94002; 94003; 94640; 97110; 97161; 97530; 99291; 99292; J0360; J0696; J1953; J2405; J2470; J2704; J3010; J7613; Q9967

== ENCOUNTER 2024-05-04 16:30 | Inpatient (IN) | payer OTHER ==
[2024-05-04 17:34] LABS: Absolute Lymphocytes (CBC) 0.5 K/uL (0.7-4.9); Absolute Monocytes 0.2 K/uL (0.1-1.3); Absolute Neutrophil 6.9 K/uL (1.8-8.0); Basophils % 0.4 % (0-1.3); Hematocrit 28.9 % (36.0-45.0); Hemoglobin 9.6 g/dL (12.0-15.0); Lymphocytes % 6.6 % (15.3-44.8); MCH 31.6 pg (27.0-35.0); MCHC 33.3 g/dL (32.0-36.0); MCV 94.9 fL (80-100); MPV 7.6 fL (7.6-11.3); Monocytes % 2.2 % (3.3-12.3); Neutrophils % 90.8 % (41.7-73.7); Platelets 198 thou/uL (152-406); RBC Red Blood Cell Count 3.04 M/uL (3.86-4.86); Red Cell Distribution Width 16.8 % (12.1-15.2)
[2024-05-04] MEDS ORDERED: ONDANSETRON 4 MG/2 ML VIAL ONE ×3 (17:45→20:40)
--- NOTE | 2024-05-04 17:50 | RAD REPORT ---
EXAMINATION: CT Abdomen Pelvis W Contrast CLINICAL INDICATION: Female, 58 years old. vomiting;Abd pain TECHNIQUE: CT abdomen and pelvis was performed, after the administration of IV contrast, as per depar tment protocol. Axial, sagittal and coronal reconstructions were obtained. One or more of the following dose reduction techniques were used: Automated exposure control, adjustment of the mA and k V according to patient size, and iterative reconstruction. Unless otherwise specified, incidental findings do not require dedicated imaging follow-up. COMPARISON: Abdomen radiograph 03/12/2024 FINDINGS: LOWER CHEST: The visualized lung bases are clear apart from bibasilar atelectatic changes. LIVER: Normal in size and contour. No focal lesion. BILIARY SYSTEM: No suspicious abnormalities. SPLEEN: Normal size. No focal lesion. PANCREAS: No mass, ductal dilation, or lyndsay-pancreatic fluid. ADRENALS: Normal; no mass. KIDNEYS: Normal size and contour. No hydronephrosis. URINARY BLADDER: Decompressed limiting evaluation.. GASTROINTESTINAL TRACT: Wall thickening and marked edema along the rectum. Presacral edema. No eviden ce of free air, significant intra-abdominal free fluid, bowel obstruction or abscess. APPENDIX: Normal appendix. LYMPH NODES: No lymphadenopathy. MUSCULOSKELETAL: No acute or suspicious osseous abnormality. Endplate irregularities with mild superi or endplate compression deformity at L5, favored to be of degenerative etiology ADDITIONAL FINDINGS: Small umbilical hernia containing fat CALL CENTER SUPPORT CONSULTANT shunt catheter demonstrates a narrow lo op within the right anterior abdominal wall just prior to the entry into the peritoneal cavity, with adjacent linear soft tissue thickening. The catheter terminates within the right lower quadrant. Medial calcifications throughout the large and medium sized vessels, suggesting sequelae of long-standing diabetes mellitus. IMPRESSION: Wall thickening and marked edema along the rectum, could reflect infectious or inflammatory proctitis . Nonspecific marrow loop configuration of the most distal CALL CENTER SUPPORT CONSULTANT shunt catheter within the anterior abdomi nal wall subcutaneous soft tissues, with probable adjacent scarring. Please correlate clinically if there is any signs/symptoms of shunt malfunction.
[2024-05-04 17:54] LABS: AST/SGOT 17 U/L (15-37); Albumin 3.5 g/dL (3.4-5.0); Albumin/Globulin Ratio 0.7 (1.1-1.8); Alkaline Phosphatase 105 U/L (45-117); Anion Gap 8.7 mEq/L (5.0-15.0); BUN Blood Urea Nitrogen 42 mg/dL (7-18); Bicarbonate 28 mEq/L (21-32); Bilirubin Total 0.5 mg/dL (0.2-1.0); Globulin 4.9 g/dL (2.3-3.5); Glomerular Filtration Rate 9 ml/min (=/>90); Glucose Level 221 mg/dL (74-106); Lipase 33 U/L (13-75); Potassium 3.7 mEq/L (3.5-5.1); Protein, Total 8.4 g/dL (6.4-8.2); Sodium Level 137 mEq/L (136-145); Troponin High Sensitivity 35.7 pg/mL (<58.9)
[2024-05-04 18:06] LABS: ALT/SGPT < 14 U/L (13-56)
--- NOTE | 2024-05-04 18:16 | EDPHYS ---
Physician Documentation [facility] Name: Barbara Ibarra Age: 58 yrs Sex: Female : 1965 Arrival Date: 05/04/2024 Time: 16:30 Bed 5 Private MD: ED Physician Laura Henderson HPI: 05/04 17:05 This 58 yrs old Female presents to ER via EMS with complaints of sp3 Nausea/Vomiting. 17:05 58-year-old female from the custodial with history of end-stage renal disease, sp3 Sunday dialysis with last dialysis on Sunday, hyperlipidemia, hypertension, diabetes, hypothyroidism that presents to the ED with chief complaint vomiting and diarrhea and mild diffuse abdominal cramping. No blood or mucus in her emesis or diarrhea. Patient denies fever, back pain, chest pain, shortness of breath, or any other signs or symptoms on ROS at this time.. Historical: - Allergies: 16:47 No Known Allergies; ss - PMHx: 16:47 Anemia; Diabetes - NIDDM; Dialysis; M/W/F; ESRD; Hyperlipidemia; Hypertension; Thyroid ss problem; CVA; - PSHx: 16:47 cataract; ss - Immunization history:: Client reports receiving the 2nd dose of the Covid vaccine. - Infectious Disease History:: Denies. - Social history:: Smoking status: Patient denies any tobacco usage or history of. ROS: 17:06 Constitutional: Negative for fever, chills, and weight loss, Eyes: Negative for injury, sp3 pain, redness, and discharge, ENT: Negative for injury, pain, and discharge, Neck: Negative for injury, pain, and swelling, Cardiovascular: Negative for chest pain, palpitations, and edema, Respiratory: Negative for shortness of breath, cough, wheezing, and pleuritic chest pain, Back: Negative for injury and pain, Skin: Negative for injury, rash, and discoloration, Neuro: Negative for headache, weakness, numbness, tingling, and seizure, Allergy/Immunology: Negative for hives, rash, and allergies, Endocrine: Negative for neck swelling, polydipsia, polyuria, polyphagia, and marked weight changes, 17:06 All other systems are negative, Exam: 17:06 Constitutional: This is a well developed, well nourished patient who is awake, alert, sp3 and in no acute distress. Head/Face: Normocephalic, atraumatic. Neck: Trachea midline, no thyromegaly or masses palpated, and no cervical lymphadenopathy. Supple, full range of motion without nuchal rigidity, or vertebral point tenderness. No Meningismus. Chest/axilla: Normal chest wall appearance and motion. Nontender with no deformity. No lesions are appreciated. Cardiovascular: Regular rate and rhythm with a normal S1 and S2. No gallops, murmurs, or rubs. Normal PMI, no JVD. No pulse deficits. Respiratory: Lungs have equal breath sounds bilaterally, clear to auscultation and percussion. No rales, rhonchi or wheezes noted. No increased work of breathing, no retractions or nasal flaring. Back: No spinal tenderness. No costovertebral tenderness. Full range of motion. Skin: Warm, dry with normal turgor. Normal color with no rashes, no lesions, and no evidence of cellulitis. 17:06 Abdomen/GI: Active emesis and diarrhea noted. Patient in mild distress secondary to generalized weakness. Soft abdomen., Vital Signs: 16:35 BP 209 / 81; Pulse 98; Resp 17; Temp 98.3(O); Pulse Ox 96% on R/A; Weight 62.6 kg; ss Height 4 ft. 10 in. ; Pain 0/10; 18:27 BP 210 / 80; Pulse 99; Resp 22; Pulse Ox 94% on R/A; le1 16:35 Body Mass Index 28.84 (62.60 kg, 147.32 cm) ss 16:35 Pain Scale: Adult ss MDM: 16:35 Medical Screening Exam initiated sp3 17:09 Data reviewed: vital signs, nurses notes, old medical records, lab test result(s), EKG, sp3 radiologic studies. ED course: 58-year-old female with PMH above including end-stage renal disease now with vomiting and diarrhea. Differential diagnosis includes viral illness, foodborne illness, bacterial gastroenteritis, other enteritis, electrolyte abnormality, dehydration, among others. Workup will include CT scan of the abdomen pelvis with IV contrast, general labs, IV fluids, ondansetron, general supportive care. Disposition pending workup and patient course.. 05/04 16:36 Order name: CBC with Diff; Complete Time: 06:39 sp3 05/04 16:36 Order name: CMP; Complete Time: 18:08 sp3 05/04 16:36 Order name: Lipase; Complete Time: 18:08 sp3 05/04 16:36 Order name: Urinalysis w/ reflexes sp3 05/04 16:36 Order name: Lactate w/ 2H reflex if indic.; Complete Time: 18:08 sp3 05/04 16:36 Order name: Troponin High Sensitivity; Complete Time: 18:08 sp3 05/04 18:11 Order name: Manual Differential; Complete Time: 06:39 EDMS 05/04 18:18 Order name: Blood Culture Adult (2); Complete Time: 06:39 sp3 05/04 19:27 Order name: Urinalysis w/ reflexes EDMS 05/04 19:27 Order name: CBC with Automated Diff EDMS 05/04 19:27 Order name: CBC with Automated Diff; Complete Time: 06:39 EDMS 05/04 19:27 Order name: Comprehensive Metabolic Panel EDMS 05/04 19:27 Order name: Comprehensive Metabolic Panel; Complete Time: 06:39 EDMS 05/04 22:41 Order name: Glucose, Ancillary Testing; Complete Time: 06:39 EDMS 05/05 11:43 Order name: Glucose, Ancillary Testing; Complete Time: 06:39 EDMS 05/05 16:48 Order name: Glucose, Ancillary Testing; Complete Time: 06:39 EDMS 05/05 23:11 Order name: Glucose, Ancillary Testing; Complete Time: 06:39 EDMS 05/06 04:36 Order name: CBC with Automated Diff; Complete Time: 06:39 EDMS 05/06 04:59 Order name: Basic Metabolic Panel; Complete Time: 06:39 EDMS 05/04 16:36 Order name: CT Abd/Pelvis - IV Contrast Only; Complete Time: 17:51 sp3 05/05 07:52 Order name: CT; Complete Time: 06:39 EDMS 05/05 12:02 Order name: MRI; Complete Time: 06:39 EDMS 05/04 16:36 Order name: EKG; Complete Time: 16:37 sp3 05/04 16:36 Order name: IV Saline Lock; Complete Time: 17:20 sp3 05/04 16:36 Order name: Labs collected and sent; Complete Time: 17:20 sp3 05/04 16:36 Order name: EKG - Nurse/Tech; Complete Time: 16:58 sp3 Administered Medications: 17:46 Not Given (Patient Refused): ondansetron 4 mg IVP once; over 2 minutes jb4 17:46 Not Given (Physician Discretion): ns 0.9% 1000 ml IV at 1 bolus Per protocol; to be jb4 given as a bolus over 60 minutes 19:09 Drug: metroNIDAZOLE IVPB 500 mg 100 ml IVPB at 200 ml/hr once over 30 mins Volume: 100 le1 ml; Route: IVPB; Rate: 200 ml/hr; Infused Over: 30 mins; Site: right forearm; 19:38 Follow up: Response: No adverse reaction; IV Status: Completed infusion; IV Intake: le1 100ml 19:09 Drug: Ondansetron IVP 4 mg IVP once; over 2 minutes Route: IVP; Site: right forearm; le1 19:39 Follow up: Response: No adverse reaction; Nausea is decreased le1 19:41 Drug: Ciprofloxacin IVPB 400 mg 200 ml IVPB once over 60 mins Volume: 200 ml; Route: le1 IVPB; Infused Over: 60 mins; Site: right femoral; 20:50 Follow up: Response: No adverse reaction; IV Status: Completed infusion ha1 Disposition Summary: 05/04/24 18:15 Hospitalization Ordered Notes: Hospitalization Status: Observation sp3 Provider: Jules Cifuentes sp3 Condition: Stable sp3 Problem: new sp3 Symptoms: have worsened sp3 Bed/Room Type: Standard sp3 Location: [facility] ER HOLD(05/05/24 12:15) Room Assignment: (05/05/24 12:15) Diagnosis - Proctitis, abdominal infection, vomiting and diarrhea sp3 Forms: - Medication Reconciliation Form sp3 - SBAR form sp3 - Leadership Thank You Letter sp3 Signatures: Dispatcher [employer] EDMS Justa Benitez Shelby, RN RN Chester Elliott FNP-C FNP-Janee Orona RN RN cg Peltier, Brian, RN RN bp Patel, Setul, MD MD sp3 Jensen Andres RN RN le1 Kip Coe RN jb4 Colleen Vargas RN ha1 Corrections: (The following items were deleted from the chart) 17:15 16:36 [place] ordered. sp3 ss 20:39 18:15 Telemetry/MedSurg (observation) sp3 cg 20:39 18:15 sp3 cg 05/05 12:06 05/04 20:39 [facility] ER HOLD cg bd 05/05 12:06 05/04 20:39 ERHOLD- cg bd 05/05 12:15 12:06 Telemetry/MedSurg (observation) bd bp 12:15 12:06 228 bd bp
--- NOTE | 2024-05-04 18:16 | ER ---
Nurse's Notes [facility] Name: Barbara Ibarra Age: 58 yrs Sex: Female : 1965 Arrival Date: 05/04/2024 Time: 16:30 Bed 5 Private MD: Diagnosis: Proctitis, abdominal infection, vomiting and diarrhea Presentation: 05/04 16:35 Chief complaint: Patient states: N/V that began at 0400 this morning. correction ss staff administered Phenergan 25 mg x 3 doses throughout the day which has not helped. PT denies pain. Coronavirus screen: Client denies travel out of the [place] in the last 14 days. Ebola Screen: Patient denies exposure to infectious person. Patient denies travel to an Ebola-affected area in the 21 days before illness onset. Initial Sepsis Screen: Does the patient meet any 2 criteria? No. Patient's initial sepsis screen is negative. Does the patient have a suspected source of infection? No. Patient's initial sepsis screen is negative. Risk Assessment: Do you want to hurt yourself or someone else? Patient reports no desire to harm self or others. Onset of symptoms was May 04, 2024 at 04:00. Care prior to arrival: Medication(s) given: zofran 4 mg, Glucose check: 234. 16:35 Method Of Arrival: EMS: [facility] 16:35 Acuity: AZUCENA 3 ss Triage Assessment: 16:48 General: Appears uncomfortable, Behavior is drowsy. Neuro: Level of Consciousness is ss awake, obeys commands. Respiratory: Respiratory effort is even, unlabored, Respiratory pattern is regular, symmetrical. GI: Reports nausea, vomiting, since 0400 this am. Historical: - Allergies: 16:47 No Known Allergies; ss - PMHx: 16:47 Anemia; Diabetes - NIDDM; Dialysis; M/W/F; ESRD; Hyperlipidemia; Hypertension; Thyroid ss problem; CVA; - PSHx: 16:47 cataract; ss - Immunization history:: Client reports receiving the 2nd dose of the Covid vaccine. - Infectious Disease History:: Denies. - Social history:: Smoking status: Patient denies any tobacco usage or history of. Screenin:22 [facility] ED Fall Risk Assessment (Adult) History of falling in the last 3 months, le1 including since admission No falls in past 3 months (0 pts) Confusion or Disorientation No (0 pts) Intoxicated or Sedated No (0 pts) Impaired Gait No (0 pts) Mobility Assist Device Used No (0 pt) Altered Elimination No (0 pt) Score/Fall Risk Level 0 - 2 = Low Risk Oriented to surroundings, Maintained a safe environment, Educated pt \T\ family on fall prevention, incl call for assistance when getting out of bed, Assessed \T\ reinforced patient's understanding of fall precautions, Hourly rounding (assess needs \T\ fall precautionary measures) done, Used ambulatory aids as needed (educated on \T\ assisted with). Abuse screen: Denies threats or abuse. Denies injuries from another. Nutritional screening: No deficits noted. Tuberculosis screening: No symptoms or risk factors identified. Assessment: 17:21 General: Appears in no apparent distress. comfortable, Behavior is calm, cooperative, le1 drowsy. Pain: Complains of pain in abdomen. Neuro: No deficits noted. Cardiovascular: No deficits noted. Respiratory: No deficits noted. GI: Reports diarrhea, epigastric pain, nausea, vomiting. : Reports anuric. EENT: No deficits noted. Derm: No deficits noted. 17:46 Reassessment: Pt denies nausea at this time and is refusing the ordered zofran. jb4 Physician discretion to cancel IV bolus due to dialysis treatments. 05/06 06:57 Reassessment: notified daughter angélcia le about patient being transferred. has al5 been notified of her room number and was given phone number to nurses station. Vital Signs: 05/04 16:35 BP 209 / 81; Pulse 98; Resp 17; Temp 98.3(O); Pulse Ox 96% on R/A; Weight 62.6 kg; ss Height 4 ft. 10 in. ; Pain 0/10; 18:27 BP 210 / 80; Pulse 99; Resp 22; Pulse Ox 94% on R/A; le1 16:35 Body Mass Index 28.84 (62.60 kg, 147.32 cm) ss 16:35 Pain Scale: Adult ss ED Course: 16:35 Patient arrived in ED. sp3 16:35 Laura Henderson MD is Attending Physician. sp3 16:47 Triage completed. ss 16:47 Arm band placed on right wrist. ss 16:58 Turkish, LaKendric, RN is Primary Nurse. le1 17:00 EKG done, by ED staff, reviewed by Laura Henderson MD. le1 17:00 Initial lab(s) drawn, by me, sent to lab. Inserted saline lock: 20 gauge in right le1 forearm, using aseptic technique. Blood collected. Flushed with 10 mL NS. Patient maintains SpO2 saturation greater than 95% on room air. 17:23 Patient has correct armband on for positive identification. Placed in gown. Bed in low le1 position. Call light in reach. Side rails up X2. Provided Education on: informed to use call light if needing assistance. . 17:29 Patient moved to radiology. le1 17:29 Notified ED physician of other Informed and asked MD if he wanted to treat patient BP. le1 Stated that he did not want to provide any treatment. 17:31 CT Abd/Pelvis - IV Contrast Only In Process Unspecified. EDMS 18:15 Jules Cifuentes MD is Hospitalizing Provider. sp3 18:45 First set of blood cultures drawn by me. le1 19:00 Second set of blood cultures drawn by me. le1 19:00 No provider procedures requiring assistance completed. ha1 19:00 Patient admitted, IV remains in place. ha1 05/05 10:28 Martin Gloria, RN is Primary Nurse. bp 12:30 transfer to [facility] initiated by Kalie Flores (). bd Administered Medications: 05/04 17:46 Not Given (Patient Refused): ondansetron 4 mg IVP once; over 2 minutes jb4 17:46 Not Given (Physician Discretion): ns 0.9% 1000 ml IV at 1 bolus Per protocol; to be jb4 given as a bolus over 60 minutes 19:09 Drug: metroNIDAZOLE IVPB 500 mg 100 ml IVPB at 200 ml/hr once over 30 mins Volume: 100 le1 ml; Route: IVPB; Rate: 200 ml/hr; Infused Over: 30 mins; Site: right forearm; 19:38 Follow up: Response: No adverse reaction; IV Status: Completed infusion; IV Intake: le1 100ml 19:09 Drug: Ondansetron IVP 4 mg IVP once; over 2 minutes Route: IVP; Site: right forearm; le1 19:39 Follow up: Response: No adverse reaction; Nausea is decreased le1 19:41 Drug: Ciprofloxacin IVPB 400 mg 200 ml IVPB once over 60 mins Volume: 200 ml; Route: le1 IVPB; Infused Over: 60 mins; Site: right femoral; 20:50 Follow up: Response: No adverse reaction; IV Status: Completed infusion ha1 Medication: 19:00 VIS not applicable for this client. ha1 Intake: 19:38 IV: 100ml; Total: 100ml. le1 Outcome: 18:15 Decision to Hospitalize by Provider. sp3 19:00 Admitted to ER Hold. Please see [facility] for further documentation. ha1 19:00 Condition: stable 19:00 Instructed on the need for admit, Demonstrated understanding of instructions, 05/06 07:56 Patient left the ED. bp Signatures: Dispatcher [employer] EDMS Justa Benitez Shelby RN RN ss Kip Coe RN RN jbMartin Hill RN RN bp Laura Henderson MD MD sp3 Colleen Vargas RN RN ha1 Darlene Monterroso RN RN al5 Jensen Andres RN RN le1 Corrections: (The following items were deleted from the chart) 05/05 04:26 05/04 19:50 Response: No adverse reaction; IV Status: Completed infusion ha1 ha1
[2024-05-04 18:42] LABS: Band Neutrophils 4 % (0-1); Differential Total Cells Count 100; Eosinophils 1 % (0-3); Lymphocytes 8 % (15-42); Monocytes 1 % (0-10); Segmented Neutrophils 86 % (40-80)
[2024-05-04 18:43] LABS: Blood Morphology Comment NOT SEEN (NOT SEEN); Platelet Estimate ADEQ
[2024-05-04] MEDS ORDERED: METRONIDAZOLE 500mg IVPB 500 MG/100 ML BAG IV ONE (18:58)
[2024-05-04] MEDS ORDERED: ACETAMINOPHEN 325 MG TABLET PO PRN (19:22)
--- NOTE | 2024-05-04 19:22 | P.HP ---
Certification for Inpatient Patient admitted to: Inpatient With expected LOS: >2 Midnights Practitioner: I am a practitioner with admitting privileges, knowledge of patient current condition, hospital course, and medical plan of care. Services: Services provided to patient in accordance with Admission requirements found in Title 42 Section 412.3 of the Code of Federal Regulations Patient History Date of Service: 05/05/24 Reason for admission: intractable nausea and vomiting History of Present Illness: 58 yrs old Female who is a long term resident with past medical history of diabetes, hypertension, hyperlipidemia, ESRD on dialysis Sunday, hypothyroidism, history of CVA, anemia, who was brought to ER with nausea vomiting and diarrhea which has been going on for the last 3 days and has been associated with diffuse abdominal cramping. Patient denies any fever or chills. No sick contacts. Denies any chest pain or shortness of breath. Insidious in onset. Patient had multiple bouts of nausea and vomiting and diarrhea. Could not tolerate anything by p.o. Patient was assessed in the ER and is admitted for further management of pos sible acute gastroenteritis Allergies No Known Allergies Allergy (Verified 02/14/24 21:01) Home medications list reviewed: Yes Home Medications: Aspirin Chewable [Aspirin Chewable*] 81 mg PO DAILY tab.chew 02/28/24 Atorvastatin Calcium [Lipitor] 80 mg PO BEDTIME tab 02/28/24 Bumetanide [Bumex*] 1 mg PO DAILY tab 02/28/24 Cinacalcet HCl [Sensipar*] 30 mg PO LUNCH tab 02/28/24 Docusate [Colace Cap*] 100 mg PO DAILY PRN cap 02/28/24 Famotidine [Pepcid*] 40 mg PO DAILY tab 02/28/24 Hydralazine [Apresoline*] 50 mg PO TID tab 02/28/24 Loperamide [Imodium*] 2 mg PO Q4H PRN cap 02/28/24 Losartan Potassium [Cozaar*] 50 mg PO BID 02/28/24 Melatonin [Melatonin*] 3 mg PO BEDTIME PRN PRN 02/28/24 Mupirocin Oint [Bactroban 2% Ointment*] 1 appl TOP BID tube 02/28/24 Nifedipine Xl [Procardia Xl*] 30 mg PO BID tab 02/28/24 carvediloL [Coreg*] 25 mg PO BID 6AM 6PM tab 02/28/24 cloNIDine HCL [Catapres*] 0.1 mg PO BID tab 03/05/24 Acetaminophen [Tylenol] 650 mg PO Q6HR PRN MDD 3G 03/12/24 Insulin Degludec [Tresiba Flextouch U-100] 10 unit SQ BEDTIME 03/12/24 Nifedipine Xl [Procardia Xl*] 60 mg PO BID 03/12/24 Ondansetron [Zofran] 4 mg PO Q4H PRN 03/12/24 Sevelamer Carbonate [Renvela*] 800 mg PO SEECOM 03/12/24 - Past Medical/Surgical History Diabetic: Yes Past Medical History: Reviewed- Non-Contributory -: Anemia -: DM II -: HTN -: Hypothyroidism -: ESRD followed by Dr. aDvis/Abdi -: HLD Past Surgical History: Reviewed- Non-Contributory -: Incision and drainage -: -: Perma-Cath placement Psychosocial/ Personal History: Patient lives with her family. - Family History Family History: Reviewed- Non-Contributory - Family History Mother -: Diabetes, Stroke, Kidney disease Father -: Cancer - Social History Smoking Status: Never smoker Alcohol use: No CD- Drugs: No Caffeine use: Yes Review of Systems 10-point ROS is otherwise unremarkable Physical Examination - Vital Signs Temperature: 98.9 F Blood Pressure: 206/78 Pulse: 99 Respirations: 18 Pulse Ox (%): 94 - Physical Exam General: Alert, Mild distress HEENT: Atraumatic, Normocephalic Neck: Supple Respiratory: Clear to auscultation bilaterally, Normal air movement Cardiovascular: Regular rate/rhythm, Normal S1 S2 Capillary refill: <2 Seconds Gastrointestinal: W/out hepatosplenomegaly, Tenderness Musculoskeletal: No clubbing, No swelling Integumentary: No rashes Neurological: Other (Alert, Awake ) Lymphatics: No axilla or inguinal lymphadenopathy - Studies Laboratory Data (last 24 hrs) 05/04/24 05/04/24 17:16 17:16 WBC 7.60 Hgb 9.6 L Hct 28.9 L Plt Count 198 Sodium 137 Potassium 3.7 BUN 42 H Creatinine 5.16 H Glucose 221 H Total Bilirubin 0.5 AST 17 ALT < 14 Alkaline Phosphatase 105 Lipase 33 Assessment and Plan - Plan Acute gastroenteritis Proctitis possibly infectious Pain control Started on IV antibiotic Monitor closely Abdominal pain Pain control CT abdomen pelvis noted Along with proctitis as a mention about possible narrowing of DISPATCH COORDINATOR shunt distal end We will get a CT of the head to assess ventricular size Neuro vital signs monitored Hypertensive urgency Antihypertensives titrated Hydralazine as needed Labetalol as needed Continue home medications and titrate as needed Hyperlipidemia Continue statin ESRD on dialysis Monitor renal parameters Electrolytes monitor and replace accordingly Nephrology consulted Diabetes Insulin sliding scale Accu-Chek before every meal and at bedtime Anemia of chronic disease Monitor H&H closely No overt bleeding at this time GI/DVT prophylaxis Advanced directive full code Discharge Plan: Home Plan to discharge in: 48 Hours - Advance Directives Does patient have a Living Will: No Does patient have a Durable POA for Healthcare: No - Code Status/Comfort Care Code Status: Full Code Time Spent Managing Pts Care (In Minutes): 48
[2024-05-04] MEDS ORDERED: CIPROFLOXACIN 400mg IV 400 MG/200 ML BAG IV ONE (19:40)
[2024-05-04] MEDS: NA CHLORIDE 0.9% 1,000 ML IV SCH (20:00)
[2024-05-04 20:24] VITALS: BMI 28.8
[2024-05-04] MEDS ORDERED: HYDRALAZINE HCL 20 MG/ML VIAL ONE (20:40)
[2024-05-04] MEDS ORDERED: NA CHLORIDE 0.9% 1,000 ML ONE (20:40)
[2024-05-04] MEDS ORDERED: HEPARIN 5000 UNIT/ML 1 ML VIAL ONE (20:40)
[2024-05-04] MEDS: HEPARIN 5000 UNIT/ML 1 ML VIAL SQ SCH (20:59)
[2024-05-04] MEDS: ONDANSETRON 4 MG/2 ML VIAL IV PRN (21:00)
[2024-05-04] MEDS: HYDRALAZINE HCL 20 MG/ML VIAL IV PRN (21:00)
[2024-05-04] MEDS ORDERED: NIFEdipine 10 MG CAP ONE (22:30)
[2024-05-04] MEDS ORDERED: METOCLOPRAMIDE 10 MG/2mL INJ ONE (22:31)
[2024-05-04] MEDS ORDERED: carvediloL 6.25 MG TAB ONE (22:31)
[2024-05-04] MEDS ORDERED: LOSARTAN POTASSIUM 50 MG TABLET ONE (22:31)
[2024-05-04] MEDS ORDERED: cloNIDine HCL 0.1 MG TAB ONE (22:31)
[2024-05-04] MEDS: METOCLOPRAMIDE 10 MG/2mL INJ IV PRN (22:35)
[2024-05-04] MEDS: LOSARTAN POTASSIUM 50 MG TABLET PO SCH (23:10)
[2024-05-04] MEDS: carvediloL 25 MG TAB PO SCH (23:10)
[2024-05-04] MEDS: NIFEDIPINE XL 30 MG TABLET PO SCH (23:10)
[2024-05-04] MEDS: cloNIDine HCL 0.1 MG TAB PO SCH (23:10)
[2024-05-05] MEDS ORDERED: LABETALOL 20 MG/4ML SYRINGE IV ONE (00:34)
[2024-05-05] MEDS: LABETALOL 20 MG/4ML SYRINGE IV PRN (00:55)
[2024-05-05] MEDS ORDERED: MORPHINE 2 MG/ML SYR IV PRN (02:43)
[2024-05-05] MEDS ORDERED: HYDROCODONE/APAP 5/325 MG TAB PO PRN (02:43)
[2024-05-05 05:46] VITALS: TEMP 98.7
[2024-05-05 05:48] LABS: Absolute Lymphocytes (CBC) 0.6 K/uL (0.7-4.9); Absolute Monocytes 0.4 K/uL (0.1-1.3); Absolute Neutrophil 6.2 K/uL (1.8-8.0); Basophils % 0.4 % (0-1.3); Hematocrit 26.6 % (36.0-45.0); Lymphocytes % 8.1 % (15.3-44.8); MCH 32.1 pg (27.0-35.0); MCHC 33.9 g/dL (32.0-36.0); MCV 94.7 fL (80-100); MPV 8.1 fL (7.6-11.3); Monocytes % 5.1 % (3.3-12.3); Neutrophils % 86.4 % (41.7-73.7); Nucleated Red Blood Cells % 0.1 % (0-0); Platelets 204 thou/uL (152-406); RBC Red Blood Cell Count 2.81 M/uL (3.86-4.86); Red Cell Distribution Width 17.1 % (12.1-15.2)
[2024-05-05 06:25] LABS: AST/SGOT 20 U/L (15-37); Albumin 3.2 g/dL (3.4-5.0); Albumin/Globulin Ratio 0.7 (1.1-1.8); Alkaline Phosphatase 93 U/L (45-117); Anion Gap 10.6 mEq/L (5.0-15.0); BUN Blood Urea Nitrogen 46 mg/dL (7-18); Bicarbonate 28 mEq/L (21-32); Bilirubin Total 0.5 mg/dL (0.2-1.0); Globulin 4.5 g/dL (2.3-3.5); Glomerular Filtration Rate 8 ml/min (=/>90); Glucose Level 163 mg/dL (74-106); Potassium 3.6 mEq/L (3.5-5.1); Protein, Total 7.7 g/dL (6.4-8.2); Sodium Level 140 mEq/L (136-145)
[2024-05-05] MEDS ORDERED: METOCLOPRAMIDE 10 MG/2mL INJ ONE (06:25)
[2024-05-05 06:34] LABS: ALT/SGPT < 14 U/L (13-56)
--- NOTE | 2024-05-05 07:51 | RAD REPORT ---
EXAM: CT brain without contrast HISTORY: Headache COMPARISON: February 2024 TECHNIQUE: Multiple contiguous axial images were obtained and a CT of the brain without contrast.. Sagittal and coronal reconstruction performed. Automated exposure control, adjustment of the mA and/or kV according to patient size, and/or iterative reconstruction. Unless otherwise specified, incidental f indings do not require dedicated imaging follow-up FINDINGS: Ventriculostomy tube enters the frontal horn lateral ventricle. Mild prominence of the ventricles wit hout significant change from the prior exam. Stable cerebral hypodensities. No extra-axial fluid collection noted Increased density within the occipital parietal lobes right greater than left. Chronic right maxillary sinusitis IMPRESSION: Ventriculostomy tube in place. Mild dilatation of the ventricles unchanged from February 2024 Small areas of increased density within the occipital parietal lobes right greater than left unchange d most likely representing either calcification or normal newby-white matter. A bleed is doubtful. If the patient's symptoms persist MRI of the brain may be helpful.
[2024-05-05] MEDS: PNEUMOCOCCAL VACCINE 0.5 ML IMVAC ONE (08:00)
[2024-05-05] MEDS: CEFTRIAXONE 1,000 MG in NA CHLORIDE 0.9% 50 ML IVPB SCH (09:00)
[2024-05-05] MEDS: METRONIDAZOLE 500mg IVPB 500 MG/100 ML BAG IV SCH (09:00)
[2024-05-05] MEDS ORDERED: CEFTRIAXONE 1000 MG/VIAL ONE (09:05)
[2024-05-05] MEDS ORDERED: HEPARIN 5000 UNIT/ML 1 ML VIAL ONE (09:06)
[2024-05-05] MEDS ORDERED: LOSARTAN POTASSIUM 50 MG TABLET ONE ×2 (09:06→22:42)
[2024-05-05] MEDS ORDERED: METRONIDAZOLE 500mg IVPB 500 MG/100 ML BAG IV ONE ×2 (09:06→17:12)
[2024-05-05] MEDS ORDERED: PNEUMOCOCCAL VACCINE 0.5 ML IMVAC ONE (09:06)
[2024-05-05] MEDS ORDERED: cloNIDine HCL 0.1 MG TAB ONE (09:18)
--- NOTE | 2024-05-05 09:44 | P.PN ---
Subjective Date of Service: 05/05/24 Chief Complaint: intractable nausea and vomiting Subjective: No chest pain or shortness of breath. No nausea or vomiting. No abdominal pain. No obvious bleeding. Looks comfortable in the bed. No Diarrhea. Objective: General appearance: Alert and comfortable CVS: Normal S1 and S2 Lungs: Clear to auscultation bilaterally Abdomen: Soft, bowel sounds present, no tenderness Extremities: No lower extremity edema Physical Examination - Vital Signs Temperature: 98.7 F Blood Pressure: 140/59 Pulse: 91 Respirations: 17 Pulse Ox (%): 98 - Studies Laboratory Data (last 24 hrs) 05/04/24 05/04/24 17:16 17:16 WBC 7.60 Hgb 9.6 L Hct 28.9 L Plt Count 198 Sodium 137 Potassium 3.7 BUN 42 H Creatinine 5.16 H Glucose 221 H Total Bilirubin 0.5 AST 17 ALT < 14 Alkaline Phosphatase 105 Lipase 33 Assessment And Plan - Plan 1. Acute gastroenteritis, Proctitis possibly infectious -Started on IV antibiotic -Monitor closely -stool studies if diarrhea recurs -GI f/u as o/p 2. Abdominal pain: better now -Pain control -CT abdomen pelvis noted -Along with proctitis as a mention about possible narrowing of FINANCIAL REPORTING SPECIALIST shunt distal end, CT of the head showed ventricular size stable but ?bleed, will get MRI scan 3. Hypertensive urgency: Antihypertensives titrated -BP improving -monitor closely 4. Hyperlipidemia: Continue statin 5. ESRD on dialysis Nephrology consulted 6. Diabetes Insulin sliding scale Accu-Chek before every meal and at bedtime 7. Anemia of chronic disease Monitor H&H closely No overt bleeding at this time Plan discussed with the patient.
--- NOTE | 2024-05-05 09:50 | P.CNS ---
Date of Consult: 05/05/24 Reason for Consult: ESRD Requesting Physician: Jay Cuevas Chief Complaint: intractable nausea and vomiting History of Present Illness: 58 yrs old Female who is a [facility] with past medical history of diabetes, hypertension, hyperlipidemia, ESRD on dialysis Sunday, hypothyroidism, history of CVA, anemia, who was brought to ER with nausea vomiting and diarrhea which has been going on for the last 3 days and has been associated with diffuse abdominal cramping. Patient denies any fever or chills. No sick contacts. Denies any chest pain or shortness of breath. Insidious in onset. Patient had multiple bouts of nausea and vomiting and diarrhea. Could not tolerate anything by p.o. Patient was assessed in the ER and is admitted for further management of possible acute gastroenteritis 17:05 This 58 yrs old Female presents to ER via EMS with complaints of sp3 Nausea/Vomiting. 17:05 58-year-old female from the [facility] with history of end-stage renal d isease, sp3 Sunday dialysis with last dialysis on Sunday, hyperlipidemia, hypertension, diabetes, hypothyroidism that presents to the ED with chief complaint vomiting and diarrhea and mild diffuse abdominal cramping. No blood or mucus in her emesis or diarrhea. Patient denies fever, back pain, chest pain, shortness of breath, or any other signs or symptoms on ROS at this time.. Allergies No Known Allergies Allergy (Verified 02/14/24 21:01) Home medications list reviewed: Yes Home Medications: Aspirin Chewable [Aspirin Chewable*] 81 mg PO DAILY tab.chew 02/28/24 Atorvastatin Calcium [Lipitor] 80 mg PO BEDTIME tab 02/28/24 Bumetanide [Bumex*] 1 mg PO DAILY tab 02/28/24 Cinacalcet HCl [Sensipar*] 30 mg PO LUNCH tab 02/28/24 Docusate [Colace Cap*] 100 mg PO DAILY PRN cap 02/28/24 Famotidine [Pepcid*] 40 mg PO DAILY tab 02/28/24 Hydralazine [Apresoline*] 50 mg PO TID tab 02/28/24 Loperamide [Imodium*] 2 mg PO Q4H PRN cap 02/28/24 Losartan Potassium [Cozaar*] 50 mg PO BID 02/28/24 Melatonin [Melatonin*] 3 mg PO BEDTIME PRN PRN 02/28/24 Mupirocin Oint [Bactroban 2% Ointment*] 1 appl TOP BID tube 02/28/24 Nifedipine Xl [Procardia Xl*] 30 mg PO BID tab 02/28/24 carvediloL [Coreg*] 25 mg PO BID 6AM 6PM tab 02/28/24 cloNIDine HCL [Catapres*] 0.1 mg PO BID tab 03/05/24 Acetaminophen [Tylenol] 650 mg PO Q6HR PRN MDD 3G 03/12/24 Insulin Degludec [Tresiba Flextouch U-100] 10 unit SQ BEDTIME 03/12/24 Nifedipine Xl [Procardia Xl*] 60 mg PO BID 03/12/24 Ondansetron [Zofran] 4 mg PO Q4H PRN 03/12/24 Sevelamer Carbonate [Renvela*] 800 mg PO SEECOM 03/12/24 - Past Medical/Surgical History Diabetic: Yes -: Anemia -: DM II -: HTN -: Hypothyroidism -: ESRD followed by Dr. Davis/Abdi -: HLD -: Incision and drainage -: -: Perma-Cath placement Psychosocial/ Personal History: Patient lives with her family. - Family History Mother Medical History: Diabetes, Stroke, Kidney disease Father Medical History: Cancer - Social History Smoking Status: Unknown if ever smoked Alcohol use: No CD- Drugs: No Caffeine use: Yes Review of Systems 10-point ROS is otherwise unremarkable General: Weakness, Malaise Gastrointestinal: Nausea, Abdominal Pain Physical Examination Temp Pulse Resp BP Pulse Ox 98.7 F 91 H 17 140/59 L 98 05/05/24 09:44 05/05/24 09:44 05/05/24 09:44 05/05/24 09:44 05/05/24 09:44 General: In no apparent distress, Cooperative HEENT: Atraumatic Neck: Supple Respiratory: Clear to auscultation bilaterally, Normal air movement Cardiovascular: No edema, Regular rate/rhythm Gastrointestinal: Soft and benign, Non-distended Musculoskeletal: No clubbing, No contractures Integumentary: No rashes, No cyanosis Neurological: Normal speech Laboratory Data (last 24 hrs) 05/04/24 05/04/24 17:16 17:16 WBC 7.60 Hgb 9.6 L Hct 28.9 L Plt Count 198 Sodium 137 Potassium 3.7 BUN 42 H Creatinine 5.16 H Glucose 221 H Total Bilirubin 0.5 AST 17 ALT < 14 Alkaline Phosphatase 105 Lipase 33 Imagings Data: EXAMINATION: CT Abdomen Pelvis W Contrast CLINICAL INDICATION: Female, 58 years old. vomiting;Abd pain TECHNIQUE: CT abdomen and pelvis was performed, after the administration of IV contrast, as per department protocol. Axial, sagittal and coronal reconstructions were obtained. One or more of the following dose reduction techniques were used: Automated exposure control, adjustment of the mA and kV according to patient size, and iterative reconstruction. Unless otherwise specified, incidental findings do not require dedicated imaging follow-up. COMPARISON: Abdomen radiograph 03/12/2024 FINDINGS: LOWER CHEST: The visualized lung bases are clear apart from bibasilar atelectatic changes. LIVER: Normal in size and contour. No focal lesion. BILIARY SYSTEM: No suspicious abnormalities. SPLEEN: Normal size. No focal lesion. PANCREAS: No mass, ductal dilation, or lyndsay-pancreatic fluid. ADRENALS: Normal; no mass. KIDNEYS: Normal size and contour. No hydronephrosis. URINARY BLADDER: Decompressed limiting evaluation.. GASTROINTESTINAL TRACT: Wall thickening and marked edema along the rectum. Presacral edema. No evidence of free air, significant intra-abdominal free fluid, bowel obst ruction or abscess. APPENDIX: Normal appendix. LYMPH NODES: No lymphadenopathy. MUSCULOSKELETAL: No acute or suspicious osseous abnormality. Endplate irregularities with mild superior endplate compression deformity at L5, favored to be of degenerative etiology ADDITIONAL FINDINGS: Small umbilical hernia containing fat EQUIPMENT OPERATOR/LABORER/SUPERVISOR shunt catheter demonstrates a narrow loop within the right anterior abdominal wall just prior to the entry into the peritoneal cavity, with adjacent linear soft tissue thickening. The catheter terminates within the right lower quadrant. Medial calcifications throughout the large and medium sized vessels, suggesting sequelae of long-standing diabetes mellitus. IMPRESSION: Wall thickening and marked edema along the rectum, could reflect infectious or inflammatory proctitis. Nonspecific marrow loop configuration of the most distal EQUIPMENT OPERATOR/LABORER/SUPERVISOR shunt catheter within the anterior abdominal wall subcutaneous soft tissues, with probable adjacent scarring. Please correlate clinically if there is any signs/symptoms of shunt malfunction. EXAM: CT brain without contrast HISTORY: Headache COMPARISON: February 2024 TECHNIQUE: Multiple contiguous axial images were obtained and a CT of the brain without contrast.. Sagittal and coronal reconstruction performed. Automated exposure control, adjustment of the mA and/or kV according to patient size, and/or iterative reconstruction. Unless otherwise specified, incidental findings do not require dedicated imaging follow-up FINDINGS: Ventriculostomy tube enters the frontal horn lateral ventricle. Mild prominence of the ventricles without significant change from the prior exam. Stable cerebral hypodensities. No extra-axial fluid collection noted Increased density within the occipital parietal lobes right greater than left. Chronic right maxillary sinusitis IMPRESSION: Ventriculostomy tube in place. Mild dilatation of the ventricles unchanged from February 2024 Small areas of increased density within the occipital parietal lobes right greater than left unchanged most likely representing either calcification or normal newby-white matter. A bleed is doubtful. If the patient's symptoms persist MRI of the brain may be helpful. [id number] EXAMINATION: MRI BRAIN WITHOUT CONTRAST CLINICAL INDICATION: Headache TECHNIQUE: Multiplanar multisequence MR images of the brain were obtained without intravenous contrast. Unless otherwise specified, incidental findings do not require dedicated imaging follow-up. COMPARISON: Head CT May 05, 2024 FINDINGS: Images of the right cerebrum are degraded by artifact secondary to a EQUIPMENT OPERATOR/LABORER/SUPERVISOR shunt. Right ventriculostomy tube with with its tip in the frontal horn lateral ventricle. Mild dilatation of the ventricles. Abnormal signal within the right and left occipital parietal regions. Gradient echo sequences demonstrate areas of diminished signal likely hemosiderin. Ventricles are normal caliber. No extra-axial fluid collection. Signal within the mastoids right greater than left. IMPRESSION: Abnormal signal within the right and left occipital parietal regions presumably prior infarction. Additional areas of abnormal signal within these regions have the appearance of a small amount of subacute blood. Right ventriculostomy tube in place with mild dilatation of the ventricles unchanged from February 2024 Conclusions/Impression: 58-year-old patient admitted for acute gastroenteritis, she was started on IV antibiotics, nephrology was consulted for dialysis, there was some abnormality of the EQUIPMENT OPERATOR/LABORER/SUPERVISOR shunt on the CT abdomen, CT head was ordered, there was some question of intracranial bleed, MRI ordered which showed subacute intracranial bleeding. ESRD on HD -Acute HD ordered Hypertensive Urgency HTN with ESRD -Continue Coreg -Continue Losartan & Nifedipine ER -Continue Clonidine -Hydralazine and Labetolol prn DM II with CKD -RISS prn Anemia in CKD -Monitor H&H -Retacrit prn Acute gastroenteritis Proctitis -Continue Abx Sub acute [facility] bleed [facility] Case reviewed with Dr. Cuevas Patient care 35min Thank you kindly for the consultation
[2024-05-05] MEDS ORDERED: MANNITOL 25% 12.5 GM/50 ML VIAL IV PRN (10:33)
[2024-05-05] MEDS ORDERED: NA CHLORIDE 0.9% 1,000 ML IV PRN (10:33)
[2024-05-05] MEDS ORDERED: EPOETIN ALFA 10,000 UNIT/ML VIAL IV SCH ×2 (10:45→18:45)
[2024-05-05] MEDS ORDERED: ALBUMIN HUMAN 25% 50 ML IV SCH (11:00)
--- NOTE | 2024-05-05 12:01 | RAD REPORT ---
EXAMINATION: MRI BRAIN WITHOUT CONTRAST CLINICAL INDICATION: Headache TECHNIQUE: Multiplanar multisequence MR images of the brain were obtained without intravenous contras t. Unless otherwise specified, incidental findings do not require dedicated imaging follow-up. COMPARISON: Head CT May 05, 2024 FINDINGS: Images of the right cerebrum are degraded by artifact secondary to a SHOT BAGGER shunt. Right ventriculostomy tube with with its tip in the frontal horn lateral ventricle. Mild dilatation of the ventricles. Abnormal signal within the right and left occipital parietal regions. Gradient echo sequences demonst rate areas of diminished signal likely hemosiderin. Ventricles are normal caliber. No extra-axial fluid collection. Signal within the mastoids right greater than left. IMPRESSION: Abnormal signal within the right and left occipital parietal regions presumably prior infarction. Additional areas of abnormal signal within these regions have the appearance of a small amount of sub acute blood. Right ventriculostomy tube in place with mild dilatation of the ventricles unchanged from February Dr Cuevas was notified 11:55 AM May 05, 2024
--- NOTE | 2024-05-05 12:01 | EKG ---
Test Date: 2024-05-04 Test Time: 16:46:06 Educational Program Director: [id number] MEASUREMENT RESULTS: Intervals: Rate: 98 MI: 212 QRSD: 82 QT: 364 QTc: 464 [place]: P: 59 MI: 212 QRS: 28 T: 65 INTERPRETIVE STATEMENTS: Sinus rhythm with 1st degree AV block Possible Left atrial enlargement Possible Anterior infarct, age undetermined Abnormal ECG Compared to ECG 03/11/2024 20:52:21 First degree AV block now present Myocardial infarct finding now present Left ventricular hypertrophy no longer present Prolonged QT interval no longer present Electronically Signed On 05-05-24 11:59:33 CDT by Toro Soliman
--- NOTE | 2024-05-05 16:48 | P.DS ---
Admission Date: 05/04/24 Discharge Date: 05/05/24 Reason for Admission: intractable nausea and vomiting Hospital Course: 1. Acute gastroenteritis, Proctitis possibly infectious -Started on IV antibiotic -Monitor closely -GI f/u as o/p 2. Abdominal pain: better now -Pain control -CT abdomen pelvis noted -Along with proctitis as a mention about possible narrowing of VACUUM SYSTEM TESTER shunt distal end, CT of the head showed ventricular size stable but ?bleed, MRI showes sub acute brain bleed 3. Hypertensive urgency: Antihypertensives titrated -BP improving -monitor closely 4. Hyperlipidemia: Continue statin 5. ESRD on dialysis Nephrology consulted 6. Diabetes Insulin sliding scale Accu-Chek before every meal and at bedtime 7. Anemia of chronic disease Monitor H&H closely No overt bleeding at this time 8. Sub acute intracranial bleed on MRI: [facility] 58[facility] patient admitted for acute gastroenteritis, she was started on IV antibiotics, nephrology was consulted for dialysis, there was some abnormality of the VACUUM SYSTEM TESTER shunt on the CT abdomen, CT head was ordered, there was some question of intracranial bleed, MRI ordered which showed subacute intracranial bleeding, I discussed with the transfer line, waiting for the patient to be transferred to [facility]. Vital Signs/Physical Exam: Temp Pulse Resp BP Pulse Ox 98.7 F 75 15 141/64 H 99 05/05/24 12:00 05/05/24 16:00 05/05/24 16:00 05/05/24 16:00 05/05/24 16:00 Laboratory Data at Discharge: WBC 7.10 thou/uL (4.3-10.9) 05/05/24 05:23 Hgb 9.0 g/dL (12.0-15.0) L 05/05/24 05:23 Hct 26.6 % (36.0-45.0) L 05/05/24 05:23 Plt Count 204 thou/uL (152-406) 05/05/24 05:23 Sodium 140 mEq/L (136-145) 05/05/24 05:23 Potassium 3.6 mEq/L (3.5-5.1) 05/05/24 05:23 BUN 46 mg/dL (7-18) H 05/05/24 05:23 Creatinine 5.78 mg/dL (0.55-1.02) H 05/05/24 05:23 Glucose 163 mg/dL (74-106) H 05/05/24 05:23 Total Bilirubin 0.5 mg/dL (0.2-1.0) 05/05/24 05:23 AST 20 U/L (15-37) 05/05/24 05:23 ALT < 14 U/L (13-56) 05/05/24 05:23 Alkaline Phosphatase 93 U/L (45-117) 05/05/24 05:23 Lipase 33 U/L (13-75) 05/04/24 17:16 Home Medications: Aspirin Chewable [Aspirin Chewable*] 81 mg PO DAILY tab.chew 02/28/24 Atorvastatin Calcium [Lipitor] 80 mg PO BEDTIME tab 02/28/24 Bumetanide [Bumex*] 1 mg PO DAILY tab 02/28/24 Cinacalcet HCl [Sensipar*] 30 mg PO LUNCH tab 02/28/24 Docusate [Colace Cap*] 100 mg PO DAILY PRN cap 02/28/24 Famotidine [Pepcid*] 40 mg PO DAILY tab 02/28/24 Hydralazine [Apresoline*] 50 mg PO TID tab 02/28/24 Loperamide [Imodium*] 2 mg PO Q4H PRN cap 02/28/24 Losartan Potassium [Cozaar*] 50 mg PO BID 02/28/24 Melatonin [Melatonin*] 3 mg PO BEDTIME PRN PRN 02/28/24 Mupirocin Oint [Bactroban 2% Ointment*] 1 appl TOP BID tube 02/28/24 Nifedipine Xl [Procardia Xl*] 30 mg PO BID tab 02/28/24 carvediloL [Coreg*] 25 mg PO BID 6AM 6PM tab 02/28/24 cloNIDine HCL [Catapres*] 0.1 mg PO BID tab 03/05/24 Acetaminophen [Tylenol] 650 mg PO Q6HR PRN MDD 3G 03/12/24 Insulin Degludec [Tresiba Flextouch U-100] 10 unit SQ BEDTIME 03/12/24 Nifedipine Xl [Procardia Xl*] 60 mg PO BID 03/12/24 Ondansetron [Zofran] 4 mg PO Q4H PRN 03/12/24 Sevelamer Carbonate [Renvela*] 800 mg PO SEECOM 03/12/24 Followup: Monse Echeverria MD [Primary Care Provider] -
[2024-05-05 23:23] VITALS: O2SAT 98
[2024-05-06] MEDS ORDERED: cloNIDine HCL 0.1 MG TAB ONE (02:19)
[2024-05-06] MEDS ORDERED: METRONIDAZOLE 500mg IVPB 500 MG/100 ML BAG IV ONE (02:27)
[2024-05-06 04:34] LABS: Absolute Eosinophils 0.1 K/uL (0-0.5); Absolute Lymphocytes (CBC) 1.2 K/uL (0.7-4.9); Absolute Monocytes 0.5 K/uL (0.1-1.3); Basophils % 0.6 % (0-1.3); Eosinophils % 1.3 % (0-4.4); Hematocrit 26.9 % (36.0-45.0); Hemoglobin 9.2 g/dL (12.0-15.0); Lymphocytes % 17.5 % (15.3-44.8); MCH 32.5 pg (27.0-35.0); MCHC 34.1 g/dL (32.0-36.0); MCV 95.4 fL (80-100); MPV 7.5 fL (7.6-11.3); Neutrophils % 72.6 % (41.7-73.7); Nucleated Red Blood Cells % 0.1 % (0-0); Platelets 218 thou/uL (152-406); RBC Red Blood Cell Count 2.82 M/uL (3.86-4.86); Red Cell Distribution Width 16.7 % (12.1-15.2)
[2024-05-06 04:59] LABS: Anion Gap 12.9 mEq/L (5.0-15.0); Potassium 3.9 mEq/L (3.5-5.1)
[2024-05-06 06:10] VITALS: BP 124/51
--- NOTE | 2024-05-06 18:12 | P.PN ---
Date of Service: 05/06/24 Vital Signs Temp Pulse Resp BP Pulse Ox 98.7 F 67 15 124/51 L 100 05/05/24 12:00 05/06/24 06:00 05/06/24 04:00 05/06/24 06:00 05/06/24 04:00 Lab Results (last 24 hrs) 05/04/24 16:36: Urine Color Cancelled, Urine Clarity Cancelled, Urine pH Cancelled, Ur Specific Smyer Cancelled, Glucose (UA)(Auto) Cancelled, Urine Ketones Cancelled, Urine Blood Cancelled, Urine Nitrite Cancelled, Urine Bilirubin Cancelled, Urine Urobilinogen Cancelled, Ur Leukocyte Esterase Cancelled, Urine RBC Cancelled, Urine Red Cell Clumps Cancelled, Urine WBC Cancelled, Urine WBC Clumps Cancelled, Ur Squamous Epith Cells Cancelled, U Non- Squamous Epi Cells Cancelled, Ur Transition Epith Cell Cancelled, Ur Renal Epithelial Cell Cancelled, Calcium Carbonate Cryst Cancelled, Calcium Oxalate Crystal Cancelled, Leucine Crystals Cancelled, Cystine Crystals Cancelled, Uric Acid Crystals Cancelled, Triple Phos Crystals Cancelled, Tyrosine Crystals Cancelled, Unidentified Crystals Cancelled, Amorphous Crystals Cancelled, Urine Bacteria Cancelled, Hyaline Casts Cancelled, Granular Casts Cancelled, Waxy Casts Cancelled, RBC Casts Cancelled, WBC Casts Cancelled, Urine Mucus Cancelled, Urine Trichomonas Cancelled, Ur Yeast w Hyphae Cancelled, Urine Yeast (Budding) Cancelled, Urine Sperm Cancelled, Ur Oval Fat Bodies Cancelled, Ur Microscopic Review Cancelled, Urine Culture Reflexed Cancelled, Urine Total Protein Cancelled, Urine Ascorbic Acid Cancelled, Urine Fat Cancelled Microbiology Results 05/04/24 19:03 Blood - Blood Aerobic Blood Culture - Preliminary No growth in 24 hours. 05/04/24 19:03 Blood - Blood Anaerobic Blood Culture - Preliminary No growth in 24 hours. 05/04/24 18:20 Blood - Blood Aerobic Blood Culture - Preliminary No growth in 24 hours. 05/04/24 18:20 Blood - Blood Anaerobic Blood Culture - Preliminary No growth in 24 hours. Assessment/ Plan: Nephrology No dyspnea No chest pain No acute events overnight. Still waiting for the transfer. Vitals, medications, blood work and imaging reviewed in the chart General: In no apparent distress, Cooperative HEENT: Atraumatic Neck: Supple Respiratory: Clear to auscultation bilaterally, Normal air movement Cardiovascular: No edema, Regular rate/rhythm Gastrointestinal: Soft and benign, Non-distended Musculoskeletal: No clubbing, No contractures Integumentary: No rashes, No cyanosis Neurological: Normal speech Laboratory Data (last 24 hrs) 05/04/24 05/04/24 17:16 17:16 WBC 7.60 Hgb 9.6 L Hct 28.9 L Plt Count 198 Sodium 137 Potassium 3.7 BUN 42 H Creatinine 5.16 H Glucose 221 H Total Bilirubin 0.5 AST 17 ALT < 14 Alkaline Phosphatase 105 Lipase 33 Imagings Data: EXAMINATION: CT Abdomen Pelvis W Contrast CLINICAL INDICATION: Female, 58 years old. vomiting;Abd pain TECHNIQUE: CT abdomen and pelvis was performed, after the administration of IV contrast, as per department protocol. Axial, sagittal and coronal reconstructions were obtained. One or more of the following dose reduction techniques were used: Automated exposure control, adjustment of the mA and kV according to patient size, and iterative reconstruction. Unless otherwise specified, incidental findings do not require dedicated imaging follow-up. COMPARISON: Abdomen radiograph 03/12/2024 FINDINGS: LOWER CHEST: The visualized lung bases are clear apart from bibasilar atelectatic changes. LIVER: Normal in size and contour. No focal lesion. BILIARY SYSTEM: No suspicious abnormalities. SPLEEN: Normal size. No focal lesion. PANCREAS: No mass, ductal dilation, or lyndsay-pancreatic fluid. ADRENALS: Normal; no mass. KIDNEYS: Normal size and contour. No hydronephrosis. URINARY BLADDER: Decompressed limiting evaluation.. GASTROINTESTINAL TRACT: Wall thickening and marked edema along the rectum. Presacral edema. No evidence of free air, significant intra-abdominal free fluid, bowel obstruction or abscess. APPENDIX: Normal appendix. LYMPH NODES: No lymphadenopathy. MUSCULOSKELETAL: No acute or suspicious osseous abnormality. Endplate irregularities with mild superior endplate compression deformity at L5, favored to be of degenerative etiology ADDITIONAL FINDINGS: Small umbilical hernia containing fat SUPERVISOR CONCRETE STONE FABRICATING shunt catheter demonstrates a narrow loop within the right anterior abdominal wall just prior to the entry into the peritoneal cavity, with adjacent linear soft tissue thickening. The catheter terminates within the right lower quadrant. Medial calcifications throughout the large and medium sized vessels, suggesting sequelae of long-standing diabetes mellitus. IMPRESSION: Wall thickening and marked edema along the rectum, could reflect infectious or inflammatory proctitis. Nonspecific marrow loop configuration of the most distal SUPERVISOR CONCRETE STONE FABRICATING shunt catheter within the anterior abdominal wall subcutaneous soft tissues, with probable adjacent scarring. Please correlate clinically if there is any signs/symptoms of shunt malfunction. EXAM: CT brain without contrast HISTORY: Headache COMPARISON: February 2024 TECHNIQUE: Multiple contiguous axial images were obtained and a CT of the brain without contrast.. Sagittal and coronal reconstruction performed. Automated exposure control, adjustment of the mA and/or kV according to patient size, and/or iterative reconstruction. Unless otherwise specified, incidental findings do not require dedicated imaging follow-up FINDINGS: Ventriculostomy tube enters the frontal horn lateral ventricle. Mild prominence of the ventricles without significant change from the prior exam. Stable cerebral hypodensities. No extra-axial fluid collection noted Increased density within the occipital parietal lobes right greater than left. Chronic right maxillary sinusitis IMPRESSION: Ventriculostomy tube in place. Mild dilatation of the ventricles unchanged from February 2024 Small areas of increased density within the occipital parietal lobes right greater than left unchanged most likely representing either calcification or normal newby-white matter. A bleed is doubtful. If the patient's symptoms persist MRI of the brain may be helpful. [id number] EXAMINATION: MRI BRAIN WITHOUT CONTRAST CLINICAL INDICATION: Headache TECHNIQUE: Multiplanar multisequence MR images of the brain were obtained without intravenous contrast. Unless otherwise specified, incidental findings do not require dedicated imaging follow-up. COMPARISON: Head CT May 05, 2024 FINDINGS: Images of the right cerebrum are degraded by artifact secondary to a SUPERVISOR CONCRETE STONE FABRICATING shunt. Right ventriculostomy tube with with its tip in the frontal horn lateral ventricle. Mild dilatation of the ventricles. Abnormal signal within the right and left occipital parietal regions. Gradient echo sequences demonstrate areas of diminished signal likely hemosiderin. Ventricles are normal caliber. No extra-axial fluid collection. Signal within the mastoids right greater than left. IMPRESSION: Abnormal signal within the right and left occipital parietal regions presumably prior infarction. Additional areas of abnormal signal within these regions have the appearance of a small amount of subacute blood. Right ventriculostomy tube in place with mild dilatation of the ventricles unchanged from February 2024 Conclusions/Impression: 58-year-old patient admitted for acute gastroenteritis, she was started on IV antibiotics, nephrology was consulted for dialysis, there was some abnormality of the SUPERVISOR CONCRETE STONE FABRICATING shunt on the CT abdomen, CT head was ordered, there was some question of intracranial bleed, MRI ordered which showed subacute intracranial bleeding. ESRD on HD -Acute HD held yesterday due to the transfer. However, acute HD again ordered today without heparin since we are still waiting for the transfer. Hypertensive Urgency HTN with ESRD -Continue Coreg -Continue Losartan & Nifedipine ER -Continue Clonidine -Hydralazine and Labetolol prn DM II with CKD -RISS prn Anemia in CKD -Monitor H&H -Retacrit prn Acute gastroenteritis Proctitis -Continue Abx Sub acute intracranial bleed on MRI [facility] Patient [facility] 35[facility]
== END 2024-05-06 07:55 | disposition short-term general hospital (02) | DRG 391 ==
LOC: ER 16:30 → ERHOLD 19:22
PROVIDERS: ADMIT Family Medicine; ATTEND Hospitalist
PROC: 5A1D70Z Performance of Urinary Filtration, Intermittent, Less than 6 Hours Per Day (ICD-10-PCS; principal; 2024-05-04)
DX: K52.9 Noninfective gastroenteritis and colitis, unspecified (principal); N18.6 End stage renal disease; I12.0 Hypertensive chronic kidney disease with stage 5 chronic kidney disease or end stage renal disease; I62.9 Nontraumatic intracranial hemorrhage, unspecified; D63.1 Anemia in chronic kidney disease; E11.22 Type 2 diabetes mellitus with diabetic chronic kidney disease; I16.0 Hypertensive urgency; E03.9 Hypothyroidism, unspecified; E78.00 Pure hypercholesterolemia, unspecified; K62.89 Other specified diseases of anus and rectum; Z23 Encounter for immunization; Z99.2 Dependence on renal dialysis; Z79.4 Long term (current) use of insulin; Z79.82 Long term (current) use of aspirin; Z79.02 Long term (current) use of antithrombotics/antiplatelets; Z79.899 Other long term (current) drug therapy; Z91.158 Patient's noncompliance with renal dialysis for other reason
CPT/HCPCS: 36415; 70450; 70551; 74177; 80048; 80053; 82947; 83605; 83690; 84484; 85025; 87040; 90471; 90732; 93005; 99285; J0360; J0696; J0744; J1644; J2405; J2765; J7030; Q4081; Q9967

== ENCOUNTER 2024-05-14 12:46 | Emergency (ER) | payer OTHER ==
[2024-05-14] MEDS ORDERED: ONDANSETRON 4 MG/2 ML VIAL ONE (13:15)
[2024-05-14 13:50] LABS: Absolute Basophils 0.1 K/uL (0-0.5); Absolute Eosinophils 0.1 K/uL (0-0.5); Absolute Lymphocytes (CBC) 0.9 K/uL (0.7-4.9); Absolute Monocytes 0.3 K/uL (0.1-1.3); Absolute Neutrophil 8.1 K/uL (1.8-8.0); Basophils % 0.8 % (0-1.3); Eosinophils % 0.8 % (0-4.4); Hematocrit 33.6 % (36.0-45.0); Hemoglobin 11.5 g/dL (12.0-15.0); Lymphocytes % 9.2 % (15.3-44.8); MCH 32.1 pg (27.0-35.0); MCHC 34.1 g/dL (32.0-36.0); MCV 94.2 fL (80-100); MPV 8.7 fL (7.6-11.3); Monocytes % 3.2 % (3.3-12.3); Platelets 270 thou/uL (152-406); RBC Red Blood Cell Count 3.57 M/uL (3.86-4.86); Red Cell Distribution Width 16.5 % (12.1-15.2)
--- NOTE | 2024-05-14 13:51 | RAD REPORT ---
EXAM: Chest Single View HISTORY: 58 years Female COUGH COMPARISON: 03/13/2024 FINDINGS: LUNGS/PLEURA: No definite acute process. The patient's left hand overlies the left lung base which ob scures portions. CARDIAC/MEDIASTINUM: Stable size and configuration. UPPER ABDOMEN: No significant abnormality. BONES: No acute abnormality. LINES/TUBES/OTHER: MACHINE PULLER OVER shunt tubing. IMPRESSION: No definite evidence of acute cardiopulmonary disease. Left lung base partially obscured by the patie nt's hand.
--- NOTE | 2024-05-14 14:04 | RAD REPORT ---
EXAMINATION: Head Brain Wo Cont CLINICAL INDICATION: Female, 58 years old.HEADACHE TECHNIQUE: Axial CT images from the skull base to the vertex without intravenous contrast. Coronal an d sagittal reformatted images were created from the data set. One or more of the following dose reduction techniques were used: Automated exposure control, adjustment of the mA and/or kV according to patient size, and/or iterative reconstruction. Unless otherwise specified, incidental findings do not require dedicated imaging follow-up. [id number]. COMPARISON: 05/05/2024 FINDINGS: INTRACRANIAL: Small volume of subcutaneous subarachnoid hemorrhage at the right occipital lobe. No hy drocephalus. No mass effect or midline shift. Moderate chronic small vessel ischemic changes.Mild cerebral atrophy. Subacute appearing right occipital lobe infarct. Small acute left occipital lobe in farct which is new from prior. WILDERNESS GUIDE shunt with the tip near the midline, similar. VASCULATURE: No visualized abnormalities in the arteries or dural venous sinuses. SCALP/SKULL: No calvarial fracture identified. No acute soft tissue abnormality. SINUSES: Scattered areas of paranasal sinus thickening. Left mastoid effusion. IMPRESSION: Subacute right occipital lobe cortical infarct with small volume of subacute subarachnoid/petechial h emorrhage which is similar to 05/05/2024. Small left occipital lobe cortical infarct is new from 05/05/2024. MRI could confirm.
--- NOTE | 2024-05-14 14:09 | RAD REPORT ---
EXAMINATION: Abdomen Pelvis Wo Contrast CLINICAL INDICATION: Female, 58 years old.NAUSEA / VOMITING TECHNIQUE: CT abdomen and pelvis was performed, without IV contrast, as per department protocol. Axia l, sagittal and coronal reconstructions were obtained. One or more of the following dose reduction techniques were used: Automated exposure control, adjustment of the mA and/or kV according to the pat ient size, and/or iterative reconstruction. Unless otherwise specified, incidental findings do not require dedicated imaging follow-up. [id number]. IV CONTRAST: Not administered. COMPARISON: 05/04/2024 FINDINGS: The lack of intravenous contrast limits the sensitivity of this exam for evaluation of solid visceral organs, vascular structures, and retroperitoneum. LOWER CHEST: No acute process identified.No significant pericardial effusion. Moderate coronary arter y calcifications.Moderate circumferential thickening of the distal esophagus which could reflect esophagitis. Endoscopy could better evaluate. Aortic valve and mitral annular calcifications. UPPER GI: No significant abnormality. LIVER: No significant focal abnormality. GALLBLADDER/BILE DUCTS: No biliary ductal dilatation.? PANCREAS: No mass, ductal dilation, or lyndsay-pancreatic fluid. SPLEEN: Unremarkable. ADRENALS: No adrenal masses. KIDNEYS AND URETERS: No hydronephrosis.No suspicious renal mass.No renal calculi. ABDOMINAL AORTA AND OTHER VESSELS: Severe atherosclerotic changes. No aortic aneurysm. PERITONEUM: Nonspecific free fluid. The patient tubing terminates in the left hemiabdomen. There is c oiling of the shunt catheter in the abdominal wall where there is some soft tissue thickening which is unchanged. LYMPH NODES: No pathologic lymphadenopathy. ABDOMINAL WALL: See above SMALL BOWEL/COLON: Rectal wall thickening which is slightly less pronounced from prior.Normal appendi x. Mild formed stool burden. URINARY BLADDER: Underdistended but grossly unremarkable. REPRODUCTIVE ORGANS: No pathologic process. MUSCULOSKELETAL: Remote L5 compression fracture. ADDITIONAL FINDINGS: None. IMPRESSION: No acute findings within the abdomen or pelvis. Rectal wall thickening present though which has impro gal somewhat since 05/04/2024. Additional findings as noted above.
[2024-05-14] MEDS ORDERED: PROMETHAZINE INJ 25 MG/ML AMP ONE (14:59)
[2024-05-14] MEDS ORDERED: ASPIRIN 81 MG CHEWABLE TABLET ONE (14:59)
[2024-05-14] MEDS ORDERED: HYDRALAZINE HCL 25 MG TABLET ONE (15:32)
[2024-05-14] MEDS ORDERED: carvediloL 6.25 MG TAB ONE (15:33)
--- NOTE | 2024-05-14 16:44 | EDPHYS ---
Physician Documentation [facility] Name: Barbara Ibarra Age: 58 yrs Sex: Female : 1965 Arrival Date: 05/14/2024 Time: 12:46 Bed 19 Private MD: ED Physician Jayme Leigh HPI: 05/14 13:19 This 58 yrs old Female presents to ER via Unassigned with complaints of nausea dr5 and vomiting that started this morning.. 13:19 Patient is a 58-year-old female with history of recent subacute intracranial hemorrhage dr5 that was transferred downtown and discharged a couple days ago, diabetes, dialysis on Sunday and Sunday. Patient was scheduled for 1 PM today for her dialysis session but" unable to go due to vomiting. Patient denies headache, altered mental status, chest pain, abdominal pain. Patient is anuric due to dialysis and having normal bowel movements. Patient denies fever or diarrhea. Historical: - PMHx: 13:30 Anemia; CVA; Diabetes - NIDDM; Dialysis; M/W/F; ESRD; Hyperlipidemia; Hypertension; dr5 Thyroid problem; - PSHx: 13:30 cataract; dr5 - Immunization history:: Adult Immunizations unknown. - Infectious Disease History:: Denies. - Social history:: Smoking status: Patient denies any tobacco usage or history of. ROS: 13:19 Constitutional: as per hpi dr5 Exam: 15:06 Constitutional: This is a well developed, well nourished patient who is awake, alert, dr5 and in no acute distress. Head/Face: Normocephalic, atraumatic. Eyes: Pupils equal round and reactive to light, extra-ocular motions intact. Lids and lashes normal. Conjunctiva and sclera are non-icteric and not injected. Cornea within normal limits. Periorbital areas with no swelling, redness, or edema. Neck: Trachea midline, no thyromegaly or masses palpated, and no cervical lymphadenopathy. Supple, full range of motion without nuchal rigidity, or vertebral point tenderness. No Meningismus. 15:06 Cardiovascular: Rate: normal, Rhythm: regular, Pulses: Dialysis shunt: in the left arm, with palpable thrill, with auscultated bruit, with no erythema, with no edema, no bleeding noted 15:06 Respiratory: the patient does not display signs of respiratory distress, Respirations: normal, 15:06 Abdomen/GI: Inspection: abdomen appears normal, Bowel sounds: normal, Palpation: abdomen is soft and non-tender, in all quadrants, 15:06 Back: pain, that is very mild, of the sacrum, CVA tenderness, is absent, 15:06 Skin: Appearance: normal except for affected area, Stage 1 Pressure Ulcer noted on sacrum. 15:06 Neuro: Orientation: is normal, appropriate for stated age, Mentation: is normal, Vital Signs: 12:50 BP 230 / 80; Pulse 88; Resp 20; Pulse Ox 100% ; kj2 15:05 BP 229 / 73; Pulse 90; Resp 16; Pulse Ox 98% on R/A; kj2 16:00 BP 216 / 74; Pulse 79; Resp 20; Pulse Ox 100% ; kj2 17:00 BP 200 / 72; Pulse 76; Resp 18; Pulse Ox 98% on R/A; kj2 18:31 Temp 98.5(O); ll1 18:32 Weight 62 kg; Height 4 ft. 10 in. ; ll1 20:00 BP 182 / 72; Pulse 85; Resp 18; Temp 98.5; Pulse Ox 100% on R/A; kj2 18:32 Body Mass Index 28.57 (62.00 kg, 147.32 cm) ll1 MDM: 12:58 Medical Screening Exam initiated dr5 14:37 Management of patient was discussed with the following: Electronic Operator: Dr. Cary. dr5 Discussed case with Raeann who recommended putting patient on 81mg daily ASA and monitor. Medical management and no transfer / admission at this time.. 17:00 Data reviewed: vital signs, nurses notes. Consideration of Admission/Observation dr5 Patient was admitted/placed on observation. Management of patient was discussed with the following: Hospitalist: Josephine. Care significantly affected by the following chronic conditions: Diabetes, Hypertension. Care significantly affected by the following Social Determinants of Health: Poor access to healthcare and/or lack of insurance, Poor access to transportation, Problems related to employment. Counseling: I had a detailed discussion with the patient and/or guardian regarding the historical points, exam findings, and any diagnostic results supporting the discharge/admit diagnosis, the presence of at least one elevated blood pressure reading (>120/80) during this emergency department visit, lab results, the need for further work-up and treatment in the hospital. ED course: Will admit for gastroenteritis and PO Intolerance. 19:45 ED course: Dr. Burton called down and requested patient be transferred for neurosurgery kb due to subacute subarachnoid on CT and his new ischemic stroke. Discussed case with Dr. Davila at [facility] who accepts patient for transfer to neuro ICU. 05/14 13:05 Order name: CBC with Diff; Complete Time: 17:24 [facility] 05/14 13:05 Order name: Troponin HS; Complete Time: 17:45 dr5 05/14 13:05 Order name: CMP; Complete Time: 17:45 dr5 05/14 13:05 Order name: Lactate w/ 2H reflex if indic.; Complete Time: 13:53 dr5 05/14 13:53 Order name: CBC Smear Scan; Complete Time: 17:24 EDMS 05/14 13:05 Order name: XRAY Chest (1 view); Complete Time: 13:53 dr5 05/14 13:22 Order name: CT Head Brain wo Cont; Complete Time: 14:16 dr5 05/14 13:22 Order name: CT Abd/Pelvis - Without Contrast; Complete Time: 14:16 dr5 05/14 13:05 Order name: Cardiac monitoring; Complete Time: 14:40 dr5 05/14 13:05 Order name: EKG - Nurse/Tech; Complete Time: 14:40 dr5 05/14 13:05 Order name: IV Saline Lock; Complete Time: 13:39 dr5 05/14 13:05 Order name: Labs collected and sent; Complete Time: 13:40 dr5 05/14 13:05 Order name: O2 Per Protocol; Complete Time: 13:40 dr5 05/14 13:05 Order name: O2 Sat Monitoring; Complete Time: 13:40 dr5 05/14 13:51 Order name: Labs - recollect needed: recollect green top; Complete Time: 17:02 bd EC:28 Rate is 87 beats/min. Rhythm is regular. QRS [place] is Normal. NM interval is normal at dr5 224 msec. QRS interval is normal at 84 msec. Administered Medications: 13:39 Drug: Ondansetron IVP 4 mg IVP once; over 2 minutes Route: IVP; Site: right forearm; kj2 15:04 Drug: Promethazine IVP 12.5 mg IVP once Route: IVP; Site: right forearm; kj2 15:04 Drug: Aspirin PO 81 mg PO once Route: PO; kj2 15:53 Drug: HydrALAZINE PO 25 mg PO once Route: PO; kj2 15:53 Drug: Coreg PO 25 mg PO once; administer with food Route: PO; kj2 Disposition: 15:05 I was immediately available on-site in the Emergency Department for consultation in the ms3 care of the patient. Disposition Summary: 05/14/24 18:23 Transfer Ordered Notes: Transfer Location: [facility] kb Reason: Higher level of care kb Condition: Stable(05/14/24 18:23) kb Problem: new(05/14/24 18:23) kb Symptoms: are unchanged(05/14/24 18:23) kb Accepting Physician: Dr. Apodaca(05/14/24 21:19) kj2 Diagnosis - Subacute subarachnoid hemorrhage kb - Left occipital lobe cortical infarct kb - Noninfective gastroenteritis and colitis, unspecified kb Forms: - Medication Reconciliation Form kb - SBAR form kb Signatures: Dispatcher [employer] EDMS Marcia Ferguson, PHARMACY ANCILLARY-C PHARMACY ANCILLARY-Ckb Justa Benitez Roman, MD MD rn Sims, Marcus, DO DO ms3 Laine Lambert rv1 Alissa Pak RN RN kj2 Mert Sands, PHARMACY ANCILLARY-C PHARMACY ANCILLARY-Cdr5 Corrections: (The following items were deleted from the chart) 13:06 13:06 Chest Single View+RAD.RAD.BRZ ordered. EDMS EDMS 13:22 13:22 Head Brain Wo Cont+CT.RAD.BRZ ordered. EDMS EDMS 13:23 13:23 Abdomen Pelvis Wo Con+CT.RAD.BRZ ordered. EDMS EDMS 18:21 16:43 [address] dr5 kb 18:21 16:43 Franklin Burton dr5 kb 18:21 16:43 Telemetry/MedSurg (observation) dr5 kb 18:21 16:[address] dr5 kb 18:21 16:43 [address] dr5 kb 18:21 16:43 are unchanged dr5 kb 18:21 16:[address]5 kb 18:21 16:43 dr5 kb 18:21 16:43 Other specified noninfective gastroenteritis and colitis dr5 kb 19:35 18:23 Dr ordonez rv1 :19 19:35 Dr. Apodaca rv1 kj2
--- NOTE | 2024-05-14 16:44 | ER ---
Nurse's Notes [facility] Name: Barbara Ibarra Age: 58 yrs Sex: Female : 1965 Arrival Date: 05/14/2024 Time: 12:46 Bed 19 Private MD: Diagnosis: Subacute subarachnoid hemorrhage;Left occipital lobe cortical infarct;Noninfective gastroenteritis and colitis, unspecified Presentation: 05/14 12:50 Chief complaint: EMS states: nausea, vomiting. Coronavirus screen: Client denies travel kj2 out of the [place] in the last 14 days. Ebola Screen: No symptoms or risks identified at this time. Initial Sepsis Screen: Does the patient meet any 2 criteria? Does the patient have a suspected source of infection? No. Patient's initial sepsis screen is negative. Risk Assessment: Do you want to hurt yourself or someone else? Patient reports no desire to harm self or others. Onset of symptoms was May 12, 2024. 12:50 Method Of Arrival: EMS: [facility] kj2 12:50 Acuity: AZUCENA 3 kj2 Triage Assessment: 12:50 General: see general assessment. GI: Reports nausea. kj2 Historical: - PMHx: 13:30 Anemia; CVA; Diabetes - NIDDM; Dialysis; M/W/F; ESRD; Hyperlipidemia; Hypertension; dr5 Thyroid problem; - PSHx: 13:30 cataract; dr5 - Immunization history:: Adult Immunizations unknown. - Infectious Disease History:: Denies. - Social history:: Smoking status: Patient denies any tobacco usage or history of. Screenin:43 [facility] ED Fall Risk Assessment (Adult) History of falling in the last 3 months, kj2 including since admission No falls in past 3 months (0 pts) Confusion or Disorientation No (0 pts) Intoxicated or Sedated No (0 pts) Impaired Gait No (0 pts) Mobility Assist Device Used No (0 pt) Altered Elimination No (0 pt) Score/Fall Risk Level 0 - 2 = Low Risk Maintained a safe environment, Hourly rounding (assess needs \T\ fall precautionary measures) done. Abuse screen: Denies threats or abuse. Denies injuries from another. Nutritional screening: No deficits noted. Tuberculosis screening: No symptoms or risk factors identified. Assessment: 12:50 General: Appears in no apparent distress. Behavior is cooperative. Pain: Complains of kj2 pain in abdomen Pain currently is 4 out of 10 on a pain scale. Neuro: Level of Consciousness is awake, alert. Cardiovascular: Patient's skin is warm and dry. Respiratory: Airway is patent Respiratory effort is unlabored. GI: Reports nausea. GI: Abdomen is non-distended. : Reports hemodyalisis. 13:47 Reassessment: Patient appears in no apparent distress at this time. Patient and/or kj2 family updated on plan of care and expected duration. Pain level reassessed. Patient is alert, oriented x 3, equal unlabored respirations, skin warm/dry/pink. 15:04 Reassessment: Patient appears in no apparent distress at this time. Patient and/or kj2 family updated on plan of care and expected duration. Pain level reassessed. Patient is alert, oriented x 3, equal unlabored respirations, skin warm/dry/pink. 16:00 Reassessment: Patient appears in no apparent distress at this time. Patient and/or kj2 family updated on plan of care and expected duration. Pain level reassessed. Patient is alert, oriented x 3, equal unlabored respirations, skin warm/dry/pink. 17:00 Reassessment: Patient appears in no apparent distress at this time. Patient and/or kj2 family updated on plan of care and expected duration. Pain level reassessed. Patient is alert, oriented x 3, equal unlabored respirations, skin warm/dry/pink. 18:00 Reassessment: Patient appears in no apparent distress at this time. Patient and/or kj2 family updated on plan of care and expected duration. Pain level reassessed. Patient is alert, oriented x 3, equal unlabored respirations, skin warm/dry/pink. 19:00 Reassessment: Patient appears in no apparent distress at this time. Patient and/or kj2 family updated on plan of care and expected duration. Pain level reassessed. Patient is alert, oriented x 3, equal unlabored respirations, skin warm/dry/pink. 20:00 Reassessment: Patient appears in no apparent distress at this time. Patient and/or kj2 family updated on plan of care and expected duration. Pain level reassessed. Patient is alert, oriented x 3, equal unlabored respirations, skin warm/dry/pink. Vital Signs: 12:50 BP 230 / 80; Pulse 88; Resp 20; Pulse Ox 100% ; kj2 15:05 BP 229 / 73; Pulse 90; Resp 16; Pulse Ox 98% on R/A; kj2 16:00 BP 216 / 74; Pulse 79; Resp 20; Pulse Ox 100% ; kj2 17:00 BP 200 / 72; Pulse 76; Resp 18; Pulse Ox 98% on R/A; kj2 18:31 Temp 98.5(O); ll1 18:32 Weight 62 kg; Height 4 ft. 10 in. ; ll1 20:00 BP 182 / 72; Pulse 85; Resp 18; Temp 98.5; Pulse Ox 100% on R/A; kj2 18:32 Body Mass Index 28.57 (62.00 kg, 147.32 cm) ll1 ED Course: 12:50 Patient has correct armband on for positive identification. Bed in low position. Call kj2 light in reach. Provided Education on: call light. 12:50 No provider procedures requiring assistance completed. kj2 12:54 Patient arrived in ED. ll1 12:57 Mert Sands FNP-C is PHCP. dr5 12:57 Jayme Leigh DO is Attending Physician. dr5 13:18 Alissa Pak, RN is Primary Nurse. kj2 13:45 XRAY Chest (1 view) In Process Unspecified. EDMS 13:48 CT Head Brain wo Cont In Process Unspecified. EDMS 13:48 CT Abd/Pelvis - Without Contrast In Process Unspecified. EDMS 13:49 Triage completed. kj2 16:43 Jayme Leigh DO is Hospitalizing Provider. dr5 16:43 Franklin Burton is Hospitalizing Provider. dr5 17:04 Lab(s) recollected, by me, sent to lab. Missed attempt(s): 20 gauge in right kc6 antecubital area. 18:[address] [facility] for transfer talked to Jose Cruz. sp 18:44 MD accepted pt will call back with admin approval. sp 18:[address] Apodaca [address]. Report # [phone]. rv1 21:19 Patient transferred, IV remains in place. kj2 Administered Medications: 13:39 Drug: Ondansetron IVP 4 mg IVP once; over 2 minutes Route: IVP; Site: right forearm; kj2 15:04 Drug: Promethazine IVP 12.5 mg IVP once Route: IVP; Site: right forearm; kj2 15:04 Drug: Aspirin PO 81 mg PO once Route: PO; kj2 15:53 Drug: HydrALAZINE PO 25 mg PO once Route: PO; kj2 15:53 Drug: Coreg PO 25 mg PO once; administer with food Route: PO; kj2 Medication: 12:50 VIS not applicable for this client. kj2 Outcome: 16:43 Decision to Hospitalize by Provider. dr5 18:23 ER care complete, transfer ordered by . kb 21:19 Transferred by ground EMS to [facility] [place] kj2 21:19 Condition: stable 21:19 Instructed on the need for transfer, 21:19 Patient left the ED. kj2 Signatures: Dispatcher [employer] EDMS Marcia Ferguson, TRADE EMBALMER-C TRADE EMBALMER-Ckb Lizett Moran Lynsay RN RN ll1 Miladis Carolina RN RN [email or web address] Laine Lambert1 Alissa Pak RN RN kj2 Mert Sands, TRADE EMBALMER-C TRADE EMBALMER-Cdr5
[2024-05-14 17:01] LABS: Blood Morphology Comment NOT SEEN (NOT SEEN); Platelet Estimate ADEQ; White Blood Cell Scan OK (OK)
[2024-05-14 17:31] LABS: Albumin 3.6 g/dL (3.4-5.0); Albumin/Globulin Ratio 0.8 (1.1-1.8); Anion Gap 11.1 mEq/L (5.0-15.0); Bilirubin Total 0.9 mg/dL (0.2-1.0); Globulin 4.7 g/dL (2.3-3.5); Protein, Total 8.3 g/dL (6.4-8.2); Troponin High Sensitivity 31.2 pg/mL (<58.9)
[2024-05-14 17:38] LABS: Potassium 5.1 mEq/L (3.5-5.1)
[2024-05-14 21:30] VITALS: TEMP 98.5
[2024-05-14 21:32] VITALS: BP 182/72; O2SAT 100
--- NOTE | 2024-05-16 13:32 | EKG ---
Test Date: 2024-05-14 Test Time: 14:28:31 Entertainer & Comic: NICOLETTE MEASUREMENT RESULTS: Intervals: Rate: 87 OK: 224 QRSD: 84 QT: 394 QTc: 474 [place]: P: 78 OK: 224 QRS: 23 T: 81 INTERPRETIVE STATEMENTS: Sinus rhythm with 1st degree AV block Possible Left atrial enlargement Septal infarct, age undetermined Abnormal ECG Compared to ECG 05/04/2024 16:46:06 No significant changes Electronically Signed On 05-16-24 13:20:09 CDT by Toro Soliman
== END 2024-05-14 21:19 | disposition short-term general hospital (02) ==
LOC: ER 12:46
DX: I63.9 Cerebral infarction, unspecified (principal); I60.9 Nontraumatic subarachnoid hemorrhage, unspecified; K52.9 Noninfective gastroenteritis and colitis, unspecified; I12.0 Hypertensive chronic kidney disease with stage 5 chronic kidney disease or end stage renal disease; N18.6 End stage renal disease; Z99.2 Dependence on renal dialysis; Z86.73 Personal history of transient ischemic attack (TIA), and cerebral infarction without residual deficits
CPT/HCPCS: 93005; 85025; 36415; 83605; 84484; 80053; 70450; 74176; 71045; 96375; 96374; 99285; J2550; J2405

== ENCOUNTER 2024-06-10 15:59 | Inpatient (IN) | payer OTHER ==
[2024-06-10] MEDS ORDERED: ONDANSETRON 4 MG/2 ML VIAL ONE ×2 (16:19→23:21)
[2024-06-10] MEDS ORDERED: FAMOTIDINE 20 MG/2 ML VIAL IV ONE (16:20)
[2024-06-10] MEDS ORDERED: LABETALOL 20 MG/4ML SYRINGE IV ONE (16:20)
[2024-06-10 16:26] LABS: Absolute Basophils 0.1 K/uL (0-0.5); Absolute Eosinophils 0.1 K/uL (0-0.5); Absolute Lymphocytes (CBC) 0.7 K/uL (0.7-4.9); Absolute Monocytes 0.2 K/uL (0.1-1.3); Absolute Neutrophil 8.5 K/uL (1.8-8.0); Eosinophils % 0.9 % (0-4.4); Hematocrit 31.6 % (36.0-45.0); Hemoglobin 10.3 g/dL (12.0-15.0); Lymphocytes % 7.3 % (15.3-44.8); MCHC 32.7 g/dL (32.0-36.0); MCV 94.8 fL (80-100); MPV 7.3 fL (7.6-11.3); Monocytes % 2.6 % (3.3-12.3); Neutrophils % 88.2 % (41.7-73.7); Nucleated Red Blood Cells % 0.2 % (0-0); Platelets 250 thou/uL (152-406); RBC Red Blood Cell Count 3.33 M/uL (3.86-4.86); Red Cell Distribution Width 16.4 % (12.1-15.2)
[2024-06-10 16:47] LABS: AST/SGOT 12 U/L (15-37); Albumin 3.3 g/dL (3.4-5.0); Albumin/Globulin Ratio 0.7 (1.1-1.8); Alkaline Phosphatase 112 U/L (45-117); Anion Gap 9.2 mEq/L (5.0-15.0); BUN Blood Urea Nitrogen 21 mg/dL (7-18); Bicarbonate 25 mEq/L (21-32); Bilirubin Total 0.6 mg/dL (0.2-1.0); Globulin 4.6 g/dL (2.3-3.5); Glomerular Filtration Rate 11 ml/min (=/>90); Glucose Level 165 mg/dL (74-106); Lipase 26 U/L (13-75); Potassium 4.2 mEq/L (3.5-5.1); Protein, Total 7.9 g/dL (6.4-8.2); Sodium Level 137 mEq/L (136-145)
[2024-06-10 16:50] LABS: ALT/SGPT < 14 U/L (13-56)
--- NOTE | 2024-06-10 17:44 | RAD REPORT ---
EXAMINATION: Head Brain Wo Cont CLINICAL INDICATION: Female, 58 years old.AMS TECHNIQUE: Axial CT images from the skull base to the vertex without intravenous contrast. Coronal an d sagittal reformatted images were created from the data set. One or more of the following dose reduction techniques were used: Automated exposure control, adjustment of the mA and/or kV according to patient size, and/or iterative reconstruction. Unless otherwise specified, incidental findings do not require dedicated imaging follow-up. [id number]. COMPARISON: 05/14/2024 FINDINGS: INTRACRANIAL: No acute intracranial hemorrhage. Similar ventriculomegaly. No mass effect or midline s hift. Subacute bilateral occipital lobe cortical infarcts. Previously noted subarachnoid/petechial hemorrhage is no longer seen..Mild cerebral atrophy. VASCULATURE: No visualized abnormalities in the arteries or dural venous sinuses. SCALP/SKULL: No calvarial fracture identified. No acute soft tissue abnormality. Right frontal appro ach ventriculostomy which terminates near midline and is similar. SINUSES: The visualized paranasal sinuses are mostly clear. No significant mastoid fluid. IMPRESSION: No acute intracranial abnormality. No significant change from prior.
[2024-06-10 17:49] LABS: Platelet Estimate ADEQ; White Blood Cell Scan OK (OK)
[2024-06-10 17:50] LABS: Blood Morphology Comment NOT SEEN (NOT SEEN)
--- NOTE | 2024-06-10 17:52 | RAD REPORT ---
EXAMINATION: Abdomen Pelvis W Contrast CLINICAL INDICATION: Female, 58 years old.NAUSEA / VOMITING TECHNIQUE: CT abdomen and pelvis was performed, after the administration of IV contrast, as per [facility] protocol. Axial, sagittal and coronal reconstructions were obtained. One or more of the following dose reduction techniques were used: Automated exposure control, adjustment of the mA and/o r kV according to patient size, and/or iterative reconstruction. Unless otherwise specified, incidental findings do not require dedicated imaging follow-up. [id number]. COMPARISON: 05/04/2024, 05/14/2024 FINDINGS: LOWER CHEST: Pulmonary edema present with small bilateral effusions.Mild cardiomegaly. Mild coronary artery calcifications.Moderate circumferential thickening of the distal esophagus which could reflect esophagitis. Endoscopy could better evaluate. UPPER GI: No significant abnormality. LIVER: No significant focal abnormality. GALLBLADDER/BILE DUCTS: No biliary ductal dilatation.? PANCREAS: No mass, ductal dilation, or lyndsay-pancreatic fluid. SPLEEN: Remote splenic infarct. ADRENALS: No adrenal masses. KIDNEYS AND URETERS: No hydronephrosis.No suspicious renal mass.Nonobstructing renal calculi. ABDOMINAL AORTA AND OTHER VESSELS: Severe atherosclerotic changes. No aortic aneurysm. PERITONEUM: Small volume of free fluid in the pelvis. Similar perirectal edema. The patient tubing te rminates in the left para colic gutter. LYMPH NODES: No pathologic lymphadenopathy. ABDOMINAL WALL: Body wall edema SMALL BOWEL/COLON: Rectal wall thickening is again noted. Moderate formed stool burden. URINARY BLADDER: Nonspecific circumferential bladder wall thickening. REPRODUCTIVE ORGANS: No pathologic process. MUSCULOSKELETAL: Remote L5 compression fracture. ADDITIONAL FINDINGS: None. IMPRESSION: No significant change compared with 05/14/2024. Anasarca including pulmonary edema, small pleural effusions, and body wall edema. . Similar rectal wall thickening which may indicate proctitis.
[2024-06-10] MEDS ORDERED: HYDRALAZINE HCL 20 MG/ML VIAL ONE ×2 (18:18→22:29)
--- NOTE | 2024-06-10 18:32 | EDPHYS ---
Physician Documentation [facility] Name: Barbara Ibarra Age: 58 yrs Sex: Female : 1965 Arrival Date: 06/10/2024 Time: 15:41 Bed 25 Private MD: ED Physician Jayme Leigh HPI: 06/10 16:53 This 58 yrs old Female presents to ER via EMS with complaints of ms3 Nausea/Vomiting, Abdominal Pain. 16:53 58-year-old female with past medical history of anemia, CVA, diabetes, end-stage renal ms3 disease, hyperlipidemia, hypertension, thyroid problem presents to the emergency department via [facility] for nausea and vomiting that has been ongoing for 2 days. Patient was given intranasal Zofran en route by EMS.. Historical: - Allergies: 16:04 No Known Allergies; iw - PMHx: 16:04 Anemia; CVA; Diabetes - NIDDM; Dialysis; M/W/F; ESRD; Hyperlipidemia; Hypertension; iw Thyroid problem; - PSHx: 16:04 cataract; iw - Immunization history:: Adult Immunizations unknown. - Infectious Disease History:: Denies. - Social history:: Smoking status: unknown. ROS: 16:53 Constitutional: Negative for fever, and chills. Cardiovascular: Negative for chest ms3 pain, and palpitations. Respiratory: Negative for shortness of breath, cough, wheezing, and pleuritic chest pain, 16:53 MS/Extremity: Negative for injury and deformity, Skin: Negative for injury, rash, and discoloration, 16:53 Abdomen/GI: Positive for abdominal pain, nausea and vomiting, Exam: 16:53 ECG was reviewed by the Attending Physician. ms3 16:53 Constitutional: This is a well developed, well nourished patient who is awake, alert, ms3 and in no acute distress. Cardiovascular: Regular rate and rhythm with a normal S1 and S2. No gallops, murmurs, or rubs. Normal PMI, no JVD. No pulse deficits. Respiratory: Lungs have equal breath sounds bilaterally, clear to auscultation and percussion. No rales, rhonchi or wheezes noted. No increased work of breathing, no retractions or nasal flaring. Abdomen/GI: Soft, non-tender, with normal bowel sounds. No distension or tympany. No guarding or rebound. No evidence of tenderness throughout. Skin: Warm, dry with normal turgor. Normal color with no rashes, no lesions, and no evidence of cellulitis. MS/ Extremity: Pulses equal, no cyanosis. Neurovascular intact. Full, normal range of motion. Vital Signs: 16:03 BP 240 / 93; Pulse 98; Resp 27; Temp 98(O); Pulse Ox 91% on R/A; Weight 58.51 kg; iw Height 4 ft. 10 in. ; 17:19 BP 218 / 91; Pulse 90; Resp 15; Pulse Ox 92% ; bp 18:31 BP 215 / 97; Pulse 97; Resp 22; Pulse Ox 94% ; bp 16:03 Body Mass Index 26.96 (58.51 kg, 147.32 cm) iw MDM: 15:59 Medical Screening Exam initiated ms3 16:53 Differential diagnosis: Nonspecific abd pain, gastritis, viral gastroenteritis, Bowel ms3 obstruction versus myocardial infarction. 19:09 Data reviewed: vital signs, nurses notes, lab test result(s), EKG, radiologic studies, ms3 and as a result, I will admit patient. Consideration of Admission/Observation Patient was admitted/placed on observation. Management of patient was discussed with the following: Hospitalist: Dr Bauman. I considered the following discharge prescriptions or medication management in the emergency department Medications were administered in the Emergency Department. See MAR. Independent interpretation of the following test(s) in the Emergency Department EKG: See my EKG interpretation above. Counseling: I had a detailed discussion with the patient and/or guardian regarding the historical points, exam findings, and any diagnostic results supporting the discharge/admit diagnosis, lab results, radiology results, the need for further work-up and treatment in the hospital. ED course: Discussed case with Dr. Bauman and he accepts patient. Discussed necessity for admission with patient she understands and agrees with plan.. 06/10 16:00 Order name: CBC with Diff; Complete Time: 17:57 ms3 06/10 16:00 Order name: CMP; Complete Time: 17:26 ms3 06/10 16:00 Order name: Lipase; Complete Time: 17: ms3 06/10 16:35 Order name: CBC Smear Scan; Complete Time: 17:57 EDMS 06/10 20:11 Order name: CBC with Automated Diff EDMS 06/10 20:11 Order name: CBC with Automated Diff EDMS 06/10 20:11 Order name: Comprehensive Metabolic Panel EDOK 06/10 20:11 Order name: Comprehensive Metabolic Panel EDOK 06/10 20:11 Order name: Protime (+INR) EDMS 06/10 20:11 Order name: Protime (+INR) EDMS 06/10 20:11 Order name: PTT, Activated Partial Thromb EDMS 06/10 20:11 Order name: PTT, Activated Partial Thromb EDMS 06/10 20:11 Order name: Troponin High Sensitivity EDMS 06/10 20:11 Order name: Troponin High Sensitivity EDMS 06/10 20:11 Order name: Troponin High Sensitivity EDMS 06/11 08:16 Order name: Glucose, Ancillary Testing EDOK 06/11 12:39 Order name: Glucose, Ancillary Testing EDOK 06/10 16:00 Order name: CT Abd/Pelvis - IV Contrast Only; Complete Time: 17:57 ms3 06/10 17:32 Order name: Head Brain Wo Cont; Complete Time: 17:45 EDMS 06/10 20:12 Order name: CONS Physician Consult EDOK 06/10 20:12 Order name: Physical Therapy Consult EDOK 06/10 16:00 Order name: IV Saline Lock; Complete Time: 16:18 ms3 06/10 16:00 Order name: Labs collected and sent; Complete Time: 16:18 ms3 EC:53 Rate is 96 beats/min. Rhythm is regular. QRS [place] is Normal. GA interval is normal. QRS ms3 interval is normal. Clinical impression: NSR w/ Non-specific ST/T Changes. Interpreted by me. Reviewed by me. Administered Medications: 16:36 Drug: Famotidine IVP 20 mg IVP once; dilute with 10 mL 0.9% NaCl; give over 2 minutes bp Route: IVP; Site: right hand; 18:29 Follow up: Response: No adverse reaction bp 16:36 Drug: Labetalol IV 10 mg IV at calculated rate once Route: IV; Rate: calculated rate; bp Site: right hand; 16:37 Drug: Ondansetron IVP 4 mg IVP once; over 2 minutes Route: IVP; Site: right hand; bp 18:29 Follow up: Response: No adverse reaction bp 17:18 Drug: metoCLOPramide IVP 10 mg IVP once; over 1 to 2 minutes Route: IVP; Site: right bp hand; 18:29 Follow up: Response: No adverse reaction bp 17:18 Drug: Labetalol IV 10 mg IV at calculated rate once Route: IV; Rate: calculated rate; bp Site: right hand; 18:29 Drug: hydrALAZINE IVP 10 mg IVP once Route: IVP; Site: right hand; bp 18:29 Follow up: Response: No adverse reaction bp Disposition Summary: 06/10/24 18:32 Hospitalization Ordered Notes: Hospitalization Status: Inpatient Admission ms3 Provider: Maverick Bauman ms3 Condition: Stable ms3 Problem: new ms3 Symptoms: are unchanged ms3 Bed/Room Type: Standard ms3 Location: Telemetry/MedSurg (Inpatient)(06/11/24 11:02) bd Room Assignment: [facility](06/11/24 11:02) bd Diagnosis - Nausea with vomiting, unspecified ms3 - Hypertensive urgency ms3 Forms: - Medication Reconciliation Form ms3 - SBAR form ms3 - Leadership Thank You Letter ms3 Signatures: Dispatcher [employer] EDMS Justa Benitez bd Mela Escalante, RN BHAKTI iw Martin Gloria RN RN bp Jayme Leigh DO DO ms3 Sherita Alaniz RN RN vc1 Armand Martinez, RN RN rg5 Corrections: (The following items were deleted from the chart) 17:33 16:01 Head Brain Wo Cont+CT.RAD.BRZ ordered. EDMS EDMS 21:01 18:32 Telemetry/MedSurg (Inpatient) ms3 vc1 21:01 18:32 ms3 vc1 06/11 11:02 06/10 21:01 [facility] ER HOLD vc1 bd 06/11 11:06/10 21:01 ERHOLD- vc1 bd
--- NOTE | 2024-06-10 18:32 | ER ---
Nurse's Notes [facility] Name: Barbara Ibarra Age: 58 yrs Sex: Female : 1965 Arrival Date: 06/10/2024 Time: 15:41 Bed 25 Private MD: Diagnosis: Nausea with vomiting, unspecified;Hypertensive urgency Presentation: 06/10 16:03 Chief complaint: EMS states: n/v epigastric pain X 2 days. Coronavirus screen: At this iw time, the client does not indicate any symptoms associated with coronavirus-19. Ebola Screen: No symptoms or risks identified at this time. Initial Sepsis Screen: Does the patient meet any 2 criteria? No. Patient's initial sepsis screen is negative. Does the patient have a suspected source of infection?. Risk Assessment: Do you want to hurt yourself or someone else?. 16:03 Method Of Arrival: EMS: [facility] iw 16:03 Acuity: AZUCENA 2 iw 16:04 Onset of symptoms was June 08, 2024. iw Triage Assessment: 16:05 General: Appears uncomfortable, Behavior is cooperative, appropriate for age, anxious. bp GI: Abdomen is non-distended, Reports lower abdominal pain, nausea, vomiting. Historical: - Allergies: 16:04 No Known Allergies; iw - PMHx: 16:04 Anemia; CVA; Diabetes - NIDDM; Dialysis; M/W/F; ESRD; Hyperlipidemia; Hypertension; iw Thyroid problem; - PSHx: 16:04 cataract; iw - Immunization history:: Adult Immunizations unknown. - Infectious Disease History:: Denies. - Social history:: Smoking status: unknown. Screenin:45 [facility] ED Fall Risk Assessment (Adult) History of falling in the last 3 months, bp including since admission No falls in past 3 months (0 pts) Confusion or Disorientation No (0 pts) Intoxicated or Sedated No (0 pts) Impaired Gait No (0 pts) Mobility Assist Device Used No (0 pt) Altered Elimination No (0 pt) Score/Fall Risk Level 0 - 2 = Low Risk Oriented to surroundings. Abuse screen: Denies threats or abuse. Denies injuries from another. Nutritional screening: No deficits noted. Tuberculosis screening: No symptoms or risk factors identified. Assessment: 16:39 General: Appears in no apparent distress. uncomfortable, Behavior is cooperative, iw drowsy. Pain: Complains of pain in chest and abdomen Pain currently is 7 out of 10 on a pain scale. Neuro: Level of Consciousness is awake, obeys commands, Oriented to person, place, time, situation, Moves all extremities. Full function. Cardiovascular: Dialysis shunt: in the left bicep, with palpable thrill, with no erythema, with no edema, no bleeding noted. Respiratory: Respiratory effort is even, unlabored, Respiratory pattern is regular. GI: Abdomen is non-distended, Reports nausea, vomiting. Derm: Skin is fragile, is thin. 18:32 Reassessment: No changes from previously documented assessment. Patient is alert, bp oriented x 3, equal unlabored respirations, skin warm/dry/pink. Vital Signs: 16:03 BP 240 / 93; Pulse 98; Resp 27; Temp 98(O); Pulse Ox 91% on R/A; Weight 58.51 kg; iw Height 4 ft. 10 in. ; 17:19 BP 218 / 91; Pulse 90; Resp 15; Pulse Ox 92% ; bp 18:31 BP 215 / 97; Pulse 97; Resp 22; Pulse Ox 94% ; bp 16:03 Body Mass Index 26.96 (58.51 kg, 147.32 cm) iw ED Course: 15:59 Patient arrived in ED. ms3 15:59 Jayme Leigh DO is Attending Physician. ms3 16:04 Triage completed. iw 16:17 Mela Escalante, RN is Primary Nurse. iw 16:18 Initial lab(s) drawn, by me, sent to lab. Inserted saline lock: 22 gauge in right iw wrist, using aseptic technique. Blood collected. Flushed with 10 mL NS. 16:40 Patient has correct armband on for positive identification. Client placed on continuous iw cardiac and pulse oximetry monitoring. NIBP monitoring applied. environmental monitoring specialist on. 17:37 CT Abd/Pelvis - IV Contrast Only In Process Unspecified. EDMS 17:37 Head Brain Wo Cont In Process Unspecified. EDMS 18:31 Maverick Bauman MD is Hospitalizing Provider. ms3 21:34 No provider procedures requiring assistance completed. cp4 06/11 00:24 Patient admitted, IV remains in place. intact, No redness/swelling at site. rg5 00:24 Provided Education on: needs for admit. rg5 00:25 Arm band placed on. rg5 07:13 Primary Nurse role handed off by Mela Escalante RN bd Administered Medications: 06/10 16:36 Drug: Famotidine IVP 20 mg IVP once; dilute with 10 mL 0.9% NaCl; give over 2 minutes bp Route: IVP; Site: right hand; 18:29 Follow up: Response: No adverse reaction bp 16:36 Drug: Labetalol IV 10 mg IV at calculated rate once Route: IV; Rate: calculated rate; bp Site: right hand; 16:37 Drug: Ondansetron IVP 4 mg IVP once; over 2 minutes Route: IVP; Site: right hand; bp 18:29 Follow up: Response: No adverse reaction bp 17:18 Drug: metoCLOPramide IVP 10 mg IVP once; over 1 to 2 minutes Route: IVP; Site: right bp hand; 18:29 Follow up: Response: No adverse reaction bp 17:18 Drug: Labetalol IV 10 mg IV at calculated rate once Route: IV; Rate: calculated rate; bp Site: right hand; 18:29 Drug: hydrALAZINE IVP 10 mg IVP once Route: IVP; Site: right hand; bp 18:29 Follow up: Response: No adverse reaction bp Medication: 06/11 00:25 VIS not applicable for this client. rg5 Outcome: 06/10 18:32 Decision to Hospitalize by Provider. ms3 06/11 00:24 Admitted to ER Hold. Please see [facility] for further documentation. rg5 Condition: stable Instructed on the need for admit, 13:27 Patient left the ED. ll1 Signatures: Dispatcher [employer] EDMS Justa Benitez Irene, RN BHAKTI iw Martin Gloria RN RN bp Lewis, Lynsay, RN RN ll1 Jayme Leigh DO DO ms3 Odalys Stevenson cpArmand Strong RN RN rg5 Corrections: (The following items were deleted from the chart) 06/10 16:48 16:03 BP 240 / 93; Pulse 98bpm; Resp 27bpm; Pulse Ox 91% RA; 58.51 kg; Height 4 ft. 10 iw in.; BMI: 26.9; iw 17:33 16:16 In radiology for Head Brain Wo Cont+CT.RAD.BRZ. EDMS EDMS
[2024-06-10] MEDS ORDERED: ACETAMINOPHEN 500 MG TAB PO PRN (20:06)
--- NOTE | 2024-06-10 20:14 | P.HP ---
Certification for Inpatient Patient admitted to: Observation With expected LOS: <2 Midnights Patient will require the following post-hospital care: None Practitioner: I am a practitioner with admitting privileges, knowledge of patient current condition, hospital course, and medical plan of care. Services: Services provided to patient in accordance with Admission requirements found in Title 42 Section 412.3 of the Code of Federal Regulations Patient History Date of Service: 06/10/24 Reason for admission: Abdominal pain with intractable nausea and vomiting History of Present Illness: Patient is a 58-year-old female with history of ESRD who comes into the hospital with intractable nausea and vomiting. Patient has been at [facility] since she recovered from a hemorrhagic stroke around November 2023. She required a ventriculoperitoneal shunt, and she did rehab for a prolonged period but unfortunately she was not really able to start walking. She gets transferred from bed to a chair. She has had issues with nausea and vomiting but she has been doing well for the last few weeks until this morning when she had persistent nausea and vomiting. Patient was brought into the emergency room, and patient had CT imaging of the head as well as the abdomen and pelvis which did not reveal any significant pathology except for some esophageal thickening. Patient was given antiemetics but patient was persistently vomiting. Patient was given Phenergan as well as Reglan and Zofran. Patient's nausea and vomiting is much better. At this time, patient will be admitted to the hospital for observation. GI will be consulted for the esophageal thickening for possible esophageal stricture. Will also consult nephrology for hemodialysis. Allergies No Known Allergies Allergy (Verified 02/14/24 21:01) Home Medications: Aspirin Chewable [Aspirin Chewable*] 81 mg PO DAILY tab.chew 02/28/24 Atorvastatin Calcium [Lipitor] 80 mg PO BEDTIME tab 02/28/24 Bumetanide [Bumex*] 1 mg PO DAILY tab 02/28/24 Cinacalcet HCl [Sensipar*] 30 mg PO LUNCH tab 02/28/24 Docusate [Colace Cap*] 100 mg PO DAILY PRN cap 02/28/24 Famotidine [Pepcid*] 40 mg PO DAILY tab 02/28/24 Hydralazine [Apresoline*] 50 mg PO TID tab 02/28/24 Loperamide [Imodium*] 2 mg PO Q4H PRN cap 02/28/24 Losartan Potassium [Cozaar*] 50 mg PO BID 02/28/24 Melatonin [Melatonin*] 3 mg PO BEDTIME PRN PRN 02/28/24 Mupirocin Oint [Bactroban 2% Ointment*] 1 appl TOP BID tube 02/28/24 Nifedipine Xl [Procardia Xl*] 30 mg PO BID tab 02/28/24 carvediloL [Coreg*] 25 mg PO BID 6AM 6PM tab 02/28/24 cloNIDine HCL [Catapres*] 0.1 mg PO BID tab 03/05/24 Acetaminophen [Tylenol] 650 mg PO Q6HR PRN MDD 3G 03/12/24 Insulin Degludec [Tresiba Flextouch U-100] 10 unit SQ BEDTIME 03/12/24 Nifedipine Xl [Procardia Xl*] 60 mg PO BID 03/12/24 Ondansetron [Zofran] 4 mg PO Q4H PRN 03/12/24 Sevelamer Carbonate [Renvela*] 800 mg PO SEECOM 03/12/24 - Past Medical/Surgical History Diabetic: Yes -: Anemia -: DM II -: HTN -: Hypothyroidism -: ESRD followed by Dr. Davis/Abdi -: HLD -: Incision and drainage -: -: Perma-Cath placement Psychosocial/ Personal History: Patient lives with her family. - Family History Mother Medical History: Diabetes, Stroke, Kidney disease Father Medical History: Cancer - Social History Smoking Status: Former smoker Alcohol use: No CD- Drugs: No Caffeine use: Yes Review of Systems 10-point ROS is otherwise unremarkable Physical Examination - Vital Signs Temperature: 98 F Blood Pressure: 200/90 Pulse: 90 Respirations: 20 Pulse Ox (%): 94 - Physical Exam General: Alert, In no apparent distress, Oriented x2 HEENT: Atraumatic, PERRLA, Mucous membr. moist/pink, EOMI, Sclerae nonicteric Neck: Supple, 2+ carotid pulse no bruit, No LAD, Without JVD or thyroid abnormality Respiratory: Clear to auscultation bilaterally, Normal air movement Cardiovascular: Regular rate/rhythm, Normal S1 S2 Gastrointestinal: Hypoactive, No tenderness, No rebound, No guarding, Distended Musculoskeletal: No clubbing, No swelling, No tenderness Integumentary: No rashes Neurological: Normal speech, Sensation intact, Cranial nerves 3-12 intact, Abnormal gait, Abnormal speech, Abnormal affect Lymphatics: No axilla or inguinal lymphadenopathy - Studies Laboratory Data (last 24 hrs) 06/10/24 06/10/24 16:14 16:14 WBC 9.60 Hgb 10.3 L Hct 31.6 L Plt Count 250 Sodium 137 Potassium 4.2 BUN 21 H Creatinine 4.45 H Glucose 165 H Total Bilirubin 0.6 AST 12 L ALT < 14 Alkaline Phosphatase 112 Lipase 26 Assessment & Plan - Problems (Diagnosis) (1) Intractable nausea and vomiting Current Visit: Yes Status: Acute (2) Esophageal thickening Current Visit: Yes Status: Acute (3) Hypertensive urgency Current Visit: Yes Status: Acute (4) History of hemorrhagic stroke with residual hemiparesis Current Visit: Yes Status: Acute (5) History of hemorrhagic stroke with residual hemiplegia Current Visit: Yes Status: Acute (6) REFERRAL MANAGEMENT LIAISON (ventriculoperitoneal) shunt status Current Visit: Yes Status: Acute (7) ESRD (end stage renal disease) Current Visit: No Status: Acute (8) DM type 2 (diabetes mellitus, type 2) Current Visit: No Status: Chronic (9) Essential hypertension Current Visit: No Status: Chronic (10) Hypothyroidism Current Visit: No Status: Chronic - Plan Plan: 1. Patient with intractable nausea vomiting with esophageal thickening; continue with antiemetics and GI consultation for evaluation of the esophageal thickening for possible stricture or mass. Patient will continue with antiemetics. Hold off on IV fluids as patient is ESRD. 2. Patient with hypertensive urgency; continue with IV hydralazine and continue with oral BP meds once patient is able to tolerate. 3. Metabolic syndrome; strict blood pressure and blood sugar control and resume with statin therapy and thyroid medications 4. History of hemorrhagic stroke status post REFERRAL MANAGEMENT LIAISON shunt; CT of the head unremarkable and will continue monitoring neurologic status 5. ESRD; hemodialysis per nephrology. Nephrology consulted 6. GI DVT prophylaxis Discharge Plan: Home Plan to discharge in: 24 Hours - Advance Directives Does patient have a Living Will: No Does patient have a Durable POA for Healthcare: No - Code Status/Comfort Care Code Status Assessed: Yes Code Status: Full Code Critical Care: No Time Spent Managing PTS Care (In Minutes): 45
[2024-06-10] MEDS ORDERED: PROMETHAZINE INJ 25 MG/ML AMP ONE (21:31)
[2024-06-10] MEDS ORDERED: NA CHLORIDE 0.9% 50 ML ONE (21:31)
[2024-06-10] MEDS: PROMETHAZINE INJ 25 MG/ML AMP IV ONE (22:12)
[2024-06-10] MEDS ORDERED: FENTANYL CITR 100 MCG/2 ML IV PRN (22:21)
[2024-06-10] MEDS: HYDRALAZINE HCL 20 MG/ML VIAL IV PRN (22:27)
[2024-06-10] MEDS: FUROSEMIDE 40 MG/4 ML VIAL IV ONE (22:27)
[2024-06-10] MEDS ORDERED: FUROSEMIDE 40 MG/4 ML VIAL ONE (22:29)
[2024-06-10] MEDS ORDERED: METOCLOPRAMIDE 10 MG/2mL INJ ONE (23:21)
[2024-06-10] MEDS: ONDANSETRON 4 MG/2 ML VIAL IV PRN (23:25)
[2024-06-10] MEDS: METOCLOPRAMIDE 10 MG/2mL INJ IV SCH (23:25)
[2024-06-11] MEDS ORDERED: LOSARTAN POTASSIUM 50 MG TABLET ONE ×2 (00:31→09:40)
[2024-06-11] MEDS ORDERED: AMLODIPINE 5 MG TAB ONE ×3 (00:31→08:19)
[2024-06-11] MEDS: LOSARTAN POTASSIUM 50 MG TABLET PO SCH (00:50)
[2024-06-11] MEDS: AMLODIPINE 5 MG TAB PO ONE (00:50)
[2024-06-11] MEDS ORDERED: HYDRALAZINE HCL 20 MG/ML VIAL ONE ×3 (01:29→11:39)
[2024-06-11] MEDS ORDERED: METOCLOPRAMIDE 10 MG/2mL INJ ONE ×2 (01:36→08:11)
[2024-06-11] MEDS ORDERED: LORazepam 2 MG/ML VIAL ONE (02:19)
[2024-06-11] MEDS: LORazepam 2 MG/ML VIAL IV PRN (02:22)
[2024-06-11 05:35] LABS: Absolute Basophils 0.1 K/uL (0-0.5); Absolute Lymphocytes (CBC) 0.6 K/uL (0.7-4.9); Absolute Monocytes 0.3 K/uL (0.1-1.3); Absolute Neutrophil 5.7 K/uL (1.8-8.0); Basophils % 0.8 % (0-1.3); Lymphocytes % 8.5 % (15.3-44.8); MCH 31.7 pg (27.0-35.0); MCHC 33.3 g/dL (32.0-36.0); MCV 95.2 fL (80-100); MPV 7.1 fL (7.6-11.3); Monocytes % 4.2 % (3.3-12.3); Neutrophils % 86.5 % (41.7-73.7); Nucleated Red Blood Cells % 0.1 % (0-0); Platelets 213 thou/uL (152-406); RBC Red Blood Cell Count 2.83 M/uL (3.86-4.86); Red Cell Distribution Width 16.3 % (12.1-15.2)
[2024-06-11] MEDS ORDERED: ONDANSETRON 4 MG/2 ML VIAL ONE (05:36)
[2024-06-11] MEDS ORDERED: METOPROLOL TAR 25 MG TAB ONE (05:37)
[2024-06-11 05:44] LABS: PT Prothrombin Time 14.5 SECONDS (10-13.0); Protime INR 1.29
[2024-06-11 05:56] LABS: AST/SGOT 19 U/L (15-37); Albumin/Globulin Ratio 0.7 (1.1-1.8); Alkaline Phosphatase 94 U/L (45-117); Anion Gap 10.3 mEq/L (5.0-15.0); BUN Blood Urea Nitrogen 26 mg/dL (7-18); Bicarbonate 26 mEq/L (21-32); Bilirubin Total 0.5 mg/dL (0.2-1.0); Globulin 4.1 g/dL (2.3-3.5); Glomerular Filtration Rate 10 ml/min (=/>90); Glucose Level 148 mg/dL (74-106); Potassium 4.3 mEq/L (3.5-5.1); Protein, Total 7.1 g/dL (6.4-8.2); Sodium Level 141 mEq/L (136-145)
[2024-06-11 05:57] LABS: ALT/SGPT < 14 U/L (13-56)
[2024-06-11] MEDS: METOPROLOL TAR 25 MG TAB PO SCH (05:58)
[2024-06-11] MEDS ORDERED: MANNITOL 25% 12.5 GM/50 ML VIAL IV PRN (08:11)
[2024-06-11] MEDS ORDERED: NA CHLORIDE 0.9% 1,000 ML IV PRN (08:11)
[2024-06-11] MEDS: AMLODIPINE 10 MG TAB PO SCH (08:12)
--- NOTE | 2024-06-11 08:14 | P.CNS ---
Date of Consult: 06/11/24 Reason for Consult: ESRD Requesting Physician: Jay Cuevas Chief Complaint: Abdominal pain with intractable nausea and vomiting History of Present Illness: Patient is a 58-year-old female with history of ESRD who comes into the hospital with intractable nausea and vomiting. Patient has been at [facility] since she recovered from a hemorrhagic stroke around November 2023. She required a ventriculoperitoneal shunt, and she did rehab for a prolonged period but unfortunately she was not really able to start walking. She gets transferred from bed to a chair. She has had issues with nausea and vomiting but she has been doing well for the last few weeks until this morning when she had persistent nausea and vomiting. Patient was brought into the emergency room, and patient had CT imaging of the head as well as the abdomen and pelvis which did not reveal any significant pathology except for some esophageal thickening. Patient was given antiemetics but patient was persistently vomiting. Patient was given Phenergan as well as Reglan and Zofran. Patient's nausea and vomiting is much better. At this time, patient will be admitted to the hospital for observation. GI will be consulted for the esophageal th ickening for possible esophageal stricture. Will also consult nephrology for hemodialysis. [id number] 16:53 This 58 yrs old Female presents to ER via EMS with complaints of ms3 Nausea/Vomiting, Abdominal Pain. 16:53 58-year-old female with past medical history of anemia, CVA, diabetes, end-stage renal ms3 disease, hyperlipidemia, hypertension, thyroid problem presents to the emergency department via [facility] for nausea and vomiting that has been ongoing for 2 days. Patient was given intranasal Zofran en route by EMS.. Allergies No Known Allergies Allergy (Verified 02/14/24 21:01) Home medications list reviewed: Yes Home Medications: Aspirin Chewable [Aspirin Chewable*] 81 mg PO DAILY tab.chew 02/28/24 Atorvastatin Calcium [Lipitor] 80 mg PO BEDTIME tab 02/28/24 Bumetanide [Bumex*] 1 mg PO DAILY tab 02/28/24 Cinacalcet HCl [Sensipar*] 30 mg PO LUNCH tab 02/28/24 Docusate [Colace Cap*] 100 mg PO DAILY PRN cap 02/28/24 Famotidine [Pepcid*] 40 mg PO DAILY tab 02/28/24 Hydralazine [Apresoline*] 50 mg PO TID tab 02/28/24 Loperamide [Imodium*] 2 mg PO Q4H PRN cap 02/28/24 Losartan Potassium [Cozaar*] 50 mg PO BID 02/28/24 Melatonin [Melatonin*] 3 mg PO BEDTIME PRN PRN 02/28/24 Mupirocin Oint [Bactroban 2% Ointment*] 1 appl TOP BID tube 02/28/24 Nifedipine Xl [Procardia Xl*] 30 mg PO BID tab 02/28/24 carvediloL [Coreg*] 25 mg PO BID 6AM 6PM tab 02/28/24 cloNIDine HCL [Catapres*] 0.1 mg PO BID tab 03/05/24 Acetaminophen [Tylenol] 650 mg PO Q6HR PRN MDD 3G 03/12/24 Insulin Degludec [Tresiba Flextouch U-100] 10 unit SQ BEDTIME 03/12/24 Nifedipine Xl [Procardia Xl*] 60 mg PO BID 03/12/24 Ondansetron [Zofran] 4 mg PO Q4H PRN 03/12/24 Sevelamer Carbonate [Renvela*] 800 mg PO SEECOM 03/12/24 - Past Medical/Surgical History Diabetic: Yes -: Anemia -: DM II -: HTN -: Hypothyroidism -: ESRD followed by Dr. Davis/Abdi -: HLD -: Incision and drainage -: -: Perma-Cath placement Psychosocial/ Personal History: Patient lives with her family. - Family History Mother Medical History: Diabetes, Stroke, Kidney disease Father Medical History: Cancer - Social History Smoking Status: Unknown if ever smoked Alcohol use: No CD- Drugs: No Caffeine use: Yes Place of Residence: [place] Review of Systems 10-point ROS is otherwise unremarkable Gastrointestinal: Nausea, Vomiting Physical Examination Temp Pulse Resp BP Pulse Ox 98 F 90 20 200/90 H 94 06/11/24 06:08 06/11/24 06:08 06/11/24 06:08 06/11/24 06:08 06/11/24 06:08 General: Oriented x3, Cooperative, Mild distress HEENT: Atraumatic Neck: Supple Respiratory: Diminished Cardiovascular: Regular rate/rhythm, Edema Gastrointestinal: Soft and benign, Non-distended Musculoskeletal: No clubbing, No contractures Integumentary: No rashes, No cyanosis Neurological: Normal speech Laboratory Data (last 24 hrs) 06/10/24 06/10/24 16:14 16:14 WBC 9.60 Hgb 10.3 L Hct 31.6 L Plt Count 250 Sodium 137 Potassium 4.2 BUN 21 H Creatinine 4.45 H Glucose 165 H Total Bilirubin 0.6 AST 12 L ALT < 14 Alkaline Phosphatase 112 Lipase 26 Imagings Data: [id number] EXAMINATION: Abdomen Pelvis W Contrast CLINICAL INDICATION: Female, 58 years old.NAUSEA / VOMITING TECHNIQUE: CT abdomen and pelvis was performed, after the administration of IV contrast, as per department protocol. Axial, sagittal and coronal reconstructions were obtained. One or more of the following dose reduction techniques were used: Automated exposure control, adjustment of the mA and/or kV according to patient size, and/or iterative reconstruction. Unless otherwise specified, incidental findings do not require dedicated imaging follow-up. [id number]. COMPARISON: 05/04/2024, 05/14/2024 FINDINGS: LOWER CHEST: Pulmonary edema present with small bilateral effusions.Mild cardiomegaly. Mild coronary artery calcifications.Moderate circumferential thickening of the distal esophagus which could reflect esophagitis. Endoscopy could better evaluate. UPPER GI: No significant abnormality. LIVER: No significant focal abnormality. GALLBLADDER/BILE DUCTS: No biliary ductal dilatation.? PANCREAS: No mass, ductal dilation, or lyndsay-pancreatic fluid. SPLEEN: Remote splenic infarct. ADRENALS: No adrenal masses. KIDNEYS AND URETERS: No hydronephrosis.No suspicious renal mass.Nonobstructing renal calculi. ABDOMINAL AORTA AND OTHER VESSELS: Severe atherosclerotic changes. No aortic aneurysm. PERITONEUM: Small volume of free fluid in the pelvis. Similar perirectal edema. The patient tubing terminates in the left para colic gutter. LYMPH NODES: No pathologic lymphadenopathy. ABDOMINAL WALL: Body wall edema SMALL BOWEL/COLON: Rectal wall thickening is again noted. Moderate formed stool burden. URINARY BLADDER: Nonspecific circumferential bladder wall thickening. REPRODUCTIVE ORGANS: No pathologic process. MUSCULOSKELETAL: Remote L5 compression fracture. ADDITIONAL FINDINGS: None. IMPRESSION: No significant change compared with 05/14/2024. Anasarca including pulmonary edema, small pleural effusions, and body wall edema . Similar rectal wall thickening which may indicate proctitis. EXAMINATION: Head Brain Wo Cont CLINICAL INDICATION: Female, 58 years old.AMS TECHNIQUE: Axial CT images from the skull base to the vertex without intravenous contrast. Coronal and sagittal reformatted images were created from the data set. One or more of the following dose reduction techniques were used: Automated exposure control, adjustment of the mA and/or kV according to patient size, and/or iterative reconstruction. Unless otherwise specified, incidental findings do not require dedicated imaging follow-up. [id number]. COMPARISON: 05/14/2024 FINDINGS: INTRACRANIAL: No acute intracranial hemorrhage. Similar ventriculomegaly. No mass effect or midline shift. Subacute bilateral occipital lobe cortical infarcts. Previously noted subarachnoid/petechial hemorrhage is no longer seen..Mild cerebral atrophy. VASCULATURE: No visualized abnormalities in the arteries or dural venous si nuses. SCALP/SKULL: No calvarial fracture identified. No acute soft tissue abnormality. Right frontal approach ventriculostomy which terminates near midline and is similar. SINUSES: The visualized paranasal sinuses are mostly clear. No significant mastoid fluid. IMPRESSION: No acute intracranial abnormality. No significant change from prior. Conclusions/Impression: ESRD on HD -Acute HD ordered Malignant HTN with CKD -Continue Coreg -Continue Hydralazine -Continue Nifedipine -Continue Losartan -Continue Clonidine DM II with CKD -RISS prn Hypoalbuminemia -Start Nepro Anemia in CKD -Retacrit qHD CKD MBD Secondary HyperParathyroidism -Start Calcitriol -Start Renvela Hospitalist and ER notes reviewed Thank you kindly for the consultation
[2024-06-11] MEDS ORDERED: ALBUMIN HUMAN 25% 50 ML IV SCH (09:00)
[2024-06-11] MEDS: carvediloL 25 MG TAB PO SCH (09:12)
[2024-06-11] MEDS: cloNIDine HCL 0.1 MG TAB PO SCH (09:12)
[2024-06-11] MEDS ORDERED: SODIUM CHLORIDE 0.9% 10ML INJ IV PRN (09:14)
[2024-06-11] MEDS: PANTOPRAZOLE 40 MG INJ IVP SCH (09:14)
[2024-06-11] MEDS ORDERED: carvediloL 6.25 MG TAB ONE (09:40)
[2024-06-11] MEDS ORDERED: PANTOPRAZOLE 40 MG INJ ONE (09:40)
[2024-06-11] MEDS ORDERED: cloNIDine HCL 0.1 MG TAB ONE (09:40)
--- NOTE | 2024-06-11 12:26 | P.PN ---
Subjective Date of Service: 06/11/24 Chief Complaint: Abdominal pain with intractable nausea and vomiting Admitted for nausea vomiting, is a hemodialysis patient, seen by nephrology, plan for hemodialysis today Reports nausea mildly improved, Review of Systems 10-point ROS is otherwise unremarkable Physical Examination - Vital Signs Temperature: 98 F Blood Pressure: 212/91 Pulse: 90 Respirations: 20 Pulse Ox (%): 94 - Physical Exam General: Alert, In no apparent distress, Oriented x3 HEENT: Atraumatic, Normocephalic Neck: Supple, 2+ carotid pulse no bruit, JVD not distended Respiratory: Clear to auscultation bilaterally, Normal air movement Cardiovascular: Normal pulses, Regular rate/rhythm, Normal S1 S2 Capillary refill: <2 Seconds Gastrointestinal: Hypoactive, Other (Nausea vomiting) Musculoskeletal: Other (Post CVA, moderate generalized weakness) Integumentary: No erythema, No warmth Neurological: Normal speech, Abnormal gait, Abnormal strength, Abnormal tone - Studies Laboratory Data (last 24 hrs) 06/10/24 06/10/24 16:14 16:14 WBC 9.60 Hgb 10.3 L Hct 31.6 L Plt Count 250 Sodium 137 Potassium 4.2 BUN 21 H Creatinine 4.45 H Glucose 165 H Total Bilirubin 0.6 AST 12 L ALT < 14 Alkaline Phosphatase 112 Lipase 26 Assessment And Plan - Current Problems (Diagnosis) (1) Esophageal thickening Current Visit: Yes Status: Acute (2) History of hemorrhagic stroke with residual hemiparesis Current Visit: Yes Status: Acute (3) History of hemorrhagic stroke with residual hemiplegia Current Visit: Yes Status: Chronic (4) Hypertensive urgency Current Visit: Yes Status: Acute (5) Intractable nausea and vomiting Current Visit: Yes Status: Acute (6) COMMERCIAL UNDERWRITER (ventriculoperitoneal) shunt status Current Visit: Yes Status: Chronic (7) ESRD (end stage renal disease) Current Visit: No Status: Chronic - Plan Admit to [facility] [place] End-stage renal disease on hemodialysis Sunday Pulmonary edema with bilateral effusions, Mild cardiomegaly Nephrology to consult Hemodialysis today for fluid volume overload, anasarca Daily weight intractable nausea Esophageal thickening Constipation Fletcher consult PPI, CT of the abdomen, esophageal thickening, moderate stool burden As needed Fleet enema, Dulcolax Lipase normal Metabolic syndrome Blood glucose monitoring, A1c Sliding scale Hypertensive urgency As needed antihypertensive Resume appropriate home meds when reconciled Telemetry EKG 96 beats/min. Rhythm is regular. QRS [place] is Normal. [place] interval is normal. QRS interval is normal. Clinical impression: NSR w/ Non-specific ST/T Changes. Microcytic anemia Trend H&H Transfuse less than 7 COMMERCIAL UNDERWRITER shunt History of hemorrhagic stroke with hemiplegia Remote L5 fracture PT OT consult CT of the head unremarkable and will continue monitoring neurologic status hypothyroidism Resume appropriate home home medications when reconciled Full code DVT hep Diet full liquid diet Disposition, patient was at [facility] doing rehab post CVA Time with patient 35-minute Discharge Plan: Jail - Code Status/Comfort Care Code Status: Full Code Critical Care: No Time Spent Managing PTS Care (In Minutes): 55
[2024-06-11] MEDS: HYDRALAZINE HCL 20 MG/ML VIAL IV ONE (12:35)
[2024-06-11] MEDS ORDERED: FLEET PEDI ENEMA 68 ML BTL PR PRN (12:41)
[2024-06-11] MEDS: BISACODYL E.C. 5 MG TAB PO SCH (12:43)
[2024-06-11 14:10] VITALS: O2SAT 94
[2024-06-11] MEDS: EPOETIN ALFA 10,000 UNIT/ML VIAL IV SCH (17:45)
[2024-06-11] MEDS: NIFEDIPINE XL 60 MG TABLET PO SCH (21:28)
[2024-06-11] MEDS: HYDRALAZINE HCL 25 MG TABLET PO SCH (21:28)
[2024-06-12 06:17] LABS: Absolute Eosinophils 0.1 K/uL (0-0.5); Absolute Monocytes 0.5 K/uL (0.1-1.3); Absolute Neutrophil 4.2 K/uL (1.8-8.0); Basophils % 0.8 % (0-1.3); Eosinophils % 2.1 % (0-4.4); Hematocrit 29.1 % (36.0-45.0); Hemoglobin 9.6 g/dL (12.0-15.0); Lymphocytes % 16.4 % (15.3-44.8); MCH 31.4 pg (27.0-35.0); MCHC 32.8 g/dL (32.0-36.0); MCV 95.8 fL (80-100); MPV 7.1 fL (7.6-11.3); Neutrophils % 71.7 % (41.7-73.7); Nucleated Red Blood Cells % 0.2 % (0-0); Platelets 221 thou/uL (152-406); RBC Red Blood Cell Count 3.04 M/uL (3.86-4.86); Red Cell Distribution Width 16.9 % (12.1-15.2)
[2024-06-12] MEDS: DOCUSATE NA 100 MG CAP PO SCH (08:57)
[2024-06-12] MEDS: CALCITROL 0.25 MCG CAP PO SCH (08:57)
[2024-06-12] MEDS: MULTIVITAMINS,THERAPEUT 1 TAB PO SCH (08:57)
[2024-06-12] MEDS: SEVELAMER CARBONATE 800 MG TABLET PO SCH (08:57)
[2024-06-12] MEDS: NEPRO SHAKE 237 ML CAN PO SCH (08:57)
--- NOTE | 2024-06-12 11:58 | EKG ---
Test Date: 2024-06-10 Test Time: 16:27:01 Exchange Trouble Shooter: OLY MEASUREMENT RESULTS: Intervals: Rate: 96 WA: 206 QRSD: 82 QT: 378 QTc: 477 Lulu: P: 72 WA: 206 QRS: 15 T: 58 INTERPRETIVE STATEMENTS: Normal sinus rhythm Possible Left atrial enlargement Anterior infarct, age undetermined Abnormal ECG Compared to ECG 05/14/2024 14:28:31 First degree AV block no longer present Myocardial infarct finding still present Electronically Signed On 06-12-24 11:55:33 CDT by Toro Soliman
--- NOTE | 2024-06-12 15:08 | P.PN ---
Subjective Date of Service: 06/12/24 Chief Complaint: Abdominal pain with intractable nausea and vomiting Subjective: No chest pain or shortness of breath. No nausea or vomiting today. No abdominal pain. No obvious bleeding. Looks comfortable in the bed. Objective: General appearance: Alert and comfortable CVS: Normal S1 and S2 Lungs: Clear to auscultation bilaterally Abdomen: Soft, bowel sounds present, no tenderness Extremities: No lower extremity edema Physical Examination - Vital Signs Temperature: 97.9 F Blood Pressure: 107/58 Pulse: 70 Respirations: 18 Pulse Ox (%): 97 Assessment And Plan - Plan Assessment And Plan - Current Problems (Diagnosis) (1) Esophageal thickening Current Visit: Yes Status: Acute (2) History of hemorrhagic stroke with residual hemiparesis Current Visit: Yes Status: Acute (3) History of hemorrhagic stroke with residual hemiplegia Current Visit: Yes Status: Chronic (4) Hypertensive urgency Current Visit: Yes Status: Acute (5) Intractable nausea and vomiting Current Visit: Yes Status: Acute (6) CONSULTING PROJECT DIRECTOR (ventriculoperitoneal) shunt status Current Visit: Yes Status: Chronic (7) ESRD (end stage renal disease) Current Visit: No Status: Chronic - Plan Admit to [facility] End-stage renal disease on hemodialysis Sunday Pulmonary edema with bilateral effusions, Mild cardiomegaly Nephrology consulted Hemodialysis as per renal intractable nausea Esophageal thickening Constipation Fletcher consulted but he was off call by that time PPI, CT of the abdomen, esophageal thickening, moderate stool burden symptoms improving Metabolic syndrome Blood glucose monitoring, A1c Sliding scale Hypertensive urgency cont current meds Microcytic anemia Trend H&H Transfuse less than 7 CONSULTING PROJECT DIRECTOR shunt History of hemorrhagic stroke with hemiplegia Remote L5 fracture PT OT consult CT of the head unremarkable and will continue monitoring neurologic status hypothyroidism Resume appropriate home home medications when reconciled 58-year-old patient with intractable nausea, esophageal thickening on CT scan, started on PPI, GI consult not available. CT head negative. CT abdomen showed volume overload, esophageal thickening, rectal thickening, and bladder thickening, need to follow-up with urology as an outpatient as well. Chronic anemia, monitor closely. DC home tomorrow if symptoms continues to improve, if not transferred another hospital where GI consult available.
[2024-06-12] MEDS ORDERED: D10W 125 ML IV PRN (17:12)
[2024-06-12] MEDS ORDERED: GLUCAGON 1 MG/VIAL IM PRN (17:12)
[2024-06-12] MEDS: INSULIN REGULAR (HUMAN) 100 UNIT/ML SQ SCH (20:33)
--- NOTE | 2024-06-12 21:36 | P.PN ---
Date of Service: 06/12/24 Vital Signs Temp Pulse Resp BP Pulse Ox 98.4 F 76 18 128/59 L 97 06/12/24 16:00 06/12/24 20:32 06/12/24 16:00 06/12/24 20:32 06/12/24 16:00 Medications Acetaminophen (Acetaminophen 500 Mg Tab) 500 mg PO Q6H PRN PRN Reason: pain/fever Bisacodyl (Bisacodyl E.C. 5 Mg Tab) 10 mg PO DAILY [facility] Last Admin: 06/12/24 08:57 Dose: 10 mg Calcitriol (Calcitrol 0.25 Mcg Cap) 0.5 mcg PO DAILY [facility] Last Admin: 06/12/24 08:57 Dose: 0.5 mcg Carvedilol (Carvedilol 25 Mg Tab) 25 mg PO BID 6AM 6PM [facility] Last Admin: 06/12/24 18:00 Dose: Not Given Clonidine HCl (Clonidine Hcl 0.1 Mg Tab) 0.1 mg PO BID [facility] Last Admin: 06/12/24 20:32 Dose: 0.1 mg Docusate Sodium (Docusate Na 100 Mg Cap) 100 mg PO BID [facility] Last Admin: 06/12/24 20:31 Dose: 100 mg Enteral Nutritional Formula (Nepro Shake 237 Ml Can) 237 ml PO TID [facility] Last Admin: 06/12/24 20:34 Dose: 237 ml Epoetin Tae (Epoetin Tae 10,000 Unit/Ml Vial) 10,000 unit IV EVERY HD [facility] Last Admin: 06/11/24 17:45 Dose: 10,000 unit Fentanyl Citrate (Fentanyl Citr 100 Mcg/2 Ml) 12.5 mcg IV Q8HP PRN PRN Reason: Pain scale 8-10 (Severe) Glucagon (Glucagon 1 Mg/Vial) 1 mg IM 1X PRN PRN Reason: HYPOGLYCEMIA Heparin Sodium (Porcine) (Heparin 1,000 Unit/Ml Vial) 3,000 unit IV EVERY HD PRN PRN Reason: Prevent HD System Clotting Last Admin: 06/11/24 14:57 Dose: 3,000 unit Hydralazine HCl (Hydralazine Hcl 20 Mg/Ml Vial) 10 mg IV Q4HP PRN PRN Reason: FOR SBP>160 OR DBP>100 [facility] Last Admin: 06/11/24 18:45 Dose: 10 mg Hydralazine HCl (Hydralazine Hcl 25 Mg Tablet) 50 mg PO TID [facility] Last Admin: 06/12/24 20:33 Dose: 50 mg Albumin Human (Albumin 25%) 50 mls @ 100 mls/hr IV EVERY HD [facility] Dextrose (Dextrose 10% Water Iv Soln.) 125 mls @ 0 mls/hr IV PRN PRN; Protocol PRN Reason: HYPOGLYCEMIA Insulin Human Regular (Insulin Regular (Human) 100 Unit/Ml) 0 unit SQ ACHS [facility]; Protocol Last Admin: 06/12/24 20:33 Dose: 4 unit Lorazepam (Lorazepam 2 Mg/Ml Vial) 0.5 mg IV Q12HP PRN PRN Reason: nausea/vomiting/delirium Last Admin: 06/11/24 02:22 Dose: 0.5 mg Losartan Potassium (Losartan Potassium 50 Mg Tablet) 50 mg PO BID [facility] Last Admin: 06/12/24 20:32 Dose: 50 mg Mannitol (Mannitol 25% 12.5 Gm/50 Ml Vial) 12.5 gm IV EVERY HD PRN PRN Reason: Titrate to SBP (MUST DEFINE) Nifedipine (Nifedipine Xl 60 Mg Tablet) 60 mg PO BID [facility] Last Admin: 06/12/24 20:32 Dose: 60 mg Ondansetron HCl (Ondansetron 4 Mg/2 Ml Vial) 4 mg IV Q8H PRN PRN Reason: NAUSEA / VOMITING Last Admin: 06/11/24 06:33 Dose: 4 mg Pantoprazole Sodium (Pantoprazole 40 Mg Inj) 40 mg IVP DAILY [facility]; Protocol Last Admin: 06/12/24 08:57 Dose: 40 mg Sevelamer Carbonate (Sevelamer Carbonate 800 Mg Tablet) 800 mg PO TIDWM [facility] Last Admin: 06/12/24 18:05 Dose: 800 mg Sodium Biphosphate/Sodium Phosphate (Fleet Pedi Enema 68 Ml Btl) 68 ml TN 1X PRN PRN Reason: CONSTIPATION Sodium Chloride (Sodium Chloride 0.9% 10ml Inj) 10 ml IV UD PRN PRN Reason: Diluant Vitamin B Complex/Vit C/Folic Acid (Multivitamins,Therapeut 1 Tab) 1 tab PO DAILY [facility] Last Admin: 06/12/24 08:57 Dose: 1 tab Assessment/ Plan: Nephrology No dyspnea No chest pain Feeling better No acute events overnight Vitals, medications, blood work and imaging reviewed in the chart General: Oriented x3, Cooperative, No distress HEENT: Atraumatic Neck: Supple Respiratory: Normal resp effort Cardiovascular: Regular rate/rhythm, Edema Gastrointestinal: Soft and benign, Non-distended Musculoskeletal: No clubbing, No contractures Integumentary: No rashes, No cyanosis Neurological: Normal speech Laboratory Data (last 24 hrs) 06/10/24 06/10/24 16:14 16:14 WBC 9.60 Hgb 10.3 L Hct 31.6 L Plt Count 250 Sodium 137 Potassium 4.2 BUN 21 H Creatinine 4.45 H Glucose 165 H Total Bilirubin 0.6 AST 12 L ALT < 14 Alkaline Phosphatase 112 Lipase 26 Imagings Data: EXAMINATION: Abdomen Pelvis W Contrast CLINICAL INDICATION: Female, 58 years old.NAUSEA / VOMITING TECHNIQUE: CT abdomen and pelvis was performed, after the administration of IV contrast, as per department protocol. Axial, sagittal and coronal reconstructions were obtained. One or more of the following dose reduction techniques were used: Automated exposure control, adjustment of the mA and/or kV according to patient size, and/or iterative reconstruction. Unless otherwise specified, incidental findings do not require dedicated imaging follow-up. [id number]. COMPARISON: 05/04/2024, 05/14/2024 FINDINGS: LOWER CHEST: Pulmonary edema present with small bilateral effusions.Mild cardiomegaly. Mild coronary artery calcifications.Moderate circumferential thickening of the distal esophagus which could reflect esophagitis. Endoscopy could better evaluate. UPPER GI: No significant abnormality. LIVER: No significant focal abnormality. GALLBLADDER/BILE DUCTS: No biliary ductal dilatation.? PANCREAS: No mass, ductal dilation, or lyndsay-pancreatic fluid. SPLEEN: Remote splenic infarct. ADRENALS: No adrenal masses. KIDNEYS AND URETERS: No hydronephrosis.No suspicious renal mass.Nonobstructing renal calculi. ABDOMINAL AORTA AND OTHER VESSELS: Severe atherosclerotic changes. No aortic aneurysm. PERITONEUM: Small volume of free fluid in the pelvis. Similar perirectal edema. The patient tubing terminates in the left para colic gutter. LYMPH NODES: No pathologic lymphadenopathy. ABDOMINAL WALL: Body wall edema SMALL BOWEL/COLON: Rectal wall thickening is again noted. Moderate formed stool burden. URINARY BLADDER: Nonspecific circumferential bladder wall thickening. REPRODUCTIVE ORGANS: No pathologic process. MUSCULOSKELETAL: Remote L5 compression fracture. ADDITIONAL FINDINGS: None. IMPRESSION: No significant change compared with 05/14/2024. Anasarca including pulmonary edema, small pleural effusions, and body wall edema . Similar rectal wall thickening which may indicate proctitis. EXAMINATION: Head Brain Wo Cont CLINICAL INDICATION: Female, 58 years old.AMS TECHNIQUE: Axial CT images from the skull base to the vertex without intravenous contrast. Coronal and sagittal reformatted images were created from the data set. One or more of the following dose reduction techniques were used: Automated exposure control, adjustment of the mA and/or kV according to patient size, and/or iterative reconstruction. Unless otherwise specified, incidental findings do not require dedicated imaging follow-up. [id number]. COMPARISON: 05/14/2024 FINDINGS: INTRACRANIAL: No acute intracranial hemorrhage. Similar ventriculomegaly. No mass effect or midline shift. Subacute bilateral occipital lobe cortical infarcts. Previously noted subarachnoid/petechial hemorrhage is no longer seen..Mild cerebral atrophy. VASCULATURE: No visualized abnormalities in the arteries or dural venous sinuses. SCALP/SKULL: No calvarial fracture identified. No acute soft tissue abnormality. Right frontal approach ventriculostomy which terminates near midline and is similar. SINUSES: The visualized paranasal sinuses are mostly clear. No significant mastoid fluid. IMPRESSION: No acute intracranial abnormality. No significant change from prior. Conclusions/Impression: ESRD on HD Pulmonary Edema/ Anasarca -Next HD tomorrow with ultrafiltration Malignant HTN with CKD -Continue Coreg -Continue Hydralazine -Continue Nifedipine -Continue Losartan -Continue Clonidine DM II with CKD -RISS prn Hypoalbuminemia -Continue Nepro Anemia in CKD -Retacrit qHD CKD MBD Secondary HyperParathyroidism -Continue Calcitriol -Continue Renvela Case reviewed with Dr. Cuevas
[2024-06-13 02:02] VITALS: BMI 26.9
[2024-06-13 06:16] LABS: Absolute Basophils 0.1 K/uL (0-0.5); Absolute Eosinophils 0.3 K/uL (0-0.5); Absolute Lymphocytes (CBC) 1.2 K/uL (0.7-4.9); Absolute Monocytes 0.6 K/uL (0.1-1.3); Eosinophils % 3.3 % (0-4.4); Hematocrit 29.4 % (36.0-45.0); Hemoglobin 9.7 g/dL (12.0-15.0); Lymphocytes % 14.3 % (15.3-44.8); MCH 31.4 pg (27.0-35.0); MCHC 32.8 g/dL (32.0-36.0); MCV 95.5 fL (80-100); MPV 7.5 fL (7.6-11.3); Monocytes % 7.8 % (3.3-12.3); Neutrophils % 73.6 % (41.7-73.7); Platelets 238 thou/uL (152-406); RBC Red Blood Cell Count 3.08 M/uL (3.86-4.86); Red Cell Distribution Width 16.8 % (12.1-15.2)
[2024-06-13 06:34] LABS: Anion Gap 12.4 mEq/L (5.0-15.0); Magnesium 1.9 mg/dL (1.6-2.4); Phosphorus 2.3 mg/dL (2.5-4.9); Potassium 4.4 mEq/L (3.5-5.1)
--- NOTE | 2024-06-13 11:55 | P.PN ---
Nephrology note (S) Doing better, denies CP, dyspnea, abd pain or N/V/D (O) vitals reviewed in the EMR General: Extubated, NAD HEENT: Atraumatic, Normocephalic, not on O2 Neck: Supple Respiratory: b/l vent BS, no rhonchi anteriorly Cardiovascular: Regular rate/rhythm, Other (valve click) Gastrointestinal: Soft and benign, Non-distended Musculoskeletal: No swelling, No contractures, No tenderness, Other (Lt UE AVF with thrill and bruit) Integumentary: No rashes Neurological: Awake, alert, conversive, left sided weakness, LE > UE Laboratory Data (last 24 hrs) Reviewed in the EMR Conclusions/Impression: A/P) 1. ESRD 2nd to chronic DM/HTN, HD today per OP schedule, see orders for details 2. Chronic malignant HTN with CKD. Cont BP regimen 3. Hydrocephalus -s/p SORORITY MOTHER shunt with prior complication, management per Neurology. Unclear etiology and results of any prior vasculitis, other w/u. Seizures, unspecified. AED management per Neuro 4. Prior sub-acute CVA of multiple territories, ischemic +/- cerebral vasospasm with mention of some hemorrhagic component/conversion a few mo ago. Monitor BP closely, secondary prevention. Defer anti platelet therapy/other management to them. 5. Anemia 2nd to CKD, inflammation, Hb has cyclically dropped every few mo for unclear reasons, monitor closely 6. Nausea, vomiting unspecified -unclear if med related. Phos < 2.5, suspend binders, recently stopped at [facility] Jeremy Davis MD, [employer]
[2024-06-13 14:21] VITALS: BP 132/61; TEMP 97.9
[2024-06-13] MEDS: LOPERAMIDE HCL 2 MG CAPSULE PO STA (14:59)
--- NOTE | 2024-06-13 15:05 | P.DS ---
Admission Date: 06/10/24 Discharge Date: 06/13/24 Disposition: ROUTINE DISCHARGE Discharge Condition: FAIR Reason for Admission: Abdominal pain with intractable nausea and vomiting - Problems (1) Intractable nausea and vomiting Current Visit: Yes Status: Acute Brief History of Present Illness: Patient is a 58-year-old female with history of ESRD who comes into the hospital with intractable nausea and vomiting. Patient has been at formerly [facility] since she recovered from a hemorrhagic stroke around November 2023. She required a ventriculoperitoneal shunt, and she did rehab for a prolonged period but unfortunately she was not really able to start walking. She gets transferred from bed to a chair. She has had issues with nausea and vomiting but she has been doing well for the last few weeks until this morning when she had persistent nausea and vomiting. Patient was brought into the emergency room, and patient had CT imaging of the head as well as the abdomen and pelvis which did not reveal any significant pathology except for some esophageal thickening. Patient was given antiemetics but patient was persistently vomiting. Patient was given Phenergan as well as Reglan and Zofran. Patient's nausea and vomiting is much better. At this time, patient will be admitted to the hospital for observation. GI will be consulted for the esophageal thickening for possible esophageal stricture. Will also consult nephrology for hemodialysis. Hospital Course: 58-year-old patient with intractable nausea, esophageal thickening on CT scan, started on PPI, CT head negative. CT abdomen showed volume overload, esophageal thickening, rectal thickening, and bladder thickening, outpatient End-stage renal disease on hemodialysis Sunday Pulmonary edema with bilateral effusions, Mild cardiomegaly Nephrology was consulted Hemodialysis as per renal intractable nausea Esophageal thickening Constipation outpatient GI consult PPI CT of the abdomen, esophageal thickening, moderate stool burden Metabolic syndrome Blood glucose monitoring Sliding scale Hypertensive urgency cont current meds Microcytic anemia Trended [employer]GR[employer] shunt History of hemorrhagic stroke with hemiplegia Remote L5 fracture PT OT consulted CT of the head unremarkable and will continue monitoring neurologic status hypothyroidism Resumed appropriate home home medications Vital Signs/Physical Exam: Temp Pulse Resp BP Pulse Ox 97.9 F 77 18 132/61 99 06/13/24 12:06/13/24 12:06/13/24 12:00 06/13/24 12:06/13/24 12:00 General: Alert, Oriented x3 Respiratory: Clear to auscultation bilaterally, Normal air movement Cardiovascular: No edema Gastrointestinal: Soft and benign, Non-distended Musculoskeletal: No clubbing Integumentary: No rashes Laboratory Data at Discharge: WBC 8.10 thou/uL (4.3-10.9) 06/13/24 05:51 Hgb 9.7 g/dL (12.0-15.0) L 06/13/24 05:51 Hct 29.4 % (36.0-45.0) L 06/13/24 05:51 Plt Count 238 thou/uL (152-406) 06/13/24 05:51 PT 14.5 SECONDS (10-13.0) H 06/11/24 05:24 INR 1.29 06/11/24 05:24 APTT 34.0 SECONDS (27.2-37.4) 06/11/24 05:24 Sodium 134 mEq/L (136-145) L 06/13/24 05:51 Potassium 4.4 mEq/L (3.5-5.1) 06/13/24 05:51 BUN 28 mg/dL (7-18) H 06/13/24 05:51 Creatinine 5.23 mg/dL (0.55-1.02) H 06/13/24 05:51 Glucose 168 mg/dL (74-106) H 06/13/24 05:51 Phosphorus 2.3 mg/dL (2.5-4.9) L 06/13/24 05:51 Magnesium 1.9 mg/dL (1.6-2.4) 06/13/24 05:51 Total Bilirubin 0.5 mg/dL (0.2-1.0) 06/11/24 05:24 AST 19 U/L (15-37) 06/11/24 05:24 ALT < 14 U/L (13-56) 06/11/24 05:24 Alkaline Phosphatase 94 U/L (45-117) 06/11/24 05:24 Lipase 26 U/L (13-75) 06/10/24 16:14 Home Medications: Aspirin Chewable [Aspirin Chewable*] 81 mg PO DAILY tab.chew 02/28/24 Atorvastatin Calcium [Lipitor] 80 mg PO BEDTIME tab 02/28/24 Bumetanide [Bumex*] 1 mg PO DAILY tab 02/28/24 Cinacalcet HCl [Sensipar*] 30 mg PO LUNCH tab 02/28/24 Docusate [Colace Cap*] 100 mg PO DAILY PRN cap 02/28/24 Famotidine [Pepcid*] 40 mg PO DAILY tab 02/28/24 Hydralazine [Apresoline*] 50 mg PO TID tab 02/28/24 Loperamide [Imodium*] 2 mg PO Q4H PRN cap 02/28/24 Losartan Potassium [Cozaar*] 50 mg PO BID 02/28/24 Melatonin [Melatonin*] 3 mg PO BEDTIME PRN PRN 02/28/24 Mupirocin Oint [Bactroban 2% Ointment*] 1 appl TOP BID tube 02/28/24 Nifedipine Xl [Procardia Xl*] 30 mg PO BID tab 02/28/24 carvediloL [Coreg*] 25 mg PO BID 6AM 6PM tab 02/28/24 cloNIDine HCL [Catapres*] 0.1 mg PO BID tab 03/05/24 Acetaminophen [Tylenol] 650 mg PO Q6HR PRN MDD 3G 03/12/24 Insulin Degludec [Tresiba Flextouch U-100] 10 unit SQ BEDTIME 03/12/24 Nifedipine Xl [Procardia Xl*] 60 mg PO BID 03/12/24 Sevelamer Carbonate [Renvela*] 800 mg PO SEECOM 03/12/24 Ondansetron [Zofran (Odt)*] 4 mg PO Q4H PRN #30 tab 06/13/24 New Medications: Ondansetron [Zofran (Odt)*] 4 mg PO Q4H PRN #30 tab PRN Reason: Nausea / Vomiting Diet: Renal Followup: Monse Echeverria MD [Primary Care Provider] - 1-2 Weeks
[2024-06-13] MEDS: POTASS/SODIUM PHOSPHATE 1 PKT POWD.PACK PO ONE (16:00)
== END 2024-06-13 19:57 | DRG 391 ==
LOC: ER 15:59 → ERHOLD 20:06 → 2ND 06-11 14:26
PROVIDERS: ADMIT Hospitalist; ATTEND Internal Medicine
PROC: 5A1D70Z Performance of Urinary Filtration, Intermittent, Less than 6 Hours Per Day (ICD-10-PCS; principal; 2024-06-11)
DX: K22.89 Other specified disease of esophagus (principal); N18.6 End stage renal disease; N25.81 Secondary hyperparathyroidism of renal origin; J81.1 Chronic pulmonary edema; I12.0 Hypertensive chronic kidney disease with stage 5 chronic kidney disease or end stage renal disease; E11.22 Type 2 diabetes mellitus with diabetic chronic kidney disease; D63.1 Anemia in chronic kidney disease; E88.810 Metabolic syndrome; I16.0 Hypertensive urgency; I51.7 Cardiomegaly; K59.00 Constipation, unspecified; E87.70 Fluid overload, unspecified; E03.9 Hypothyroidism, unspecified; E78.5 Hyperlipidemia, unspecified; E88.09 Other disorders of plasma-protein metabolism, not elsewhere classified; Z99.2 Dependence on renal dialysis; Z79.82 Long term (current) use of aspirin; Z79.02 Long term (current) use of antithrombotics/antiplatelets; Z86.73 Personal history of transient ischemic attack (TIA), and cerebral infarction without residual deficits; Z79.899 Other long term (current) drug therapy; Z87.891 Personal history of nicotine dependence; Z91.158 Patient's noncompliance with renal dialysis for other reason
CPT/HCPCS: 36415; 70450; 74177; 80048; 80053; 82947; 83036; 83690; 83735; 84100; 84484; 85025; 85610; 85730; 90935; 93005; 96374; 96375; 97110; 97161; 97530; 99285; J0360; J1644; J1815; J1938; J2405; J2470; J2550; J2765; Q4081; Q9967